=== PATIENT | female | born 1940 | race Caucasian/White ===

== ENCOUNTER → 2016-06-06 | Outpatient (CLI) | payer MEDICARE, OTHER ==
[~2016-06-06] MED LIST: ALPR0.5T3 PO; APIX2.5T PO; DICL1GEL TOPICAL; ESTR1MIS IVF; HYDR-3583 PO; HYDR5TAB64 PO; LEVO.075 PO; MACR100C2 PO; MOBI7.5T PO; NEBI20 PO; RANI150T PO; SERT-132 PO; TRAM50TA PO; ZANA4CAP PO; ZOCO20TA PO
[2016-06-06 16:32] LABS: BACTERIA, URINE OCC /hpf; BLOOD, URINE SMALL (NEG); COMMENT (UR) CULTURE INDICATED; CULTURE IF INDICATED CULTURE INDICATED; GLUCOSE,URINE NEG (NEG); KETONE, URINE NEG (NEG); MUCUS URINE FEW /lpf (OCC); NITRITE,URINE NEG (NEG); SQUAMOUS EPITHELIAL CELL URINE 1 /hpf (0-5); URINE COLOR YELLOW (YELLW/STRAW)
== END ==
LOC: CPRE 14:14
PROVIDERS: ATTEND Neurological Surgery
DX: Z01.812 Encounter for preprocedural laboratory examination (principal); N39.0 Urinary tract infection, site not specified; B96.5 Pseudomonas (aeruginosa) (mallei) (pseudomallei) as the cause of diseases classified elsewhere; B96.89 Other specified bacterial agents as the cause of diseases classified elsewhere
CPT/HCPCS: 81001; 87077; 87086; 87186

== ENCOUNTER 2016-06-14 05:48 | Observation (INO) | payer MEDICARE, OTHER ==
[~2016-06-14] VITALS: Ht 162.6 cm; Wt 57.2 kg
[~2016-06-14 05:48] MED LIST changes: -HYDR-3583 PO; -ZANA4CAP PO
[2016-06-14] MEDS ORDERED: INSULIN HUMAN REGULAR 1,000 UNITS/10 ML VIAL SQ PRN (06:30)
[2016-06-14] MEDS ORDERED: METOPROLOL TARTRATE 25 MG TAB PO PRN (06:30)
[2016-06-14] MEDS ORDERED: SODIUM CHLORID 0.9% 500 ML IV SCH (06:30)
[2016-06-14 06:46] VITALS: BP 159/79; PULSE 65; RESP 18; TEMP 97.9; O2SAT 100
[2016-06-14] MEDS: LACTATED RINGER'S 1000 ML IV SCH (07:00)
[2016-06-14] MEDS ORDERED: VANCOMYCIN HCL 1000 MG VIAL ONE (07:21)
[2016-06-14] MEDS ORDERED: MICROFIBRILLAR COLLAGEN HEMOSTAT 70 X 35 MM BANDAGE ONE (07:21)
[2016-06-14] MEDS ORDERED: GELFOAM SIZE 100 ONE (07:22)
[2016-06-14] MEDS ORDERED: ceFAZolin 2 GM PREMIX 50 ML ONE (07:22)
[2016-06-14] MEDS ORDERED: THROMBIN (TOPICAL) 5,000 UNIT VIAL ONE (07:22)
[2016-06-14] MEDS ORDERED: GENTAMICIN SULFATE 80 MG/2 ML VIAL ONE (07:22)
[2016-06-14] MEDS ORDERED: SODIUM CHLOR 0.9% 250 ML INJ 250 ML ONE (07:23)
[2016-06-14] MEDS ORDERED: HYDROCORTISONE SOD SUCCINATE 100 MG VIAL ONE (07:52)
[2016-06-14] MEDS ORDERED: FAMOTIDINE 20 MG/2 ML VIAL ONE (08:26)
[2016-06-14] MEDS ORDERED: ACETAMINOPHEN 1000 MG/100 ML VIAL IV ONE (10:10)
[2016-06-14] MEDS ORDERED: ACETAMINOPHEN 325 MG TAB PO PRN (11:30)
[2016-06-14] MEDS ORDERED: traMADol HCL 50 MG TAB PO PRN (11:30)
[2016-06-14] MEDS ORDERED: MORPHINE SULFATE 4 MG/ML INJ IV PUSH PRN ×2 (11:30)
[2016-06-14] MEDS ORDERED: MENTHOL LOZENGE SUCK-ON PRN (11:30)
[2016-06-14] MEDS ORDERED: ACETAMINOPHEN/HYDROcodone 325 MG/10 MG TAB PO PRN (11:30)
[2016-06-14] MEDS ORDERED: ESTRADIOL IVF SCH (11:30)
[2016-06-14] MEDS ORDERED: ONDANSETRON HCL 4 MG/2 ML VIAL IV PRN (11:30)
[2016-06-14] MEDS ORDERED: BISACODYL 10 MG SUPP PR PRN (11:30)
[2016-06-14] MEDS ORDERED: ALPRAZolam 0.5 MG TAB PO PRN (11:30)
[2016-06-14] MEDS ORDERED: CYCLOBENZAPRINE HCL 10 MG TAB PO PRN (11:30)
[2016-06-14] MEDS ORDERED: SODIUM CHLORIDE 0.9% FLUSH 5 ML FLUSH IVF PRN (11:30)
[2016-06-14] MEDS ORDERED: DO NOT ADM ANY ANTICOAGULANT DRUGS XX PRN (11:53)
[2016-06-14] MEDS ORDERED: ONDANSETRON HCL 4 MG/2 ML VIAL IV PUSH ONE ×2 (12:00)
[2016-06-14] MEDS ORDERED: LACTATED RINGER'S 1000 ML INJ 2,000 ML IV ONE ×2 (12:00)
[2016-06-14] MEDS ORDERED: PROPOFOL 200 MG/20 ML AMP IV ONE ×2 (12:00)
[2016-06-14] MEDS ORDERED: NEOSTIGMINE 3 MG/3 ML SYR IV ONE ×2 (12:00)
[2016-06-14] MEDS ORDERED: MIDAZOLAM HCL 2 MG/2 ML VIAL ONE (12:36)
[2016-06-14] MEDS ORDERED: fentaNYL CITRATE 250 MCG/5 ML AMP ONE (12:36)
[2016-06-14] MEDS: NS + KCL 20 MEQ INJ 1,000 ML IV SCH (13:00)
--- NOTE | 2016-06-14 13:01 | RADRPT ---
EXAM DATE/TIME: 06/14/2016 09:21 [place] COMPARISON: No previous studies available for comparison. INDICATIONS: C4-5, C5-6 Anterior cervical disc fusion. MEDICAL HISTORY: Hypertension. Gastroesophageal reflux disease. SURGICAL HISTORY: None. ENCOUNTER: Initial ACUITY: 1 day PAIN SCORE: Non-responsive. LOCATION: Cervical spine. FINDINGS: Anterior cervical fusion hardware is noted at C4 through C6 and is in good position. CONCLUSION: 1. Status post anterior cervical fusion from C4 through C6. Martínez Dahl MD on June 14, 2016 at 12:29 Board Certified Radiologist. This report was verified electronically.
[2016-06-14] MEDS ORDERED: *morphine SULFATE 8 MG/ML PERIprocedure ONLY ONE ×2 (13:09→13:23)
[2016-06-14] MEDS: DEXAMETHASONE SOD PHOS 4 MG/ML VIAL IV SCH ×2 (13:29→20:51)
[2016-06-14] MEDS: ceFAZolin 2 GM PREMIX 50 ML IV SCH ×2 (13:30→20:51)
[2016-06-14 14:30] VITALS: BP 139/70; PULSE 62; RESP 18; TEMP 97.5; O2SAT 96
[2016-06-14] MEDS ORDERED: ERYTHROMYCIN 0.5% OPTH OINT 1 GM TUBO ONE ×2 (15:44→16:00)
--- NOTE | 2016-06-14 15:50 | HHI.DCPOC ---
Discharge Care Plan Diagnosis: (1) Status post cervical arthrodesis Goals to Promote Your Health * To prevent worsening of your condition and complications * To maintain your health at the optimal level Directions to Meet Your Goals Take your medications as prescribed Follow your dietary instruction Follow activity as directed Keep your appointments as scheduled Take your immunizations and boosters as scheduled If your symptoms worsen call your PCP, if no PCP go to Urgent Care Center or Emergency Room Smoking is Dangerous to Your Health. Avoid second hand smoke Call the 24-hour hour crisis hotline for domestic abuse at Valarie Zarate Jun 14, 2016 15:50
[2016-06-14] MEDS ORDERED: TETRACAINE 0.5% OPTH SOLN 15 ML BTL LEFT EYE ONE (16:00)
[2016-06-14] MEDS ORDERED: ERYTHROMYCIN 0.5% OPTH OINT 3.5 GM TUBO ONE ×3 (16:00→22:15)
[2016-06-14 20:00] VITALS: BP 152/65; PULSE 66; RESP 18; TEMP 99.2; O2SAT 100
[2016-06-14] MEDS ORDERED: HYDR-3583 PO (20:31)
[2016-06-14] MEDS: FAMOTIDINE 20 MG TAB PO SCH (20:52)
[2016-06-14] MEDS: SODIUM CHLORIDE 0.9% FLUSH 5 ML FLUSH IVF SCH (20:54)
[2016-06-14] MEDS: ARTIFICIAL TEARS OPTH SOLN 15 ML BTL LEFT EYE SCH (20:54)
[2016-06-14] MEDS: DOCUSATE SODIUM 100 MG CAP PO SCH (20:55)
[2016-06-15] VITALS: BP 159/71; PULSE 66; RESP 18; TEMP 97.4; O2SAT 95
[2016-06-15] MEDS: NS + KCL 20 MEQ INJ 1,000 ML IV SCH (01:46)
[2016-06-15] MEDS: DEXAMETHASONE SOD PHOS 4 MG/ML VIAL IV SCH ×2 (02:50→08:00)
[2016-06-15] MEDS: ACETAMINOPHEN/HYDROcodone 325 MG/10 MG TAB PO PRN ×2 (02:52→09:02)
[2016-06-15 04:00] VITALS: BP 137/67; PULSE 72; RESP 18; TEMP 98.5; O2SAT 95
[2016-06-15] MEDS: ceFAZolin 2 GM PREMIX 50 ML IV SCH (05:54)
[2016-06-15] MEDS ORDERED: LEVOTHYROXINE SODIUM 75 MCG TAB PO SCH (06:00)
[2016-06-15] MEDS: LACTATED RINGER'S 1000 ML IV SCH (06:30)
[2016-06-15 08:00] VITALS: BP 166/70; PULSE 96; RESP 16; TEMP 98.6; O2SAT 97
[2016-06-15] MEDS ORDERED: SERTRALINE HCL 50 MG TAB PO SCH (09:00)
[2016-06-15] MEDS ORDERED: PANTOPRAZOLE SOD 40 MG DELAYED RELEASE TAB PO SCH (09:00)
[2016-06-15] MEDS: SODIUM CHLORIDE 0.9% FLUSH 5 ML FLUSH IVF SCH (09:00)
[2016-06-15] MEDS ORDERED: NEBIVOLOL 10 MG TAB PO SCH (09:00)
[2016-06-15] MEDS ORDERED: APIXABAN 2.5 MG TABLET PO SCH (09:00)
[2016-06-15] MEDS: ARTIFICIAL TEARS OPTH SOLN 15 ML BTL LEFT EYE SCH (09:00)
[2016-06-15] MEDS ORDERED: PRAVASTATIN SOD 40 MG TAB PO SCH (09:00)
[2016-06-15] MEDS ORDERED: MELOXICAM 7.5 MG TAB PO SCH (09:00)
[2016-06-15] MEDS: FAMOTIDINE 20 MG TAB PO SCH (09:04)
[2016-06-15] MEDS: DOCUSATE SODIUM 100 MG CAP PO SCH (09:04)
--- NOTE | 2016-06-15 09:14 | HHI.NSPN ---
History Chief Complaint: Mild incisional pain. Interval History 06/15/16: Pt underwent a C4/C5 and C5/C6 anterior cervical fusion with interbody cages and plate placement. She has mild incisional pain. No radiculopathy in UEs. She states her LUE toes numb when laying on her back and is stable compared to preop. She denies any eye pain, blurred or double vision , or parts of her vision missing. She had an eye patch placed for 24 hours. Review of Systems General: Negative for: fever, chills, insomnia Respiratory: Negative for: shortness of breath, cough, sputum Cardiovascular: Negative for: chest pain Gastrointestinal: Negative for: nausea, vomitting, diarrhea, constipation Exam Results Vital Signs Date Time Temp Pulse Resp B/P Pulse Ox O2 Delivery O2 Flow Rate FiO2 06/15/16 04:00 98.5 72 18 137/67 95 06/14/16 14:00 Room Air 06/14/16 11:52 2 Intake and Output 06/14/16 06/14/16 06/15/16 08:00 16:00 00:00 Intake Total 2440 ml 240 ml Output Total 2600 ml Balance -160 ml 240 ml Physical Examination Resp: CTA bilaterally Heart: NSR no murmurs Abd: Soft positive bs Skin: Incision clean and dry. Part of the glue is coming off the medial half of the incision. This was reinforced with steristips. The incision remained intact without any openings. A new bandage was placed. Muscle: Moves all 4 extremities well. Ambulates to the bathroom. Cervical collar intact. Neuro: Pt awake and alert. Follows commands well. Speech clear mild voice hoarseness. Lab, Micro, Other Results 06/14/16 06/14/16 06/15/16 15:00 23:00 07:00 Intake Total 2200 ml 480 ml 105 ml Output Total 2600 ml Balance -400 ml 480 ml 105 ml Intake Oral 480 ml 50 ml IV Total 55 ml Other 2200 ml Output Urine Total 1000 ml Estimated Blood Loss 100 ml Other 1500 ml # Voids 3 1 # Bowel Movements 0 0 Medical Decision Making Impression and Plan A: 76 y/o FM s/p C4/C5 and C5/C6 ACF with cages and plate placement. P: Discharge pt home. Keep incision clean and dry. Follow up next week for incision check with Dr. Henry' office. Discussed incision care, cervical collar use She will follow up with Ophthalmology also for possible abrasion to left eye although not symptomatic currently. Bharat Hernandez Jun 15, 2016 09:14
[2016-06-15] MEDS ORDERED: PILL SPLITTER OTHER PRN (10:00)
[2016-06-15 10:02] VITALS: RESP 18
[2016-06-15 10:18] VITALS: O2SAT 95
--- NOTE | 2016-06-15 11:33 | PD.OP ---
Operative Report Date of Surgery: Jun 14, 2016 Preoperative Diagnosis: Cervical spondylosis and spinal stenosis Postoperative Diagnosis: Cervical spondylosis and spinal stenosis Procedure: C4-5, C5-6 anterior cervical discectomy, interbody arthrodesis using peek cage filled with autologous bone graft, C4-5 C5-6 instrumented fixation using simplicity plate and screws Anesthesia: general Surgeon: Jluis Henry State Archivist(s): Tabitha Lao Operation and Findings: INDICATIONS FOR THE PROCEDURE Ms Whalen is a 76 year-old female who presented with intractable neck pain and clinical evidence of upper extremity radiculopathy. She was found to have significant spondylosis with stenosis. She has failed maximum nonsurgical management including multiple modalities of conservative treatment as well as pain management interventions by an interventional pain specialist. A surgical decompression and arthrodhesis were indicated. The [id number] details of the procedure, indications, alternatives, risks and potential complications were fully discussed with the patient. She fully understood. All The questions were answered. No guarantees were given. The patient voiced requesting the procedure and provided informed consents. She was offered the alternative of delaying the procedure and continuing with nonsurgical management. DETAILS OF THE SURGICAL PROCEDURE After the induction of general anesthesia, endotracheal intubation was performed. A Bales catheter, bilateral GERALDINE hose, and sequential compression devices were placed and kept throughout the procedure. Placement of electrodes for neurophysiological monitoring of the somatosensorial evoked potentials. motor evoked potentials, and EMG as well as laryngeal nerve monitoring was achieved. The patient was positioned supine on a Fabiano table with the head over a gel doughnut. All pressure points were carefully padded with eggcrate mattress. The eyes were tapped shut after ointment was applied by the anesthesiologist to prevent corneal abrasion. A Ghislaine hugger was placed over the exposed lower body to maintain control of the core body temperature. The electrophysiological team placed the needles and electrodes in their proper location and baseline SSEP's and motor evoked potentials were registered prior and after positioning and endotracheal intubation. The anterior cervical region was prepped and draped in the usual sterile fashion. A localizing x-ray was performed with a C-arm. The surgical procedure was performed in several steps as follow: SURGICAL APPROACH A skin incision was made along the medial cervical crease with a #10 blade. The dissection was carried out through the platysma exposing the sternocleidomastoid muscle. The cervical spine was approached following the fascial layers of the neck just medial to the anterior border of the sternocleidomastoid and carotid sheath by a combination of sharp and dull dissection. The omohyoid muscle was identified and carefully dissected laterally and the deep cervical fascia was carefully opened. The longus colli muscles were retracted to each side of the midline. A marker was placed at the disc space C5-6 and a cross-table lateral x-ray performed with a C-arm. SURGICAL DECOMPRESSION In order to decompress the anterior surface of the spinal cord it was necessary to preform a microsurgical resection of the disk at C4-5 and C5-6. At this point in the procedure the operating microscope was draped in the usual sterile fashion and brought to the field. The rest of the surgical procedure was performed using microdissection technique with the exception of the closure. Under the operative microscopic, a self-retaining retractor was placed underneath the longus colli muscle. Anterior osteophite spurs werte carefully removed with the Leksell. The annulus at C4-5 and C5-6 were incised with a #15 blade and microdiscectomy was then carefully carried out using angled curets and pituitary forceps. There were osteophitic/disk complexes mass effect and compression of the dural sac and nerve roots. The posterior longitudinal ligament was then elevated with an angled curet and incised with a 15 bladed knife. A careful resection of the posterior longitudinal ligament was carried out using a thin footplate 2 mm Kerrison. A nerve hook was used to assess the epidural space behing the vertebral bodies C5 and C6 in search for residual disk fragments. The margins of the posterior endplates at C4-5 and C5-6 were carefully drilled and undercut with a TPS drill under high magnification. The decompression was then carried out laterally, and a bilateral foraminotomy was performed with a 2mm thin foot Kerrison. Then the vertebral bodies above and below the disk space were undercut using a 2 mm thin foot Kerrison. The epidural space was the systematically assessed with a nerve hook in search for disk fragments or scar tissue. An excellent decompression was achieved in both , the dural sac and bilateral exiting nerve roots. The incision was then irrigated with a large amount of antibiotic solution INTERBODY ARTHRODHESIS In order to avoid collapse of the disk space which would result in bilateral foraminal stenosis, and to increase the chances of a successful fusion, it was necessary to place an interbody cage filled with autologous bone. At this point of the procedure, the superior and inferior endplates were then evenly decorticated with a TPS drill. The use of a drill in combination with a curette allowed me to systematically remove the cartilaginous endplates, exposing healthy bone for the interbody arthrodesis. Fourteen millimeters distraction pins were then placed at the vertebral bodies adjacent to the disk space, and gentle distraction was applied. The size of the interbody cage was then assessed using different size spacers, and a rasp was used to ensure no residual cartilage. A PEEK cage of the appropriate size was selected, and the interbody arthrodesis was then preformed by carefully impacting a PEEK cage filled with autologous bone graft to the disc spaces C4-5 and C5-6. An excellent position of the cage was achieved. This was was confirmed anatomically by feeling the space posterior to the implant and distance to the anterior surface of the dural sac. Radiological confirmation of the position was performed with a cross lateral xray performed with the C-arm. INTERNAL INSTRUMENTAL FIXATION Once that the interbody device was in an appropriate position, it was necessary to stabilize the spine with anterior instrumentation. Anterior instrumentation has demonstrated to increase the rate of fusion, acelerate the patient's recovery, and decrease the rate of failed interbody grafts. At this point of the procedure, the distance between the vertebral bodies was carefully measures, and a Simplicity plate was brought to the field and presented in front of the vertebral bodies C4 C5 and C6. Pathology Technician holes were then drilled using the TPS drill, and the plate was then secured to the spine using self-drilling, self-tapping screws. Initially, the inferior right screw was inserted, followed by placement of the contralateral upper screw. The remanding screws were sequentially placed in a contra-lateral fashion. A proper purchase was achieved with all screws and the position of the cage, plate and screws, and alignment of the spine was assessed anatomically by direct visualization, and radiologically by performing a cross lateral xray of the cervical spine with the C-arm. CLOSURE The incision was irrigated with several liters of antibiotic solution. Hemostasis was achieved with a bipolar. The screws were locked to prevent backing out. A 7 mm Fabiano-Mcdermott drain was left in the prevertebral space and externalized through a separate stab incision. The incision was then closed in layers. 3-0 Vicryl with interrupted sutures was used to close the platysma and subcutaneous tissue. The skin was closed with 4-0 running subcuticular Vicryl and glue was applied to the skin. The drain was secured with a 3-0 nylon. At the end of the procedure the sponge, needle and instrument counts were all correct. The estimated blood loss was less than 60 cc. No blood transfusion was given. No intraoperative complications occurred. The patient received prophylactic antibiotics. The patient was then extubated and transferred to the recovery room in stable condition. Jluis Henry MD Jun 15, 2016 11:33
[2016-06-15] MEDS ORDERED: FAMOTIDINE 20 MG TAB PO SCH (21:00)
--- NOTE | 2016-06-18 11:27 | HHI.DS ---
Discharge Summary Admission Date Jun 14, 2016 at 15:18 Discharge Date: Jun 15, 2016 Admitting Diagnosis s/p ACDF (1) Status post cervical arthrodesis Brief History Ms Whalen is a 76 year-old female who presented with intractable neck pain and clinical evidence of upper extremity radiculopathy. She was found to have significant spondylosis with stenosis. She has failed maximum nonsurgical management including multiple modalities of conservative treatment as well as pain management interventions by an interventional pain specialist. A surgical decompression and arthrodesis were indicated. Imaging Last Impressions Cervical Spine X-Ray 06/14/16 0000 Signed Impressions: Service Date/Time: Tuesday, June 14, 2016 09:21 - CONCLUSION: 1. Status post anterior cervical fusion from C4 through C6. Martínez Dahl MD Hospital Course Ms. Whalen underwent a C4/C5 and C5/C6 anterior cervical fusion with interbody cages and plate placement on 06/14/16. She has mild incisional pain. An eye patched was placed postoperatively for 24 hours. Her surgical wound was reinforced with steri-strips as part of the glue was coming off. She was discharged home in stable conditions. Pt Condition on Discharge: Stable Discharge Disposition: Discharge Home Discharge Instructions DIET: Follow Instructions for: Heart Healthy Diet ACTIVITIES You can perform: Weight Bearing As Bertha ADDITIONAL Activity Instructio: Avoid strenuous activities, heavy lifting, overhead activities, repetitive bending, twisting, pushing, pulling or any activities which might result in stress over the spine. Avoid situtation that will put at risk for falls. Use assistive device as needed for walking. Wear cervical collar at all times, may remove only with meals. Follow up Referrals: Appointment for Follow Up with Jluis Henry MD New Medications: Hydrocodone-Acetaminophen (Hydrocodone-Acetaminophen) 10-325 mg Tab 1 TAB PO Q8HR PRN PAIN SCALE 1 TO 10 #90 Ref 0 TAB Continued Medications: Alprazolam (Alprazolam) 0.5 Mg Tab 0.5 MG PO Q4H PRN ANXIETY Ref 0 TAB Apixaban (Eliquis) 2.5 Mg Tab 2.5 MG PO BID Blood Clot Prevention Ref 0 TAB Diclofenac Topical (Voltaren Topical) 1% Gel 1 APPLIC TOPICAL QID Pain Management #100 Ref 0 GM Estradiol (Estradiol) 25 Mg Mis 25 MG IVF DIRECTED 3 times a week insert Hydrocortisone (Hydrocortisone) 5 Mg Tab 5 MG PO BID Take with food to decrease GI upset #60 Ref 0 TAB Levothyroxine (Synthroid) 75 Mcg Tab 75 MCG PO DAILY Thyroid #30 Ref 0 TAB Meloxicam (Mobic) 7.5 Mg Tab 7.5 MG PO DAILY Pain Ref 0 TAB Nebivolol (Bystolic) 20 Mg Tab 20 MG PO DAILY Blood Pressure Management #30 Ref 0 TAB Ranitidine (Ranitidine) 150 Mg Tab 150 MG PO BID Heartburn Management #60 Ref 0 TAB Sertraline (Sertraline) 50 Mg Tab 50 MG PO DAILY #30 Ref 0 TAB Simvastatin (Zocor) 20 Mg Tab 20 MG PO DAILY Cholesterol Management #30 Ref 0 TAB Tramadol (Tramadol) 50 Mg Tab 300 MG PO DAILY PRN PAIN Ref 0 TAB Valarie Zarate Jun 18, 2016 11:27
[2016-09-20] MEDS ORDERED: ZANA4CAP PO (11:57)
== END 2016-06-15 10:42 | disposition home or self-care (01) ==
LOC: HSDC 05:48 → EDSTATUS 08:00 → INTOOBSV 12:25 → UNDOADMOB 12:25 → N06A 12:25
PROVIDERS: ADMIT Neurological Surgery; ATTEND Neurological Surgery
DX: M47.892 Other spondylosis, cervical region (principal); M48.02 Spinal stenosis, cervical region; M47.20 Other spondylosis with radiculopathy, site unspecified; M50.121 Cervical disc disorder at C4-C5 level with radiculopathy; M19.90 Unspecified osteoarthritis, unspecified site; I10 Essential (primary) hypertension; E78.5 Hyperlipidemia, unspecified; F41.9 Anxiety disorder, unspecified; K21.9 Gastro-esophageal reflux disease without esophagitis; K58.9 Irritable bowel syndrome, unspecified; E03.9 Hypothyroidism, unspecified
CPT/HCPCS: 00625; 20936; 22551; 22552; 22845; 22853; 72020; 76000; C1713; G0378; J0131; J0690; J1100; J1580; J1720; J2250; J2270; J2405; J2710; J3010; J3370; J3480; J7050; J7120; L0150; L0172

== ENCOUNTER 2018-01-03 20:37 | Inpatient (IN) ==
[2018-01-03] MEDS ORDERED: SODIUM CHLOR 0.9% IV.SIG STA (21:20)
[2018-01-03] MEDS ORDERED: VANCOMYCIN IV.SIG STA (21:20)
[2018-01-03] MEDS ORDERED: Morphine Sulfate Inj 8 MG/ML Vial IV.PUSH ONE (21:20)
[2018-01-03] MEDS ORDERED: Sod Chloride 0.9% Inj 800 ML IV.SIG SCH (21:30)
[2018-01-03] MEDS ORDERED: Morphine Inj 4 MG/ML Vial IV.PUSH ONE (22:19)
[2018-01-03] MEDS: Sod Chloride 0.9% Inj 1,000 ML IV.SIG SCH (22:29)
[2018-01-03 22:55] LABS: Hematocrit 29.3 % (35.0-46.0); Hemoglobin 10.1 gm/dL (11.6-15.3); Mean Corpuscular HGB Conc 34.7 % (32.0-36.0); Mean Corpuscular Hemoglobin 31.6 pg (27.0-34.0); Mean Corpuscular Volume 91.2 fL (80.0-100.0); Mean Platelet Volume 8.3 fL (7.0-11.0); Platelet Count 54 th/mm3 (150-450); Red Blood Count 3.21 mil/mm3 (4.00-5.30); Red Cell Distribution Width 12.7 % (11.6-17.2); White Blood Count 0.5 th/mm3 (4.0-11.0)
[2018-01-03 23:03] LABS: Alanine Aminotransferase 16 U/L (10-53); Anion Gap 11 meq/L (5-15); Aspartate Aminotransferase 20 U/L (15-37); Blood Urea Nitrogen 22 mg/dL (7-18); Carbon Dioxide 23.7 meq/L (21.0-32.0); Chloride 102 meq/L (98-107); Glomerular Filtration Rate 48 mL/min (>89); Glucose,Random 94 mg/dL (74-106); Lipase 106 U/L (73-393); Potassium 3.4 meq/L (3.5-5.1); Sodium 137 meq/L (136-145)
--- NOTE | 2018-01-03 23:04 | XR ---
EXAM DATE: 01/03/2018 10:59 PM EDT AGE/SEX: 77 years / Female INDICATIONS: Lower chest pain. Possible free air. CLINICAL DATA: This is the patient's initial encounter. Patient reports that signs and symptoms have been present for 1 day and indicates a pain score of 10/10. MEDICAL/SURGICAL HISTORY: Hypertension. Carcinoma, rectal. Deep venous thrombosis. Diverticuli tis. Hemorrhoids. . Hip surgery RT. Hysterectomy. Knee surgery LT. Lumbar spine surgery. IVC filte r. Infusaport. COMPARISON: POI, XR CHEST PA AND LAT, 10/22/2017. . FINDINGS: A single AP view of the chest demonstrates the lungs to be symmetrically aerated without evidence of mass, infiltrate or effusion. Stable basilar scarring the left costophrenic angle. Imuorj-l-[id number] cat heter tip projects over the proximal superior vena cava. No evidence of pneumothorax. The cardiomedia stinal contours are unremarkable. Osseous structures are intact. CONCLUSION: 1. No acute findings in the lungs. 2. No evidence of free air. Electronically signed by: Naldo Ludwig MD 01/03/2018 11:02 PM EDT
[2018-01-03 23:06] LABS: Alkaline Phosphatase 52 U/L (45-117); Total Protein 5.9 g/dL (6.4-8.2)
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
--- NOTE | 2018-01-03 23:14 | XR ---
EXAM DATE: 01/03/2018 11:01 PM EDT AGE/SEX: 77 years / Female INDICATIONS: Abdominal pain. CLINICAL DATA: This is the patient's initial encounter. Patient reports that signs and symptoms have been present for 1 day and indicates a pain score of 10/10. MEDICAL/SURGICAL HISTORY: Hypertension. Carcinoma, rectal. Deep venous thrombosis. Diverticuli tis. Hemorrhoids. . Hip surgery RT. Hysterectomy. Knee surgery LT.Lumbar spine surgery. IVC filte r. Infusaport. COMPARISON: No prior exams available for comparison. FINDINGS: Supine and upright views of the abdomen were performed. The abdominal bowel gas pattern is normal. No air-fluid levels are seen. No abnormal masses, calcifications, or organomegaly is seen. The visualiz ed lower lungs are clear. No evidence of free intraperitoneal gas. IVC filter at the L2 level. Transp edicular screws bilaterally at L3-L5. Right total hip arthroplasty.. CONCLUSION: No dilated loops of small or large bowel. Electronically signed by: Naldo Ludwig MD 01/03/2018 11:13 PM EDT
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
[2018-01-03] MEDS ORDERED: HYDROmorphone PF Inj 0.5 MG/0.5 ML Syringe IV.PUSH ONE (23:41)
[2018-01-03 23:56] LABS: Eosinophils 6 % (0-4); Lymphocytes 43 % (9-44); Monocytes 12 % (0-8)
[2018-01-03 23:59] LABS: Dohle Bodies Present; Platelet Morphology Normal (Normal); Toxic Granulation 2+; Toxic Vacuolation Present
[2018-01-04] MEDS ORDERED: Vancomycin Consult Pharmacy 1 EACH OTHER SCH
[2018-01-04] MEDS ORDERED: Bisacodyl 10 MG Supp RECTAL PRN (00:03)
[2018-01-04] MEDS ORDERED: Acetaminophen 325 MG Tablet PO PRN (00:03)
[2018-01-04] MEDS ORDERED: Temazepam 15 MG Capsule PO PRN (00:03)
[2018-01-04] MEDS: HYDROmorphone PF Inj 2 MG/ML Vial IV.PUSH PRN ×6 (00:22→23:12)
[2018-01-04 00:23] LABS: Bacteria,Urine Moderate /hpf; Bilirubin,Urine Negative (Negative); Clarity,Urine Hazy (Clear); Color,Urine Amber (Yellw/Straw); Glucose,Urine (UA) Negative (Negative); Leukocyte Esterase,Urine Large (Negative); Mucus,Urine Few /lpf (Occasional); Nitrite,Urine Positive (Negative); Specific Gravity,Urine 1.021 (1.002-1.035); Squamous Epithelial Cell,Urine <1 /hpf (0-5)
[2018-01-04 00:27] LABS: Hyaline Casts,Urine 1 /lpf (0-3); Renal Epithelial Cells,Urine <1 /hpf; Transitional Epi Cells,Urine <1 /hpf
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
[2018-01-04] MEDS: Sod Chloride 0.9% Inj 1,000 ML IV.CONT SCH ×3 (02:24→23:14)
[2018-01-04] MEDS: Aztreonam Inj 2 GM in Sodium Chloride 0.9% Inj 100 ML IV.SIG SCH ×3 (06:12→22:18)
--- NOTE | 2018-01-04 08:46 | ECG ---
Date Performed: 01/03/2018 Time Performed: 23:30:42 PTAGE: 77 years EKG: SINUS TACHYCARDIA WITH FIRST DEGREE AV BLOCK BORDERLINE LEFT AXIS DEVIATION NONSPECIFIC T-W AVE ABNORMALITY ABNORMAL ECG Compared to PREVIOUS TRACING , now tachycardic PREVIOUS TRACIN05/23/2016 11.45 DOCTOR: Jennifer Moran Interpretating Date/Time 01/04/2018 08:45:04
--- NOTE | 2018-01-04 11:56 | P.PNIM ---
Subjective Interval history: This is a 77-year-old female with a PMH of Anxiety, h/o DVT/PE s/p IVC Filter, Adrenal Insufficiency, HTN, Hypothyroidism and Rectal CA who presented to the ER w/ complaints of abdominal pain and diarrhea starting today. States she has had chronic abdominal pain and diarrhea for approx 1yr, however now symptoms more severe x1wk. Also w/ fever of 101 at home today. Recently diagnosed w/ Rectal CA s/p Chemo/Radiation, follows w/ Dr. Guzman as outpatient, states she had blood work a few days ago on 12/31/17, however she does not know results. Scheduled for Radiation again on Friday and Chemo on 01/21. On arrival, BP 133/ 72, HR 118, O2 sat 96% on RA, Temp 99.6. WBC 0.5, hemoglobin 10.1, platelets 54 , absolute neutrophil count 0.2, previously WBC 1.8, hemoglobin 11 and platelets 157 on 12/31/2017. U/a positive for UTI. Abdominal X-ray with no dilated loops of small or large bowel. CT Abdomen/Pelvis with no acute findings. CXR no acute findings. S/p IV Vanc/Rocephin/Flagyl in ER. 8-5 IS IN NEUTROPENIC PRECAUTIONS DW RN AND PT AM LAB STATES DILAUDID HELPED THE PAIN HAS POSITIVE UTI AWAIT CULTURES Physical Exam Vital signs: Vital Signs 01/03/18 20:50 01/03/18 20:52 01/03/18 23:40 Temperature 99.6 F 98.3 F Pulse Rate 118 H 78 104 H Respiratory Rate 20 18 20 Blood Pressure 133/72 136/63 126/60 Pulse Oximetry 96 97 96 01/04/18 01:00 01/04/18 01:52 01/04/18 01:54 Temperature 97.5 F L Pulse Rate 80 67 87 Respiratory Rate 18 18 Blood Pressure 132/65 160/69 H Pulse Oximetry 96 98 01/04/18 04:00 01/04/18 04:08 01/04/18 05:06 Temperature 98.9 F Pulse Rate 94 H 90 Respiratory Rate 18 16 Blood Pressure 99/53 L Pulse Oximetry 95 01/04/18 08:00 01/04/18 08:19 Temperature 99.1 F Pulse Rate 84 101 H Respiratory Rate 20 Blood Pressure 144/66 H Pulse Oximetry 98 Intake & Output 01/03/18 01/04/18 01/04/18 18:59 06:59 18:59 Intake Total 1798.25 / 1798.25 100 / 100 Output Total 100 / 100 Balance 1698.25 / 1698.25 100 / 100 Weight 56.2 kg Intake: IV 1558.25 / 1558.25 100 / 100 Azactam Inj 2 GM In NS Inj 100 100 / 100 ML @ 200 mls/hr IV.SIG Q8H ANDRY Rx#:[id number] NS Inj 1,000 ML @ Wide Open IV. 1000 / 1000 SIG .Q0M ANDRY Rx#:[id number] Vancomycin Inj 825 MG In NS Inj 258.25 / 258.25 250 ML @ 250 mls/hr IV.SIG STAT STA Rx#:[id number] Rocephin Inj 1,000 MG In NS Inj 100 / 100 100 ML @ 200 mls/hr IV.SIG ONCE ONE Rx#:[id number] Flagyl 500 MG Inj 100 ML @ 100 100 / 100 100 / 100 mls/hr IV.SIG Q8H ANDRY Rx#: [id number] Oral 240 / 240 Output: Urine 100 / 100 Other: Date of Last Bowel Movement 01/03/18 01/03/18 Weight On Admission 56.2 kg Narrative: GENERAL: Elderly white female in mild to moderate distress due to complaints of pain HEENT: PERRLA, EOMI. No scleral icterus or conjunctival pallor. No lid lag or facial droop. CARDIOVASCULAR: Regular rate and rhythm. No obvious murmurs to auscultation. No chest tenderness to palpation. RESPIRATORY: No obvious rhonchi or wheezing. Clear to auscultation. Breath sounds equal bilaterally. GASTROINTESTINAL: Abdomen soft, non-tender, nondistended. BS normal. MUSCULOSKELETAL: Extremities without clubbing, cyanosis, or edema. No obvious deformities. NEUROLOGICAL: Awake, alert and oriented x4. No focal neurologic deficits. Moving both upper and lower extremities spontaneously. Results - Labs CBC & Chem 7: 01/03/18 22:05 01/03/18 22:05 Laboratory Results - last 24 hr 01/03/18 01/03/18 01/03/18 22:05 22:05 22:05 WBC 0.5 L RBC 3.21 L Hgb 10.1 L Hct 29.3 L MCV 91.2 MCH 31.6 MCHC 34.7 RDW 12.7 Plt Count 54 L D MPV 8.3 Prelim Diff (Auto) Manual diff required WBC Differential Manual diff final Seg Neuts % (Manual) 32 Band Neuts % (Manual) 6 Lymphocytes % (Manual) 43 Monocytes % (Manual) 12 H Eosinophils % (Manual) 6 H Basophils % (Manual) 1 Abs Neuts (Manual) 0.2 L* Differential Comment . Toxic Granulation 2+ H Toxic Vacuolation Present H Dohle Bodies Present H Platelet Estimate Low L Platelet Morphology Normal Sodium 137 Potassium 3.4 L Chloride 102 Carbon Dioxide 23.7 Anion Gap 11 BUN 22 H Creatinine 1.10 H Estimated GFR 48 L Random Glucose 94 Lactic Acid 1.1 Calcium 8.0 L Total Bilirubin 2.0 H AST 20 ALT 16 Alkaline Phosphatase 52 Total Protein 5.9 L Albumin 3.0 L Lipase 106 Urine Color Urine Clarity Urine pH Ur Specific [place] Urine Protein Urine Glucose (UA) Urine Ketones Urine Occult Blood Urine Nitrate Urine Bilirubin Urine Urobilinogen Ur Leukocyte Esterase Urine RBC Urine WBC Ur Squamous Epith Cells Ur Transition Epith Cell Ur Renal Epithelial Cell Urine Bacteria Hyaline Casts Urine Mucus Micro UA Comment Urine Culture Comments 01/03/18 23:40 WBC RBC Hgb Hct MCV MCH MCHC RDW Plt Count MPV Prelim Diff (Auto) WBC Differential Seg Neuts % (Manual) Band Neuts % (Manual) Lymphocytes % (Manual) Monocytes % (Manual) Eosinophils % (Manual) Basophils % (Manual) Abs Neuts (Manual) Differential Comment Toxic Granulation Toxic Vacuolation Dohle Bodies Platelet Estimate Platelet Morphology Sodium Potassium Chloride Carbon Dioxide Anion Gap BUN Creatinine Estimated GFR Random Glucose Lactic Acid Calcium Total Bilirubin AST ALT Alkaline Phosphatase Total Protein Albumin Lipase Urine Color Regla Urine Clarity Hazy H Urine pH 6.0 Ur Specific [place] 1.021 Urine Protein Negative Urine Glucose (UA) Negative Urine Ketones Trace H Urine Occult Blood Moderate H Urine Nitrate Positive H Urine Bilirubin Negative Urine Urobilinogen 2.0 H Ur Leukocyte Esterase Large H Urine RBC 4 H Urine WBC 128 H Ur Squamous Epith Cells <1 Ur Transition Epith Cell <1 Ur Renal Epithelial Cell <1 Urine Bacteria Moderate H Hyaline Casts 1 Urine Mucus Few H Micro UA Comment Culture indicated Urine Culture Comments Culture indicated Microbiology 01/03/18 22:10 Blood - Other Aerobic Blood Culture - Preliminary No growth in 1 day 01/03/18 22:10 Blood - Other Anaerobic Blood Culture - Preliminary No growth in 1 day 01/03/18 22:05 Blood - Other Aerobic Blood Culture - Preliminary No growth in 1 day 01/03/18 22:05 Blood - Other Anaerobic Blood Culture - Preliminary No growth in 1 day 01/03/18 22:00 Blood - Peripheral Aerobic Blood Culture - Preliminary No growth in 1 day 01/03/18 22:00 Blood - Peripheral Anaerobic Blood Culture - Preliminary No growth in 1 day 01/03/18 22:05 Blood - Peripheral Aerobic Blood Culture - Preliminary No growth in 1 day 01/03/18 22:05 Blood - Peripheral Anaerobic Blood Culture - Preliminary No growth in 1 day - Imaging Impressions Abdomen X-Ray 01/03/18 21:20 CONCLUSION: No dilated loops of small or large bowel. Abdomen/Pelvis CT 01/03/18 21:20 CONCLUSION: 1. No acute findings in the abdomen/pelvis. Chest X-Ray 01/03/18 21:20 CONCLUSION: 1. No acute findings in the lungs. 2. No evidence of free air. Assessment and Plan - Assessment (1) Neutropenic fever Code(s): D70.9 - Neutropenia, unspecified; R50.81 - Fever presenting with conditions classified elsewhere Status: Acute (2) Rectal cancer Code(s): C20 - Malignant neoplasm of rectum Status: Acute (3) Abdominal pain Code(s): R10.9 - Unspecified abdominal pain Status: Acute - Plan 1. Neutropenic Fever: WBC 0.5, absolute neutrophil count 0.2, Temp 101 at home , currently on Chemo/Radiation for Rectal CA. S/p Blood Cultures, Vanc/Rocephin /Flagyl in ER. U/a positive for UTI as likely source, continue IV Abx, follow up cultures, monitor I/O. Neutropenic precautions, check C Diff for ongoing diarrhea. 2. Rectal CA: on Chemo/Radiation, scheduled for Radiation on Friday, will Consult Dr. Guzman for further evaluation/recommendations. 3. Abdominal Pain: acute onset of severe abdominal pain, CT Abd/Pelvis w/ no acute findings, images reviewed. Analgesics/antiemetics as needed. 4. DVT Prophylaxis: SCD/Teds AM LABS CONTINUE ANTIBIOTICS Code Status: FULL CODE Discussed Condition With: RN AND PT Discharge Planning: PENDING IMPROVEMENT
[2018-01-04] MEDS ORDERED: Hydrocortisone 10 MG Tablet PO SCH (12:05)
[2018-01-04] MEDS: Senna/Docusate Sodium 8.6/50 MG Tablet PO SCH ×2 (13:08→20:19)
[2018-01-04] MEDS: Levothyroxine 75 MCG Tablet PO SCH (13:16)
[2018-01-04] MEDS: Gabapentin 100 MG Capsule PO SCH ×2 (13:17→17:08)
[2018-01-04] MEDS: Nystatin/Diphenhydramine/Lidocaine Mouthwash (Adult) 120 ML Botttle SWISH-SWAL SCH ×3 (14:38→20:14)
[2018-01-04] MEDS: Hydrocortisone 10 MG Tablet PO SCH (14:39)
[2018-01-04] MEDS: ALPRAZolam 0.5 MG Tablet PO PRN (17:08)
[2018-01-04] MEDS: Lactobacillus Acidophilus/L. Spores Tablet PO SCH (17:08)
--- NOTE | 2018-01-04 18:32 | MB ---
cc: Zelda Madsen MD DATE: 01/04/2018 REASON FOR CONSULTATION: Consult requested by hospitalist for evaluation of anal cancer in a patient who is admitted with severe diarrhea and abdominal pain. HISTORY OF PRESENT ILLNESS: This is a 77-year-old, very pleasant white female. She is under the care of my associate, Dr. Guzman and Radiation Oncology, Dr. 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 Both have recommended combined concurrent radiation and chemotherapy. The patient had received mitomycin and 5-FU chemotherapy the first week of radiation and so far, she had received 9 radiations. The last dose was 2 days ago, Friday. The patient came in to the hospital complaining of severe lower abdominal pain associated with fever of 101. She has severe diarrhea. She has sores around the perirectal area. She feels miserable. In the emergency room, the blood test showed that she has neutropenia with fever and she is now admitted to the hospital. Dr. Guzman had been consulted and I have been asked to see her for further evaluation. The patient appears to be ill due to the severe diarrhea and pain. She feels miserable. She was started on the antibiotics. She recently had a history of C. difficile colitis. She is concerned that she may be having another episode of C. difficile colitis. Her stools have been sent out for the C. difficile and the results are still pending. The patient was started on vancomycin, ceftriaxone and Flagyl. REVIEW OF SYSTEMS: The rest of the review of systems is negative. PAST MEDICAL HISTORY: 1. Squamous cell carcinoma of the anal canal, which was diagnosed in 09/2017. 2. DVT after arthroscopic knee surgery, status post IVC filter. 3. Diverticulosis. 4. Hemorrhoids. 5. Hypertension. 6. Osteoarthritis. 7. Peripheral neuropathy. 8. Hypothyroidism. PAST SURGICAL HISTORY: Bladder sling surgery, cataracts, colonoscopy, foot surgery. C-spine surgery, hip surgery, complete hysterectomy, knee surgery, IVC filter placement. ALLERGIES: CODEINE, MOTRIN, PENICILLIN AND SULFA. MEDICATIONS: Please see EMR. FAMILY HISTORY: None for malignancy. SOCIAL HISTORY: The patient is a . She used to smoke cigarettes, 1 pack a day for 30 years, quit 30 years ago. She occasionally drinks alcohol. PHYSICAL EXAMINATION: GENERAL: Reveals a well-developed, ill-appearing white female in mild to moderate distress. VITAL SIGNS: Temperature 98.1, heart rate is 73, blood pressure 151/75, O2 saturation 93%. HEENT: PERRLA. EOMI, anicteric. No oral lesions noted. NECK: No lymphadenopathy noted. LUNGS: Clear. No wheezing, rhonchi or rales. HEART: Regular rate and rhythm. ABDOMEN: Soft, tenderness noted in the lower abdomen. EXTREMITIES: No pedal edema. NEUROLOGIC: Awake, alert, oriented x3. SKIN: No significant lesions noted. ASSESSMENT: 1. Neutropenic fever, most likely source is urinary tract infection. 2. Urinary tract infection. 3. Neutropenia from radiation and chemotherapy. 4. Squamous cell carcinoma of the anal canal, currently receiving radiation and chemotherapy 5-FU and mitomycin. 5. Severe diarrhea, most likely from radiation enteritis and also from the 5-FU chemotherapy. PLAN: I have reviewed her available records and I have discussed with the patient regarding the severe diarrhea and abdominal pain, which is due to both radiation and 5-FU chemotherapy. She has unusual early toxicity from the radiation and chemotherapy as she just completed 9 days of her radiation therapy last week, Friday. Stools have been sent out for C. difficile. She stated that she recently was treated for C. difficile colitis. If the C. difficile comes back negative, then we will start her on Lomotil. She is currently receiving IV Flagyl empirically. She is also getting vancomycin and Rocephin, but I will change the Rocephin to cefepime for better Gram-negative coverage. The patient was encouraged that she will get better. We will consult wound management for her perirectal skin excoriation from radiation therapy. Dr. Guzman will resume the care tomorrow morning. Thank you for asking my opinion. MD MERCEDES Thapa/BROOKE , 05:55 PM , 06:09 PM MTDD
[2018-01-05] MEDS: Vancomycin Inj 750 MG in Sodium Chlor 0.9% Inj 250 ML IV.SIG SCH (01:52)
[2018-01-05] MEDS: Hydrocortisone 10 MG Tablet PO SCH ×2 (05:02→12:05)
[2018-01-05] MEDS: HYDROmorphone PF Inj 2 MG/ML Vial IV.PUSH PRN ×5 (05:02→22:21)
[2018-01-05] MEDS: Aztreonam Inj 2 GM in Sodium Chloride 0.9% Inj 100 ML IV.SIG SCH ×3 (05:03→22:14)
[2018-01-05] MEDS: Levothyroxine 75 MCG Tablet PO SCH (05:03)
[2018-01-05 05:36] LABS: Hematocrit 24.3 % (35.0-46.0); Hemoglobin 8.3 gm/dL (11.6-15.3); Mean Corpuscular HGB Conc 34.2 % (32.0-36.0); Mean Corpuscular Hemoglobin 31.7 pg (27.0-34.0); Mean Corpuscular Volume 92.6 fL (80.0-100.0); Mean Platelet Volume 7.9 fL (7.0-11.0); Platelet Count 27 th/mm3 (150-450); Red Blood Count 2.62 mil/mm3 (4.00-5.30); Red Cell Distribution Width 12.8 % (11.6-17.2); White Blood Count 0.5 th/mm3 (4.0-11.0)
[2018-01-05 06:10] LABS: Albumin 2.3 g/dL (3.4-5.0); Alkaline Phosphatase 46 U/L (45-117); Anion Gap 8 meq/L (5-15); Aspartate Aminotransferase 15 U/L (15-37); Blood Urea Nitrogen 12 mg/dL (7-18); Calcium 6.6 mg/dL (8.5-10.1); Carbon Dioxide 22.4 meq/L (21.0-32.0); Chloride 109 meq/L (98-107); Free T4 (Free Thyroxine) 1.37 ng/dL (0.76-1.46); Glomerular Filtration Rate 56 mL/min (>89); Glucose,Random 91 mg/dL (74-106); Magnesium 1.3 mg/dL (1.5-2.5); Phosphorus 1.2 mg/dL (2.5-4.9); Sodium 139 meq/L (136-145); Total Protein 4.9 g/dL (6.4-8.2)
[2018-01-05 07:03] LABS: Blast Cells 3 % (0-0); Eosinophils 3 % (0-4); Lymphocytes 27 % (9-44); Monocytes 13 % (0-8)
[2018-01-05 07:07] LABS: Platelet Morphology Normal (Normal)
[2018-01-05] MEDS ORDERED: Potassium Chloride 25 MEQ Effervescent Tablet PO ONE ×2 (09:00→19:00)
[2018-01-05] MEDS: Lactobacillus Acidophilus/L. Spores Tablet PO SCH ×3 (09:10→17:09)
[2018-01-05] MEDS: Gabapentin 100 MG Capsule PO SCH ×3 (09:10→17:09)
[2018-01-05] MEDS: Nystatin/Diphenhydramine/Lidocaine Mouthwash (Adult) 120 ML Botttle SWISH-SWAL SCH ×4 (09:11→22:15)
--- NOTE | 2018-01-05 10:23 | P.PNIM ---
Subjective Interval history: This is a 77-year-old female with a PMH of Anxiety, h/o DVT/PE s/p IVC Filter, Adrenal Insufficiency, HTN, Hypothyroidism and Rectal CA who presented to the ER w/ complaints of abdominal pain and diarrhea starting today. States she has had chronic abdominal pain and diarrhea for approx 1yr, however now symptoms more severe x1wk. Also w/ fever of 101 at home today. Recently diagnosed w/ Rectal CA s/p Chemo/Radiation, follows w/ Dr. Guzman as outpatient, states she had blood work a few days ago on 12/31/17, however she does not know results. Scheduled for Radiation again on Friday and Chemo on 01/21. On arrival, BP 133/ 72, HR 118, O2 sat 96% on RA, Temp 99.6. WBC 0.5, hemoglobin 10.1, platelets 54 , absolute neutrophil count 0.2, previously WBC 1.8, hemoglobin 11 and platelets 157 on 12/31/2017. U/a positive for UTI. Abdominal X-ray with no dilated loops of small or large bowel. CT Abdomen/Pelvis with no acute findings. CXR no acute findings. S/p IV Vanc/Rocephin/Flagyl in ER. 8-5 IS IN NEUTROPENIC PRECAUTIONS DW RN AND PT AM LAB STATES DILAUDID HELPED THE PAIN HAS POSITIVE UTI AWAIT CULTURES CAME BACK POSITIVE FOR C.DIFFICILE TOXIN POSITIVE START VANCO 250MG PO QID FOR 28 DAYS 8-6 APPEARS TO HAVE ZOSTER ON LEFT BUTTOCKS WILL TREAT THIS will start acyclovir DW RN AND PT HAS WATERY DIARRHEA AM LABS HAS GERD/INDIGESTION WILL TREAT Physical Exam Vital signs: Vital Signs 01/04/18 12:00 01/04/18 15:20 01/04/18 15:22 Temperature 98.1 F Pulse Rate 91 H 91 H 98 H Respiratory Rate 18 Blood Pressure 128/78 Pulse Oximetry 98 01/04/18 16:00 01/04/18 20:00 01/04/18 20:01 Temperature 99.3 F 98.3 F Pulse Rate 68 78 70 Respiratory Rate 20 18 Blood Pressure 124/67 120/65 Pulse Oximetry 98 97 01/04/18 20:12 01/05/18 00:00 01/05/18 00:08 Temperature 98.9 F Pulse Rate 74 70 Respiratory Rate 16 18 Blood Pressure 132/73 Pulse Oximetry 97 01/05/18 04:00 01/05/18 04:01 01/05/18 07:23 Temperature 99.8 F H Pulse Rate 94 H 94 H 94 H Respiratory Rate 20 Blood Pressure 103/39 L Pulse Oximetry 94 L 01/05/18 07:54 Temperature 99.8 F H Pulse Rate 90 Respiratory Rate 18 Blood Pressure 106/53 L Pulse Oximetry 95 Intake & Output 01/04/18 01/05/18 01/05/18 18:59 06:59 18:59 Intake Total 1900 / 1900 1440 / 1440 240 / 240 Output Total 700 / 700 450 / 450 Balance 1200 / 1200 990 / 990 240 / 240 Weight 59 kg Intake: IV 1300 / 1300 1200 / 1200 NS Inj 1,000 ML @ 100 mls/hr IV 1000 / 1000 1000 / 1000 .CONT .Q10H ANDRY Rx#:[id number] Azactam Inj 2 GM In NS Inj 100 100 / 100 100 / 100 ML @ 200 mls/hr IV.SIG Q8H ANDRY Rx#:[id number] Flagyl 500 MG Inj 100 ML @ 100 200 / 200 100 / 100 mls/hr IV.SIG Q8H ANDRY Rx#: [id number] Oral 600 / 600 240 / 240 240 / 240 Output: Urine 700 / 700 450 / 450 Other: Date of Last Bowel Movement 01/03/18 01/03/18 # Bowel Movements 3 1 Narrative: Awake alert and oriented 3 talkative and cooperative GENERAL: Elderly white female in mild to moderate distress due to complaints of pain HEENT: PERRLA, EOMI. No scleral icterus or conjunctival pallor. No lid lag or facial droop. CARDIOVASCULAR: Regular rate and rhythm. No obvious murmurs to auscultation. No chest tenderness to palpation. S1-S2 no S3 or S4 RESPIRATORY: No obvious rhonchi or wheezing. Clear to auscultation. Breath sounds equal bilaterally. GASTROINTESTINAL: Abdomen soft, non-tender, nondistended. BS normal. MUSCULOSKELETAL: Extremities without clubbing, cyanosis, or edema. No obvious deformities. NEUROLOGICAL: Awake, alert and oriented x4. No focal neurologic deficits. Moving both upper and lower extremities spontaneously. Skin warm and dry. On the left buttocks near her rectum has an area that looks like possibly zoster will treat Results - Labs CBC & Chem 7: 01/05/18 04:45 01/05/18 04:45 Laboratory Results - last 24 hr 01/03/18 01/04/18 01/05/18 23:40 14:25 04:45 WBC 0.5 L RBC 2.62 L Hgb 8.3 L Hct 24.3 L MCV 92.6 MCH 31.7 MCHC 34.2 RDW 12.8 Plt Count 27 L D MPV 7.9 Prelim Diff (Auto) Manual diff required WBC Differential Manual diff final Seg Neuts % (Manual) 37 Band Neuts % (Manual) 17 H Lymphocytes % (Manual) 27 Monocytes % (Manual) 13 H Eosinophils % (Manual) 3 Blast Cells % (Manual) 3 H Abs Neuts (Manual) 0.3 L* Differential Comment . Platelet Estimate Low L Platelet Morphology Normal Sodium Potassium Chloride Carbon Dioxide Anion Gap BUN Creatinine Estimated GFR Random Glucose Calcium Prot Corrected Calcium Phosphorus Magnesium Total Bilirubin AST ALT Alkaline Phosphatase Total Protein Albumin TSH Free T4 Urine Color Regla Urine Clarity Hazy H Urine pH 6.0 Ur Specific [place] 1.021 Urine Protein Negative Urine Glucose (UA) Negative Urine Ketones Trace H Urine Occult Blood Moderate H Urine Nitrate Positive H Urine Bilirubin Negative Urine Urobilinogen 2.0 H Ur Leukocyte Esterase Large H Urine RBC 4 H Urine WBC 128 H Ur Squamous Epith Cells <1 Ur Transition Epith Cell <1 Ur Renal Epithelial Cell <1 Urine Bacteria Moderate H Hyaline Casts 1 Urine Mucus Few H Micro UA Comment Culture indicated Urine Culture Comments Culture indicated Stl C.difficile Tox PCR Positive H St C. diff Tox Epid 027 Negative 01/05/18 04:45 WBC RBC Hgb Hct MCV MCH MCHC RDW Plt Count MPV Prelim Diff (Auto) WBC Differential Seg Neuts % (Manual) Band Neuts % (Manual) Lymphocytes % (Manual) Monocytes % (Manual) Eosinophils % (Manual) Blast Cells % (Manual) Abs Neuts (Manual) Differential Comment Platelet Estimate Platelet Morphology Sodium 139 Potassium 3.0 L Chloride 109 H Carbon Dioxide 22.4 Anion Gap 8 BUN 12 Creatinine 0.97 Estimated GFR 56 L Random Glucose 91 Calcium 6.6 L* D Prot Corrected Calcium 7.7 L Phosphorus 1.2 L Magnesium 1.3 L Total Bilirubin 0.7 AST 15 ALT Less than 6 L Alkaline Phosphatase 46 Total Protein 4.9 L D Albumin 2.3 L D TSH 1.140 Free T4 1.37 Urine Color Urine Clarity Urine pH Ur Specific [place] Urine Protein Urine Glucose (UA) Urine Ketones Urine Occult Blood Urine Nitrate Urine Bilirubin Urine Urobilinogen Ur Leukocyte Esterase Urine RBC Urine WBC Ur Squamous Epith Cells Ur Transition Epith Cell Ur Renal Epithelial Cell Urine Bacteria Hyaline Casts Urine Mucus Micro UA Comment Urine Culture Comments Stl C.difficile Tox PCR St C. diff Tox Epid 027 Microbiology 01/03/18 23:40 Clean Catch Urine Urine Culture - Preliminary gram negative rods 01/03/18 22:10 Blood - Other Aerobic Blood Culture - Preliminary No growth in 1 day 01/03/18 22:10 Blood - Other Anaerobic Blood Culture - Preliminary No growth in 1 day 01/03/18 22:05 Blood - Other Aerobic Blood Culture - Preliminary No growth in 1 day 01/03/18 22:05 Blood - Other Anaerobic Blood Culture - Preliminary No growth in 1 day 01/03/18 22:00 Blood - Peripheral Aerobic Blood Culture - Preliminary No growth in 1 day 01/03/18 22:00 Blood - Peripheral Anaerobic Blood Culture - Preliminary No growth in 1 day 01/03/18 22:05 Blood - Peripheral Aerobic Blood Culture - Preliminary No growth in 1 day 01/03/18 22:05 Blood - Peripheral Anaerobic Blood Culture - Preliminary No growth in 1 day - Imaging Abdomen X-Ray 01/03/18 21:20 CONCLUSION: No dilated loops of small or large bowel. Abdomen/Pelvis CT 01/03/18 21:20 CONCLUSION: 1. No acute findings in the abdomen/pelvis. Chest X-Ray 01/03/18 21:20 CONCLUSION: 1. No acute findings in the lungs. 2. No evidence of free air. Assessment and Plan - Assessment (1) Neutropenic fever Code(s): D70.9 - Neutropenia, unspecified; R50.81 - Fever presenting with conditions classified elsewhere Status: Acute (2) Rectal cancer Code(s): C20 - Malignant neoplasm of rectum Status: Acute (3) Abdominal pain Code(s): R10.9 - Unspecified abdominal pain Status: Acute - Plan 1. Neutropenic Fever: WBC 0.5, absolute neutrophil count 0.2, Temp 101 at home , currently on Chemo/Radiation for Rectal CA. S/p Blood Cultures, Vanc/ cefepime U/a positive for UTI as likely source, continue IV Abx, follow up cultures, monitor I/O. Neutropenic precautions, check C Diff for ongoing diarrhea. 2. Rectal CA: on Chemo/Radiation, scheduled for Radiation on Friday, will Consult Dr. Guzman for further evaluation/recommendations. 3. Abdominal Pain: acute onset of severe abdominal pain, CT Abd/Pelvis w/ no acute findings, images reviewed. Analgesics/antiemetics as needed. 4. DVT Prophylaxis: SCD/Teds C. difficile toxin positive colitis started on vancomycin 250 mg p.o. 4 times daily for 28 days Left buttocks zoster will start on acyclovir 800 mg p.o. 5 times a day GERD we will continue on Protonix 40 mg p.o. daily Hypokalemia will replace and recheck labs in the morning AM LABS CONTINUE ANTIBIOTICS Code Status: Full code Discussed Condition With: RN and patient and oncology and case management Discharge Planning: PENDING IMPROVEMENT
[2018-01-05] MEDS ORDERED: Potassium Bicarbonate 25 MEQ Effervescent Tablet PO ONE (11:30)
[2018-01-05] MEDS: Senna/Docusate Sodium 8.6/50 MG Tablet PO SCH ×2 (12:07→22:07)
[2018-01-05] MEDS ORDERED: Potassium Chloride 10 MEQ ER Capsule PO ONE (12:45)
--- NOTE | 2018-01-05 12:53 | P.PNONC ---
Subjective Interval history: Afebrile Patient reports she has abdominal cramps This is much improved with Dilaudid Still having a lot of diarrhea Objective Vital Signs/Intake & Output: Vital Signs 01/04/18 15:20 01/04/18 15:22 01/04/18 16:00 Temperature 99.3 F Pulse Rate 91 H 98 H 68 Respiratory Rate 20 Blood Pressure 124/67 Pulse Oximetry 98 01/04/18 20:00 01/04/18 20:01 01/04/18 20:12 Temperature 98.3 F Pulse Rate 78 70 Respiratory Rate 18 16 Blood Pressure 120/65 Pulse Oximetry 97 01/05/18 00:00 01/05/18 00:08 01/05/18 04:00 Temperature 98.9 F 99.8 F H Pulse Rate 74 70 94 H Respiratory Rate 18 20 Blood Pressure 132/73 103/39 L Pulse Oximetry 97 94 L 01/05/18 04:01 01/05/18 07:23 01/05/18 07:54 Temperature 99.8 F H Pulse Rate 94 H 94 H 90 Respiratory Rate 18 Blood Pressure 106/53 L Pulse Oximetry 95 01/05/18 11:24 01/05/18 11:35 Temperature 98.7 F 97.8 F Pulse Rate 59 L 87 Respiratory Rate 18 Blood Pressure 114/57 L 96/51 L Pulse Oximetry 96 96 Intake & Output 01/04/18 01/05/18 01/05/18 18:59 06:59 18:59 Intake Total 1900 / 1900 1440 / 1440 480 / 480 Output Total 700 / 700 450 / 450 Balance 1200 / 1200 990 / 990 480 / 480 Weight 130 lb 1.164 oz Intake: IV 1300 / 1300 1200 / 1200 NS Inj 1,000 ML @ 100 mls/hr IV 1000 / 1000 1000 / 1000 .CONT .Q10H ANDRY Rx#:[id number] Azactam Inj 2 GM In NS Inj 100 100 / 100 100 / 100 ML @ 200 mls/hr IV.SIG Q8H ANDRY Rx#:[id number] Flagyl 500 MG Inj 100 ML @ 100 200 / 200 100 / 100 mls/hr IV.SIG Q8H ANDRY Rx#: [id number] Oral 600 / 600 240 / 240 480 / 480 Output: Urine 700 / 700 450 / 450 Other: Date of Last Bowel Movement 01/03/18 01/03/18 01/05/18 # Bowel Movements 3 1 Result Diagrams: 01/05/18 04:45 01/05/18 04:45 Laboratory Results: Laboratory Results - last 24 hr 01/03/18 01/04/18 01/05/18 23:40 14:25 04:45 WBC 0.5 L RBC 2.62 L Hgb 8.3 L Hct 24.3 L MCV 92.6 MCH 31.7 MCHC 34.2 RDW 12.8 Plt Count 27 L D MPV 7.9 Prelim Diff (Auto) Manual diff required WBC Differential Manual diff final Seg Neuts % (Manual) 37 Band Neuts % (Manual) 17 H Lymphocytes % (Manual) 27 Monocytes % (Manual) 13 H Eosinophils % (Manual) 3 Blast Cells % (Manual) 3 H Abs Neuts (Manual) 0.3 L* Differential Comment . Platelet Estimate Low L Platelet Morphology Normal Sodium Potassium Chloride Carbon Dioxide Anion Gap BUN Creatinine Estimated GFR Random Glucose Calcium Prot Corrected Calcium Phosphorus Magnesium Total Bilirubin AST ALT Alkaline Phosphatase Total Protein Albumin TSH Free T4 Urine Color Regla Urine Clarity Hazy H Urine pH 6.0 Ur Specific [place] 1.021 Urine Protein Negative Urine Glucose (UA) Negative Urine Ketones Trace H Urine Occult Blood Moderate H Urine Nitrate Positive H Urine Bilirubin Negative Urine Urobilinogen 2.0 H Ur Leukocyte Esterase Large H Urine RBC 4 H Urine WBC 128 H Ur Squamous Epith Cells <1 Ur Transition Epith Cell <1 Ur Renal Epithelial Cell <1 Urine Bacteria Moderate H Hyaline Casts 1 Urine Mucus Few H Micro UA Comment Culture indicated Urine Culture Comments Culture indicated Stl C.difficile Tox PCR Positive H St C. diff Tox Epid 027 Negative 01/05/18 04:45 WBC RBC Hgb Hct MCV MCH MCHC RDW Plt Count MPV Prelim Diff (Auto) WBC Differential Seg Neuts % (Manual) Band Neuts % (Manual) Lymphocytes % (Manual) Monocytes % (Manual) Eosinophils % (Manual) Blast Cells % (Manual) Abs Neuts (Manual) Differential Comment Platelet Estimate Platelet Morphology Sodium 139 Potassium 3.0 L Chloride 109 H Carbon Dioxide 22.4 Anion Gap 8 BUN 12 Creatinine 0.97 Estimated GFR 56 L Random Glucose 91 Calcium 6.6 L* D Prot Corrected Calcium 7.7 L Phosphorus 1.2 L Magnesium 1.3 L Total Bilirubin 0.7 AST 15 ALT Less than 6 L Alkaline Phosphatase 46 Total Protein 4.9 L D Albumin 2.3 L D TSH 1.140 Free T4 1.37 Urine Color Urine Clarity Urine pH Ur Specific [place] Urine Protein Urine Glucose (UA) Urine Ketones Urine Occult Blood Urine Nitrate Urine Bilirubin Urine Urobilinogen Ur Leukocyte Esterase Urine RBC Urine WBC Ur Squamous Epith Cells Ur Transition Epith Cell Ur Renal Epithelial Cell Urine Bacteria Hyaline Casts Urine Mucus Micro UA Comment Urine Culture Comments Stl C.difficile Tox PCR St C. diff Tox Epid 027 Culture Results: Microbiology 01/03/18 22:10 Aerobic Blood Culture - Preliminary Blood - Other No growth in 2 days Anaerobic Blood Culture - Preliminary No growth in 2 days 01/03/18 22:05 Aerobic Blood Culture - Preliminary Blood - Other No growth in 2 days Anaerobic Blood Culture - Preliminary No growth in 2 days 01/03/18 22:00 Aerobic Blood Culture - Preliminary Blood - Peripheral No growth in 2 days Anaerobic Blood Culture - Preliminary No growth in 2 days 01/03/18 22:05 Aerobic Blood Culture - Preliminary Blood - Peripheral No growth in 2 days Anaerobic Blood Culture - Preliminary No growth in 2 days 01/03/18 23:40 Urine Culture - Preliminary Clean Catch Urine gram negative rods Medications: Active Medications Generic Name Dose Route Start Last Admin Trade Name Freq PRN Reason Stop Dose Admin Alprazolam 0.5 mg 01/04/18 12:00 01/04/18 17:08 Xanax PO 0.5 mg BID PRN Administration Anxiety Apixaban 2.5 mg 01/04/18 12:00 01/04/18 20:14 Eliquis PO 2.5 mg BID ANDRY Administration Atorvastatin Calcium 20 mg 01/04/18 21:00 01/04/18 20:14 Lipitor PO 20 mg HS ANDRY Administration Carbidopa/Levodopa 1 tab 01/04/18 21:00 01/04/18 20:14 Sinemet 25/100 Mg PO 1 tab HS ANDRY Administration Gabapentin 100 mg 01/04/18 13:00 01/05/18 12:05 Neurontin PO 100 mg TID ANDRY Administration Hydrocortisone Acetate 30 mg 01/05/18 06:00 01/05/18 05:02 Cortef PO 30 mg DAILY@0600 ANDRY Administration Hydrocortisone Acetate 20 mg 01/04/18 12:30 01/05/18 12:05 Cortef PO 20 mg DAILY@1200 ANDRY Administration Hydromorphone HCl 1 mg 01/04/18 00:14 01/05/18 09:09 Dilaudid Pf Inj IV.PUSH 1 mg Q4H PRN Administration PAIN 6-10 Sodium Chloride 1,000 mls @ 0 mls/hr 01/03/18 21:30 01/04/18 00:24 Ns Inj IV.SIG Infused .Q0M ANDRY Infusion Wide Open Aztreonam 2 gm/ Sodium 100 mls @ 200 mls/hr 01/04/18 06:00 01/05/18 05:03 Chloride IV.SIG 200 mls/hr Q8H ANDRY Administration Sodium Chloride 1,000 mls @ 100 mls/hr 01/04/18 00:15 01/04/18 23:14 Ns Inj IV.CONT 100 mls/hr .Q10H ANDRY Administration Vancomycin HCl 750 mg/ Sodium 250 mls @ 250 mls/hr 01/05/18 01:00 01/05/18 01 :52 Chloride IV.SIG 250 mls/hr Q24H ANDRY Administration Lactobacillus Acidophilus 1 tab 01/04/18 18:00 01/05/18 12:05 Lactinex PO 1 tab TID ANDRY Administration Levothyroxine Sodium 75 mcg 01/04/18 12:15 01/05/18 05:03 Synthroid PO 75 mcg DAILY@0600 ANDRY Administration Multi-Ingredient Mouthwash/Gargle 10 ml 01/04/18 13:00 01/05/18 12:06 Magic Mouthwash Adult Liq SWISH-SWAL 10 ml QID ANDRY Administration Pantoprazole Sodium 40 mg 01/05/18 11:00 01/05/18 12:05 Protonix PO 40 mg DAILY ANDRY Administration Senna/Docusate Sodium 1 tab 01/04/18 09:00 01/05/18 12:07 Lucy-Colace PO Not Given BID ANDRY Temazepam 15 mg 01/04/18 00:03 01/04/18 02:31 Restoril PO 15 mg HS PRN Administration INSOMNIA Vancomycin HCl 250 mg 01/04/18 18:45 01/05/18 12:05 Vancomycin Po PO 250 mg QID ANDRY Administration Objective Remarks: GENERAL: Tired appearing elderly female resting in bed in no obvious distress SKIN: Warm and dry. Herpetic appearing lesion to left buttock with surrounding petechiae HEAD: Normocephalic. EYES: No scleral icterus. No injection or drainage. NECK: Supple, trachea midline. No JVD or lymphadenopathy. CARDIOVASCULAR: Irregular rhythm. RESPIRATORY: Clear anteriorly. Breathing unlabored at rest. GASTROINTESTINAL: Abdomen soft, non-tender, nondistended. EXTREMITIES: No cyanosis, or edema. MUSCULOSKELETAL: Generalized weakness NEUROLOGICAL: No obvious focal deficit. Awake, alert, and oriented x3. Assessment/Plan (1) C. 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 She was admitted with lower abdominal pain, fever and diarrhea. 1. Continue treatment of C-diff infection with po vancomycin. 2. UA growing gram neg rods; pt on aztrenoam. 3. Hold Eliquis for now as pt with severe thrombocytopenia 4. Agree with acyclovir for possible herpetic lesion to buttocks. - Attending Statement The exam, history, and the medical decision-making described in the above note were completed with the assistance of the mid-level provider. I reviewed and agree with the findings presented. I attest that I had a [id number] encounter with the patient on the same day, and personally performed and documented my assessment and findings in the medical record. Still has diarrhea. C.diff +. Abdominal pain better controlled. Remains afebrile. Still neutropenic. Change flagyl to PO. Continue Aztreonem. Cx pending. Continue supportive care. Add neupogen.
[2018-01-05] MEDS: Filgrastim Inj 300 MCG/ML Vial SQ SCH (14:16)
[2018-01-05] MEDS: Acyclovir 800 MG Tablet PO SCH ×3 (14:36→22:06)
[2018-01-05] MEDS: metroNIDAZOLE 500 MG Tablet PO SCH ×2 (14:37→22:06)
[2018-01-05] MEDS: ALPRAZolam 0.5 MG Tablet PO PRN (17:09)
[2018-01-05] MEDS: Sod Chloride 0.9% Inj 1,000 ML IV.CONT SCH (18:52)
[2018-01-05 19:30] LABS: Hemoglobin A1c 5.4 % (4.3-6.0)
[2018-01-06] MEDS: Vancomycin Inj 750 MG in Sodium Chlor 0.9% Inj 250 ML IV.SIG SCH (00:53)
[2018-01-06] MEDS: Sod Chloride 0.9% Inj 1,000 ML IV.CONT SCH ×4 (00:55→23:14)
[2018-01-06] MEDS: HYDROmorphone PF Inj 2 MG/ML Vial IV.PUSH PRN ×5 (02:17→21:32)
[2018-01-06] MEDS: Benzonatate 100 MG Capsule PO PRN ×2 (04:41→23:12)
[2018-01-06 05:27] LABS: Baso % (Auto) 0.1 % (0.0-2.0); Eos # (Auto) 0.1 th/mm3 (0.0-0.4); Eos % (Auto) 6.6 % (0.0-4.0); Hematocrit 22.4 % (35.0-46.0); Hemoglobin 7.6 gm/dL (11.6-15.3); Lymph # (Auto) 0.2 th/mm3 (1.0-4.8); Lymph % (Auto) 13.4 % (9.0-44.0); Mean Corpuscular Hemoglobin 31.5 pg (27.0-34.0); Mean Corpuscular Volume 92.6 fL (80.0-100.0); Mean Platelet Volume 8.3 fL (7.0-11.0); Mono # (Auto) 0.2 th/mm3 (0.0-0.9); Mono % (Auto) 11.3 % (0.0-8.0); Neut # (Auto) 1.2 th/mm3 (1.8-7.7); Neut % (Auto) 68.6 % (16.0-70.0); Platelet Count 31 th/mm3 (150-450); Red Blood Count 2.42 mil/mm3 (4.00-5.30); Red Cell Distribution Width 13.2 % (11.6-17.2); White Blood Count 1.7 th/mm3 (4.0-11.0)
[2018-01-06] MEDS ORDERED: Heparin Central Flush 100 UNIT/ML 5 ML Vial IV.FLUSH PRN ×2 (06:12)
[2018-01-06] MEDS: Acyclovir 800 MG Tablet PO SCH ×5 (06:26→21:29)
[2018-01-06] MEDS: Aztreonam Inj 2 GM in Sodium Chloride 0.9% Inj 100 ML IV.SIG SCH ×3 (06:26→21:31)
[2018-01-06] MEDS: Hydrocortisone 10 MG Tablet PO SCH ×2 (06:27→11:42)
[2018-01-06] MEDS: metroNIDAZOLE 500 MG Tablet PO SCH (06:27)
[2018-01-06] MEDS: Levothyroxine 75 MCG Tablet PO SCH (06:27)
[2018-01-06 07:06] LABS: Eosinophils 5 % (0-4); Monocytes 4 % (0-8)
[2018-01-06 07:07] LABS: Lymphocytes 16 % (9-44); Platelet Morphology Normal (Normal); Toxic Granulation 3+
[2018-01-06 07:08] LABS: Dohle Bodies Present
--- NOTE | 2018-01-06 07:44 | ECG ---
Date Performed: 01/04/2018 Time Performed: 21:47:16 PTAGE: 77 years EKG: Sinus rhythm WITH PACS Leftward axis Abnormal ECG PREVIOUS TRACING : 01/03/2018 23.30 DOCTOR: Baldev Butler Interpretating Date/Time 01/06/2018 07:38:22
[2018-01-06] MEDS: Lactobacillus Acidophilus/L. Spores Tablet PO SCH ×3 (09:08→18:18)
[2018-01-06] MEDS: Gabapentin 100 MG Capsule PO SCH ×3 (09:08→18:19)
[2018-01-06] MEDS: Nystatin/Diphenhydramine/Lidocaine Mouthwash (Adult) 120 ML Botttle SWISH-SWAL SCH ×4 (09:08→21:30)
--- NOTE | 2018-01-06 09:54 | P.PNIM ---
Subjective Interval history: This is a 77-year-old female with a PMH of Anxiety, h/o DVT/PE s/p IVC Filter, Adrenal Insufficiency, HTN, Hypothyroidism and Rectal CA who presented to the ER w/ complaints of abdominal pain and diarrhea starting today. States she has had chronic abdominal pain and diarrhea for approx 1yr, however now symptoms more severe x1wk. Also w/ fever of 101 at home today. Recently diagnosed w/ Rectal CA s/p Chemo/Radiation, follows w/ Dr. Guzman as outpatient, states she had blood work a few days ago on 12/31/17, however she does not know results. Scheduled for Radiation again on Friday and Chemo on 01/21. On arrival, BP 133/ 72, HR 118, O2 sat 96% on RA, Temp 99.6. WBC 0.5, hemoglobin 10.1, platelets 54 , absolute neutrophil count 0.2, previously WBC 1.8, hemoglobin 11 and platelets 157 on 12/31/2017. U/a positive for UTI. Abdominal X-ray with no dilated loops of small or large bowel. CT Abdomen/Pelvis with no acute findings. CXR no acute findings. S/p IV Vanc/Rocephin/Flagyl in ER. 8-5 IS IN NEUTROPENIC PRECAUTIONS DW RN AND PT AM LAB STATES DILAUDID HELPED THE PAIN HAS POSITIVE UTI AWAIT CULTURES CAME BACK POSITIVE FOR C.DIFFICILE TOXIN POSITIVE START VANCO 250MG PO QID FOR 28 DAYS 8-6 APPEARS TO HAVE ZOSTER ON LEFT BUTTOCKS WILL TREAT THIS will start acyclovir DW RN AND PT HAS WATERY DIARRHEA AM LABS HAS GERD/INDIGESTION WILL TREAT 01/06. Patient reports abdominal pain slightly better. Still with very loose bowel movements, uncontrollable. Denies any chest pain or shortness of breath. Denies nausea vomiting. Physical Exam Vital signs: Vital Signs 01/05/18 11:00 01/05/18 11:24 01/05/18 11:35 Temperature 98.7 F 97.8 F Pulse Rate 77 59 L 87 Respiratory Rate 18 Blood Pressure 114/57 L 96/51 L Pulse Oximetry 96 96 01/05/18 16:40 01/05/18 17:39 01/05/18 18:00 Temperature 97.8 F Pulse Rate 100 H 64 Respiratory Rate 20 20 Blood Pressure 120/58 L Pulse Oximetry 95 08/06/18 19:47 01/05/18 19:50 01/05/18 23:18 Temperature 98 F Pulse Rate 91 H 96 H 95 H Respiratory Rate 18 Blood Pressure 131/77 Pulse Oximetry 94 L 01/06/18 00:50 01/06/18 04:07 01/06/18 04:34 Temperature 99.6 F 97.3 F L Pulse Rate 90 84 91 H Respiratory Rate 18 20 Blood Pressure 118/69 146/89 H Pulse Oximetry 99 99 01/06/18 07:21 Temperature Pulse Rate 67 Respiratory Rate Blood Pressure Pulse Oximetry Intake & Output 01/05/18 01/06/18 01/06/18 18:59 06:59 18:59 Intake Total 2620 / 2620 1560 / 1560 Output Total 100 / 100 Balance 2620 / 2620 1460 / 1460 Weight 62.8 kg Intake: IV 1100 / 1100 1360 / 1360 NS Inj 1,000 ML @ 100 mls/hr IV 1000 / 1000 1000 / 1000 .CONT .Q10H ANDRY Rx#:[id number] Azactam Inj 2 GM In NS Inj 100 100 / 100 110 / 110 ML @ 200 mls/hr IV.SIG Q8H ANDRY Rx#:[id number] Vancomycin Inj 750 MG In NS Inj 250 / 250 250 ML @ 250 mls/hr IV.SIG Q24H ANDRY Rx#:[id number] Oral 1520 / 1520 200 / 200 Output: Urine 100 / 100 Other: # Voids 10 Date of Last Bowel Movement 01/05/18 01/05/18 # Bowel Movements 10 3 Narrative: GENERAL: Patient lying in bed. Appears comfortable. SKIN: Warm and dry. HEAD: Normocephalic. EYES: No scleral icterus. No injection or drainage. NECK: Supple, trachea midline. No JVD . CARDIOVASCULAR: Regular rate and rhythm without murmurs, gallops, or rubs. RESPIRATORY: Breath sounds equal bilaterally. No accessory muscle use. GASTROINTESTINAL: Abdomen soft, nondistended. To moderate palpation, however patient reports better than yesterday. No rebound or guarding. MUSCULOSKELETAL: No cyanosis, or edema. BACK: Nontender without obvious deformity. No CVA tenderness. Results - Labs CBC & Chem 7: 01/06/18 04:40 01/05/18 04:45 Laboratory Results - last 24 hr 01/03/18 01/05/18 01/06/18 23:40 04:45 04:40 WBC 1.7 L D RBC 2.42 L Hgb 7.6 L Hct 22.4 L MCV 92.6 MCH 31.5 MCHC 34.0 RDW 13.2 Plt Count 31 L MPV 8.3 Prelim Diff (Auto) Slide review pending Neut % (Auto) 68.6 Lymph % (Auto) 13.4 [place] % (Auto) 11.3 H Eos % (Auto) 6.6 H Baso % (Auto) 0.1 Neut # (Auto) 1.2 L Lymph # (Auto) 0.2 L [place] # (Auto) 0.2 Eos # (Auto) 0.1 Baso # (Auto) 0.0 WBC Differential Manual diff final Seg Neuts % (Manual) 62 Band Neuts % (Manual) 13 H Lymphocytes % (Manual) 16 Monocytes % (Manual) 4 Eosinophils % (Manual) 5 H Abs Neuts (Manual) 1.3 L Differential Comment . Toxic Granulation 3+ H Dohle Bodies Present H Platelet Estimate Low L Platelet Morphology Normal Hemoglobin A1c 5.4 Urine Color Regla Urine Clarity Hazy H Urine pH 6.0 Ur Specific [place] 1.021 Urine Protein Negative Urine Glucose (UA) Negative Urine Ketones Trace H Urine Occult Blood Moderate H Urine Nitrate Positive H Urine Bilirubin Negative Urine Urobilinogen 2.0 H Ur Leukocyte Esterase Large H Urine RBC 4 H Urine WBC 128 H Ur Squamous Epith Cells <1 Ur Transition Epith Cell <1 Ur Renal Epithelial Cell <1 Urine Bacteria Moderate H Hyaline Casts 1 Urine Mucus Few H Micro UA Comment Culture indicated Urine Culture Comments Culture indicated Microbiology 01/03/18 23:40 Clean Catch Urine Urine Culture - Final Escherichia coli 01/03/18 22:10 Blood - Other Aerobic Blood Culture - Preliminary No growth in 2 days 01/03/18 22:10 Blood - Other Anaerobic Blood Culture - Preliminary No growth in 2 days 01/03/18 22:05 Blood - Other Aerobic Blood Culture - Preliminary No growth in 2 days 01/03/18 22:05 Blood - Other Anaerobic Blood Culture - Preliminary No growth in 2 days 01/03/18 22:00 Blood - Peripheral Aerobic Blood Culture - Preliminary No growth in 2 days 01/03/18 22:00 Blood - Peripheral Anaerobic Blood Culture - Preliminary No growth in 2 days 01/03/18 22:05 Blood - Peripheral Aerobic Blood Culture - Preliminary No growth in 2 days 01/03/18 22:05 Blood - Peripheral Anaerobic Blood Culture - Preliminary No growth in 2 days Assessment and Plan - Assessment (1) Neutropenic fever Code(s): D70.9 - Neutropenia, unspecified; R50.81 - Fever presenting with conditions classified elsewhere Status: Acute (2) Rectal cancer Code(s): C20 - Malignant neoplasm of rectum Status: Acute (3) Abdominal pain Code(s): R10.9 - Unspecified abdominal pain Status: Acute - Plan // Neutropenic Fever: WBC 0.5, absolute neutrophil count 0.2, Temp 101 at home , currently on Chemo/Radiation for Rectal CA. S/p Blood Cultures, Vanc/ cefepime U/a positive for UTI as likely source, continue IV Abx, follow up cultures, monitor I/O. Neutropenic precautions, check C Diff for ongoing diarrhea. = 01/06. Appreciate hematology assistance. Neutropenia resolving. Afebrile today. Continue antibiotics as per hematology. //Rectal CA: on Chemo/Radiation, scheduled for Radiation on Friday, will Consult Dr. Guzman for further evaluation/recommendations. = 01/06. Appreciate hematology assistance. Neutropenia resolving. // Abdominal Pain: acute onset of severe abdominal pain, CT Abd/Pelvis w/ no acute findings, images reviewed. Analgesics/antiemetics as needed. = 01/06. Slightly improved today. Continue to monitor. //difficile toxin positive colitis started on vancomycin 250 mg p.o. 4 times daily for 28 days = 01/06. Abdominal pain slightly improved today. Continue vancomycin for C. difficile. Awaiting ID consult. //Left buttocks zoster will start on acyclovir 800 mg p.o. 5 times a day = Continue acyclovir //GERD we will continue on Protonix 40 mg p.o. daily //Hypokalemia will replace and recheck labs in the morning // DVT Prophylaxis: SCD/Teds Discharge Planning: Continue inpatient management. Pending oncology clearance PT recommends home with supervision at time of discharge.
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
[2018-01-06] MEDS: Senna/Docusate Sodium 8.6/50 MG Tablet PO SCH ×2 (11:57→21:30)
[2018-01-06] MEDS ORDERED: Misc Info for Pharmacy OTHER SCH (13:00)
[2018-01-06] MEDS: Filgrastim Inj 300 MCG/ML Vial SQ SCH (13:35)
--- NOTE | 2018-01-06 14:05 | P.PNONC ---
Subjective Interval history: --Patient seen earlier today. --She is lying in bed, in no acute distress. She states that she had approximately 16 bowel movements throughout the night. She continues with diarrhea. She reports pain to the area around her anus due to excoriation. She request Biafine ointment for her excoriated skin. She has used this in the past and states it is the only thing that worked. Objective Vital Signs/Intake & Output: Vital Signs 01/05/18 16:40 01/05/18 17:39 01/05/18 18:00 Temperature 97.8 F Pulse Rate 100 H 64 Respiratory Rate 20 20 Blood Pressure 120/58 L Pulse Oximetry 95 01/05/18 19:47 01/05/18 19:50 01/05/18 23:18 Temperature 98 F Pulse Rate 91 H 96 H 95 H Respiratory Rate 18 Blood Pressure 131/77 Pulse Oximetry 94 L 01/06/18 00:50 01/06/18 04:07 01/06/18 04:34 Temperature 99.6 F 97.3 F L Pulse Rate 90 84 91 H Respiratory Rate 18 20 Blood Pressure 118/69 146/89 H Pulse Oximetry 99 99 01/06/18 07:21 01/06/18 12:00 Temperature Pulse Rate 67 95 H Respiratory Rate Blood Pressure Pulse Oximetry Intake & Output 01/05/18 01/06/18 01/06/18 18:59 06:59 18:59 Intake Total 2620 / 2620 1660 / 1660 1000 / 1000 Output Total 100 / 100 Balance 2620 / 2620 1560 / 1560 1000 / 1000 Weight 62.8 kg Intake: IV 1100 / 1100 1460 / 1460 1000 / 1000 NS Inj 1,000 ML @ 100 mls/hr IV 1000 / 1000 1000 / 1000 1000 / 1000 .CONT .Q10H [facility] Rx#:[id number] Azactam Inj 2 GM In NS Inj 100 100 / 100 210 / 210 ML @ 200 mls/hr IV.SIG Q8H [facility] Rx#:[id number] Vancomycin Inj 750 MG In NS Inj 250 / 250 250 ML @ 250 mls/hr IV.SIG Q24H [facility] Rx#:[id number] Oral 1520 / 1520 200 / 200 Output: Urine 100 / 100 Other: # Voids 10 Date of Last Bowel Movement 08/06/18 08/06/18 # Bowel Movements 10 3 Result Diagrams: 01/06/18 04:40 01/06/18 15:00 Laboratory Results: Laboratory Results - last 24 hr 01/05/18 01/06/18 04:45 04:40 WBC 1.7 L D RBC 2.42 L Hgb 7.6 L Hct 22.4 L MCV 92.6 MCH 31.5 MCHC 34.0 RDW 13.2 Plt Count 31 L MPV 8.3 Prelim Diff (Auto) Slide review pending Neut % (Auto) 68.6 Lymph % (Auto) 13.4 [place] % (Auto) 11.3 H Eos % (Auto) 6.6 H Baso % (Auto) 0.1 Neut # (Auto) 1.2 L Lymph # (Auto) 0.2 L [place] # (Auto) 0.2 Eos # (Auto) 0.1 Baso # (Auto) 0.0 WBC Differential Manual diff final Seg Neuts % (Manual) 62 Band Neuts % (Manual) 13 H Lymphocytes % (Manual) 16 Monocytes % (Manual) 4 Eosinophils % (Manual) 5 H Abs Neuts (Manual) 1.3 L Differential Comment . Toxic Granulation 3+ H Dohle Bodies Present H Platelet Estimate Low L Platelet Morphology Normal Hemoglobin A1c 5.4 Culture Results: Microbiology 01/03/18 22:10 Aerobic Blood Culture - Preliminary Blood - Other No growth in 3 days Anaerobic Blood Culture - Preliminary No growth in 3 days 01/03/18 22:05 Aerobic Blood Culture - Preliminary Blood - Other No growth in 3 days Anaerobic Blood Culture - Preliminary No growth in 3 days 01/03/18 22:00 Aerobic Blood Culture - Preliminary Blood - Peripheral No growth in 3 days Anaerobic Blood Culture - Preliminary No growth in 3 days 01/03/18 22:05 Aerobic Blood Culture - Preliminary Blood - Peripheral No growth in 3 days Anaerobic Blood Culture - Preliminary No growth in 3 days 01/03/18 23:40 Urine Culture - Final Clean Catch Urine Escherichia coli Medications: Active Medications Generic Name Dose Route Start Last Admin Trade Name Freq PRN Reason Stop Dose Admin Acyclovir 800 mg 01/05/18 14:00 01/06/18 13:35 Zovirax PO 800 mg 5 TIMES A DAY [facility] Administration Alprazolam 0.5 mg 01/04/18 12:00 01/05/18 17:09 Xanax PO 0.5 mg BID PRN Administration Anxiety Apixaban 2.5 mg 01/04/18 12:00 01/04/18 20:14 Eliquis PO 2.5 mg BID [facility] Administration Atorvastatin Calcium 20 mg 01/04/18 21:00 01/05/18 22:06 Lipitor PO 20 mg HS [facility] Administration Benzonatate 200 mg 01/05/18 00:00 01/06/18 04:41 Tessalon Perles PO 200 mg Q8H PRN Administration COUGH Carbidopa/Levodopa 1 tab 01/04/18 21:00 01/05/18 22:07 Sinemet 25/100 Mg PO 1 tab HS [facility] Administration Filgrastim 300 mcg 01/05/18 14:00 01/06/18 13:35 Neupogen Inj SQ 300 mcg DAILY@1400 [facility] Administration Gabapentin 100 mg 01/04/18 13:00 01/06/18 12:00 Neurontin PO 100 mg TID [facility] Administration Hydrocortisone Acetate 30 mg 01/05/18 06:00 01/06/18 06:27 Cortef PO 30 mg DAILY@0600 [facility] Administration Hydrocortisone Acetate 20 mg 01/04/18 12:30 01/06/18 11:42 Cortef PO 20 mg DAILY@1200 [facility] Administration Hydromorphone HCl 1 mg 01/04/18 00:14 01/06/18 11:43 Dilaudid Pf Inj IV.PUSH 1 mg Q4H PRN Administration PAIN 6-10 Sodium Chloride 1,000 mls @ 0 mls/hr 01/03/18 21:30 01/04/18 00:24 Ns Inj IV.SIG Infused .Q0M [facility] Infusion Wide Open Aztreonam 2 gm/ Sodium 100 mls @ 200 mls/hr 01/04/18 06:00 01/06/18 13:35 Chloride IV.SIG 200 mls/hr Q8H [facility] Administration Sodium Chloride 1,000 mls @ 100 mls/hr 01/04/18 00:15 01/06/18 13:37 Ns Inj IV.CONT 100 mls/hr .Q10H [facility] Administration Vancomycin HCl 750 mg/ Sodium 250 mls @ 250 mls/hr 01/05/18 01:00 01/06/18 04 :39 Chloride IV.SIG Infused Q24H [facility] Infusion Lactobacillus Acidophilus 1 tab 01/04/18 18:00 08/07/18 12:00 Lactinex PO 1 tab TID [facility] Administration Levothyroxine Sodium 75 mcg 01/04/18 12:15 01/06/18 06:27 Synthroid PO 75 mcg DAILY@0600 [facility] Administration Multi-Ingredient Mouthwash/Gargle 10 ml 01/04/18 13:00 01/06/18 12:01 Magic Mouthwash Adult Liq SWISH-SWAL 10 ml QID [facility] Administration Pantoprazole Sodium 40 mg 01/05/18 11:00 01/06/18 09:08 Protonix PO 40 mg DAILY [facility] Administration Senna/Docusate Sodium 1 tab 01/04/18 09:00 01/06/18 11:57 Lucy-Colace PO Not Given BID [facility] Sodium Chloride 5 ml 01/06/18 06:12 01/06/18 06:27 Ns Flush IV.FLUSH 5 ml PRN PRN Administration Flush Infusaport Temazepam 15 mg 01/04/18 00:03 01/04/18 02:31 Restoril PO 15 mg HS PRN Administration INSOMNIA Vancomycin HCl 250 mg 01/04/18 18:45 01/06/18 12:01 Vancomycin Po PO 250 mg QID [facility] Administration Objective Remarks: GENERAL: Elderly female patient, lying in bed. In no acute distress. SKIN: Warm and dry. Herpetic appearing round lesion to left buttock, perianal excoriation HEAD: Normocephalic. EYES: No scleral icterus. No injection or drainage. NECK: Supple, trachea midline. CARDIOVASCULAR: Irregular rhythm. RESPIRATORY: Anterior breath sounds clear, equal bilaterally. Non-labored GASTROINTESTINAL: Abdomen soft, non-tender, nondistended. +BS. EXTREMITIES: No cyanosis, or edema. MUSCULOSKELETAL: Generalized weakness NEUROLOGICAL: No obvious focal deficit. Awake, alert, and oriented x3. Assessment/Plan (1) C. 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 She was admitted with lower abdominal pain, fever and diarrhea. 1. C-diff, continue antibiotics per ID. 2. UA growing gram neg rods; pt on aztrenoam. 3. Thrombocytopenia continues, Eliquis on hold. 4. Lesion to buttock. Possibly secondary to radiation therapy, patient on acyclovir just in case it is a herpetic lesion. 5. I attempted to obtain Biafine ointment for the pt's excoriated rectal area, speaking to the pharmacist unfortunately we do not carry this medication. Patient's RN has reached out to wound management to see if there is a comparable solution to aid in the patient's comfort. 6. Consulted wound care nurse, appreciate assistance with barrier protection and wound care. 7. Hypokalemia, supplementation given yesterday. Awaiting labs today. - Attending Statement The exam, history, and the medical decision-making described in the above note were completed with the assistance of the mid-level provider. I reviewed and agree with the findings presented. I attest that I had a [id number] encounter with the patient on the same day, and personally performed and documented my assessment and findings in the medical record. Still has diarrhea. She has intermittent abdominal cramp. She is afebrile. Neutrophil count has trended up with Neupogen injection. She still has mild neutropenia. She will continue to receive Neupogen injection. Continue antibiotics per infectious disease.
[2018-01-06 16:03] LABS: Albumin 2.1 g/dL (3.4-5.0); Calcium 6.5 mg/dL (8.5-10.1); Carbon Dioxide 20.1 meq/L (21.0-32.0); Potassium 3.9 meq/L (3.5-5.1); Total Protein 4.8 g/dL (6.4-8.2)
[2018-01-06] MEDS: ALPRAZolam 0.5 MG Tablet PO PRN (18:18)
[2018-01-07] MEDS ORDERED: Pharmacy Ordered Lab Info OTHER ONE (00:45)
[2018-01-07] MEDS: Vancomycin Inj 750 MG in Sodium Chlor 0.9% Inj 250 ML IV.SIG SCH (01:23)
[2018-01-07 05:44] LABS: Baso % (Auto) 0.2 % (0.0-2.0); Eos # (Auto) 0.1 th/mm3 (0.0-0.4); Eos % (Auto) 3.1 % (0.0-4.0); Hematocrit 20.9 % (35.0-46.0); Hemoglobin 7.2 gm/dL (11.6-15.3); Lymph # (Auto) 0.2 th/mm3 (1.0-4.8); Lymph % (Auto) 7.8 % (9.0-44.0); Mean Corpuscular HGB Conc 34.3 % (32.0-36.0); Mean Corpuscular Hemoglobin 32.1 pg (27.0-34.0); Mean Corpuscular Volume 93.6 fL (80.0-100.0); Mean Platelet Volume 8.4 fL (7.0-11.0); Mono # (Auto) 0.3 th/mm3 (0.0-0.9); Mono % (Auto) 10.1 % (0.0-8.0); Neut # (Auto) 2.3 th/mm3 (1.8-7.7); Neut % (Auto) 78.8 % (16.0-70.0); Platelet Count 36 th/mm3 (150-450); Red Blood Count 2.23 mil/mm3 (4.00-5.30); Red Cell Distribution Width 13.3 % (11.6-17.2)
[2018-01-07 06:19] LABS: Albumin 2.1 g/dL (3.4-5.0); Alkaline Phosphatase 39 U/L (45-117); Anion Gap 11 meq/L (5-15); Aspartate Aminotransferase 18 U/L (15-37); Blood Urea Nitrogen 12 mg/dL (7-18); Calcium 6.6 mg/dL (8.5-10.1); Carbon Dioxide 17.2 meq/L (21.0-32.0); Chloride 118 meq/L (98-107); Glomerular Filtration Rate 63 mL/min (>89); Glucose,Random 69 mg/dL (74-106); Potassium 3.2 meq/L (3.5-5.1); Sodium 146 meq/L (136-145); Total Protein 4.5 g/dL (6.4-8.2)
[2018-01-07] MEDS: Aztreonam Inj 2 GM in Sodium Chloride 0.9% Inj 100 ML IV.SIG SCH ×3 (06:45→23:46)
[2018-01-07] MEDS: Acyclovir 800 MG Tablet PO SCH ×5 (06:48→22:21)
[2018-01-07] MEDS: Levothyroxine 75 MCG Tablet PO SCH (06:48)
[2018-01-07] MEDS: Hydrocortisone 10 MG Tablet PO SCH ×2 (06:53→17:37)
[2018-01-07] MEDS: HYDROmorphone PF Inj 2 MG/ML Vial IV.PUSH PRN ×4 (06:57→21:45)
[2018-01-07 08:45] LABS: Eosinophils 1 % (0-4); Lymphocytes 9 % (9-44); Monocytes 7 % (0-8); Platelet Morphology Normal (Normal); Toxic Granulation 1+
[2018-01-07] MEDS ORDERED: Acetaminophen 325 MG Tablet PO PRN (09:03)
[2018-01-07] MEDS ORDERED: Sodium Chlor 0.9% Inj 250 ML IV.SIG SCH (10:00)
[2018-01-07] MEDS: Senna/Docusate Sodium 8.6/50 MG Tablet PO SCH ×2 (10:48→22:22)
[2018-01-07] MEDS: Gabapentin 100 MG Capsule PO SCH ×3 (10:48→21:46)
[2018-01-07] MEDS: Lactobacillus Acidophilus/L. Spores Tablet PO SCH ×3 (10:49→17:46)
[2018-01-07] MEDS: Benzonatate 100 MG Capsule PO PRN ×2 (10:49→23:45)
[2018-01-07] MEDS: Sod Chloride 0.9% Inj 1,000 ML IV.SIG SCH ×3 (10:54→11:28)
[2018-01-07] MEDS: Nystatin/Diphenhydramine/Lidocaine Mouthwash (Adult) 120 ML Botttle SWISH-SWAL SCH ×4 (11:28→21:53)
[2018-01-07] MEDS: ALPRAZolam 0.5 MG Tablet PO PRN (11:28)
--- NOTE | 2018-01-07 12:00 | P.PNONC ---
Subjective Interval history: Afebrile. The patient is lying in bed, her daughter is at the bedside. --Patient reports that her diarrhea has decreased, she reports for loose bowel movements throughout the night, which is down from a reported 16 the night prior. --Patient is quite upset, questioning why she is on antibiotics that are causing her to have C. difficile. --Pain around rectum has decreased. --We have also discussed the need for a transfusion of PRBCs today. Objective Vital Signs/Intake & Output: Vital Signs 01/06/18 12:00 01/06/18 16:00 01/06/18 16:21 Temperature 97.8 F Pulse Rate 95 H 98 H 90 Respiratory Rate 20 Blood Pressure 137/75 Pulse Oximetry 97 01/06/18 19:51 01/06/18 20:55 01/06/18 23:18 Temperature 97.7 F 98.3 F Pulse Rate 94 H 85 98 H Respiratory Rate 18 18 Blood Pressure 150/77 H 124/63 Pulse Oximetry 98 95 01/06/18 23:42 01/07/18 03:45 01/07/18 04:07 Temperature 98 F Pulse Rate 96 H 89 82 Respiratory Rate 16 Blood Pressure 137/73 Pulse Oximetry 99 01/07/18 08:00 Temperature 97.4 F L Pulse Rate 97 H Respiratory Rate 18 Blood Pressure 172/89 H Pulse Oximetry 98 Intake & Output 01/06/18 01/07/18 01/07/18 18:59 06:59 18:59 Intake Total 1100 / 1100 1700 / 1700 1999 Output Total 1302 / 1302 Balance 1100 / 1100 398 / 398 1999 Weight 56.2 kg Intake: IV 1100 / 1100 1100 / 1100 1999 NS Inj 1,000 ML @ 100 mls/hr IV 1000 / 1000 1000 / 1000 .CONT .Q10H ANDRY Rx#:[id number] Azactam Inj 2 GM In NS Inj 100 100 / 100 100 / 100 ML @ 200 mls/hr IV.SIG Q8H ANDRY Rx#:[id number] NS Inj 1,000 ML @ Wide Open IV. 1999 SIG .Q0M ANDRY Rx#:[id number] Oral 600 / 600 Output: Urine 1300 / 1300 Stool 2 / 2 Other: # Voids 3 Date of Last Bowel Movement 01/06/18 # Bowel Movements 8 Result Diagrams: 01/07/18 03:50 01/07/18 03:50 Laboratory Results: Laboratory Results - last 24 hr 01/06/18 01/07/18 01/07/18 15:00 00:50 03:50 WBC RBC Hgb Hct MCV MCH MCHC RDW Plt Count MPV Prelim Diff (Auto) Neut % (Auto) Lymph % (Auto) [place] % (Auto) Eos % (Auto) Baso % (Auto) Neut # (Auto) Lymph # (Auto) [place] # (Auto) Eos # (Auto) Baso # (Auto) WBC Differential Seg Neuts % (Manual) Band Neuts % (Manual) Lymphocytes % (Manual) Monocytes % (Manual) Eosinophils % (Manual) Abs Neuts (Manual) Differential Comment Toxic Granulation Platelet Estimate Platelet Morphology Sodium 143 146 H Potassium 3.9 D 3.2 L Chloride 114 H 118 H Carbon Dioxide 20.1 L 17.2 L Anion Gap 9 11 BUN 16 12 Creatinine 1.04 H 0.87 Estimated GFR 51 L 63 L Random Glucose 138 H 69 L Calcium 6.5 L* 6.6 L* Prot Corrected Calcium 7.6 L 7.9 L Total Bilirubin 0.3 0.4 AST 19 18 ALT 10 Less than 6 L Alkaline Phosphatase 41 L 39 L Total Protein 4.8 L 4.5 L Albumin 2.1 L 2.1 L Vancomycin Trough 8.6 MTS Gel Crossmatch 01/07/18 01/07/18 03:50 11:26 WBC 3.0 L D RBC 2.23 L Hgb 7.2 L Hct 20.9 L* MCV 93.6 MCH 32.1 MCHC 34.3 RDW 13.3 Plt Count 36 L MPV 8.4 Prelim Diff (Auto) Slide review pending Neut % (Auto) 78.8 H Lymph % (Auto) 7.8 L [place] % (Auto) 10.1 H Eos % (Auto) 3.1 Baso % (Auto) 0.2 Neut # (Auto) 2.3 Lymph # (Auto) 0.2 L [place] # (Auto) 0.3 Eos # (Auto) 0.1 Baso # (Auto) 0.0 WBC Differential Manual diff final Seg Neuts % (Manual) 58 Band Neuts % (Manual) 25 H Lymphocytes % (Manual) 9 Monocytes % (Manual) 7 Eosinophils % (Manual) 1 Abs Neuts (Manual) 2.5 Differential Comment . Toxic Granulation 1+ H Platelet Estimate Low L Platelet Morphology Normal Sodium Potassium Chloride Carbon Dioxide Anion Gap BUN Creatinine Estimated GFR Random Glucose Calcium Prot Corrected Calcium Total Bilirubin AST ALT Alkaline Phosphatase Total Protein Albumin Vancomycin Trough MTS Gel Crossmatch See Detail Culture Results: Microbiology 01/03/18 22:10 Aerobic Blood Culture - Preliminary Blood - Other No growth in 4 days Anaerobic Blood Culture - Preliminary No growth in 4 days 01/03/18 22:05 Aerobic Blood Culture - Preliminary Blood - Other No growth in 4 days Anaerobic Blood Culture - Preliminary No growth in 4 days 01/03/18 22:00 Aerobic Blood Culture - Preliminary Blood - Peripheral No growth in 4 days Anaerobic Blood Culture - Preliminary No growth in 4 days 01/03/18 22:05 Aerobic Blood Culture - Preliminary Blood - Peripheral No growth in 4 days Anaerobic Blood Culture - Preliminary No growth in 4 days 01/03/18 23:40 Urine Culture - Final Clean Catch Urine Escherichia coli Medications: Active Medications Generic Name Dose Route Start Last Admin Trade Name Freq PRN Reason Stop Dose Admin Acyclovir 800 mg 01/05/18 14:00 01/07/18 10:50 Zovirax PO 800 mg 5 TIMES A DAY ANDRY Administration Alprazolam 0.5 mg 01/04/18 12:00 01/07/18 11:28 Xanax PO 0.5 mg BID PRN Administration Anxiety Apixaban 2.5 mg 01/04/18 12:00 01/04/18 20:14 Eliquis PO 2.5 mg BID ANDRY Administration Atorvastatin Calcium 20 mg 01/04/18 21:00 01/06/18 21:29 Lipitor PO 20 mg HS ANDRY Administration Benzonatate 200 mg 01/05/18 00:00 01/07/18 10:49 Tessalon Perles PO 200 mg Q8H PRN Administration COUGH Carbidopa/Levodopa 1 tab 01/04/18 21:00 01/06/18 21:29 Sinemet 25/100 Mg PO 1 tab HS ANDRY Administration Filgrastim 300 mcg 01/05/18 14:00 01/06/18 13:35 Neupogen Inj SQ 300 mcg DAILY@1400 ANDRY Administration Gabapentin 100 mg 01/04/18 13:00 01/07/18 10:48 Neurontin PO 100 mg TID ANDRY Administration Hydrocortisone Acetate 30 mg 01/05/18 06:00 01/07/18 06:53 Cortef PO 30 mg DAILY@0600 ANDRY Administration Hydrocortisone Acetate 20 mg 01/04/18 12:30 01/06/18 11:42 Cortef PO 20 mg DAILY@1200 ANDRY Administration Hydromorphone HCl 1 mg 01/04/18 00:14 01/07/18 11:26 Dilaudid Pf Inj IV.PUSH 1 mg Q4H PRN Administration PAIN 6-10 Sodium Chloride 1,000 mls @ 0 mls/hr 01/03/18 21:30 01/07/18 11:28 Ns Inj IV.SIG 100 mls/hr .Q0M ANDRY Administration Wide Open Aztreonam 2 gm/ Sodium 100 mls @ 200 mls/hr 01/04/18 06:00 01/07/18 06:45 Chloride IV.SIG 200 mls/hr Q8H ANDRY Administration Sodium Chloride 1,000 mls @ 100 mls/hr 01/04/18 00:15 01/06/18 23:14 Ns Inj IV.CONT 100 mls/hr .Q10H ANDRY Administration Vancomycin HCl 750 mg/ Sodium 250 mls @ 250 mls/hr 01/05/18 01:00 01/07/18 01 :23 Chloride IV.SIG 250 mls/hr Q24H ANDRY Administration Lactobacillus Acidophilus 1 tab 01/04/18 18:00 01/07/18 10:49 Lactinex PO 1 tab TID ANDRY Administration Levothyroxine Sodium 75 mcg 01/04/18 12:15 01/07/18 06:48 Synthroid PO 75 mcg DAILY@0600 ANDRY Administration Multi-Ingredient Mouthwash/Gargle 10 ml 01/04/18 13:00 01/07/18 11:28 Magic Mouthwash Adult Liq SWISH-SWAL 10 ml QID ANDRY Administration Pantoprazole Sodium 40 mg 01/05/18 11:00 01/07/18 10:49 Protonix PO 40 mg DAILY ANDRY Administration Senna/Docusate Sodium 1 tab 01/04/18 09:00 01/07/18 10:48 Lucy-Colace PO 1 tab BID ANDRY Administration Sodium Chloride 5 ml 01/06/18 06:12 01/06/18 06:27 Ns Flush IV.FLUSH 5 ml PRN PRN Administration Flush Infusaport Temazepam 15 mg 01/04/18 00:03 01/04/18 02:31 Restoril PO 15 mg HS PRN Administration INSOMNIA Vancomycin HCl 250 mg 01/04/18 18:45 01/07/18 10:50 Vancomycin Po PO 250 mg QID ANDRY Administration Objective Remarks: GENERAL: Elderly female patient, lying in bed. In no acute distress. SKIN: Warm and dry. Herpetic appearing round lesion to left buttock, improving , perianal excoriation with barrier cream. HEAD: Normocephalic. EYES: No scleral icterus. No injection or drainage. NECK: Supple, trachea midline. CARDIOVASCULAR: Normal rate, no murmurs noted. RESPIRATORY: Anterior breath sounds clear, equal bilaterally. Non-labored GASTROINTESTINAL: Abdomen soft, non-tender, nondistended. + hyperactive BS. EXTREMITIES: No cyanosis, or edema. MUSCULOSKELETAL: Generalized weakness NEUROLOGICAL: No obvious focal deficit. Awake, alert, and oriented x3. Assessment/Plan (1) C. 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 She was admitted with lower abdominal pain, fever and diarrhea. 1. C-diff, diarrhea has decreased. We have ordered a repeat C. difficile test. Continue antibiotics per ID. 2. UA grew gram neg rods; pt on aztrenoam. Repeat urinalysis and culture ordered. 3. Thrombocytopenia continues, slightly improved compared to yesterday, Eliquis on hold. 4. Lesion to buttock, improving. patient on acyclovir just in case it is a herpetic lesion. 5. Continue barrier cream to excoriated rectal area. 6. Hypokalemia, 3.2 mEq, will replace. Will check magnesium level and replace as needed. 7. Continue Neupogen. - Attending Statement The exam, history, and the medical decision-making described in the above note were completed with the assistance of the mid-level provider. I reviewed and agree with the findings presented. I attest that I had a [id number] encounter with the patient on the same day, and personally performed and documented my assessment and findings in the medical record. Patient still has diarrhea but has improved. Her abdominal pain is controlled. Her neutropenia has resolved. She remains afebrile. Platelet count is stable, she will continue to receive Neupogen. She will continue antibiotic per infectious disease. Hemoglobin trended down to 7.2. We will give her 1 unit of PRBC transfusion.
[2018-01-07] MEDS ORDERED: Potassium Chlor 40 mEq Premix 40 MEQ/100 ML PIGGYBACK IV.SIG ONE (12:47)
--- NOTE | 2018-01-07 18:09 | P.PNIM ---
Subjective Interval history: Patient says she is upset about being on aztreonam for UTI while she has C. difficile. Multiple episodes of loose diarrhea. Reports abdominal discomfort is under control. Denies any chest pain or shortness of breath. Physical Exam Vital signs: Vital Signs 01/06/18 19:51 01/06/18 20:55 01/06/18 23:18 Temperature 97.7 F 98.3 F Pulse Rate 94 H 85 98 H Respiratory Rate 18 18 Blood Pressure 150/77 H 124/63 Pulse Oximetry 98 95 01/06/18 23:42 01/07/18 03:45 01/07/18 04:07 Temperature 98 F Pulse Rate 96 H 89 82 Respiratory Rate 16 Blood Pressure 137/73 Pulse Oximetry 99 01/07/18 08:00 01/07/18 17:45 Temperature 97.4 F L Pulse Rate 97 H Respiratory Rate 18 Blood Pressure 172/89 H Pulse Oximetry 98 Intake & Output 01/06/18 01/07/18 01/07/18 18:59 06:59 18:59 Intake Total 1100 / 1100 1700 / 1700 2099 / 2100 Output Total 1302 / 1302 Balance 1100 / 1100 398 / 398 2099 / 2100 Weight 56.2 kg Intake: IV 1100 / 1100 1100 / 1100 2100 / 2100 NS Inj 1,000 ML @ 100 mls/hr IV 1000 / 1000 1000 / 1000 .CONT .Q10H ANDRY Rx#:[id number] Azactam Inj 2 GM In NS Inj 100 100 / 100 100 / 100 100 / 100 ML @ 200 mls/hr IV.SIG Q8H ANDRY Rx#:[id number] NS Inj 1,000 ML @ Wide Open IV. 1999 / 1999 SIG .Q0M ANDRY Rx#:[id number] Oral 600 / 600 Output: Urine 1300 / 1300 Stool 2 / 2 Other: # Voids 3 Date of Last Bowel Movement 01/06/18 # Bowel Movements 8 Narrative: GENERAL: Patient lying in bed. Appears comfortable. [id number] SKIN: Warm and dry. HEAD: Normocephalic. EYES: No scleral icterus. No injection or drainage. NECK: Supple, trachea midline. No JVD . CARDIOVASCULAR: Regular rate and rhythm without murmurs, gallops, or rubs. RESPIRATORY: Breath sounds equal bilaterally. No accessory muscle use. GASTROINTESTINAL: Abdomen soft, nondistended. nontender. No rebound or guarding. MUSCULOSKELETAL: No cyanosis, or edema. BACK: Nontender without obvious deformity. No CVA tenderness. Results - Labs CBC & Chem 7: 01/07/18 03:50 01/07/18 03:50 Laboratory Results - last 24 hr 01/07/18 01/07/18 01/07/18 00:50 03:50 03:50 WBC 3.0 L D RBC 2.23 L Hgb 7.2 L Hct 20.9 L* MCV 93.6 MCH 32.1 MCHC 34.3 RDW 13.3 Plt Count 36 L MPV 8.4 Prelim Diff (Auto) Slide review pending Neut % (Auto) 78.8 H Lymph % (Auto) 7.8 L [place] % (Auto) 10.1 H Eos % (Auto) 3.1 Baso % (Auto) 0.2 Neut # (Auto) 2.3 Lymph # (Auto) 0.2 L [place] # (Auto) 0.3 Eos # (Auto) 0.1 Baso # (Auto) 0.0 WBC Differential Manual diff final Seg Neuts % (Manual) 58 Band Neuts % (Manual) 25 H Lymphocytes % (Manual) 9 Monocytes % (Manual) 7 Eosinophils % (Manual) 1 Abs Neuts (Manual) 2.5 Differential Comment . Toxic Granulation 1+ H Platelet Estimate Low L Platelet Morphology Normal Sodium 146 H Potassium 3.2 L Chloride 118 H Carbon Dioxide 17.2 L Anion Gap 11 BUN 12 Creatinine 0.87 Estimated GFR 63 L Random Glucose 69 L Calcium 6.6 L* Prot Corrected Calcium 7.9 L Total Bilirubin 0.4 AST 18 ALT Less than 6 L Alkaline Phosphatase 39 L Total Protein 4.5 L Albumin 2.1 L Vancomycin Trough 8.6 Blood Type Blood Type Recheck Antibody Screen MTS Gel Crossmatch 01/07/18 11:26 WBC RBC Hgb Hct MCV MCH MCHC RDW Plt Count MPV Prelim Diff (Auto) Neut % (Auto) Lymph % (Auto) [place] % (Auto) Eos % (Auto) Baso % (Auto) Neut # (Auto) Lymph # (Auto) [place] # (Auto) Eos # (Auto) Baso # (Auto) WBC Differential Seg Neuts % (Manual) Band Neuts % (Manual) Lymphocytes % (Manual) Monocytes % (Manual) Eosinophils % (Manual) Abs Neuts (Manual) Differential Comment Toxic Granulation Platelet Estimate Platelet Morphology Sodium Potassium Chloride Carbon Dioxide Anion Gap BUN Creatinine Estimated GFR Random Glucose Calcium Prot Corrected Calcium Total Bilirubin AST ALT Alkaline Phosphatase Total Protein Albumin Vancomycin Trough Blood Type A Positive Blood Type Recheck Not needed Antibody Screen Negative MTS Gel Crossmatch See Detail Microbiology 01/03/18 22:10 Blood - Other Aerobic Blood Culture - Preliminary No growth in 4 days 01/03/18 22:10 Blood - Other Anaerobic Blood Culture - Preliminary No growth in 4 days 01/03/18 22:05 Blood - Other Aerobic Blood Culture - Preliminary No growth in 4 days 01/03/18 22:05 Blood - Other Anaerobic Blood Culture - Preliminary No growth in 4 days 01/03/18 22:00 Blood - Peripheral Aerobic Blood Culture - Preliminary No growth in 4 days 01/03/18 22:00 Blood - Peripheral Anaerobic Blood Culture - Preliminary No growth in 4 days 01/03/18 22:05 Blood - Peripheral Aerobic Blood Culture - Preliminary No growth in 4 days 01/03/18 22:05 Blood - Peripheral Anaerobic Blood Culture - Preliminary No growth in 4 days Assessment and Plan - Assessment (1) Neutropenic fever Code(s): D70.9 - Neutropenia, unspecified; R50.81 - Fever presenting with conditions classified elsewhere Status: Acute (2) Rectal cancer Code(s): C20 - Malignant neoplasm of rectum Status: Acute (3) Abdominal pain Code(s): R10.9 - Unspecified abdominal pain Status: Acute - Plan // Neutropenic Fever: WBC 0.5, absolute neutrophil count 0.2, Temp 101 at home , currently on Chemo/Radiation for Rectal CA. S/p Blood Cultures, Vanc/ cefepime U/a positive for UTI as likely source, continue IV Abx, follow up cultures, monitor I/O. Neutropenic precautions, check C Diff for ongoing diarrhea. = 01/06. Appreciate hematology assistance. Neutropenia resolving. Afebrile today. Continue antibiotics as per hematology. = 01/07 neutropenia has resolved. //Rectal CA: on Chemo/Radiation, scheduled for Radiation on Friday, will Consult Dr. Guzman for further evaluation/recommendations. = 01/06. Appreciate hematology assistance. Neutropenia resolving. = 01/07 as per oncology. Appreciate assistance. //UTI. Continues on aztreonam 01/07 Oncology as ordered urinalysis, however nursing reports that urine is always contaminated with stool. Will continue aztreonam for now, and now that patient is no longer neutropenic, will order single straight cath. If urinalysis negative, can stop aztreonam. // Abdominal Pain: acute onset of severe abdominal pain, CT Abd/Pelvis w/ no acute findings, images reviewed. Analgesics/antiemetics as needed. = 01/06. Slightly improved today. Continue to monitor. //difficile toxin positive colitis started on vancomycin 250 mg p.o. 4 times daily for 28 days = 01/06. Abdominal pain slightly improved today. Continue vancomycin for C. difficile. Awaiting ID consult. //Left buttocks zoster will start on acyclovir 800 mg p.o. 5 times a day = Continue acyclovir //GERD we will continue on Protonix 40 mg p.o. daily //Hypokalemia will replace and recheck labs in the morning // DVT Prophylaxis: SCD/Teds Discharge Planning: Continue inpatient management. Pending oncology clearance PT recommends home with supervision at time of discharge.
[2018-01-07] MEDS: Filgrastim Inj 300 MCG/ML Vial SQ SCH (18:20)
[2018-01-07] MEDS: Sod Chloride 0.9% Inj 1,000 ML IV.CONT SCH ×2 (18:22→22:20)
[2018-01-07 21:08] LABS: Bacteria,Urine Rare /hpf; Bilirubin,Urine Negative (Negative); Clarity,Urine Clear (Clear); Color,Urine Straw (Yellw/Straw); Glucose,Urine (UA) 50 mg/dL (Negative); Leukocyte Esterase,Urine Negative (Negative); Nitrite,Urine Negative (Negative); Specific Gravity,Urine 1.008 (1.002-1.035); Squamous Epithelial Cell,Urine <1 /hpf (0-5)
[2018-01-08] MEDS ORDERED: Vancomycin Inj 1,250 MG in Sodium Chlor 0.9% Inj 250 ML IV.SIG SCH (01:00)
[2018-01-08] MEDS: HYDROmorphone PF Inj 2 MG/ML Vial IV.PUSH PRN ×6 (02:11→23:07)
[2018-01-08] MEDS: ALPRAZolam 0.5 MG Tablet PO PRN ×2 (02:11→23:04)
[2018-01-08] MEDS: Sod Chloride 0.9% Inj 1,000 ML IV.CONT SCH ×2 (05:42→20:42)
[2018-01-08] MEDS: Aztreonam Inj 2 GM in Sodium Chloride 0.9% Inj 100 ML IV.SIG SCH (05:42)
[2018-01-08] MEDS: Hydrocortisone 10 MG Tablet PO SCH ×2 (05:43→18:38)
[2018-01-08] MEDS: Acyclovir 800 MG Tablet PO SCH ×5 (05:43→23:02)
[2018-01-08] MEDS: Levothyroxine 75 MCG Tablet PO SCH (05:43)
[2018-01-08 06:09] LABS: Hematocrit 24.3 % (35.0-46.0); Hemoglobin 8.5 gm/dL (11.6-15.3); Mean Corpuscular HGB Conc 35.1 % (32.0-36.0); Mean Corpuscular Hemoglobin 31.8 pg (27.0-34.0); Mean Corpuscular Volume 90.8 fL (80.0-100.0); Mean Platelet Volume 8.3 fL (7.0-11.0); Platelet Count 51 th/mm3 (150-450); Red Blood Count 2.67 mil/mm3 (4.00-5.30); Red Cell Distribution Width 13.6 % (11.6-17.2); White Blood Count 6.1 th/mm3 (4.0-11.0)
[2018-01-08 06:46] LABS: Calcium 6.6 mg/dL (8.5-10.1); Carbon Dioxide 19.4 meq/L (21.0-32.0); Magnesium 1.1 mg/dL (1.5-2.5); Potassium 3.3 meq/L (3.5-5.1); Total Protein 4.4 g/dL (6.4-8.2)
[2018-01-08 08:51] LABS: Dohle Bodies Present; Eosinophils 1 % (0-4); Lymphocytes 11 % (9-44); Metamyelocytes 3 % (0-1); Monocytes 3 % (0-8); Promyelocyte 1 % (0-0); Toxic Granulation 3+
[2018-01-08 08:52] LABS: Platelet Morphology Normal (Normal)
[2018-01-08] MEDS: Lactobacillus Acidophilus/L. Spores Tablet PO SCH ×3 (09:44→18:37)
[2018-01-08] MEDS: Gabapentin 100 MG Capsule PO SCH ×3 (09:44→18:37)
[2018-01-08] MEDS: Nystatin/Diphenhydramine/Lidocaine Mouthwash (Adult) 120 ML Botttle SWISH-SWAL SCH ×4 (09:44→23:24)
[2018-01-08] MEDS: Senna/Docusate Sodium 8.6/50 MG Tablet PO SCH ×2 (09:45→23:24)
[2018-01-08] MEDS ORDERED: Magnesium Sulfate Inj 4 GM in Sodium Chlor 0.9% Inj 92 ML IV.SIG ONE (09:51)
--- NOTE | 2018-01-08 13:29 | P.PNID ---
Subjective Remarks: Patient is a 77-year-old female, diagnosed to have rectal cancer September 2017, presented to the hospital complaining of one-week history of severe diarrhea and abdominal pain. Patient stated that as a baseline she has had problem with stool incontinence and is usually pasty. She was diagnosed with rectal cancer in September, started treatment in November, and has undergone some chemotherapy as well as radiation therapy. Over the last 1 week her diarrhea has gotten worse and it was watery, associated with abdominal cramping and pain. She has also noted some fevers. She has some mild dysuria. Since she has had radiation she has had some discomfort in the rectal region. When she presented, patient was tachycardic, had some low-grade temps. She is also neutropenic. Her urinalysis showed pyuria, and the urine culture is positive. Stool for C. difficile came back positive. Patient has had prior C. difficile colitis and this was back in 2014. Patient's temperature has been less than 100. Her WBC is slowly increasing. Her dysuria is better. Abdominal pain is better, and her main complaint currently is the persistent diarrhea and the discomfort in the rectal area. She is currently on Azactam, vancomycin, Flagyl, oral vancomycin, acyclovir. She is also getting Neupogen. Infectious disease consultation has been requested to evaluate the patient with neutropenia post chemo, and C. difficile colitis. Notes reviewed Temps ok Stool better Trying to eat more WBC up to normal Antibiotics: Azactam PO vanco Acyclovir Lines: Port Past Medical History: Reviewed Allergies/Adverse Reactions: Allergies ciprofloxacin Allergy (Severe, Verified 12/12/17 07:15) THROAT CLOSES codeine Allergy (Severe, Verified 12/12/17 07:15) THROAT CLOSES ibuprofen Allergy (Severe, Verified 12/12/17 07:15) CLOSES THROAT penicillin G Allergy (Severe, Verified 12/12/17 07:15) THROAT CLOSES Sulfa (Sulfonamide Antibiotics) Allergy (Severe, Verified 12/12/17 07:15) THROAT CLOSES adhesive Allergy (Intermediate, Verified 12/12/17 07:15) Irritation STATES THAT ALL ADHESIVES TEAR HER SKIN clarithromycin Allergy (Intermediate, Verified 12/12/17 07:15) vomit clindamycin Allergy (Intermediate, Verified 12/12/17 07:15) vomit Objective Vital Signs 01/07/18 17:45 01/07/18 18:24 01/07/18 19:25 Temperature 99 F Pulse Rate 125 H 80 Respiratory Rate 18 18 Blood Pressure 152/93 H Pulse Oximetry 94 L 01/07/18 19:30 01/07/18 21:45 01/07/18 22:15 Temperature 98 F 98.4 F Pulse Rate 85 77 Respiratory Rate 18 18 18 Blood Pressure 135/76 165/85 H Pulse Oximetry 99 100 01/07/18 23:52 01/08/18 00:07 01/08/18 02:41 Temperature 97.9 F Pulse Rate 96 H 88 Respiratory Rate 18 18 Blood Pressure 157/91 H Pulse Oximetry 97 01/08/18 04:19 01/08/18 05:37 01/08/18 06:41 Temperature 97.9 F Pulse Rate 70 81 Respiratory Rate 16 18 Blood Pressure 103/64 Pulse Oximetry 96 01/08/18 08:00 01/08/18 09:39 Temperature 98.0 F Pulse Rate 80 114 H Respiratory Rate 18 Blood Pressure 153/91 H Pulse Oximetry 99 Intake & Output 01/07/18 01/08/18 01/08/18 18:59 06:59 18:59 Intake Total 3200 / 3200 3062.5 / 3062.5 250 / 250 Output Total 1201 / 1201 Balance 3200 / 3200 1861.5 / 1861.5 250 / 250 Weight 56 kg Intake: IV 3200 / 3200 2462.5 / 2462.5 250 / 250 NS Inj 1,000 ML @ 100 mls/hr IV 1000 / 1000 1000 / 1000 .CONT .Q10H [facility] Rx#:[id number] Azactam Inj 2 GM In NS Inj 100 200 / 200 100 / 100 ML @ 200 mls/hr IV.SIG Q8H [facility] Rx#:[id number] KCl 40 mEq Premix Inj 40 meq In 100 / 100 100 ml @ 25 mls/hr IV.SIG ONCE ONE Rx#:[id number] NS Inj 1,000 ML @ Wide Open IV. 1999 / 1999 1000 / 1000 SIG .Q0M [facility] Rx#:[id number] NS Inj 250 ML @ 15 mls/hr IV. 250 / 250 SIG ONCE [facility] Rx#:[id number] Vancomycin Inj 1,250 MG In NS 262.5 / 262.5 Inj 250 ML @ 250 mls/hr IV.SIG Q24H [facility] Rx#:[id number] Oral 200 / 200 Intake (Blood Product) Amt 0 / 0 400 / 400 Rbc As-3 Leukoreduced Unit 0 / 0 400 / 400 [id number] Output: Urine 1200 / 1200 Stool 1 / Other: # Urine Diapers 1 Date of Last Bowel Movement 01/07/18 01/08/18 # Bowel Movements 1 # Incontinent Bowel Movements 1 01/07/18 20:18 Clean Catch Urine Urine Culture - Preliminary No growth in 24 hours 01/03/18 22:10 Blood - Other Aerobic Blood Culture - Final No growth in 5 days 01/03/18 22:10 Blood - Other Anaerobic Blood Culture - Final No growth in 5 days 01/03/18 22:05 Blood - Other Aerobic Blood Culture - Final No growth in 5 days 01/03/18 22:05 Blood - Other Anaerobic Blood Culture - Final No growth in 5 days 01/03/18 22:00 Blood - Peripheral Aerobic Blood Culture - Final No growth in 5 days 01/03/18 22:00 Blood - Peripheral Anaerobic Blood Culture - Final No growth in 5 days 01/03/18 22:05 Blood - Peripheral Aerobic Blood Culture - Final No growth in 5 days 01/03/18 22:05 Blood - Peripheral Anaerobic Blood Culture - Final No growth in 5 days 01/03/18 23:40 Clean Catch Urine Urine Culture - Final Escherichia coli Lab - Hematology Results 01/07/18 01/08/18 03:50 05:55 WBC 3.0 L D 6.1 RBC 2.23 L 2.67 L Hgb 7.2 L 8.5 L Hct 20.9 L* 24.3 L MCV 93.6 90.8 MCH 32.1 31.8 MCHC 34.3 35.1 RDW 13.3 13.6 Plt Count 36 L 51 L D MPV 8.4 8.3 Prelim Diff (Auto) Slide review pending Manual diff required Neut % (Auto) 78.8 H Lymph % (Auto) 7.8 L [place] % (Auto) 10.1 H Eos % (Auto) 3.1 Baso % (Auto) 0.2 Neut # (Auto) 2.3 Lymph # (Auto) 0.2 L [place] # (Auto) 0.3 Eos # (Auto) 0.1 Baso # (Auto) 0.0 WBC Differential Manual diff final Manual diff final Seg Neuts % (Manual) 58 63 Band Neuts % (Manual) 25 H 18 H Lymphocytes % (Manual) 9 11 Monocytes % (Manual) 7 3 Eosinophils % (Manual) 1 1 Metamyelocytes % (Man) 3 H Promyelocytes % (Man) 1 H Abs Neuts (Manual) 2.5 5.2 Differential Comment . . Toxic Granulation 1+ H 3+ H Dohle Bodies Present H Platelet Estimate Low L Low L Platelet Morphology Normal Normal Lab - Chemistry Results 01/06/18 01/07/18 01/08/18 15:00 03:50 05:55 Sodium 143 146 H 147 H Potassium 3.9 D 3.2 L 3.3 L Chloride 114 H 118 H 119 H Carbon Dioxide 20.1 L 17.2 L 19.4 L Anion Gap 9 11 9 BUN 16 12 7 Creatinine 1.04 H 0.87 0.73 Estimated GFR 51 L 63 L 77 L Random Glucose 138 H 69 L 67 L Calcium 6.5 L* 6.6 L* 6.6 L* Prot Corrected Calcium 7.6 L 7.9 L 8.0 L Magnesium 1.1 L Total Bilirubin 0.3 0.4 0.6 AST 19 18 21 ALT 10 Less than 6 L 6 L Alkaline Phosphatase 41 L 39 L 41 L Total Protein 4.8 L 4.5 L 4.4 L Albumin 2.1 L 2.1 L 2.0 L Imaging: ITS Impressions Abdomen X-Ray 01/03/18 21:20 CONCLUSION: No dilated loops of small or large bowel. Abdomen/Pelvis CT 01/03/18 21:20 CONCLUSION: 1. No acute findings in the abdomen/pelvis. Chest X-Ray 01/03/18 21:20 CONCLUSION: 1. No acute findings in the lungs. 2. No evidence of free air. Physical Exam: GENERAL: awake and alert, not in respiratory distress. SKIN: Warm and dry. No generalized rash. Has lesions in L buttocks in clusters , drying up HEAD: Atraumatic. Normocephalic. No temporal wasting, or tenderness. EYES: Marcellus conjunctiva. No petechia or hemorrhage. Pupils equal, round and reactive to light. Extraocular movements full and intact. No scleral icterus. No injection or drainage. EARS, NOSE AND THROAT: Nose without bleeding or purulent nasal discharge. No sinus tenderness. Mucous membranes pink and moist. No oral lesions noted. No exudate. No oral thrush. NECK: Trachea midline. Supple and not tender, no meningeal signs CARDIOVASCULAR: Regular rate and rhythm. No murmurs, rubs or gallops heard RESPIRATORY: Clear to auscultation. Breath sounds equal bilaterally. No rales , wheezing or rhonchi ABDOMEN: Soft, nondistended, has tenderness on R side and midportion below umbilicus. Bowel sounds present and normoactive. No guarding. No rebound. No organomegaly. EXTREMITIES: No clubbing, cyanosis, or edema. No joint effusion, has good ROM. No calf tenderness. Well perfused and warm. NEUROLOGICAL: Non-focal PSYCH: Cooperatove LINE: Port with no evid of infection Assessment and Plan - Plan Impression Neutropenia, improving UTI C difficile colitis Rectal CA, undergoing chemo and XRT Multiple Abx allergies - has had Ancef in the past without any problem Recommendation Stop all other Abx Continue po Canco Complete UTI Rx with Macrobid - give till tomorrow MOnitor progress Explained to patient need to increase po intake so we can see what happens to her stool, sometimes diarrhea increases once po intake increased Explained plan to patient
[2018-01-08] MEDS: Filgrastim Inj 300 MCG/ML Vial SQ SCH (13:53)
[2018-01-08] MEDS ORDERED: MAGNESIUM SULFATE IV.SIG ONE (14:00)
[2018-01-08] MEDS ORDERED: SODIUM CHLOR 0.9% IV.SIG ONE (14:00)
--- NOTE | 2018-01-08 15:25 | P.PNONC ---
Subjective Interval history: Afebrile. Patient sitting up in chair. In no acute distress. Her daughter is at the bedside visiting. Patient reports approximately 5-6 loose bowel movements throughout the night. Her daughter states that she has had 2 since her arrival here this a.m. Objective Vital Signs/Intake & Output: Vital Signs 01/07/18 17:45 01/07/18 18:24 01/07/18 19:25 Temperature 99 F Pulse Rate 125 H 80 Respiratory Rate 18 18 Blood Pressure 152/93 H Pulse Oximetry 94 L 01/07/18 19:30 01/07/18 21:45 01/07/18 22:15 Temperature 98 F 98.4 F Pulse Rate 85 77 Respiratory Rate 18 18 18 Blood Pressure 135/76 165/85 H Pulse Oximetry 99 100 01/07/18 23:52 01/08/18 00:07 01/08/18 02:41 Temperature 97.9 F Pulse Rate 96 H 88 Respiratory Rate 18 18 Blood Pressure 157/91 H Pulse Oximetry 97 01/08/18 04:19 01/08/18 05:37 01/08/18 06:41 Temperature 97.9 F Pulse Rate 70 81 Respiratory Rate 16 18 Blood Pressure 103/64 Pulse Oximetry 96 01/08/18 08:00 01/08/18 09:39 01/08/18 13:40 Temperature 98.0 F 97.9 F Pulse Rate 80 114 H 86 Respiratory Rate 18 18 Blood Pressure 153/91 H 150/97 H Pulse Oximetry 99 98 Intake & Output 01/07/18 01/08/18 01/08/18 18:59 06:59 18:59 Intake Total 3200 / 3200 3062.5 / 3062.5 250 / 250 Output Total 1201 / 1201 Balance 3200 / 3200 1861.5 / 1861.5 250 / 250 Weight 56 kg Intake: IV 3200 / 3200 2462.5 / 2462.5 250 / 250 NS Inj 1,000 ML @ 100 mls/hr IV 1000 / 1000 1000 / 1000 .CONT .Q10H [facility] Rx#:[id number] Azactam Inj 2 GM In NS Inj 100 200 / 200 100 / 100 ML @ 200 mls/hr IV.SIG Q8H [facility] Rx#:[id number] KCl 40 mEq Premix Inj 40 meq In 100 / 100 100 ml @ 25 mls/hr IV.SIG ONCE ONE Rx#:[id number] NS Inj 1,000 ML @ Wide Open IV. 1999 / 1999 1000 / 1000 SIG .Q0M [facility] Rx#:[id number] NS Inj 250 ML @ 15 mls/hr IV. 250 / 250 SIG ONCE [facility] Rx#:[id number] Vancomycin Inj 1,250 MG In NS 262.5 / 262.5 Inj 250 ML @ 250 mls/hr IV.SIG Q24H [facility] Rx#:[id number] Oral 200 / 200 Intake (Blood Product) Amt 0 / 0 400 / 400 Rbc As-3 Leukoreduced Unit 0 / 0 400 / 400 [id number] Output: Urine 1200 / 1200 Stool / Other: # Urine Diapers 1 Date of Last Bowel Movement 01/07/18 01/08/18 # Bowel Movements 1 # Incontinent Bowel Movements 1 Result Diagrams: 01/08/18 05:55 01/08/18 05:55 Laboratory Results: Laboratory Results - last 24 hr 01/07/18 01/07/18 01/08/18 11:26 20:18 05:55 WBC RBC Hgb Hct MCV MCH MCHC RDW Plt Count MPV Prelim Diff (Auto) WBC Differential Seg Neuts % (Manual) Band Neuts % (Manual) Lymphocytes % (Manual) Monocytes % (Manual) Eosinophils % (Manual) Metamyelocytes % (Man) Promyelocytes % (Man) Abs Neuts (Manual) Differential Comment Toxic Granulation Dohle Bodies Platelet Estimate Platelet Morphology Sodium 147 H Potassium 3.3 L Chloride 119 H Carbon Dioxide 19.4 L Anion Gap 9 BUN 7 Creatinine 0.73 Estimated GFR 77 L Random Glucose 67 L Calcium 6.6 L* Prot Corrected Calcium 8.0 L Magnesium 1.1 L Total Bilirubin 0.6 AST 21 ALT 6 L Alkaline Phosphatase 41 L Total Protein 4.4 L Albumin 2.0 L Urine Color Straw Urine Clarity Clear Urine pH 5.0 Ur Specific [place] 1.008 Urine Protein Negative Urine Glucose (UA) 50 Urine Ketones Negative Urine Occult Blood Small H Urine Nitrate Negative Urine Bilirubin Negative Urine Urobilinogen Less than 2 Ur Leukocyte Esterase Negative Urine RBC 7 H Urine WBC 8 H Ur Squamous Epith Cells <1 Urine Bacteria Rare H Blood Type A Positive Blood Type Recheck Not needed Antibody Screen Negative MTS Gel Crossmatch See Detail 01/08/18 05:55 WBC 6.1 RBC 2.67 L Hgb 8.5 L Hct 24.3 L MCV 90.8 MCH 31.8 MCHC 35.1 RDW 13.6 Plt Count 51 L D MPV 8.3 Prelim Diff (Auto) Manual diff required WBC Differential Manual diff final Seg Neuts % (Manual) 63 Band Neuts % (Manual) 18 H Lymphocytes % (Manual) 11 Monocytes % (Manual) 3 Eosinophils % (Manual) 1 Metamyelocytes % (Man) 3 H Promyelocytes % (Man) 1 H Abs Neuts (Manual) 5.2 Differential Comment . Toxic Granulation 3+ H Dohle Bodies Present H Platelet Estimate Low L Platelet Morphology Normal Sodium Potassium Chloride Carbon Dioxide Anion Gap BUN Creatinine Estimated GFR Random Glucose Calcium Prot Corrected Calcium Magnesium Total Bilirubin AST ALT Alkaline Phosphatase Total Protein Albumin Urine Color Urine Clarity Urine pH Ur Specific [place] Urine Protein Urine Glucose (UA) Urine Ketones Urine Occult Blood Urine Nitrate Urine Bilirubin Urine Urobilinogen Ur Leukocyte Esterase Urine RBC Urine WBC Ur Squamous Epith Cells Urine Bacteria Blood Type Blood Type Recheck Antibody Screen MTS Gel Crossmatch Culture Results: Microbiology 01/07/18 20:18 Urine Culture - Preliminary Clean Catch Urine No growth in 24 hours 01/03/18 22:10 Aerobic Blood Culture - Final Blood - Other No growth in 5 days Anaerobic Blood Culture - Final No growth in 5 days 01/03/18 22:05 Aerobic Blood Culture - Final Blood - Other No growth in 5 days Anaerobic Blood Culture - Final No growth in 5 days 01/03/18 22:00 Aerobic Blood Culture - Final Blood - Peripheral No growth in 5 days Anaerobic Blood Culture - Final No growth in 5 days 01/03/18 22:05 Aerobic Blood Culture - Final Blood - Peripheral No growth in 5 days Anaerobic Blood Culture - Final No growth in 5 days 01/03/18 23:40 Urine Culture - Final Clean Catch Urine Escherichia coli Medications: Active Medications Generic Name Dose Route Start Last Admin Trade Name Freq PRN Reason Stop Dose Admin Acyclovir 800 mg 01/05/18 14:00 01/08/18 13:57 Zovirax PO 800 mg 5 TIMES A DAY [facility] Administration Alprazolam 0.5 mg 01/04/18 12:00 01/08/18 02:11 Xanax PO 0.5 mg BID PRN Administration Anxiety Apixaban 2.5 mg 01/04/18 12:00 01/04/18 20:14 Eliquis PO 2.5 mg BID ANDRY Administration Atorvastatin Calcium 20 mg 01/04/18 21:00 01/07/18 21:53 Lipitor PO 20 mg HS ANDRY Administration Benzonatate 200 mg 01/05/18 00:00 01/07/18 23:45 Tessalon Perles PO 200 mg Q8H PRN Administration COUGH Carbidopa/Levodopa 1 tab 01/04/18 21:00 01/07/18 21:46 Sinemet 25/100 Mg PO 1 tab HS AND[facility] Administration Filgrastim 300 mcg 01/05/18 14:00 01/08/18 13:53 Neupogen Inj SQ 300 mcg DAILY@1400 [facility] Administration Gabapentin 100 mg 01/04/18 13:00 01/08/18 13:52 Neurontin PO 100 mg TID AND[facility] Administration Hydrocortisone Acetate 30 mg 01/05/18 06:00 01/08/18 05:43 Cortef PO 30 mg DAILY@0600 [facility] Administration Hydrocortisone Acetate 20 mg 01/04/18 12:30 01/07/18 17:37 Cortef PO 20 mg DAILY@1200 [facility] Administration Hydromorphone HCl 1 mg 01/04/18 00:14 01/08/18 11:10 Dilaudid Pf Inj IV.PUSH 1 mg Q4H PRN Administration PAIN 6-10 Sodium Chloride 1,000 mls @ 0 mls/hr 01/03/18 21:30 01/08/18 01:52 Ns Inj IV.SIG Infused .Q0M [facility] Infusion Wide Open Sodium Chloride 1,000 mls @ 100 mls/hr 01/04/18 00:15 01/08/18 05:42 Ns Inj IV.CONT 100 mls/hr .Q10H [facility] Administration Magnesium Sulfate Inj 4 gm/ 58 mls @ 25 mls/hr 01/08/18 14:00 01/08/18 13:55 Sodium Chloride IV.SIG 01/08/18 16:19 25 mls/hr ONCE ONE Administration Lactobacillus Acidophilus 1 tab 01/04/18 18:00 01/08/18 13:53 Lactinex PO 1 tab TID AND[facility] Administration Levothyroxine Sodium 75 mcg 01/04/18 12:15 01/08/18 05:43 Synthroid PO 75 mcg DAILY@0600 [facility] Administration Multi-Ingredient Mouthwash/Gargle 10 ml 01/04/18 13:00 01/08/18 13:55 Magic Mouthwash Adult Liq SWISH-SWAL 10 ml QID [facility] Administration Pantoprazole Sodium 40 mg 01/05/18 11:00 01/08/18 09:44 Protonix PO 40 mg DAILY [facility] Administration Potassium Chloride 40 meq 01/08/18 10:00 01/08/18 13:52 Klor-Con 10 PO 40 meq DAILY AND[facility] Administration Senna/Docusate Sodium 1 tab 01/04/18 09:00 01/08/18 09:45 Lucy-Colace PO Not Given BID ANDRY Sodium Chloride 5 ml 01/06/18 06:12 01/06/18 06:27 Ns Flush IV.FLUSH 5 ml PRN PRN Administration Flush Infusaport Temazepam 15 mg 01/04/18 00:03 01/04/18 02:31 Restoril PO 15 mg HS PRN Administration INSOMNIA Vancomycin HCl 250 mg 01/04/18 18:45 01/08/18 13:52 Vancomycin Po PO 250 mg QID ANDRY Administration Objective Remarks: GENERAL: Elderly female patient, sitting in chair. In no acute distress. SKIN: Warm and dry. Small cluster herpetic appearing round lesion to left buttock, improving, perianal excoriation with barrier cream. HEAD: Normocephalic. EYES: No scleral icterus. No injection or drainage. NECK: Supple, trachea midline. CARDIOVASCULAR: Normal rate, no murmurs noted. RESPIRATORY: Anterior breath sounds clear, equal bilaterally. Non-labored GASTROINTESTINAL: Abdomen soft, non-tender, nondistended. + BS. EXTREMITIES: No cyanosis, or edema. MUSCULOSKELETAL: Generalized weakness NEUROLOGICAL: No obvious focal deficit. Awake, alert, and oriented x3. Assessment/Plan (1) C. 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 She was admitted with lower abdominal pain, fever and diarrhea. 1. C-diff, diarrhea continues. Awaiting repeat C. difficile test. Continue antibiotics per ID. We will stop the IV vancomycin and continue p.o. as the patient's white count is recovering. 2. UA grew gram neg rods; pt on aztrenoam. Repeat urinalysis remains with bacteria and RBCs, culture pending. 3. Thrombocytopenia continues to improve, Eliquis on hold. 4. Lesion to buttock, improving on acyclovir. 5. Continue barrier cream to excoriated rectal area. 6. Hypokalemia, 3.3 mEq, will replace. Magnesium level 1.1, will replace. 7. Continue Neupogen. - Attending Statement The exam, history, and the medical decision-making described in the above note were completed with the assistance of the mid-level provider. I reviewed and agree with the findings presented. I attest that I had a [id number] encounter with the patient on the same day, and personally performed and documented my assessment and findings in the medical record. Patient still complaining of diarrhea and soreness around the buttock area. She wants to stop her antibiotics. Stool however is more formed. Repeat C. difficile test is pending. She will continue antibiotic per infectious disease. We will stop the IV vancomycin for now because she is no longer neutropenic. Continue Neupogen for 1 more day.
--- NOTE | 2018-01-08 16:54 | P.PNWCN ---
Wound Care Nurse Consult Description: Consult for wound management of s/p anal radiation, now with c-diff excoriation per Helga Sandeepyaritza Communicated with: WIN Strauss Recommendation: Continue Calazime skin protectant paste as long as patient is not having radiation. If patient begins radiation treatments please cleanse skin of Calazime prior to radiation. If patient desires to use home remedy please get order to do so. Additional information: *Late Entry* Attempted to see patient on [facility] for "excoriation" to per anal area. Spoke with RN regarding patient. WIN Strauss states that she just medicated her and to please let her sleep. If further recommendations are needed please Vocbishop motor analyst.
[2018-01-08] MEDS: Nitrofurantoin Monohydrate-Macrocrystal 100 MG Capsule PO SCH (18:37)
--- NOTE | 2018-01-08 18:58 | P.PNIM ---
Subjective Interval history: Patient says she is feeling well better than yesterday. Denies any chest pain shortness of breath. Denies nausea or vomiting. Still with loose bowel movements, however have improved somewhat. Physical Exam Vital signs: Vital Signs 01/07/18 19:25 01/07/18 19:30 01/07/18 21:45 Temperature 98 F 98.4 F Pulse Rate 80 85 77 Respiratory Rate 18 18 Blood Pressure 135/76 165/85 H Pulse Oximetry 99 100 01/07/18 22:15 01/07/18 23:52 01/08/18 00:07 Temperature 97.9 F Pulse Rate 96 H 88 Respiratory Rate 18 18 Blood Pressure 157/91 H Pulse Oximetry 97 01/08/18 02:41 01/08/18 04:19 01/08/18 05:37 Temperature 97.9 F Pulse Rate 70 81 Respiratory Rate 18 16 Blood Pressure 103/64 Pulse Oximetry 96 01/08/18 06:41 01/08/18 08:00 01/08/18 09:39 Temperature 98.0 F Pulse Rate 80 114 H Respiratory Rate 18 18 Blood Pressure 153/91 H Pulse Oximetry 99 01/08/18 13:40 Temperature 97.9 F Pulse Rate 86 Respiratory Rate 18 Blood Pressure 150/97 H Pulse Oximetry 98 Intake & Output 01/07/18 01/08/18 01/08/18 18:59 06:59 18:59 Intake Total 3200 / 3200 3062.5 / 3062.5 250 / 250 Output Total 1201 / 1201 Balance 3200 / 3200 1861.5 / 1861.5 250 / 250 Weight 56 kg Intake: IV 3200 / 3200 2462.5 / 2462.5 250 / 250 NS Inj 1,000 ML @ 100 mls/hr IV 1000 / 1000 1000 / 1000 .CONT .Q10H ANDRY Rx#:[id number] Azactam Inj 2 GM In NS Inj 100 200 / 200 100 / 100 ML @ 200 mls/hr IV.SIG Q8H ANDRY Rx#:[id number] KCl 40 mEq Premix Inj 40 meq In 100 / 100 100 ml @ 25 mls/hr IV.SIG ONCE ONE Rx#:[id number] NS Inj 1,000 ML @ Wide Open IV. 1999 / 1999 1000 / 1000 SIG .Q0M ANDRY Rx#:[id number] NS Inj 250 ML @ 15 mls/hr IV. 250 / 250 SIG ONCE ANDRY Rx#:[id number] Vancomycin Inj 1,250 MG In NS 262.5 / 262.5 Inj 250 ML @ 250 mls/hr IV.SIG Q24H ANDRY Rx#:[id number] Oral 200 / 200 Intake (Blood Product) Amt 0 / 0 400 / 400 Rbc As-3 Leukoreduced Unit 0 / 0 400 / 400 [id number] Output: Urine 1200 / 1200 Stool 1 / Other: # Urine Diapers 1 Date of Last Bowel Movement 01/07/18 01/08/18 # Bowel Movements 1 # Incontinent Bowel Movements 1 Narrative: GENERAL: Patient sitting up in chair. Appears comfortable. aaox3 exam unchanged from yesterday. SKIN: Warm and dry. HEAD: Normocephalic. EYES: No scleral icterus. No injection or drainage. NECK: Supple, trachea midline. No JVD . CARDIOVASCULAR: Regular rate and rhythm without murmurs, gallops, or rubs. RESPIRATORY: Breath sounds equal bilaterally. No accessory muscle use. GASTROINTESTINAL: Abdomen soft, nondistended. nontender. No rebound or guarding. MUSCULOSKELETAL: No cyanosis, or edema. BACK: Nontender without obvious deformity. No CVA tenderness. - Urinary Catheter Management Straight Cath placed during this visit: yes, but has since been removed by the nurse Reason for continuing: Not indwelling catheter Insertion date: 01/07/18 Insertion time: 20:15 Removal date: 01/07/18 Removal time: 20:16 Results - Labs CBC & Chem 7: 01/08/18 05:55 01/08/18 05:55 Laboratory Results - last 24 hr 01/07/18 01/07/18 01/08/18 11:26 20:18 05:55 WBC RBC Hgb Hct MCV MCH MCHC RDW Plt Count MPV Prelim Diff (Auto) WBC Differential Seg Neuts % (Manual) Band Neuts % (Manual) Lymphocytes % (Manual) Monocytes % (Manual) Eosinophils % (Manual) Metamyelocytes % (Man) Promyelocytes % (Man) Abs Neuts (Manual) Differential Comment Toxic Granulation Dohle Bodies Platelet Estimate Platelet Morphology Sodium 147 H Potassium 3.3 L Chloride 119 H Carbon Dioxide 19.4 L Anion Gap 9 BUN 7 Creatinine 0.73 Estimated GFR 77 L Random Glucose 67 L Calcium 6.6 L* Prot Corrected Calcium 8.0 L Magnesium 1.1 L Total Bilirubin 0.6 AST 21 ALT 6 L Alkaline Phosphatase 41 L Total Protein 4.4 L Albumin 2.0 L Urine Color Straw Urine Clarity Clear Urine pH 5.0 Ur Specific [place] 1.008 Urine Protein Negative Urine Glucose (UA) 50 Urine Ketones Negative Urine Occult Blood Small H Urine Nitrate Negative Urine Bilirubin Negative Urine Urobilinogen Less than 2 Ur Leukocyte Esterase Negative Urine RBC 7 H Urine WBC 8 H Ur Squamous Epith Cells <1 Urine Bacteria Rare H MTS Gel Crossmatch See Detail 01/08/18 05:55 WBC 6.1 RBC 2.67 L Hgb 8.5 L Hct 24.3 L MCV 90.8 MCH 31.8 MCHC 35.1 RDW 13.6 Plt Count 51 L D MPV 8.3 Prelim Diff (Auto) Manual diff required WBC Differential Manual diff final Seg Neuts % (Manual) 63 Band Neuts % (Manual) 18 H Lymphocytes % (Manual) 11 Monocytes % (Manual) 3 Eosinophils % (Manual) 1 Metamyelocytes % (Man) 3 H Promyelocytes % (Man) 1 H Abs Neuts (Manual) 5.2 Differential Comment . Toxic Granulation 3+ H Dohle Bodies Present H Platelet Estimate Low L Platelet Morphology Normal Sodium Potassium Chloride Carbon Dioxide Anion Gap BUN Creatinine Estimated GFR Random Glucose Calcium Prot Corrected Calcium Magnesium Total Bilirubin AST ALT Alkaline Phosphatase Total Protein Albumin Urine Color Urine Clarity Urine pH Ur Specific [place] Urine Protein Urine Glucose (UA) Urine Ketones Urine Occult Blood Urine Nitrate Urine Bilirubin Urine Urobilinogen Ur Leukocyte Esterase Urine RBC Urine WBC Ur Squamous Epith Cells Urine Bacteria MTS Gel Crossmatch Microbiology 01/07/18 20:18 Clean Catch Urine Urine Culture - Preliminary No growth in 24 hours 01/03/18 22:10 Blood - Other Aerobic Blood Culture - Final No growth in 5 days 01/03/18 22:10 Blood - Other Anaerobic Blood Culture - Final No growth in 5 days 01/03/18 22:05 Blood - Other Aerobic Blood Culture - Final No growth in 5 days 01/03/18 22:05 Blood - Other Anaerobic Blood Culture - Final No growth in 5 days 01/03/18 22:00 Blood - Peripheral Aerobic Blood Culture - Final No growth in 5 days 01/03/18 22:00 Blood - Peripheral Anaerobic Blood Culture - Final No growth in 5 days 01/03/18 22:05 Blood - Peripheral Aerobic Blood Culture - Final No growth in 5 days 01/03/18 22:05 Blood - Peripheral Anaerobic Blood Culture - Final No growth in 5 days Assessment and Plan - Assessment (1) Neutropenic fever Code(s): D70.9 - Neutropenia, unspecified; R50.81 - Fever presenting with conditions classified elsewhere Status: Acute (2) Rectal cancer Code(s): C20 - Malignant neoplasm of rectum Status: Acute (3) Abdominal pain Code(s): R10.9 - Unspecified abdominal pain Status: Acute - Plan // Neutropenic Fever: WBC 0.5, absolute neutrophil count 0.2, Temp 101 at home , currently on Chemo/Radiation for Rectal CA. S/p Blood Cultures, Vanc/ cefepime U/a positive for UTI as likely source, continue IV Abx, follow up cultures, monitor I/O. Neutropenic precautions, check C Diff for ongoing diarrhea. = 01/06. Appreciate hematology assistance. Neutropenia resolving. Afebrile today. Continue antibiotics as per hematology. = 01/08 neutropenia has resolved. //Rectal CA: on Chemo/Radiation, scheduled for Radiation on Friday, will Consult Dr. Guzman for further evaluation/recommendations. = 01/06. Appreciate hematology assistance. Neutropenia resolving. = 01/08 as per oncology. Appreciate assistance. //UTI. Continues on aztreonam 01/07 Oncology as ordered urinalysis, however nursing reports that urine is always contaminated with stool. Will continue aztreonam for now, and now that patient is no longer neutropenic, will order single straight cath. If urinalysis negative, can stop aztreonam. = 01/08. Patient will be on nitrofurantoin as per ID. Due to recurrent UTIs, I suggested in the outpatient setting that patient discuss the possible use of periurethral estrogen, such as Estrace cream to help prevent recurrent UTIs. // Abdominal Pain: acute onset of severe abdominal pain, CT Abd/Pelvis w/ no acute findings, images reviewed. Analgesics/antiemetics as needed. = 01/06. Slightly improved today. Continue to monitor. = 01/08. Dietary to C. difficile improved. //difficile toxin positive colitis started on vancomycin 250 mg p.o. 4 times daily for 28 days = 01/06. Abdominal pain slightly improved today. Continue vancomycin for C. difficile. Awaiting ID consult. = 01/08. Continue vancomycin p.o. as per ID. //Left buttocks zoster will start on acyclovir 800 mg p.o. 5 times a day = Continue acyclovir //GERD we will continue on Protonix 40 mg p.o. daily //Hypokalemia //Hypomagnesemia //Hypernatremia -01/08 potassium, magnesium replaced. Follow-up labs tomorrow. // DVT Prophylaxis: SCD/Teds Discharge Planning: Continue inpatient management. Pending oncology clearance PT recommends home with supervision at time of discharge.
[2018-01-08] MEDS: Benzonatate 100 MG Capsule PO PRN (23:04)
[2018-01-09] MEDS: Sod Chloride 0.9% Inj 1,000 ML IV.SIG SCH ×2 (03:07→13:18)
[2018-01-09] MEDS: HYDROmorphone PF Inj 2 MG/ML Vial IV.PUSH PRN ×5 (03:08→22:30)
[2018-01-09] MEDS: Hydrocortisone 10 MG Tablet PO SCH ×2 (05:38→12:55)
[2018-01-09] MEDS: Acyclovir 800 MG Tablet PO SCH ×5 (05:39→22:36)
[2018-01-09] MEDS: Levothyroxine 75 MCG Tablet PO SCH (05:39)
[2018-01-09 06:09] LABS: Albumin 2.5 g/dL (3.4-5.0); Carbon Dioxide 24.1 meq/L (21.0-32.0); Magnesium 1.8 mg/dL (1.5-2.5); Potassium 3.2 meq/L (3.5-5.1); Total Protein 5.3 g/dL (6.4-8.2)
[2018-01-09] MEDS: Sod Chloride 0.9% Inj 1,000 ML IV.CONT SCH (06:23)
[2018-01-09] MEDS: Nystatin/Diphenhydramine/Lidocaine Mouthwash (Adult) 120 ML Botttle SWISH-SWAL SCH ×4 (10:01→22:37)
[2018-01-09] MEDS: Senna/Docusate Sodium 8.6/50 MG Tablet PO SCH ×2 (10:01→22:39)
[2018-01-09] MEDS: Lactobacillus Acidophilus/L. Spores Tablet PO SCH ×3 (10:01→18:57)
[2018-01-09] MEDS: Gabapentin 100 MG Capsule PO SCH ×3 (12:55→18:58)
[2018-01-09] MEDS: Nitrofurantoin Monohydrate-Macrocrystal 100 MG Capsule PO SCH ×2 (13:16→18:58)
--- NOTE | 2018-01-09 16:34 | P.PNONC ---
Subjective Interval history: Afebrile. Patient lying in bed, in no acute distress. She reports continued diarrhea, denies any N/V. Pain to rectal area improved with barrier cream. Objective Vital Signs/Intake & Output: Vital Signs 01/08/18 20:00 01/08/18 23:37 01/09/18 00:00 Temperature Pulse Rate 95 H 113 H Respiratory Rate 16 18 22 Blood Pressure 165/87 H 169/104 H Pulse Oximetry 100 97 01/09/18 04:00 01/09/18 12:00 Temperature 98.3 F Pulse Rate 93 H 69 Respiratory Rate 18 21 Blood Pressure 159/92 H 153/91 H Pulse Oximetry 94 L 96 Intake & Output 01/08/18 01/09/18 01/09/18 18:59 06:59 18:59 Intake Total 1750 / 1750 1000 / 1000 Balance 1750 / 1750 1000 / 1000 Weight 56 kg Intake: IV 1750 / 1750 1000 / 1000 NS Inj 1,000 ML @ 100 mls/hr IV 1500 / 1500 .CONT .Q10H ANDRY Rx#:[id number] NS Inj 1,000 ML @ Wide Open IV. 1000 / 1000 SIG .Q0M ANDRY Rx#:[id number] NS Inj 250 ML @ 15 mls/hr IV. 250 / 250 SIG ONCE ANDRY Rx#:[id number] Other: Date of Last Bowel Movement 01/08/18 01/08/18 Result Diagrams: 01/08/18 05:55 01/09/18 03:30 Laboratory Results: Laboratory Results - last 24 hr 01/09/18 03:30 Sodium 145 Potassium 3.2 L Chloride 114 H Carbon Dioxide 24.1 Anion Gap 7 BUN 6 L Creatinine 0.69 Estimated GFR 82 L Random Glucose 85 Calcium 7.0 L* Prot Corrected Calcium 7.9 L Magnesium 1.8 D Total Bilirubin 0.7 AST 37 ALT 7 L Alkaline Phosphatase 64 Total Protein 5.3 L D Albumin 2.5 L Culture Results: Microbiology 01/07/18 20:18 Urine Culture - Final Clean Catch Urine No growth in 48 hours 01/03/18 22:10 Aerobic Blood Culture - Final Blood - Other No growth in 5 days Anaerobic Blood Culture - Final No growth in 5 days 01/03/18 22:05 Aerobic Blood Culture - Final Blood - Other No growth in 5 days Anaerobic Blood Culture - Final No growth in 5 days 01/03/18 22:00 Aerobic Blood Culture - Final Blood - Peripheral No growth in 5 days Anaerobic Blood Culture - Final No growth in 5 days 01/03/18 22:05 Aerobic Blood Culture - Final Blood - Peripheral No growth in 5 days Anaerobic Blood Culture - Final No growth in 5 days Medications: Active Medications Generic Name Dose Route Start Last Admin Trade Name Freq PRN Reason Stop Dose Admin Acyclovir 800 mg 01/05/18 14:00 01/09/18 13:04 Zovirax PO 800 mg 5 TIMES A DAY ANDRY Administration Alprazolam 0.5 mg 01/04/18 12:00 01/08/18 23:04 Xanax PO 0.5 mg BID PRN Administration Anxiety Apixaban 2.5 mg 01/04/18 12:00 01/04/18 20:14 Eliquis PO 2.5 mg BID ANDRY Administration Atorvastatin Calcium 20 mg 01/04/18 21:00 01/08/18 23:02 Lipitor PO 20 mg HS ANDRY Administration Benzonatate 200 mg 01/05/18 00:00 01/08/18 23:04 Tessalon Perles PO 200 mg Q8H PRN Administration COUGH Carbidopa/Levodopa 1 tab 01/04/18 21:00 01/08/18 23:02 Sinemet 25/100 Mg PO 1 tab HS ANDRY Administration Gabapentin 100 mg 01/04/18 13:00 01/09/18 13:15 Neurontin PO 100 mg TID ANDRY Administration Hydrocortisone Acetate 30 mg 01/05/18 06:00 01/09/18 05:38 Cortef PO 30 mg DAILY@0600 ANDRY Administration Hydrocortisone Acetate 20 mg 01/04/18 12:30 01/09/18 12:55 Cortef PO 20 mg DAILY@1200 ANDRY Administration Hydromorphone HCl 1 mg 01/04/18 00:14 01/09/18 12:54 Dilaudid Pf Inj IV.PUSH 1 mg Q4H PRN Administration PAIN 6-10 Sodium Chloride 1,000 mls @ 0 mls/hr 01/03/18 21:30 01/09/18 13:18 Ns Inj IV.SIG 100 mls/hr .Q0M ANDRY Administration Wide Open Sodium Chloride 1,000 mls @ 100 mls/hr 01/04/18 00:15 01/09/18 06:23 Ns Inj IV.CONT Not Given .Q10H ANDRY Lactobacillus Acidophilus 1 tab 01/04/18 18:00 01/09/18 12:55 Lactinex PO 1 tab TID ANDRY Administration Levothyroxine Sodium 75 mcg 01/04/18 12:15 01/09/18 05:39 Synthroid PO 75 mcg DAILY@0600 ANDRY Administration Multi-Ingredient Mouthwash/Gargle 10 ml 01/04/18 13:00 01/09/18 12:56 Magic Mouthwash Adult Liq SWISH-SWAL 10 ml QID ANDRY Administration Nitrofurantoin Macrocrystals 100 mg 01/08/18 18:00 01/09/18 13:16 Macrobid PO 01/09/18 18:01 100 mg BIDPC ANDRY Administration Pantoprazole Sodium 40 mg 01/05/18 11:00 01/09/18 10:01 Protonix PO 40 mg DAILY ANDRY Administration Potassium Chloride 40 meq 01/08/18 10:00 01/09/18 10:01 Klor-Con 10 PO 40 meq DAILY ANDRY Administration Senna/Docusate Sodium 1 tab 01/04/18 09:00 01/08/18 23:24 Lucy-Colace PO Not Given BID ANDRY Sodium Chloride 5 ml 01/06/18 06:12 01/06/18 06:27 Ns Flush IV.FLUSH 5 ml PRN PRN Administration Flush Infusaport Temazepam 15 mg 01/04/18 00:03 01/04/18 02:31 Restoril PO 15 mg HS PRN Administration INSOMNIA Vancomycin HCl 250 mg 01/04/18 18:45 01/09/18 12:55 Vancomycin Po PO 01/17/18 23:00 250 mg QID ANDRY Administration Objective Remarks: GENERAL: Elderly female patient, lying in bed. In no acute distress. SKIN: Warm and dry. Small cluster herpetic lesion to left lateral gluteal, diminishing in size. perianal excoriation with barrier cream. HEAD: Normocephalic. EYES: No scleral icterus. No injection or drainage. NECK: Supple, trachea midline. CARDIOVASCULAR: Normal rate, no murmurs noted. RESPIRATORY: Anterior breath sounds clear, equal bilaterally. No accessory muscle use GASTROINTESTINAL: Abdomen soft, non-tender, nondistended. + BS. EXTREMITIES: No cyanosis, or edema. MUSCULOSKELETAL: Generalized weakness NEUROLOGICAL: No obvious focal deficit. Awake, alert, and oriented x3. Assessment/Plan (1) C. 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 She was admitted with lower abdominal pain, fever and diarrhea. 1. C-diff, diarrhea continues. Awaiting repeat C. difficile test. Continue antibiotics per ID. 2. UA grew gram neg rods; pt on aztrenoam. 3. Thrombocytopenia continues to improve, Eliquis on hold. 4. Lesion to buttock, improving on acyclovir. 5. Continue barrier cream to excoriated rectal area. 6. We will stop the Neupogen today. - Attending Statement The exam, history, and the medical decision-making described in the above note were completed with the assistance of the mid-level provider. I reviewed and agree with the findings presented. I attest that I had a [id number] encounter with the patient on the same day, and personally performed and documented my assessment and findings in the medical record.Diarrhea has improved, stool is pasty. Has perirectal pain but controlled with pain meds. Neutropenia has resolved. Stop neupogen. Restart eliquis when platelet above 70k. Continue abx per ID.
[2018-01-09] MEDS: ALPRAZolam 0.5 MG Tablet PO PRN ×2 (16:56→22:35)
--- NOTE | 2018-01-09 18:31 | P.PNIM ---
Subjective Interval history: Reports continued loose bowel movements. Denies any chest pain or shortness of breath. Denies any dysuria. Physical Exam Vital signs: Vital Signs 01/08/18 20:00 01/08/18 23:37 01/09/18 00:00 Temperature Pulse Rate 95 H 113 H Respiratory Rate 16 18 22 Blood Pressure 165/87 H 169/104 H Pulse Oximetry 100 97 01/09/18 04:00 01/09/18 12:00 01/09/18 16:59 Temperature 98.3 F 98.7 F Pulse Rate 93 H 69 102 H Respiratory Rate 18 21 18 Blood Pressure 159/92 H 153/91 H 157/98 H Pulse Oximetry 94 L 96 97 Intake & Output 01/08/18 01/09/18 01/09/18 18:59 06:59 18:59 Intake Total 1750 / 1750 1000 / 1000 Balance 1750 / 1750 1000 / 1000 Weight 56 kg Intake: IV 1750 / 1750 1000 / 1000 NS Inj 1,000 ML @ 100 mls/hr IV 1500 / 1500 .CONT .Q10H ANDRY Rx#:[id number] NS Inj 1,000 ML @ Wide Open IV. 1000 / 1000 SIG .Q0M ANDRY Rx#:[id number] NS Inj 250 ML @ 15 mls/hr IV. 250 / 250 SIG ONCE ANDRY Rx#:[id number] Other: Date of Last Bowel Movement 01/08/18 01/08/18 01/09/18 Narrative: GENERAL: Patient sitting up in chair. Appears comfortable. aaox3. exam again unchanged from yesterday. SKIN: Warm and dry. HEAD: Normocephalic. EYES: No scleral icterus. No injection or drainage. NECK: Supple, trachea midline. No JVD . CARDIOVASCULAR: Regular rate and rhythm without murmurs, gallops, or rubs. RESPIRATORY: Breath sounds equal bilaterally. No accessory muscle use. GASTROINTESTINAL: Abdomen soft, nondistended. nontender. No rebound or guarding. MUSCULOSKELETAL: No cyanosis, or edema. BACK: Nontender without obvious deformity. No CVA tenderness. - Urinary Catheter Management Straight Cath placed during this visit: yes, but has since been removed by the nurse Reason for continuing: Not indwelling catheter Insertion date: 01/07/18 Insertion time: 20:15 Removal date: 01/07/18 Removal time: 20:16 Results - Labs CBC & Chem 7: 01/08/18 05:55 01/09/18 03:30 Laboratory Results - last 24 hr 01/09/18 03:30 Sodium 145 Potassium 3.2 L Chloride 114 H Carbon Dioxide 24.1 Anion Gap 7 BUN 6 L Creatinine 0.69 Estimated GFR 82 L Random Glucose 85 Calcium 7.0 L* Prot Corrected Calcium 7.9 L Magnesium 1.8 D Total Bilirubin 0.7 AST 37 ALT 7 L Alkaline Phosphatase 64 Total Protein 5.3 L D Albumin 2.5 L Microbiology 01/07/18 20:18 Clean Catch Urine Urine Culture - Final No growth in 48 hours Assessment and Plan - Assessment (1) Neutropenic fever Code(s): D70.9 - Neutropenia, unspecified; R50.81 - Fever presenting with conditions classified elsewhere Status: Acute (2) Rectal cancer Code(s): C20 - Malignant neoplasm of rectum Status: Acute (3) Abdominal pain Code(s): R10.9 - Unspecified abdominal pain Status: Acute - Plan // Neutropenic Fever: WBC 0.5, absolute neutrophil count 0.2, Temp 101 at home , currently on Chemo/Radiation for Rectal CA. S/p Blood Cultures, Vanc/ cefepime U/a positive for UTI as likely source, continue IV Abx, follow up cultures, monitor I/O. Neutropenic precautions, check C Diff for ongoing diarrhea. = 01/06. Appreciate hematology assistance. Neutropenia resolving. Afebrile today. Continue antibiotics as per hematology. = neutropenia has resolved. //Rectal CA: on Chemo/Radiation, scheduled for Radiation on Friday, will Consult Dr. Guzman for further evaluation/recommendations. = 01/06. Appreciate hematology assistance. Neutropenia resolving. = as per oncology. Appreciate assistance. //UTI. Continues on aztreonam 01/07 Oncology as ordered urinalysis, however nursing reports that urine is always contaminated with stool. Will continue aztreonam for now, and now that patient is no longer neutropenic, will order single straight cath. If urinalysis negative, can stop aztreonam. = 01/08. Patient will be on nitrofurantoin as per ID. Due to recurrent UTIs, I suggested in the outpatient setting that patient discuss the possible use of periurethral estrogen, such as Estrace cream to help prevent recurrent UTIs. = Mariano as per ID. // Abdominal Pain: acute onset of severe abdominal pain, CT Abd/Pelvis w/ no acute findings, images reviewed. Analgesics/antiemetics as needed. = 01/06. Slightly improved today. Continue to monitor. = 01/08. Dietary to C. difficile improved. = 01/09. No with excessive bowel movements. Continue treatment for C. difficile. Hopefully diarrhea improves off of nitrofurantoin. //difficile toxin positive colitis started on vancomycin 250 mg p.o. 4 times daily for 28 days = 01/06. Abdominal pain slightly improved today. Continue vancomycin for C. difficile. Awaiting ID consult. = 01/08. Continue vancomycin p.o. as per ID. = 01/09. Continue antibiotics as per ID. //Left buttocks zoster will start on acyclovir 800 mg p.o. 5 times a day = Continue acyclovir //GERD we will continue on Protonix 40 mg p.o. daily //Hypokalemia //Hypomagnesemia //Hypernatremia -01/08 potassium, magnesium replaced. Follow-up labs tomorrow. = 01/09. Magnesium resolved. Potassium continues low. On daily replacement. Continue to monitor. // DVT Prophylaxis: SCD/Teds Discharge Planning: Continue inpatient management. Pending oncology clearance PT recommends home with supervision at time of discharge.
[2018-01-09] MEDS: Benzonatate 100 MG Capsule PO PRN (20:26)
[2018-01-10] MEDS: Sod Chloride 0.9% Inj 1,000 ML IV.SIG SCH (04:36)
[2018-01-10] MEDS: HYDROmorphone PF Inj 2 MG/ML Vial IV.PUSH PRN ×5 (04:37→21:15)
[2018-01-10] MEDS: Sod Chloride 0.9% Inj 1,000 ML IV.CONT SCH ×3 (04:40→10:06)
[2018-01-10] MEDS: Hydrocortisone 10 MG Tablet PO SCH ×2 (05:02→12:01)
[2018-01-10] MEDS: Acyclovir 800 MG Tablet PO SCH ×5 (05:02→21:18)
[2018-01-10] MEDS: Benzonatate 100 MG Capsule PO PRN ×2 (05:02→15:19)
[2018-01-10] MEDS: Levothyroxine 75 MCG Tablet PO SCH (05:02)
[2018-01-10 05:48] LABS: Baso % (Auto) 0.2 % (0.0-2.0); Eos % (Auto) 0.4 % (0.0-4.0); Hematocrit 26.4 % (35.0-46.0); Hemoglobin 9.2 gm/dL (11.6-15.3); Lymph # (Auto) 0.7 th/mm3 (1.0-4.8); Mean Corpuscular HGB Conc 34.9 % (32.0-36.0); Mean Corpuscular Hemoglobin 31.8 pg (27.0-34.0); Mean Corpuscular Volume 91.2 fL (80.0-100.0); Mean Platelet Volume 9.2 fL (7.0-11.0); Mono # (Auto) 0.8 th/mm3 (0.0-0.9); Mono % (Auto) 7.8 % (0.0-8.0); Neut # (Auto) 8.5 th/mm3 (1.8-7.7); Neut % (Auto) 84.6 % (16.0-70.0); Platelet Count 94 th/mm3 (150-450); Red Blood Count 2.89 mil/mm3 (4.00-5.30); Red Cell Distribution Width 13.5 % (11.6-17.2)
[2018-01-10 05:53] LABS: Albumin 2.3 g/dL (3.4-5.0); Calcium 6.6 mg/dL (8.5-10.1); Carbon Dioxide 27.9 meq/L (21.0-32.0); Magnesium 1.4 mg/dL (1.5-2.5); Total Protein 4.9 g/dL (6.4-8.2)
[2018-01-10 05:56] LABS: Potassium 2.8 meq/L (3.5-5.1)
[2018-01-10 06:41] LABS: Monocytes 4 % (0-8); Myelocytes 2 % (0-0); Tallied Nucleated RBC 2 (0-0)
[2018-01-10 06:42] LABS: Lymphocytes 6 % (9-44); Platelet Morphology Normal (Normal); Toxic Granulation 2+
[2018-01-10 06:43] LABS: Dohle Bodies Present
[2018-01-10] MEDS: Lactobacillus Acidophilus/L. Spores Tablet PO SCH ×3 (08:41→17:45)
[2018-01-10] MEDS: Gabapentin 100 MG Capsule PO SCH ×3 (08:41→17:45)
[2018-01-10] MEDS: Senna/Docusate Sodium 8.6/50 MG Tablet PO SCH ×2 (08:43→20:20)
[2018-01-10] MEDS: Nystatin/Diphenhydramine/Lidocaine Mouthwash (Adult) 120 ML Botttle SWISH-SWAL SCH ×4 (10:05→21:18)
[2018-01-10] MEDS: Potassium Chlor 10 mEq Premix 10 MEQ/100 ML PIGGYBACK IV.SIG SCH ×3 (12:00→17:55)
--- NOTE | 2018-01-10 12:10 | P.PNIM ---
Subjective Interval history: Says she is feeling a little better today. Says that bowel movements have improved. Denies any nausea or vomiting. Denies any dysuria Physical Exam Vital signs: Vital Signs 01/09/18 16:59 01/09/18 20:00 01/10/18 00:00 Temperature 98.7 F Pulse Rate 102 H 82 72 Respiratory Rate 18 18 18 Blood Pressure 157/98 H Pulse Oximetry 97 01/10/18 00:47 01/10/18 04:00 01/10/18 08:00 Temperature 97.9 F Pulse Rate 65 73 Respiratory Rate 18 16 16 Blood Pressure 114/63 142/83 H Pulse Oximetry 99 96 Intake & Output 01/09/18 01/10/18 01/10/18 18:59 06:59 18:59 Intake Total 1000 / 1000 1000 / 1000 1480 / 1480 Output Total 1949 / 1950 Balance 1000 / 1000 1000 / 1000 -470 / -470 Weight 56 kg Intake: IV 1000 / 1000 1000 / 1000 1000 / 1000 NS Inj 1,000 ML @ 100 mls/hr IV 1000 / 1000 .CONT .Q10H ANDRY Rx#:[id number] NS Inj 1,000 ML @ Wide Open IV. 1000 / 1000 1000 / 1000 SIG .Q0M ANDRY Rx#:[id number] Oral 480 / 480 Output: Urine 1949 Other: Date of Last Bowel Movement 01/09/18 01/09/18 01/10/18 # Bowel Movements 3 Narrative: GENERAL: Patient lying in bed. Appears comfortable. aaox3. SKIN: Warm and dry. HEAD: Normocephalic. EYES: No scleral icterus. No injection or drainage. NECK: Supple, trachea midline. No JVD . CARDIOVASCULAR: Regular rate and rhythm without murmurs, gallops, or rubs. RESPIRATORY: Breath sounds equal bilaterally. No accessory muscle use. GASTROINTESTINAL: Abdomen soft, nondistended. nontender. No rebound or guarding. MUSCULOSKELETAL: No cyanosis, or edema. BACK: Nontender without obvious deformity. No CVA tenderness. - Urinary Catheter Management Straight Cath placed during this visit: yes, but has since been removed by the nurse Reason for continuing: Not indwelling catheter Insertion date: 01/07/18 Insertion time: 20:15 Removal date: 01/07/18 Removal time: 20:16 Results - Labs CBC & Chem 7: 01/10/18 04:45 01/10/18 04:45 Laboratory Results - last 24 hr 01/10/18 01/10/18 04:45 04:45 WBC 10.0 RBC 2.89 L Hgb 9.2 L Hct 26.4 L MCV 91.2 MCH 31.8 MCHC 34.9 RDW 13.5 Plt Count 94 L D MPV 9.2 Prelim Diff (Auto) Slide review pending Neut % (Auto) 84.6 H Lymph % (Auto) 7.0 L [place] % (Auto) 7.8 Eos % (Auto) 0.4 Baso % (Auto) 0.2 Neut # (Auto) 8.5 H Lymph # (Auto) 0.7 L [place] # (Auto) 0.8 Eos # (Auto) 0.0 Baso # (Auto) 0.0 WBC Differential Manual diff final Seg Neuts % (Manual) 74 H Band Neuts % (Manual) 13 H Lymphocytes % (Manual) 6 L Monocytes % (Manual) 4 Basophils % (Manual) 1 Myelocytes % (Man) 2 H Abs Neuts (Manual) 8.9 H Nucleated RBCs/100 WBC 2 H Differential Comment . Toxic Granulation 2+ H Dohle Bodies Present H Platelet Estimate Low L Platelet Morphology Normal Sodium 146 H Potassium 2.8 L* Chloride 110 H Carbon Dioxide 27.9 Anion Gap 8 BUN 5 L Creatinine 0.75 Estimated GFR 75 L Random Glucose 63 L Calcium 6.6 L* Prot Corrected Calcium 7.7 L Magnesium 1.4 L Total Bilirubin 0.7 AST 36 ALT 12 Alkaline Phosphatase 63 Total Protein 4.9 L Albumin 2.3 L Assessment and Plan - Assessment (1) Neutropenic fever Code(s): D70.9 - Neutropenia, unspecified; R50.81 - Fever presenting with conditions classified elsewhere Status: Acute (2) Rectal cancer Code(s): C20 - Malignant neoplasm of rectum Status: Acute (3) Abdominal pain Code(s): R10.9 - Unspecified abdominal pain Status: Acute - Plan // Neutropenic Fever: WBC 0.5, absolute neutrophil count 0.2, Temp 101 at home , currently on Chemo/Radiation for Rectal CA. S/p Blood Cultures, Vanc/ cefepime U/a positive for UTI as likely source, continue IV Abx, follow up cultures, monitor I/O. Neutropenic precautions, check C Diff for ongoing diarrhea. = 01/06. Appreciate hematology assistance. Neutropenia resolving. Afebrile today. Continue antibiotics as per hematology. = neutropenia has resolved. //Rectal CA: on Chemo/Radiation, scheduled for Radiation on Friday, will Consult Dr. Guzman for further evaluation/recommendations. = 01/06. Appreciate hematology assistance. Neutropenia resolving. = as per oncology. Appreciate assistance. //UTI. Completed treatment. 01/07 Oncology as ordered urinalysis, however nursing reports that urine is always contaminated with stool. Will continue aztreonam for now, and now that patient is no longer neutropenic, will order single straight cath. If urinalysis negative, can stop aztreonam. = 01/08. Patient will be on nitrofurantoin as per ID. Due to recurrent UTIs, I suggested in the outpatient setting that patient discuss the possible use of periurethral estrogen, such as Estrace cream to help prevent recurrent UTIs. = Completed treatment as per ID. // Abdominal Pain: //C. difficile Acute onset of severe abdominal pain, CT Abd/Pelvis w/ no acute findings, images reviewed. Analgesics/antiemetics as needed. = 01/06. Slightly improved today. Continue to monitor. = 01/08. Dietary to C. difficile improved. = 01/09. No with excessive bowel movements. Continue treatment for C. difficile. Hopefully diarrhea improves off of nitrofurantoin. = 01/10. Bowel movements improving. Continue treatment as per ID. //Left buttocks zoster will start on acyclovir 800 mg p.o. 5 times a day = Continue acyclovir //GERD we will continue on Protonix 40 mg p.o. daily //Hypokalemia //Hypomagnesemia //Hypernatremia -01/08 potassium, magnesium replaced. Follow-up labs tomorrow. = 01/09. Magnesium resolved. Potassium continues low. On daily replacement. Continue to monitor. = 01/10. Hypokalemia with potassium 2.8. Nursing reports seeing potassium tablets in stool. Will switch to effervescent potassium. Magnesium 1.4. Replace. Switch to daily effervescent replacement. Hypernatremia. Sodium 146. Will switch to half-normal saline. // DVT Prophylaxis: SCD/Teds Discharge Planning: Continue inpatient management. Hopefully home with home health in the next 1-2 days PT recommends home with supervision at time of discharge.
[2018-01-10] MEDS: Mag Sulf 1 gm/100 ml Premix 100 ML IV.SIG SCH ×2 (13:30→15:00)
[2018-01-10] MEDS: Potassium Chloride 25 MEQ Effervescent Tablet PO SCH (15:06)
[2018-01-10] MEDS ORDERED: Mag Sulf 1 gm/100 ml Premix 100 ML IV.SIG SCH (17:00)
[2018-01-10] MEDS ORDERED: Potassium Chlor 10 mEq Premix 10 MEQ/100 ML PIGGYBACK IV.SIG SCH (17:00)
[2018-01-10] MEDS: ALPRAZolam 0.5 MG Tablet PO PRN (18:36)
[2018-01-10] MEDS: Potassium Chloride Inj 10 MEQ in Sodium Chloride 0.45 % Inj 1,000 ML IV.CONT SCH ×2 (19:43→23:54)
[2018-01-11] MEDS ORDERED: Pharmacy Ordered Lab Info OTHER ONE (00:45)
[2018-01-11] MEDS: HYDROmorphone PF Inj 2 MG/ML Vial IV.PUSH PRN ×6 (01:12→22:15)
[2018-01-11] MEDS: Levothyroxine 75 MCG Tablet PO SCH (05:06)
[2018-01-11] MEDS: Acyclovir 800 MG Tablet PO SCH ×5 (05:06→21:17)
[2018-01-11] MEDS: Hydrocortisone 10 MG Tablet PO SCH ×2 (05:06→12:11)
[2018-01-11] MEDS: Potassium Chloride Inj 10 MEQ in Sodium Chloride 0.45 % Inj 1,000 ML IV.CONT SCH ×3 (05:55→22:14)
[2018-01-11 06:54] LABS: Baso % (Auto) 0.2 % (0.0-2.0); Eos % (Auto) 0.2 % (0.0-4.0); Hemoglobin 9.6 gm/dL (11.6-15.3); Lymph # (Auto) 0.7 th/mm3 (1.0-4.8); Lymph % (Auto) 8.2 % (9.0-44.0); Mean Corpuscular HGB Conc 35.6 % (32.0-36.0); Mean Corpuscular Hemoglobin 32.1 pg (27.0-34.0); Mean Corpuscular Volume 90.2 fL (80.0-100.0); Mean Platelet Volume 8.7 fL (7.0-11.0); Mono # (Auto) 0.8 th/mm3 (0.0-0.9); Mono % (Auto) 9.6 % (0.0-8.0); Neut # (Auto) 6.9 th/mm3 (1.8-7.7); Neut % (Auto) 81.8 % (16.0-70.0); Platelet Count 122 th/mm3 (150-450); Red Blood Count 2.99 mil/mm3 (4.00-5.30); Red Cell Distribution Width 13.5 % (11.6-17.2); White Blood Count 8.4 th/mm3 (4.0-11.0)
[2018-01-11 07:03] LABS: Albumin 2.6 g/dL (3.4-5.0); Anion Gap 7 meq/L (5-15); Blood Urea Nitrogen 6 mg/dL (7-18); Calcium 7.3 mg/dL (8.5-10.1); Carbon Dioxide 29.4 meq/L (21.0-32.0); Chloride 107 meq/L (98-107); Glomerular Filtration Rate Greater Than 89 mL/min (>89); Glucose,Random 65 mg/dL (74-106); Magnesium 1.6 mg/dL (1.5-2.5); Potassium 3.4 meq/L (3.5-5.1); Sodium 143 meq/L (136-145)
[2018-01-11] MEDS: Lactobacillus Acidophilus/L. Spores Tablet PO SCH ×3 (08:38→18:24)
[2018-01-11] MEDS: Gabapentin 100 MG Capsule PO SCH ×3 (08:38→18:24)
[2018-01-11] MEDS: Nystatin/Diphenhydramine/Lidocaine Mouthwash (Adult) 120 ML Botttle SWISH-SWAL SCH ×4 (08:40→21:17)
[2018-01-11] MEDS: Senna/Docusate Sodium 8.6/50 MG Tablet PO SCH ×2 (08:40→21:17)
[2018-01-11] MEDS: Potassium Chloride 25 MEQ Effervescent Tablet PO SCH (08:40)
[2018-01-11 08:51] LABS: Lymphocytes 18 % (9-44); Metamyelocytes 3 % (0-1); Monocytes 6 % (0-8); Myelocytes 2 % (0-0); Platelet Morphology Normal (Normal); Tallied Nucleated RBC 1 (0-0); Toxic Granulation 1+
[2018-01-11 08:52] LABS: Toxic Vacuolation Present
--- NOTE | 2018-01-11 09:45 | P.PNONC ---
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 Abdominal cramps worse after eating; however controlled with current regimen of Dilaudid 1mg IV Q4h prn Objective Vital Signs/Intake & Output: Vital Signs 01/10/18 12:00 01/10/18 16:00 01/10/18 20:00 Temperature 98.3 F 98.5 F Pulse Rate 81 85 84 Respiratory Rate 20 20 Blood Pressure 155/83 H 169/94 H Pulse Oximetry 98 97 01/10/18 20:07 01/10/18 21:45 01/10/18 23:49 Temperature 98.7 F Pulse Rate 69 76 Respiratory Rate 18 18 Blood Pressure 120/75 Pulse Oximetry 97 01/11/18 00:14 01/11/18 01:42 01/11/18 04:00 Temperature 98.2 F Pulse Rate 75 81 Respiratory Rate 18 20 Blood Pressure 168/90 H Pulse Oximetry 95 01/11/18 04:06 01/11/18 05:36 01/11/18 08:04 Temperature 97.7 F Pulse Rate 78 80 Respiratory Rate 18 18 Blood Pressure 174/97 H Pulse Oximetry 98 Intake & Output 01/10/18 01/11/18 01/11/18 18:59 06:59 18:59 Intake Total 1780 / 1780 2730 / 2730 Output Total 1949 1500 / 1500 Balance -170 / -170 1230 / 1230 Weight 121 lb 14.65 oz Intake: IV 1300 / 1300 2009 KCl Inj 10 MEQ In 1/2 Normal 2009 Saline Inj 1,000 ML @ 100 mls/ hr IV.CONT .Q10H3M ANDRY Rx#: [id number] NS Inj 1,000 ML @ 100 mls/hr IV 1000 / 1000 .CONT .Q10H ANDRY Rx#:[id number] Magnesium Sulfate 1 gm/D5W 100 100 / 100 ml Premix 100 ML @ 100 mls/hr IV.SIG Q1H ANDRY Rx#:[id number] KCl 10 mEq Premix Inj 10 meq In 200 / 200 100 ml @ 100 mls/hr IV.SIG Q1H ANDRY Rx#:[id number] Oral 480 / 480 720 / 720 Output: Urine 1949 1250 / 1250 Stool 250 / 250 Other: # Voids 3 Date of Last Bowel Movement 01/10/18 01/10/18 # Bowel Movements 3 # Incontinent Bowel Movements 3 Result Diagrams: 01/11/18 05:30 01/11/18 05:30 Laboratory Results: Laboratory Results - last 24 hr 01/11/18 01/11/18 05:30 05:30 WBC 8.4 RBC 2.99 L Hgb 9.6 L Hct 27.0 L MCV 90.2 MCH 32.1 MCHC 35.6 RDW 13.5 Plt Count 122 L MPV 8.7 Prelim Diff (Auto) Slide review pending Neut % (Auto) 81.8 H Lymph % (Auto) 8.2 L [place] % (Auto) 9.6 H Eos % (Auto) 0.2 Baso % (Auto) 0.2 Neut # (Auto) 6.9 Lymph # (Auto) 0.7 L [place] # (Auto) 0.8 Eos # (Auto) 0.0 Baso # (Auto) 0.0 WBC Differential Manual diff final Seg Neuts % (Manual) 59 Band Neuts % (Manual) 12 H Lymphocytes % (Manual) 18 Monocytes % (Manual) 6 Metamyelocytes % (Man) 3 H Myelocytes % (Man) 2 H Abs Neuts (Manual) 6.4 Nucleated RBCs/100 WBC 1 H Differential Comment . Toxic Granulation 1+ H Toxic Vacuolation Present H Platelet Estimate Low L Platelet Morphology Normal Sodium 143 Potassium 3.4 L Chloride 107 Carbon Dioxide 29.4 Anion Gap 7 BUN 6 L Creatinine 0.63 Estimated GFR Greater than 89 Random Glucose 65 L Calcium 7.3 L* Phosphorus 1.0 L Magnesium 1.6 Albumin 2.6 L Culture Results: Microbiology 01/07/18 20:18 Urine Culture - Final Clean Catch Urine No growth in 48 hours 01/03/18 22:10 Aerobic Blood Culture - Final Blood - Other No growth in 5 days Anaerobic Blood Culture - Final No growth in 5 days 01/03/18 22:05 Aerobic Blood Culture - Final Blood - Other No growth in 5 days Anaerobic Blood Culture - Final No growth in 5 days 01/03/18 22:00 Aerobic Blood Culture - Final Blood - Peripheral No growth in 5 days Anaerobic Blood Culture - Final No growth in 5 days 01/03/18 22:05 Aerobic Blood Culture - Final Blood - Peripheral No growth in 5 days Anaerobic Blood Culture - Final No growth in 5 days Medications: Active Medications Generic Name Dose Route Start Last Admin Trade Name Freq PRN Reason Stop Dose Admin Acyclovir 800 mg 01/05/18 14:00 01/11/18 05:06 Zovirax PO 800 mg 5 TIMES A DAY ANDRY Administration Alprazolam 0.5 mg 01/04/18 12:00 01/10/18 18:36 Xanax PO 0.5 mg BID PRN Administration Anxiety Apixaban 2.5 mg 01/04/18 12:00 01/04/18 20:14 Eliquis PO 2.5 mg BID ANDRY Administration Atorvastatin Calcium 20 mg 01/04/18 21:00 01/10/18 20:35 Lipitor PO 20 mg HS ANDRY Administration Benzonatate 200 mg 01/05/18 00:00 01/10/18 15:19 Tessalon Perles PO 200 mg Q8H PRN Administration COUGH Carbidopa/Levodopa 1 tab 01/04/18 21:00 01/10/18 20:35 Sinemet 25/100 Mg PO 1 tab HS ANDRY Administration Gabapentin 100 mg 01/04/18 13:00 01/11/18 08:38 Neurontin PO 100 mg TID ANDRY Administration Hydrocortisone Acetate 30 mg 01/05/18 06:00 01/11/18 05:06 Cortef PO 30 mg DAILY@0600 ANDRY Administration Hydrocortisone Acetate 20 mg 01/04/18 12:30 01/10/18 12:01 Cortef PO 20 mg DAILY@1200 ANDRY Administration Hydromorphone HCl 1 mg 01/04/18 00:14 01/11/18 05:06 Dilaudid Pf Inj IV.PUSH 1 mg Q4H PRN Administration PAIN 6-10 Sodium Chloride 1,000 mls @ 0 mls/hr 01/03/18 21:30 01/10/18 04:36 Ns Inj IV.SIG 100 mls/hr .Q0M ANDRY Administration Wide Open Potassium Chloride 10 meq/ 1,005 mls @ 100 mls/hr 01/10/18 13:00 01/11/18 05: 55 Sodium Chloride IV.CONT 100 mls/hr .Q10H3M ANDRY Administration Lactobacillus Acidophilus 1 tab 01/04/18 18:00 01/11/18 08:38 Lactinex PO 1 tab TID ANDRY Administration Levothyroxine Sodium 75 mcg 01/04/18 12:15 01/11/18 05:06 Synthroid PO 75 mcg DAILY@0600 ANDRY Administration Multi-Ingredient Mouthwash/Gargle 10 ml 01/04/18 13:00 01/11/18 08:40 Magic Mouthwash Adult Liq SWISH-SWAL 10 ml QID ANDRY Administration Pantoprazole Sodium 40 mg 01/05/18 11:00 01/11/18 08:38 Protonix PO 40 mg DAILY ANDRY Administration Potassium Bicarb/Potassium Chloride 25 meq 01/10/18 12:15 01/11/18 08:40 K-Lyte Cl Eff PO Not Given DAILY ANDRY Senna/Docusate Sodium 1 tab 01/04/18 09:00 01/11/18 08:40 Lucy-Colace PO Not Given BID ANDRY Sodium Chloride 5 ml 01/06/18 06:12 01/06/18 06:27 Ns Flush IV.FLUSH 5 ml PRN PRN Administration Flush Infusaport Temazepam 15 mg 01/04/18 00:03 01/04/18 02:31 Restoril PO 15 mg HS PRN Administration INSOMNIA Vancomycin HCl 250 mg 01/10/18 18:00 01/11/18 05:05 Vancomycin Po PO 250 mg Q6HR ANDRY Administration Objective Remarks: GENERAL: Elderly female sitting up in bed in no obvious distress SKIN: Warm and dry. Small herpetic lesion to left buttock much improved since previously seen HEAD: Normocephalic. + Alopecia EYES: No scleral icterus. No injection or drainage. NECK: Supple, trachea midline. No JVD or lymphadenopathy. CARDIOVASCULAR: Regular rate and rhythm without murmurs. RESPIRATORY: Clear posteriorly. Breathing unlabored at rest. GASTROINTESTINAL: Abdomen soft. No diffuse tenderness to palpation. EXTREMITIES: No cyanosis, or edema. MUSCULOSKELETAL: Adequate muscle tone. NEUROLOGICAL: No obvious focal deficit. Awake, alert, and oriented x3. Assessment/Plan - Plan 77-year-old female with history of squamous cell carcinoma of the anal canal currently getting mitomycin and 5-FU chemotherapy along with radiation. She was admitted with lower abdominal pain, fever and diarrhea. 1. Patient continues on oral vancomycin for treatment of her C. difficile diarrhea. Per patient she continues to have frequent stools. She has completed a course of Macrobid for her UTI that grew E. coli. She continues on acyclovir for herpetic lesion to left buttock. Infectious disease following. 2. Her thrombocytopenia is improving. She has history of DVT and PE. Resume Eliquis at 2.5 mg twice daily. 3. The patient is getting potassium replaced. She is anxious to leave the hospital however explained to her that she will need to be able to maintain her potassium on p.o. supplements prior to discharge. - Attending Statement The exam, history, and the medical decision-making described in the above note were completed with the assistance of the mid-level provider. I reviewed and agree with the findings presented. I attest that I had a [id number] encounter with the patient on the same day, and personally performed and documented my assessment and findings in the medical record. Diarrhea last persistent. It is difficult to separate what his diarrhea from C. difficile and diarrhea from her treatment. Will continue the vancomycin. Hopefully she will be able to resume treatment soon. Her abdominal exam is benign.
[2018-01-11] MEDS ORDERED: Potassium Phosphate Inj 30 MMOL in Sodium Chlor 0.9% Inj 250 ML IV.SIG ONE (11:00)
--- NOTE | 2018-01-11 11:20 | P.PNIM ---
Subjective Interval history: Patient says she is feeling about the same as yesterday. However, she has had multiple episodes of loose stools overnight. Denies any worsening abdominal discomfort. Overall she says she is feeling better. Physical Exam Vital signs: Vital Signs 01/10/18 12:00 01/10/18 16:00 01/10/18 20:00 Temperature 98.3 F 98.5 F Pulse Rate 81 85 84 Respiratory Rate 20 20 Blood Pressure 155/83 H 169/94 H Pulse Oximetry 98 97 01/10/18 20:07 01/10/18 21:45 01/10/18 23:49 Temperature 98.7 F Pulse Rate 69 76 Respiratory Rate 18 18 Blood Pressure 120/75 Pulse Oximetry 97 01/11/18 00:14 01/11/18 01:42 01/11/18 04:00 Temperature 98.2 F Pulse Rate 75 81 Respiratory Rate 18 20 Blood Pressure 168/90 H Pulse Oximetry 95 01/11/18 04:06 01/11/18 05:36 01/11/18 08:04 Temperature 97.7 F Pulse Rate 78 80 Respiratory Rate 18 18 Blood Pressure 174/97 H Pulse Oximetry 98 Intake & Output 01/10/18 01/11/18 01/11/18 18:59 06:59 18:59 Intake Total 1780 / 1780 2730 / 2730 Output Total 1949 1500 / 1500 Balance -170 / -170 1230 / 1230 Weight 55.3 kg Intake: IV 1300 / 1300 2009 KCl Inj 10 MEQ In 1/2 Normal 2009 Saline Inj 1,000 ML @ 100 mls/ hr IV.CONT .Q10H3M ANDRY Rx#: [id number] NS Inj 1,000 ML @ 100 mls/hr IV 1000 / 1000 .CONT .Q10H ANDRY Rx#:[id number] Magnesium Sulfate 1 gm/D5W 100 100 / 100 ml Premix 100 ML @ 100 mls/hr IV.SIG Q1H ANDRY Rx#:[id number] KCl 10 mEq Premix Inj 10 meq In 200 / 200 100 ml @ 100 mls/hr IV.SIG Q1H ANDRY Rx#:[id number] Oral 480 / 480 720 / 720 Output: Urine 1949 1250 / 1250 Stool 250 / 250 Other: # Voids 3 Date of Last Bowel Movement 01/10/18 01/10/18 # Bowel Movements 3 # Incontinent Bowel Movements 3 Narrative: GENERAL: Patient lying in bed. Appears comfortable. aaox3. SKIN: Warm and dry. HEAD: Normocephalic. EYES: No scleral icterus. No injection or drainage. NECK: Supple, trachea midline. No JVD . CARDIOVASCULAR: Regular rate and rhythm without murmurs, gallops, or rubs. RESPIRATORY: Breath sounds equal bilaterally. No accessory muscle use. GASTROINTESTINAL: Abdomen soft, nondistended. nontender. No rebound or guarding. Exam unchanged. MUSCULOSKELETAL: No cyanosis, or edema. BACK: Nontender without obvious deformity. No CVA tenderness. - Urinary Catheter Management Straight Cath placed during this visit: yes, but has since been removed by the nurse Reason for continuing: Not indwelling catheter Insertion date: 01/07/18 Insertion time: 20:15 Removal date: 01/07/18 Removal time: 20:16 Results - Labs CBC & Chem 7: 01/11/18 05:30 01/11/18 05:30 Laboratory Results - last 24 hr 01/11/18 01/11/18 05:30 05:30 WBC 8.4 RBC 2.99 L Hgb 9.6 L Hct 27.0 L MCV 90.2 MCH 32.1 MCHC 35.6 RDW 13.5 Plt Count 122 L MPV 8.7 Prelim Diff (Auto) Slide review pending Neut % (Auto) 81.8 H Lymph % (Auto) 8.2 L [place] % (Auto) 9.6 H Eos % (Auto) 0.2 Baso % (Auto) 0.2 Neut # (Auto) 6.9 Lymph # (Auto) 0.7 L [place] # (Auto) 0.8 Eos # (Auto) 0.0 Baso # (Auto) 0.0 WBC Differential Manual diff final Seg Neuts % (Manual) 59 Band Neuts % (Manual) 12 H Lymphocytes % (Manual) 18 Monocytes % (Manual) 6 Metamyelocytes % (Man) 3 H Myelocytes % (Man) 2 H Abs Neuts (Manual) 6.4 Nucleated RBCs/100 WBC 1 H Differential Comment . Toxic Granulation 1+ H Toxic Vacuolation Present H Platelet Estimate Low L Platelet Morphology Normal Sodium 143 Potassium 3.4 L Chloride 107 Carbon Dioxide 29.4 Anion Gap 7 BUN 6 L Creatinine 0.63 Estimated GFR Greater than 89 Random Glucose 65 L Calcium 7.3 L* Phosphorus 1.0 L Magnesium 1.6 Albumin 2.6 L Assessment and Plan - Assessment (1) Neutropenic fever Code(s): D70.9 - Neutropenia, unspecified; R50.81 - Fever presenting with conditions classified elsewhere Status: Acute (2) Rectal cancer Code(s): C20 - Malignant neoplasm of rectum Status: Acute (3) Abdominal pain Code(s): R10.9 - Unspecified abdominal pain Status: Acute - Plan // Neutropenic Fever: WBC 0.5, absolute neutrophil count 0.2, Temp 101 at home , currently on Chemo/Radiation for Rectal CA. S/p Blood Cultures, Vanc/ cefepime U/a positive for UTI as likely source, continue IV Abx, follow up cultures, monitor I/O. Neutropenic precautions, check C Diff for ongoing diarrhea. = 01/06. Appreciate hematology assistance. Neutropenia resolving. Afebrile today. Continue antibiotics as per hematology. = neutropenia has resolved. //Rectal CA: on Chemo/Radiation, scheduled for Radiation on Friday, will Consult Dr. Guzman for further evaluation/recommendations. = 01/06. Appreciate hematology assistance. Neutropenia resolving. = as per oncology. Appreciate assistance. //UTI. Completed treatment. 01/07 Oncology as ordered urinalysis, however nursing reports that urine is always contaminated with stool. Will continue aztreonam for now, and now that patient is no longer neutropenic, will order single straight cath. If urinalysis negative, can stop aztreonam. = 01/08. Patient will be on nitrofurantoin as per ID. Due to recurrent UTIs, I suggested in the outpatient setting that patient discuss the possible use of periurethral estrogen, such as Estrace cream to help prevent recurrent UTIs. = Completed treatment as per ID. // Abdominal Pain: //C. difficile Acute onset of severe abdominal pain, CT Abd/Pelvis w/ no acute findings, images reviewed. Analgesics/antiemetics as needed. = 01/06. Slightly improved today. Continue to monitor. = 01/08. Dietary to C. difficile improved. = 01/09. No with excessive bowel movements. Continue treatment for C. difficile. Hopefully diarrhea improves off of nitrofurantoin. = 01/10. Bowel movements improving. Continue treatment as per ID. = 8/11. With multiple loose stools. on abx for C diff. appreciate ID assistance //Left buttocks zoster will start on acyclovir 800 mg p.o. 5 times a day = Continue acyclovir //GERD we will continue on Protonix 40 mg p.o. daily //Hypokalemia //Hypomagnesemia //Hypernatremia -01/08 potassium, magnesium replaced. Follow-up labs tomorrow. = 01/09. Magnesium resolved. Potassium continues low. On daily replacement. Continue to monitor. = 01/10. Hypokalemia with potassium 2.8. Nursing reports seeing potassium tablets in stool. Will switch to effervescent potassium. Magnesium 1.4. Replace. Switch to daily effervescent replacement. Hypernatremia. Sodium 146. Will switch to half-normal saline. = 01/11. Phosphorus of 1.0. Replace. Continue to monitor. // DVT Prophylaxis: SCD/Teds Discharge Planning: Continue inpatient management. -Still with diarrhea Hopefully home with home health in the next 1-2 days PT recommends home with supervision at time of discharge.
[2018-01-11] MEDS: ALPRAZolam 0.5 MG Tablet PO PRN (15:01)
[2018-01-12] MEDS: ALPRAZolam 0.5 MG Tablet PO PRN ×2 (00:09→17:50)
[2018-01-12] MEDS: HYDROmorphone PF Inj 2 MG/ML Vial IV.PUSH PRN ×5 (03:13→21:11)
[2018-01-12 05:09] LABS: Baso % (Auto) 0.2 % (0.0-2.0); Eos % (Auto) 0.2 % (0.0-4.0); Hematocrit 28.2 % (35.0-46.0); Hemoglobin 9.8 gm/dL (11.6-15.3); Lymph # (Auto) 0.5 th/mm3 (1.0-4.8); Lymph % (Auto) 6.9 % (9.0-44.0); Mean Corpuscular HGB Conc 34.8 % (32.0-36.0); Mean Corpuscular Hemoglobin 31.8 pg (27.0-34.0); Mean Corpuscular Volume 91.4 fL (80.0-100.0); Mean Platelet Volume 8.4 fL (7.0-11.0); Mono # (Auto) 0.8 th/mm3 (0.0-0.9); Mono % (Auto) 10.2 % (0.0-8.0); Neut % (Auto) 82.5 % (16.0-70.0); Platelet Count 138 th/mm3 (150-450); Red Blood Count 3.08 mil/mm3 (4.00-5.30); Red Cell Distribution Width 13.7 % (11.6-17.2); White Blood Count 7.3 th/mm3 (4.0-11.0)
[2018-01-12 05:25] LABS: Albumin 2.6 g/dL (3.4-5.0); Anion Gap 8 meq/L (5-15); Blood Urea Nitrogen 8 mg/dL (7-18); Calcium 7.1 mg/dL (8.5-10.1); Carbon Dioxide 32.8 meq/L (21.0-32.0); Chloride 102 meq/L (98-107); Glomerular Filtration Rate Greater Than 89 mL/min (>89); Glucose,Random 63 mg/dL (74-106); Magnesium 1.1 mg/dL (1.5-2.5); Phosphorus 2.1 mg/dL (2.5-4.9); Sodium 143 meq/L (136-145)
[2018-01-12 05:28] LABS: Potassium 2.7 meq/L (3.5-5.1)
[2018-01-12] MEDS ORDERED: Mag Sulf 1 gm/100 ml Premix 100 ML IV.SIG ONE ×2 (06:00→16:00)
[2018-01-12] MEDS: Hydrocortisone 10 MG Tablet PO SCH ×2 (06:00→12:17)
[2018-01-12] MEDS: Levothyroxine 75 MCG Tablet PO SCH (07:30)
[2018-01-12] MEDS: Acyclovir 800 MG Tablet PO SCH ×5 (07:30→21:24)
[2018-01-12 07:41] LABS: Lymphocytes 16 % (9-44); Metamyelocytes 1 % (0-1); Monocytes 5 % (0-8); Tallied Nucleated RBC 2 (0-0)
[2018-01-12 07:42] LABS: Acanthocytes Occ; Ovalocytes 1+; Platelet Morphology Normal (Normal)
[2018-01-12] MEDS: Lactobacillus Acidophilus/L. Spores Tablet PO SCH ×3 (09:37→17:50)
[2018-01-12] MEDS: Gabapentin 100 MG Capsule PO SCH ×3 (09:37→17:50)
[2018-01-12] MEDS: Nystatin/Diphenhydramine/Lidocaine Mouthwash (Adult) 120 ML Botttle SWISH-SWAL SCH ×4 (09:37→21:24)
[2018-01-12] MEDS: Potassium Chloride Inj 30 MEQ in Sodium Chlor 0.9% Inj 100 ML IV.SIG SCH ×2 (09:38→14:22)
[2018-01-12] MEDS: Potassium Chloride 25 MEQ Effervescent Tablet PO SCH (09:38)
[2018-01-12] MEDS: Potassium Chloride Inj 10 MEQ in Sodium Chloride 0.45 % Inj 1,000 ML IV.CONT SCH ×2 (10:07→21:28)
--- NOTE | 2018-01-12 13:27 | P.PNONC ---
Subjective Interval history: Afebrile. Patient sitting up in bed, about to eat lunch. She reports that she gets anxious and upset about things and that accelerates her RLQ pain. She has recently received her pain medications and is pain-free at this time. She denies any diarrhea today. Increased appetite. Objective Vital Signs/Intake & Output: Vital Signs 01/11/18 16:00 01/11/18 19:55 01/11/18 20:55 Temperature 98.1 F 98.6 F Pulse Rate 77 57 L 76 Respiratory Rate 16 16 Blood Pressure 159/91 H 168/83 H Pulse Oximetry 97 97 01/12/18 00:13 01/12/18 00:20 01/12/18 01:46 Temperature 98.2 F Pulse Rate 80 96 H 69 Respiratory Rate 16 Blood Pressure 153/93 H Pulse Oximetry 96 01/12/18 03:06 01/12/18 03:14 01/12/18 09:35 Temperature 98.2 F 98.3 F Pulse Rate 68 87 86 Respiratory Rate 16 16 Blood Pressure 160/82 H 168/93 H Pulse Oximetry 97 93 L 01/12/18 12:30 Temperature 98.7 F Pulse Rate 96 H Respiratory Rate Blood Pressure 137/97 H Pulse Oximetry 95 Intake & Output 01/11/18 01/12/18 01/12/18 18:59 06:59 18:59 Intake Total 1000 / 1000 1345 / 1345 Output Total 1000 / 1000 125 / 125 1800 / 1800 Balance 0 / 0 -125 / -125 -455 / -455 Weight 55.3 kg 83 kg Intake: IV 1000 / 1000 1105 / 1105 KCl Inj 10 MEQ In 1/2 Normal 1000 / 1000 1005 / 1005 Saline Inj 1,000 ML @ 100 mls/ hr IV.CONT .Q10H3M [facility] Rx#: [id number] Magnesium Sulfate 1 gm/D5W 100 100 / 100 ml Premix 100 ML @ 100 mls/hr IV.SIG ONCE ONE Rx#:[id number] Oral 240 / 240 Output: Urine 1000 / 1000 125 / 125 1800 / 1800 Other: # Voids 5 Date of Last Bowel Movement 01/11/18 01/11/18 # Bowel Movements 1 5 Result Diagrams: 01/12/18 03:10 01/12/18 03:10 Laboratory Results: Laboratory Results - last 24 hr 01/12/18 01/12/18 03:10 03:10 WBC 7.3 RBC 3.08 L Hgb 9.8 L Hct 28.2 L MCV 91.4 MCH 31.8 MCHC 34.8 RDW 13.7 Plt Count 138 L MPV 8.4 Prelim Diff (Auto) Slide review pending Neut % (Auto) 82.5 H Lymph % (Auto) 6.9 L [place] % (Auto) 10.2 H Eos % (Auto) 0.2 Baso % (Auto) 0.2 Neut # (Auto) 6.0 Lymph # (Auto) 0.5 L [place] # (Auto) 0.8 Eos # (Auto) 0.0 Baso # (Auto) 0.0 WBC Differential Manual diff final Seg Neuts % (Manual) 66 Band Neuts % (Manual) 12 H Lymphocytes % (Manual) 16 Monocytes % (Manual) 5 Metamyelocytes % (Man) 1 Abs Neuts (Manual) 5.8 Nucleated RBCs/100 WBC 2 H Differential Comment . Platelet Estimate Low L Platelet Morphology Normal Ovalocytes 1+ H Acanthocytes (Spur) Occ H Sodium 143 Potassium 2.7 L* Chloride 102 Carbon Dioxide 32.8 H Anion Gap 8 BUN 8 Creatinine 0.62 Estimated GFR Greater than 89 Random Glucose 63 L Calcium 7.1 L* Phosphorus 2.1 L D Magnesium 1.1 L Albumin 2.6 L Medications: Active Medications Generic Name Dose Route Start Last Admin Trade Name Freq PRN Reason Stop Dose Admin Acyclovir 800 mg 01/05/18 14:00 01/12/18 09:38 Zovirax PO 800 mg 5 TIMES A DAY [facility] Administration Alprazolam 0.5 mg 01/04/18 12:00 01/12/18 00:09 Xanax PO 0.5 mg BID PRN Administration Anxiety Apixaban 2.5 mg 01/04/18 12:00 01/12/18 09:37 Eliquis PO 2.5 mg BID ANDRY Administration Atorvastatin Calcium 20 mg 01/04/18 21:00 01/11/18 21:16 Lipitor PO 20 mg HS ANDRY Administration Benzonatate 200 mg 01/05/18 00:00 01/10/18 15:19 Tessalon Perles PO 200 mg Q8H PRN Administration COUGH Carbidopa/Levodopa 1 tab 01/04/18 21:00 01/11/18 21:16 Sinemet 25/100 Mg PO 1 tab HS ANDRY Administration Gabapentin 100 mg 01/04/18 13:00 01/12/18 09:37 Neurontin PO 100 mg TID ANDRY Administration Hydrocortisone Acetate 30 mg 01/05/18 06:00 01/12/18 06:00 Cortef PO 30 mg DAILY@0600 ANDRY Administration Hydrocortisone Acetate 20 mg 01/04/18 12:30 01/12/18 12:17 Cortef PO 20 mg DAILY@1200 ANDRY Administration Hydromorphone HCl 1 mg 01/04/18 00:14 01/12/18 12:18 Dilaudid Pf Inj IV.PUSH 1 mg Q4H PRN Administration PAIN 6-10 Sodium Chloride 1,000 mls @ 0 mls/hr 01/03/18 21:30 01/10/18 04:36 Ns Inj IV.SIG 100 mls/hr .Q0M ANDRY Administration Wide Open Potassium Chloride 10 meq/ 1,005 mls @ 100 mls/hr 01/10/18 13:00 01/12/18 10: 07 Sodium Chloride IV.CONT 100 mls/hr .Q10H3M AND[facility] Administration Lactobacillus Acidophilus 1 tab 01/04/18 18:00 01/12/18 09:37 Lactinex PO 1 tab TID ANDRY Administration Levothyroxine Sodium 75 mcg 01/04/18 12:15 01/12/18 07:30 Synthroid PO 75 mcg DAILY@0600 ANDRY Administration Multi-Ingredient Mouthwash/Gargle 10 ml 01/04/18 13:00 01/12/18 09:37 Magic Mouthwash Adult Liq SWISH-SWAL 10 ml QID ANDRY Administration Pantoprazole Sodium 40 mg 01/05/18 11:00 01/12/18 09:37 Protonix PO 40 mg DAILY ANDRY Administration Potassium Bicarb/Potassium Chloride 25 meq 01/10/18 12:15 01/12/18 09:38 K-Lyte Cl Eff PO Not Given DAILY ANDRY Sodium Chloride 5 ml 01/06/18 06:12 01/06/18 06:27 Ns Flush IV.FLUSH 5 ml PRN PRN Administration Flush Infusaport Temazepam 15 mg 01/04/18 00:03 01/04/18 02:31 Restoril PO 15 mg HS PRN Administration INSOMNIA Vancomycin HCl 250 mg 01/10/18 18:00 01/12/18 12:18 Vancomycin Po PO 250 mg Q6HR ANDRY Administration Objective Remarks: GENERAL: Elderly female patient, lying in bed. In no acute distress. SKIN: Warm and dry. HEAD: Normocephalic. EYES: No scleral icterus. No injection or drainage. NECK: Supple, trachea midline. CARDIOVASCULAR: Normal rate, no murmurs noted. RESPIRATORY: Anterior breath sounds clear, equal bilaterally. No accessory muscle use GASTROINTESTINAL: Abdomen soft, non-tender, nondistended. + BS. EXTREMITIES: No cyanosis, or edema. MUSCULOSKELETAL: Moves all extremities. NEUROLOGICAL: No obvious focal deficit. Awake, alert, and oriented x3. Assessment/Plan - Plan 77-year-old female with history of squamous cell carcinoma of the anal canal currently getting mitomycin and 5-FU chemotherapy along with radiation. She was admitted with lower abdominal pain, fever and diarrhea. 1. C. difficile diarrhea. Reports no episodes of diarrhea this morning. Awaiting repeat C. difficile testing if the patient has a liquid BM. Continues on p.o. vancomycin. Infectious disease is following. 2. History of DVT and PE, Eliquis has been resumed at 2.5 mg twice daily. 3. Electrolyte abnormalities, secondary to diarrhea. Attending physician is managing, supplementation ordered. 4. H&H, counts continue to improve. - Attending Statement The exam, history, and the medical decision-making described in the above note were completed with the assistance of the mid-level provider. I reviewed and agree with the findings presented. I attest that I had a [id number] encounter with the patient on the same day, and personally performed and documented my assessment and findings in the medical record.C/o watery stool over the weekend but none this am. Abdominal pain is controlled. WBC and platelet have trended up to normal. continue vancomycin for c.diff. Continue to replace electrolytes.
--- NOTE | 2018-01-12 15:17 | P.PNIM ---
Subjective Interval history: Patient says he is feeling all right. Denies any chest pain or shortness of breath. She reports 7 small accidents with stool overnight. Physical Exam Vital signs: Vital Signs 01/11/18 16:00 01/11/18 19:55 01/11/18 20:55 Temperature 98.1 F 98.6 F Pulse Rate 77 57 L 76 Respiratory Rate 16 16 Blood Pressure 159/91 H 168/83 H Pulse Oximetry 97 97 01/12/18 00:13 01/12/18 00:20 01/12/18 01:46 Temperature 98.2 F Pulse Rate 80 96 H 69 Respiratory Rate 16 Blood Pressure 153/93 H Pulse Oximetry 96 01/12/18 03:06 01/12/18 03:14 01/12/18 09:35 Temperature 98.2 F 98.3 F Pulse Rate 68 87 86 Respiratory Rate 16 16 Blood Pressure 160/82 H 168/93 H Pulse Oximetry 97 93 L 01/12/18 12:30 Temperature 98.7 F Pulse Rate 96 H Respiratory Rate Blood Pressure 137/97 H Pulse Oximetry 95 Intake & Output 01/11/18 01/12/18 01/12/18 18:59 06:59 18:59 Intake Total 1000 / 1000 1460 / 1460 Output Total 1000 / 1000 125 / 125 1800 / 1800 Balance 0 / 0 -125 / -125 -340 / -340 Weight 55.3 kg 83 kg Intake: IV 1000 / 1000 1220 / 1220 KCl Inj 10 MEQ In 1/2 Normal 1000 / 1000 1005 / 1005 Saline Inj 1,000 ML @ 100 mls/ hr IV.CONT .Q10H3M [facility] Rx#: [id number] Magnesium Sulfate 1 gm/D5W 100 100 / 100 ml Premix 100 ML @ 100 mls/hr IV.SIG ONCE ONE Rx#:[id number] KCl Inj 30 MEQ In NS Inj 100 ML 115 / 115 @ 38.333 mls/hr IV.SIG Q3H [facility] Rx#:[id number] Oral 240 / 240 Output: Urine 1000 / 1000 125 / 125 1800 / 1800 Other: # Voids 5 Date of Last Bowel Movement 01/11/18 01/11/18 # Bowel Movements 1 5 Narrative: GENERAL: Patient lying in bed. Appears comfortable. aaox3. SKIN: Warm and dry. HEAD: Normocephalic. EYES: No scleral icterus. No injection or drainage. NECK: Supple, trachea midline. No JVD . CARDIOVASCULAR: Regular rate and rhythm without murmurs, gallops, or rubs. RESPIRATORY: Breath sounds equal bilaterally. No accessory muscle use. GASTROINTESTINAL: Abdomen soft, nondistended. nontender. No rebound or guarding. As before. MUSCULOSKELETAL: No cyanosis, or edema. BACK: Nontender without obvious deformity. No CVA tenderness. - Urinary Catheter Management Straight Cath placed during this visit: yes, but has since been removed by the nurse Reason for continuing: Not indwelling catheter Insertion date: 01/07/18 Insertion time: 20:15 Removal date: 01/07/18 Removal time: 20:16 Results - Labs CBC & Chem 7: 01/12/18 03:10 01/12/18 03:10 Laboratory Results - last 24 hr 01/12/18 01/12/18 03:10 03:10 WBC 7.3 RBC 3.08 L Hgb 9.8 L Hct 28.2 L MCV 91.4 MCH 31.8 MCHC 34.8 RDW 13.7 Plt Count 138 L MPV 8.4 Prelim Diff (Auto) Slide review pending Neut % (Auto) 82.5 H Lymph % (Auto) 6.9 L [place] % (Auto) 10.2 H Eos % (Auto) 0.2 Baso % (Auto) 0.2 Neut # (Auto) 6.0 Lymph # (Auto) 0.5 L [place] # (Auto) 0.8 Eos # (Auto) 0.0 Baso # (Auto) 0.0 WBC Differential Manual diff final Seg Neuts % (Manual) 66 Band Neuts % (Manual) 12 H Lymphocytes % (Manual) 16 Monocytes % (Manual) 5 Metamyelocytes % (Man) 1 Abs Neuts (Manual) 5.8 Nucleated RBCs/100 WBC 2 H Differential Comment . Platelet Estimate Low L Platelet Morphology Normal Ovalocytes 1+ H Acanthocytes (Spur) Occ H Sodium 143 Potassium 2.7 L* Chloride 102 Carbon Dioxide 32.8 H Anion Gap 8 BUN 8 Creatinine 0.62 Estimated GFR Greater than 89 Random Glucose 63 L Calcium 7.1 L* Phosphorus 2.1 L D Magnesium 1.1 L Albumin 2.6 L Assessment and Plan - Assessment (1) Neutropenic fever Code(s): D70.9 - Neutropenia, unspecified; R50.81 - Fever presenting with conditions classified elsewhere Status: Acute (2) Rectal cancer Code(s): C20 - Malignant neoplasm of rectum Status: Acute (3) Abdominal pain Code(s): R10.9 - Unspecified abdominal pain Status: Acute - Plan // Abdominal Pain: //C. difficile Acute onset of severe abdominal pain, CT Abd/Pelvis w/ no acute findings, images reviewed. Analgesics/antiemetics as needed. = 01/06. Slightly improved today. Continue to monitor. = 01/08. Dietary to C. difficile improved. = 01/09. No with excessive bowel movements. Continue treatment for C. difficile. Hopefully diarrhea improves off of nitrofurantoin. = 01/10. Bowel movements improving. Continue treatment as per ID. = 01/10. With multiple loose stools. on abx for C diff. appreciate ID assistance // Neutropenic Fever: WBC 0.5, absolute neutrophil count 0.2, Temp 101 at home , currently on Chemo/Radiation for Rectal CA. S/p Blood Cultures, Vanc/ cefepime U/a positive for UTI as likely source, continue IV Abx, follow up cultures, monitor I/O. Neutropenic precautions, check C Diff for ongoing diarrhea. = 01/06. Appreciate hematology assistance. Neutropenia resolving. Afebrile today. Continue antibiotics as per hematology. = neutropenia has resolved. //Rectal CA: on Chemo/Radiation, scheduled for Radiation on Friday, will Consult Dr. Guzman for further evaluation/recommendations. = 01/06. Appreciate hematology assistance. Neutropenia resolving. = as per oncology. Appreciate assistance. //UTI. Completed treatment. 01/07 Oncology as ordered urinalysis, however nursing reports that urine is always contaminated with stool. Will continue aztreonam for now, and now that patient is no longer neutropenic, will order single straight cath. If urinalysis negative, can stop aztreonam. = 01/08. Patient will be on nitrofurantoin as per ID. Due to recurrent UTIs, I suggested in the outpatient setting that patient discuss the possible use of periurethral estrogen, such as Estrace cream to help prevent recurrent UTIs. = Completed treatment as per ID. //Left buttocks zoster will start on acyclovir 800 mg p.o. 5 times a day = Continue acyclovir //GERD we will continue on Protonix 40 mg p.o. daily //Hypokalemia //Hypomagnesemia //Hypernatremia -01/08 potassium, magnesium replaced. Follow-up labs tomorrow. = 01/09. Magnesium resolved. Potassium continues low. On daily replacement. Continue to monitor. = 01/10. Hypokalemia with potassium 2.8. Nursing reports seeing potassium tablets in stool. Will switch to effervescent potassium. Magnesium 1.4. Replace. Switch to daily effervescent replacement. Hypernatremia. Sodium 146. Will switch to half-normal saline. = 01/11. Phosphorus of 1.0. Replace. Continue to monitor. = 01/12. Phosphorus improved to 2.1. Continue to monitor. Magnesium 1.1. Replace. Potassium 2.7. Place. Cautious p.o. magnesium replacement due to causing diarrhea. // DVT Prophylaxis: SCD/Teds Discharge Planning: Continue inpatient management. -Still with diarrhea accidents. Hopefully home with home health in the next 1-2 days PT recommends home with supervision at time of discharge.
[2018-01-13] MEDS: HYDROmorphone PF Inj 2 MG/ML Vial IV.PUSH PRN ×2 (01:11→06:48)
[2018-01-13] MEDS: Hydrocortisone 10 MG Tablet PO SCH ×2 (05:44→11:56)
[2018-01-13] MEDS: Acyclovir 800 MG Tablet PO SCH ×5 (05:44→21:19)
[2018-01-13] MEDS: Levothyroxine 75 MCG Tablet PO SCH (05:44)
[2018-01-13 06:18] LABS: Baso % (Auto) 0.3 % (0.0-2.0); Eos % (Auto) 0.3 % (0.0-4.0); Hematocrit 29.6 % (35.0-46.0); Hemoglobin 10.4 gm/dL (11.6-15.3); Lymph # (Auto) 0.6 th/mm3 (1.0-4.8); Lymph % (Auto) 11.5 % (9.0-44.0); Mean Corpuscular HGB Conc 35.1 % (32.0-36.0); Mean Corpuscular Hemoglobin 32.1 pg (27.0-34.0); Mean Corpuscular Volume 91.3 fL (80.0-100.0); Mean Platelet Volume 8.7 fL (7.0-11.0); Mono # (Auto) 0.7 th/mm3 (0.0-0.9); Mono % (Auto) 14.3 % (0.0-8.0); Neut # (Auto) 3.7 th/mm3 (1.8-7.7); Neut % (Auto) 73.6 % (16.0-70.0); Platelet Count 188 th/mm3 (150-450); Red Blood Count 3.24 mil/mm3 (4.00-5.30); Red Cell Distribution Width 13.5 % (11.6-17.2); White Blood Count 5.1 th/mm3 (4.0-11.0)
[2018-01-13 07:27] LABS: Albumin 2.5 g/dL (3.4-5.0); Calcium 7.5 mg/dL (8.5-10.1); Carbon Dioxide 31.3 meq/L (21.0-32.0); Magnesium 1.7 mg/dL (1.5-2.5)
[2018-01-13 07:37] LABS: Potassium 2.9 meq/L (3.5-5.1)
[2018-01-13 07:57] LABS: Lymphocytes 5 % (9-44); Metamyelocytes 4 % (0-1); Monocytes 7 % (0-8); Myelocytes 1 % (0-0); Promyelocyte 3 % (0-0); Tallied Nucleated RBC 2 (0-0)
[2018-01-13 07:58] LABS: Platelet Estimate Normal (Normal); Platelet Morphology Normal (Normal)
[2018-01-13] MEDS ORDERED: Loperamide 2 MG Capsule PO ONE (08:45)
[2018-01-13] MEDS: Nystatin/Diphenhydramine/Lidocaine Mouthwash (Adult) 120 ML Botttle SWISH-SWAL SCH ×4 (09:19→21:18)
[2018-01-13] MEDS: Gabapentin 100 MG Capsule PO SCH ×3 (09:20→17:24)
[2018-01-13] MEDS: Lactobacillus Acidophilus/L. Spores Tablet PO SCH ×3 (09:20→17:24)
[2018-01-13] MEDS: Potassium Chloride 25 MEQ Effervescent Tablet PO SCH ×2 (09:20→21:17)
[2018-01-13] MEDS: Potassium Chloride Inj 10 MEQ in Sodium Chloride 0.45 % Inj 1,000 ML IV.CONT SCH ×3 (09:24→21:25)
--- NOTE | 2018-01-13 10:18 | P.PNONC ---
Subjective Interval history: Patient sitting upright in bed. Seems to be in better spirits today. She has no complaints at this time. She reports she had to "bad" episodes of diarrhea this a.m. She is scheduled for radiation at 1145 today. We have discussed transitioning her off IV pain medications. Objective Vital Signs/Intake & Output: Vital Signs 01/12/18 12:30 01/12/18 16:49 01/12/18 18:59 Temperature 98.7 F 98.3 F Pulse Rate 96 H 91 H 69 Respiratory Rate 16 Blood Pressure 137/97 H 143/93 H Pulse Oximetry 95 92 L 01/12/18 20:55 01/12/18 23:00 01/12/18 23:39 Temperature 98.6 F 99.7 F H Pulse Rate 92 H 73 76 Respiratory Rate 16 Blood Pressure 154/93 H 165/93 H Pulse Oximetry 94 L 97 01/13/18 04:12 01/13/18 05:25 Temperature 98.2 F Pulse Rate 67 76 Respiratory Rate 16 Blood Pressure 144/90 H Pulse Oximetry 96 Intake & Output 01/12/18 01/13/18 01/13/18 18:59 06:59 18:59 Intake Total 2415 / 2415 1350 / 1350 1005 / 1005 Output Total 1800 / 1800 1650 / 1650 Balance 615 / 615 -300 / -300 1005 / 1005 Intake: IV 1335 / 1335 1110 / 1110 1005 / 1005 KCl Inj 10 MEQ In 1/2 Normal 1005 / 1005 1000 / 1000 1005 / 1005 Saline Inj 1,000 ML @ 100 mls/ hr IV.CONT .Q10H3M [facility] Rx#: [id number] Magnesium Sulfate 1 gm/D5W 100 100 / 100 ml Premix 100 ML @ 100 mls/hr IV.SIG ONCE ONE Rx#:[id number] KCl Inj 30 MEQ In NS Inj 100 ML 230 / 230 @ 38.333 mls/hr IV.SIG Q3H [facility] Rx#:[id number] Oral 1080 / 1080 240 / 240 Output: Urine 1800 / 1800 1650 / 1650 Other: # Voids 6 Date of Last Bowel Movement 01/12/18 01/12/18 # Bowel Movements 2 1 Result Diagrams: 01/13/18 05:30 01/13/18 05:30 Laboratory Results: Laboratory Results - last 24 hr 01/12/18 01/12/18 01/13/18 16:35 23:45 05:30 WBC 5.1 RBC 3.24 L Hgb 10.4 L Hct 29.6 L MCV 91.3 MCH 32.1 MCHC 35.1 RDW 13.5 Plt Count 188 D MPV 8.7 Prelim Diff (Auto) Slide review pending Neut % (Auto) 73.6 H Lymph % (Auto) 11.5 [place] % (Auto) 14.3 H Eos % (Auto) 0.3 Baso % (Auto) 0.3 Neut # (Auto) 3.7 Lymph # (Auto) 0.6 L [place] # (Auto) 0.7 Eos # (Auto) 0.0 Baso # (Auto) 0.0 WBC Differential Manual diff final Seg Neuts % (Manual) 73 H Band Neuts % (Manual) 6 Lymphocytes % (Manual) 5 L Monocytes % (Manual) 7 Basophils % (Manual) 1 Metamyelocytes % (Man) 4 H Myelocytes % (Man) 1 H Promyelocytes % (Man) 3 H Abs Neuts (Manual) 4.4 Nucleated RBCs/100 WBC 2 H Differential Comment . Platelet Estimate Normal Platelet Morphology Normal Sodium Potassium 3.4 L Chloride Carbon Dioxide Anion Gap BUN Creatinine Estimated GFR Random Glucose Calcium Phosphorus Magnesium Albumin Stl C.difficile Tox PCR Negative St C. diff Tox Epid 027 Negative 01/13/18 05:30 WBC RBC Hgb Hct MCV MCH MCHC RDW Plt Count MPV Prelim Diff (Auto) Neut % (Auto) Lymph % (Auto) [place] % (Auto) Eos % (Auto) Baso % (Auto) Neut # (Auto) Lymph # (Auto) [place] # (Auto) Eos # (Auto) Baso # (Auto) WBC Differential Seg Neuts % (Manual) Band Neuts % (Manual) Lymphocytes % (Manual) Monocytes % (Manual) Basophils % (Manual) Metamyelocytes % (Man) Myelocytes % (Man) Promyelocytes % (Man) Abs Neuts (Manual) Nucleated RBCs/100 WBC Differential Comment Platelet Estimate Platelet Morphology Sodium 144 Potassium 2.9 L* Chloride 104 Carbon Dioxide 31.3 Anion Gap 9 BUN 6 L Creatinine 0.72 Estimated GFR 78 L Random Glucose 68 L Calcium 7.5 L Phosphorus 2.0 L Magnesium 1.7 D Albumin 2.5 L Stl C.difficile Tox PCR St C. diff Tox Epid 027 Medications: Active Medications Generic Name Dose Route Start Last Admin Trade Name Freq PRN Reason Stop Dose Admin Acyclovir 800 mg 01/05/18 14:00 01/13/18 09:20 Zovirax PO 800 mg 5 TIMES A DAY ANDRY Administration Alprazolam 0.5 mg 01/04/18 12:00 01/12/18 17:50 Xanax PO 0.5 mg BID PRN Administration Anxiety Apixaban 2.5 mg 01/04/18 12:00 01/13/18 09:20 Eliquis PO 2.5 mg BID ANDRY Administration Atorvastatin Calcium 20 mg 01/04/18 21:00 01/12/18 21:24 Lipitor PO 20 mg HS ANDRY Administration Benzonatate 200 mg 01/05/18 00:00 01/10/18 15:19 Tessalon Perles PO 200 mg Q8H PRN Administration COUGH Carbidopa/Levodopa 1 tab 01/04/18 21:00 01/12/18 21:24 Sinemet 25/100 Mg PO 1 tab HS ANDRY Administration Gabapentin 100 mg 01/04/18 13:00 01/13/18 09:20 Neurontin PO 100 mg TID ANDRY Administration Hydrocortisone Acetate 30 mg 01/05/18 06:00 01/13/18 05:44 Cortef PO 30 mg DAILY@0600 ANDRY Administration Hydrocortisone Acetate 20 mg 01/04/18 12:30 01/12/18 12:17 Cortef PO 20 mg DAILY@1200 ANDRY Administration Hydromorphone HCl 1 mg 01/04/18 00:14 01/13/18 06:48 Dilaudid Pf Inj IV.PUSH 1 mg Q4H PRN Administration PAIN 6-10 Sodium Chloride 1,000 mls @ 0 mls/hr 01/03/18 21:30 01/10/18 04:36 Ns Inj IV.SIG 100 mls/hr .Q0M ANDRY Administration Wide Open Potassium Chloride 10 meq/ 1,005 mls @ 100 mls/hr 01/10/18 13:00 01/13/18 09: 24 Sodium Chloride IV.CONT 100 mls/hr .Q10H3M AND[facility] Administration Lactobacillus Acidophilus 1 tab 01/04/18 18:00 01/13/18 09:20 Lactinex PO 1 tab TID ANDRY Administration Levothyroxine Sodium 75 mcg 01/04/18 12:15 01/13/18 05:44 Synthroid PO 75 mcg DAILY@0600 ANDRY Administration Multi-Ingredient Mouthwash/Gargle 10 ml 01/04/18 13:00 01/13/18 09:19 Magic Mouthwash Adult Liq SWISH-SWAL 10 ml QID ANDRY Administration Pantoprazole Sodium 40 mg 01/05/18 11:00 01/13/18 09:20 Protonix PO 40 mg DAILY ANDRY Administration Potassium Bicarb/Potassium Chloride 25 meq 01/10/18 12:15 01/13/18 09:20 K-Lyte Cl Eff PO Not Given DAILY ANDRY Sodium Chloride 5 ml 01/06/18 06:12 01/13/18 01:12 Ns Flush IV.FLUSH 5 ml PRN PRN Administration Flush Infusaport Temazepam 15 mg 01/04/18 00:03 01/04/18 02:31 Restoril PO 15 mg HS PRN Administration INSOMNIA Vancomycin HCl 250 mg 01/10/18 18:00 01/13/18 05:44 Vancomycin Po PO 250 mg Q6HR ANDRY Administration Objective Remarks: GENERAL: Elderly female patient, sitting upright in bed. In no acute distress. SKIN: Warm and dry. HEAD: Normocephalic. EYES: No scleral icterus. No injection or drainage. NECK: Supple, trachea midline. CARDIOVASCULAR: Normal rate, no murmurs noted. RESPIRATORY: Anterior breath sounds clear, equal bilaterally. No accessory muscle use GASTROINTESTINAL: Abdomen soft, non-tender, nondistended. + BS. EXTREMITIES: No cyanosis, or edema. MUSCULOSKELETAL: Moves all extremities. NEUROLOGICAL: No obvious focal deficit. Awake, alert, and oriented x3. Assessment/Plan - Plan 77-year-old female with history of squamous cell carcinoma of the anal canal currently getting mitomycin and 5-FU chemotherapy along with radiation. She was admitted with lower abdominal pain, fever and diarrhea. 1. C. difficile diarrhea. Reports 2 episodes of diarrhea this morning. Repeat C. difficile testing was negative. 1 dose of Imodium ordered. Continues on p.o. vancomycin. Infectious disease is following. 2. History of DVT and PE, Eliquis has been resumed at 2.5 mg twice daily. 3. Electrolyte abnormalities, secondary to diarrhea. Attending physician is managing, supplementation ordered. 4. Patient scheduled for radiation treatment today. 5. We will transition to oral pain medications. - Attending Statement The exam, history, and the medical decision-making described in the above note were completed with the assistance of the mid-level provider. I reviewed and agree with the findings presented. I attest that I had a [id number] encounter with the patient on the same day, and personally performed and documented my assessment and findings in the medical record. Diarrhea has improved. Repeat C. difficile test was negative. We will give her a dose of Imodium. Her pain has improved. Will contact radiation oncology to restart radiation. Can be discharged once transitioned to oral pain medication.
[2018-01-13] MEDS ORDERED: Potassium Phosphate Inj 15 MMOL in Sodium Chlor 0.9% Inj 150 ML IV.SIG ONE (15:00)
[2018-01-13] MEDS ORDERED: Mag Sulf 1 gm/100 ml Premix 100 ML IV.SIG ONE (15:31)
--- NOTE | 2018-01-13 15:39 | P.PNIM ---
Subjective Interval history: Patient reports continued lower abdominal cramps. Denies any chest pain shortness of breath. Some nausea today but no vomiting. Physical Exam Vital signs: Vital Signs 01/12/18 16:49 01/12/18 18:59 01/12/18 20:55 Temperature 98.3 F 98.6 F Pulse Rate 91 H 69 92 H Respiratory Rate 16 Blood Pressure 143/93 H 154/93 H Pulse Oximetry 92 L 94 L 01/12/18 23:00 01/12/18 23:39 01/13/18 04:12 Temperature 99.7 F H Pulse Rate 73 76 67 Respiratory Rate 16 Blood Pressure 165/93 H Pulse Oximetry 97 01/13/18 05:25 01/13/18 12:06 Temperature 98.2 F 98.0 F Pulse Rate 76 74 Respiratory Rate 16 16 Blood Pressure 144/90 H 168/79 H Pulse Oximetry 96 97 Intake & Output 01/12/18 01/13/18 01/13/18 18:59 06:59 18:59 Intake Total 2415 / 2415 1350 / 1350 1005 / 1005 Output Total 1800 / 1800 1650 / 1650 Balance 615 / 615 -300 / -300 1005 / 1005 Intake: IV 1335 / 1335 1110 / 1110 1005 / 1005 KCl Inj 10 MEQ In 1/2 Normal 1005 / 1005 1000 / 1000 1005 / 1005 Saline Inj 1,000 ML @ 100 mls/ hr IV.CONT .Q10H3M [facility] Rx#: [id number] Magnesium Sulfate 1 gm/D5W 100 100 / 100 ml Premix 100 ML @ 100 mls/hr IV.SIG ONCE ONE Rx#:[id number] KCl Inj 30 MEQ In NS Inj 100 ML 230 / 230 @ 38.333 mls/hr IV.SIG Q3H [facility] Rx#:[id number] Oral 1080 / 1080 240 / 240 Output: Urine 1800 / 1800 1650 / 1650 Other: # Voids 6 Date of Last Bowel Movement 01/12/18 01/12/18 # Bowel Movements 2 1 Narrative: GENERAL: Patient lying in bed. Appears comfortable. aaox3. Exam unchanged from yesterday. SKIN: Warm and dry. HEAD: Normocephalic. EYES: No scleral icterus. No injection or drainage. NECK: Supple, trachea midline. No JVD . CARDIOVASCULAR: Regular rate and rhythm without murmurs, gallops, or rubs. RESPIRATORY: Breath sounds equal bilaterally. No accessory muscle use. GASTROINTESTINAL: Abdomen soft, nondistended. nontender. No rebound or guarding. As before. MUSCULOSKELETAL: No cyanosis, or edema. BACK: Nontender without obvious deformity. No CVA tenderness. - Urinary Catheter Management Straight Cath placed during this visit: yes, but has since been removed by the nurse Reason for continuing: Not indwelling catheter Insertion date: 01/07/18 Insertion time: 20:15 Removal date: 01/07/18 Removal time: 20:16 Results - Labs CBC & Chem 7: 01/13/18 05:30 01/13/18 05:30 Laboratory Results - last 24 hr 01/12/18 01/12/18 01/13/18 16:35 23:45 05:30 WBC 5.1 RBC 3.24 L Hgb 10.4 L Hct 29.6 L MCV 91.3 MCH 32.1 MCHC 35.1 RDW 13.5 Plt Count 188 D MPV 8.7 Prelim Diff (Auto) Slide review pending Neut % (Auto) 73.6 H Lymph % (Auto) 11.5 [place] % (Auto) 14.3 H Eos % (Auto) 0.3 Baso % (Auto) 0.3 Neut # (Auto) 3.7 Lymph # (Auto) 0.6 L [place] # (Auto) 0.7 Eos # (Auto) 0.0 Baso # (Auto) 0.0 WBC Differential Manual diff final Seg Neuts % (Manual) 73 H Band Neuts % (Manual) 6 Lymphocytes % (Manual) 5 L Monocytes % (Manual) 7 Basophils % (Manual) 1 Metamyelocytes % (Man) 4 H Myelocytes % (Man) 1 H Promyelocytes % (Man) 3 H Abs Neuts (Manual) 4.4 Nucleated RBCs/100 WBC 2 H Differential Comment . Platelet Estimate Normal Platelet Morphology Normal Sodium Potassium 3.4 L Chloride Carbon Dioxide Anion Gap BUN Creatinine Estimated GFR Random Glucose Calcium Phosphorus Magnesium Albumin Stl C.difficile Tox PCR Negative St C. diff Tox Epid 027 Negative 01/13/18 05:30 WBC RBC Hgb Hct MCV MCH MCHC RDW Plt Count MPV Prelim Diff (Auto) Neut % (Auto) Lymph % (Auto) [place] % (Auto) Eos % (Auto) Baso % (Auto) Neut # (Auto) Lymph # (Auto) [place] # (Auto) Eos # (Auto) Baso # (Auto) WBC Differential Seg Neuts % (Manual) Band Neuts % (Manual) Lymphocytes % (Manual) Monocytes % (Manual) Basophils % (Manual) Metamyelocytes % (Man) Myelocytes % (Man) Promyelocytes % (Man) Abs Neuts (Manual) Nucleated RBCs/100 WBC Differential Comment Platelet Estimate Platelet Morphology Sodium 144 Potassium 2.9 L* Chloride 104 Carbon Dioxide 31.3 Anion Gap 9 BUN 6 L Creatinine 0.72 Estimated GFR 78 L Random Glucose 68 L Calcium 7.5 L Phosphorus 2.0 L Magnesium 1.7 D Albumin 2.5 L Stl C.difficile Tox PCR St C. diff Tox Epid 027 Assessment and Plan - Assessment (1) Neutropenic fever Code(s): D70.9 - Neutropenia, unspecified; R50.81 - Fever presenting with conditions classified elsewhere Status: Acute (2) Rectal cancer Code(s): C20 - Malignant neoplasm of rectum Status: Acute (3) Abdominal pain Code(s): R10.9 - Unspecified abdominal pain Status: Acute - Plan // Abdominal Pain: //C. difficile Acute onset of severe abdominal pain, CT Abd/Pelvis w/ no acute findings, images reviewed. Analgesics/antiemetics as needed. = 01/06. Slightly improved today. Continue to monitor. = 01/08. Dietary to C. difficile improved. = 01/09. No with excessive bowel movements. Continue treatment for C. difficile. Hopefully diarrhea improves off of nitrofurantoin. = 01/10. Bowel movements improving. Continue treatment as per ID. = 01/10. With multiple loose stools. on abx for C diff. appreciate ID assistance = 01/13. Negative C. difficile stool. On antibiotics as per ID. // Neutropenic Fever: WBC 0.5, absolute neutrophil count 0.2, Temp 101 at home , currently on Chemo/Radiation for Rectal CA. S/p Blood Cultures, Vanc/ cefepime U/a positive for UTI as likely source, continue IV Abx, follow up cultures, monitor I/O. Neutropenic precautions, check C Diff for ongoing diarrhea. = 01/06. Appreciate hematology assistance. Neutropenia resolving. Afebrile today. Continue antibiotics as per hematology. = neutropenia has resolved. //Rectal CA: on Chemo/Radiation, scheduled for Radiation on Friday, will Consult Dr. Guzman for further evaluation/recommendations. = 01/06. Appreciate hematology assistance. Neutropenia resolving. = as per oncology. Appreciate assistance. = 01/13. Some lower abdominal cramping pain. Will add OxyContin for basal pain control. //UTI. Completed treatment. 01/07 Oncology as ordered urinalysis, however nursing reports that urine is always contaminated with stool. Will continue aztreonam for now, and now that patient is no longer neutropenic, will order single straight cath. If urinalysis negative, can stop aztreonam. = 01/08. Patient will be on nitrofurantoin as per ID. Due to recurrent UTIs, I suggested in the outpatient setting that patient discuss the possible use of periurethral estrogen, such as Estrace cream to help prevent recurrent UTIs. = Completed treatment as per ID. //Left buttocks zoster will start on acyclovir 800 mg p.o. 5 times a day = Continue acyclovir //GERD we will continue on Protonix 40 mg p.o. daily //Hypokalemia //Hypomagnesemia //Hypernatremia -01/08 potassium, magnesium replaced. Follow-up labs tomorrow. = 01/09. Magnesium resolved. Potassium continues low. On daily replacement. Continue to monitor. = 01/10. Hypokalemia with potassium 2.8. Nursing reports seeing potassium tablets in stool. Will switch to effervescent potassium. Magnesium 1.4. Replace. Switch to daily effervescent replacement. Hypernatremia. Sodium 146. Will switch to half-normal saline. = 01/11. Phosphorus of 1.0. Replace. Continue to monitor. = 01/12. Phosphorus improved to 2.1. Continue to monitor. Magnesium 1.1. Replace. Potassium 2.7. Place. Cautious p.o. magnesium replacement due to causing diarrhea. = 01/13. Potassium 2.9 again. Replace and monitor. // DVT Prophylaxis: SCD/Teds Discharge Planning: Hopefully home tomorrow if feeling well. Will need follow-up with oncology, radiation oncology.
[2018-01-13] MEDS: ALPRAZolam 0.5 MG Tablet PO PRN (17:27)
[2018-01-13] MEDS: oxyCODONE 10 MG Controlled Release Tablet PO SCH (21:29)
[2018-01-13] MEDS ORDERED: HYDROmorphone PF Inj 2 MG/ML Vial IV.PUSH ONE (22:00)
[2018-01-14] MEDS: Hydrocortisone 10 MG Tablet PO SCH ×2 (05:47→13:33)
[2018-01-14] MEDS: Acyclovir 800 MG Tablet PO SCH ×5 (05:47→21:30)
[2018-01-14] MEDS: Levothyroxine 75 MCG Tablet PO SCH (05:47)
[2018-01-14 06:12] LABS: Baso % (Auto) 0.3 % (0.0-2.0); Eos % (Auto) 0.2 % (0.0-4.0); Hematocrit 29.8 % (35.0-46.0); Hemoglobin 10.2 gm/dL (11.6-15.3); Lymph # (Auto) 0.6 th/mm3 (1.0-4.8); Lymph % (Auto) 10.8 % (9.0-44.0); Mean Corpuscular HGB Conc 34.2 % (32.0-36.0); Mean Corpuscular Hemoglobin 31.8 pg (27.0-34.0); Mean Corpuscular Volume 92.9 fL (80.0-100.0); Mean Platelet Volume 8.3 fL (7.0-11.0); Mono # (Auto) 0.8 th/mm3 (0.0-0.9); Mono % (Auto) 13.2 % (0.0-8.0); Neut # (Auto) 4.3 th/mm3 (1.8-7.7); Neut % (Auto) 75.5 % (16.0-70.0); Platelet Count 216 th/mm3 (150-450); Red Blood Count 3.21 mil/mm3 (4.00-5.30); Red Cell Distribution Width 13.3 % (11.6-17.2); White Blood Count 5.7 th/mm3 (4.0-11.0)
[2018-01-14 06:24] LABS: Albumin 2.7 g/dL (3.4-5.0); Calcium 7.7 mg/dL (8.5-10.1); Carbon Dioxide 31.3 meq/L (21.0-32.0); Magnesium 1.8 mg/dL (1.5-2.5); Phosphorus 2.1 mg/dL (2.5-4.9); Potassium 3.4 meq/L (3.5-5.1)
[2018-01-14 08:03] LABS: Lymphocytes 13 % (9-44); Metamyelocytes 1 % (0-1); Monocytes 8 % (0-8); Myelocytes 3 % (0-0); Platelet Estimate Normal (Normal); Platelet Morphology Normal (Normal)
[2018-01-14] MEDS: Potassium Chloride Inj 10 MEQ in Sodium Chloride 0.45 % Inj 1,000 ML IV.CONT SCH ×2 (08:25→23:01)
--- NOTE | 2018-01-14 09:21 | P.DCO ---
- Physical Therapy Order: Evaluate and treat - Home Health Nursing Order: Wound care and dressing changes - Home Health Aide Order: To assist in: Bathing and personal care, bindery machine setter and meal prep - [employer] Order: To evaluate: Living conditions/environment, Support services Order: To provide: Long range planning, Community services - Certification I have seen patient Rosalva Whalen on 01/14/18. My clinical findings support the need for the requested home health care services because: Limited mobility due to disease progression I certify that my clinical findings support that this patient is homebound because: Unable to use public transportation
--- NOTE | 2018-01-14 09:22 | P.DS ---
Date of admission: 01/03/18 23:47 Primary care physician: Jose Antonio Xiong MD Brief History from admission: This is a 77-year-old female with a PMH of Anxiety, h/o DVT/PE s/p IVC Filter, Adrenal Insufficiency, HTN, Hypothyroidism and Rectal CA who presented to the ER w/ complaints of abdominal pain and diarrhea starting today. States she has had chronic abdominal pain and diarrhea for approx 1yr, however now symptoms more severe x1wk. Also w/ fever of 101 at home today. Recently diagnosed w/ Rectal CA s/p Chemo/Radiation, follows w/ Dr. Guzman as outpatient, states she had blood work a few days ago on 12/31/17, however she does not know results. Scheduled for Radiation again on Friday and Chemo on 01/21. On arrival, BP 133/ 72, HR 118, O2 sat 96% on RA, Temp 99.6. WBC 0.5, hemoglobin 10.1, platelets 54 , absolute neutrophil count 0.2, previously WBC 1.8, hemoglobin 11 and platelets 157 on 12/31/2017. U/a positive for UTI. Abdominal X-ray with no dilated loops of small or large bowel. CT Abdomen/Pelvis with no acute findings. CXR no acute findings. S/p IV Vanc/Rocephin/Flagyl in ER. DS: Diagnosis - Discharge Diagnosis (1) Neutropenic fever Status: Acute (2) Rectal cancer Status: Acute (3) Abdominal pain Status: Acute DS: Medications - Discharge Medications Prescriptions: hydromorphone 1 mg PO Q4H PRN 7 Days #42 tab PRN Reason: pain 7-10 oxycodone [OxyContin] 10 mg PO Q12HR #14 tab DS: Summary Hospital Course: // Abdominal Pain: //C. difficile Acute onset of severe abdominal pain, CT Abd/Pelvis w/ no acute findings, images reviewed. Analgesics/antiemetics as needed. = 01/06. Slightly improved today. Continue to monitor. = 01/08. Dietary to C. difficile improved. = 01/09. No with excessive bowel movements. Continue treatment for C. difficile. Hopefully diarrhea improves off of nitrofurantoin. = 01/10. Bowel movements improving. Continue treatment as per ID. = 01/10. With multiple loose stools. on abx for C diff. appreciate ID assistance = 01/13. Negative C. difficile stool. On antibiotics as per ID. = 01/14. Continue on vancomycin to complete treatment course. // Neutropenic Fever: WBC 0.5, absolute neutrophil count 0.2, Temp 101 at home , currently on Chemo/Radiation for Rectal CA. S/p Blood Cultures, Vanc/ cefepime U/a positive for UTI as likely source, continue IV Abx, follow up cultures, monitor I/O. Neutropenic precautions, check C Diff for ongoing diarrhea. = 01/06. Appreciate hematology assistance. Neutropenia resolving. Afebrile today. Continue antibiotics as per hematology. = neutropenia has resolved. //Rectal CA: on Chemo/Radiation, scheduled for Radiation on Friday, will Consult Dr. Guzman for further evaluation/recommendations. = 01/06. Appreciate hematology assistance. Neutropenia resolving. = as per oncology. Appreciate assistance. = 01/13. Some lower abdominal cramping pain. Will add OxyContin for basal pain control. = 01/14. Pain improved on OxyContin. Will continue. E force was checked. //UTI. Completed treatment. 01/07 Oncology as ordered urinalysis, however nursing reports that urine is always contaminated with stool. Will continue aztreonam for now, and now that patient is no longer neutropenic, will order single straight cath. If urinalysis negative, can stop aztreonam. = 01/08. Patient will be on nitrofurantoin as per ID. Due to recurrent UTIs, I suggested in the outpatient setting that patient discuss the possible use of periurethral estrogen, such as Estrace cream to help prevent recurrent UTIs. = Completed treatment as per ID. //Left buttocks zoster will start on acyclovir 800 mg p.o. 5 times a day = Continue acyclovir for 7 more days. Follow-up with primary care and oncology. //GERD we will continue on ranitidine at home, and this may help with loose stools as well. Avoid PPI and setting of recent C. difficile. //Hypokalemia //Hypomagnesemia //Hypernatremia -01/08 potassium, magnesium replaced. Follow-up labs tomorrow. = 01/09. Magnesium resolved. Potassium continues low. On daily replacement. Continue to monitor. = 01/10. Hypokalemia with potassium 2.8. Nursing reports seeing potassium tablets in stool. Will switch to effervescent potassium. Magnesium 1.4. Replace. Switch to daily effervescent replacement. Hypernatremia. Sodium 146. Will switch to half-normal saline. = 01/11. Phosphorus of 1.0. Replace. Continue to monitor. = 01/12. Phosphorus improved to 2.1. Continue to monitor. Magnesium 1.1. Replace. Potassium 2.7. Place. Cautious p.o. magnesium replacement due to causing diarrhea. = 01/13. Potassium 2.9 again. Replace and monitor. = 01/14. Potassium 3.4 on twice daily replacement. Will discharge home on twice daily potassium supplementation, low to moderate dose magnesium of 200 mg daily. // DVT Prophylaxis: SCD/Teds Discharge Planning: Discharge home with home health today after radiation therapy if patient feeling well. - Time Spent with Patient Total time spent providing and/or coordinating discharge services: - Quality: VTE Deep Vein Thrombosis/Pulmonary Embolism Present on Admission: No Exam Vital signs: Vital Signs 01/13/18 12:00 01/13/18 12:06 01/13/18 16:00 Temperature 98.0 F Pulse Rate 70 74 88 Respiratory Rate 16 Blood Pressure 168/79 H Pulse Oximetry 97 01/13/18 16:10 01/13/18 17:31 01/13/18 20:00 Temperature 98.4 F 98.1 F Pulse Rate 75 70 Respiratory Rate 18 18 Blood Pressure 171/88 H 167/98 H 185/79 H Pulse Oximetry 95 96 01/14/18 00:14 01/14/18 01:00 01/14/18 04:00 Temperature 98.7 F 98.5 F Pulse Rate 66 73 60 Respiratory Rate 17 Blood Pressure 164/90 H 150/92 H Pulse Oximetry 98 96 01/14/18 07:50 Temperature Pulse Rate Respiratory Rate 16 Blood Pressure Pulse Oximetry Intake & Output 01/13/18 01/14/18 01/14/18 18:59 06:59 18:59 Intake Total 1105 / 1105 1240 / 1240 1100 / 1100 Output Total 2100 / 2100 900 / 900 Balance 1105 / 1105 -860 / -860 200 / 200 Intake: IV 1105 / 1105 1000 / 1000 1100 / 1100 KCl Inj 10 MEQ In 1/2 Normal 1005 / 1005 1000 / 1000 1000 / 1000 Saline Inj 1,000 ML @ 100 mls/ hr IV.CONT .Q10H3M [facility] Rx#: [id number] Magnesium Sulfate 1 gm/D5W 100 100 / 100 ml Premix 100 ML @ 100 mls/hr IV.SIG ONCE ONE Rx#:[id number] Oral 240 / 240 Output: Urine 2100 / 2100 900 / 900 Other: # Voids 4 Date of Last Bowel Movement 01/13/18 01/13/18 # Bowel Movements 4 Results Procedures completed during hospitalization: No invasive procedures. Labs on day of discharge: Labs from last 24 hours 01/14/18 01/14/18 05:40 05:40 WBC 5.7 RBC 3.21 L Hgb 10.2 L Hct 29.8 L MCV 92.9 MCH 31.8 MCHC 34.2 RDW 13.3 Plt Count 216 MPV 8.3 Prelim Diff (Auto) Slide review pending Neut % (Auto) 75.5 H Lymph % (Auto) 10.8 [place] % (Auto) 13.2 H Eos % (Auto) 0.2 Baso % (Auto) 0.3 Neut # (Auto) 4.3 Lymph # (Auto) 0.6 L [place] # (Auto) 0.8 Eos # (Auto) 0.0 Baso # (Auto) 0.0 WBC Differential Manual diff final Seg Neuts % (Manual) 66 Band Neuts % (Manual) 9 H Lymphocytes % (Manual) 13 Monocytes % (Manual) 8 Metamyelocytes % (Man) 1 Myelocytes % (Man) 3 H Abs Neuts (Manual) 4.5 Differential Comment . Platelet Estimate Normal Platelet Morphology Normal Sodium 143 Potassium 3.4 L Chloride 106 Carbon Dioxide 31.3 Anion Gap 6 BUN 6 L Creatinine 0.75 Estimated GFR 75 L Random Glucose 65 L Calcium 7.7 L Phosphorus 2.1 L Magnesium 1.8 Albumin 2.7 L - Impressions ITS Impressions Abdomen X-Ray 01/03/18 21:20 CONCLUSION: No dilated loops of small or large bowel. Abdomen/Pelvis CT 01/03/18 21:20 CONCLUSION: 1. No acute findings in the abdomen/pelvis. Chest X-Ray 01/03/18 21:20 CONCLUSION: 1. No acute findings in the lungs. 2. No evidence of free air. Discharge Plan - Discharge Disposition Patient Disposition: W/Home Health Service - Discharge Condition Condition: Fair - Discharge Order Discharge Orders: Discharge Order (Routine); Ordered 01/14/18 Ordered By: Wyatt Valverde - Discharge Details Anticipated Discharge Date: 01/14/18 Discharge Comment: Discharge if patients feeling alright after Radiation - Physicians Team Primary Care Provider: Jose Antonio Xiong Attending Provider: Wyatt Valverde Other Providers: Liban Guzman MD ; Vanita Guy MD
[2018-01-14] MEDS: Nystatin/Diphenhydramine/Lidocaine Mouthwash (Adult) 120 ML Botttle SWISH-SWAL SCH ×4 (09:40→21:30)
[2018-01-14] MEDS: Lactobacillus Acidophilus/L. Spores Tablet PO SCH ×3 (09:41→17:44)
[2018-01-14] MEDS: oxyCODONE 10 MG Controlled Release Tablet PO SCH ×2 (09:41→21:31)
[2018-01-14] MEDS: Gabapentin 100 MG Capsule PO SCH ×3 (09:42→17:44)
[2018-01-14] MEDS: Potassium Chloride 25 MEQ Effervescent Tablet PO SCH ×2 (09:42→21:32)
--- NOTE | 2018-01-14 10:01 | P.PNONC ---
Subjective Interval history: Afebrile. Patient sitting in bed, in no acute distress. She reports she had 2 "bad" bowel movements during the night, 1 of which went all over the floor. She reports for smaller loose bowel movements this a.m. She has been offered a dose of Imodium, she prefers to hold off at this time to see if it will slow down on its own. She is scheduled for radiation today at 1145. She has a pending discharge, we have spoke about this. The patient reports that she is going home with home health. Her daughter will be in town until Friday and then she will have approximately 1 day alone prior to her other daughter arriving in [place]. The patient requests to have her radiation therapy today and then see how she was feeling after prior to being discharged. Objective Vital Signs/Intake & Output: Vital Signs 01/13/18 12:00 01/13/18 12:06 01/13/18 16:00 Temperature 98.0 F Pulse Rate 70 74 88 Respiratory Rate 16 Blood Pressure 168/79 H Pulse Oximetry 97 01/13/18 16:10 01/13/18 17:31 01/13/18 20:00 Temperature 98.4 F 98.1 F Pulse Rate 75 70 Respiratory Rate 18 18 Blood Pressure 171/88 H 167/98 H 185/79 H Pulse Oximetry 95 96 01/14/18 00:14 01/14/18 01:00 01/14/18 04:00 Temperature 98.7 F 98.5 F Pulse Rate 66 73 60 Respiratory Rate 17 Blood Pressure 164/90 H 150/92 H Pulse Oximetry 98 96 01/14/18 07:50 01/14/18 09:49 Temperature 98.0 F Pulse Rate 79 Respiratory Rate 16 16 Blood Pressure 134/86 Pulse Oximetry 96 Intake & Output 01/13/18 01/14/18 01/14/18 18:59 06:59 18:59 Intake Total 1105 / 1105 1240 / 1240 1100 / 1100 Output Total 2100 / 2100 900 / 900 Balance 1105 / 1105 -860 / -860 200 / 200 Intake: IV 1105 / 1105 1000 / 1000 1100 / 1100 KCl Inj 10 MEQ In 1/2 Normal 1005 / 1005 1000 / 1000 1000 / 1000 Saline Inj 1,000 ML @ 100 mls/ hr IV.CONT .Q10H3M [facility] Rx#: [id number] Magnesium Sulfate 1 gm/D5W 100 100 / 100 ml Premix 100 ML @ 100 mls/hr IV.SIG ONCE ONE Rx#:[id number] Oral 240 / 240 Output: Urine 2100 / 2100 900 / 900 Other: # Voids 4 Date of Last Bowel Movement 01/13/18 01/13/18 # Bowel Movements 4 Result Diagrams: 01/14/18 05:40 01/14/18 05:40 Laboratory Results: Laboratory Results - last 24 hr 01/14/18 01/14/18 05:40 05:40 WBC 5.7 RBC 3.21 L Hgb 10.2 L Hct 29.8 L MCV 92.9 MCH 31.8 MCHC 34.2 RDW 13.3 Plt Count 216 MPV 8.3 Prelim Diff (Auto) Slide review pending Neut % (Auto) 75.5 H Lymph % (Auto) 10.8 [place] % (Auto) 13.2 H Eos % (Auto) 0.2 Baso % (Auto) 0.3 Neut # (Auto) 4.3 Lymph # (Auto) 0.6 L [place] # (Auto) 0.8 Eos # (Auto) 0.0 Baso # (Auto) 0.0 WBC Differential Manual diff final Seg Neuts % (Manual) 66 Band Neuts % (Manual) 9 H Lymphocytes % (Manual) 13 Monocytes % (Manual) 8 Metamyelocytes % (Man) 1 Myelocytes % (Man) 3 H Abs Neuts (Manual) 4.5 Differential Comment . Platelet Estimate Normal Platelet Morphology Normal Sodium 143 Potassium 3.4 L Chloride 106 Carbon Dioxide 31.3 Anion Gap 6 BUN 6 L Creatinine 0.75 Estimated GFR 75 L Random Glucose 65 L Calcium 7.7 L Phosphorus 2.1 L Magnesium 1.8 Albumin 2.7 L Medications: Active Medications Generic Name Dose Route Start Last Admin Trade Name Freq PRN Reason Stop Dose Admin Acyclovir 800 mg 01/05/18 14:00 01/14/18 09:40 Zovirax PO 800 mg 5 TIMES A DAY ANDRY Administration Alprazolam 0.5 mg 01/04/18 12:00 01/13/18 17:27 Xanax PO 0.5 mg BID PRN Administration Anxiety Apixaban 2.5 mg 01/04/18 12:00 01/14/18 09:42 Eliquis PO 2.5 mg BID ANDRY Administration Atorvastatin Calcium 20 mg 01/04/18 21:00 01/13/18 21:18 Lipitor PO 20 mg HS ANDRY Administration Benzonatate 200 mg 01/05/18 00:00 01/10/18 15:19 Tessalon Perles PO 200 mg Q8H PRN Administration COUGH Carbidopa/Levodopa 1 tab 01/04/18 21:00 01/13/18 21:18 Sinemet 25/100 Mg PO 1 tab HS ANDRY Administration Gabapentin 100 mg 01/04/18 13:00 01/14/18 09:42 Neurontin PO 100 mg TID ANDRY Administration Hydrocortisone Acetate 30 mg 01/05/18 06:00 01/14/18 05:47 Cortef PO 30 mg DAILY@0600 ANDRY Administration Hydrocortisone Acetate 20 mg 01/04/18 12:30 01/13/18 11:56 Cortef PO 20 mg DAILY@1200 ANDRY Administration Hydromorphone HCl 1 mg 01/13/18 10:16 01/14/18 09:40 Dilaudid PO 1 mg Q4H PRN Administration pain 7-10 Sodium Chloride 1,000 mls @ 0 mls/hr 01/03/18 21:30 01/10/18 04:36 Ns Inj IV.SIG 100 mls/hr .Q0M ANDRY Administration Wide Open Potassium Chloride 10 meq/ 1,005 mls @ 100 mls/hr 01/10/18 13:00 01/14/18 08: 25 Sodium Chloride IV.CONT 100 mls/hr .Q10H3M ANDRY Administration Lactobacillus Acidophilus 1 tab 01/04/18 18:00 01/14/18 09:41 Lactinex PO 1 tab TID ANDRY Administration Levothyroxine Sodium 75 mcg 01/04/18 12:15 01/14/18 05:47 Synthroid PO 75 mcg DAILY@0600 ANDRY Administration Multi-Ingredient Mouthwash/Gargle 10 ml 01/04/18 13:00 01/14/18 09:40 Magic Mouthwash Adult Liq SWISH-SWAL 10 ml QID ANDRY Administration Ondansetron HCl 4 mg 01/04/18 00:03 01/13/18 15:54 Zofran Inj IV.PUSH 4 mg Q6H PRN Administration NAUSEA OR VOMITING Oxycodone HCl 10 mg 01/13/18 21:00 01/14/18 09:41 Oxycontin Cr PO 10 mg Q12HR ANDRY Administration Pantoprazole Sodium 40 mg 01/05/18 11:00 01/14/18 09:42 Protonix PO 40 mg DAILY ANDRY Administration Potassium Bicarb/Potassium Chloride 25 meq 01/13/18 21:00 01/14/18 09:42 K-Lyte Cl Eff PO 25 meq BID ANDRY Administration Sodium Chloride 5 ml 01/06/18 06:12 01/13/18 01:12 Ns Flush IV.FLUSH 5 ml PRN PRN Administration Flush Infusaport Temazepam 15 mg 01/04/18 00:03 01/04/18 02:31 Restoril PO 15 mg HS PRN Administration INSOMNIA Vancomycin HCl 250 mg 01/10/18 18:00 01/14/18 05:47 Vancomycin Po PO 250 mg Q6HR ANDRY Administration Objective Remarks: GENERAL: Elderly female patient sitting in bed. In no acute distress. SKIN: Warm and dry. HEAD: Normocephalic. EYES: No scleral icterus. No injection or drainage. NECK: Supple, trachea midline. CARDIOVASCULAR: Normal rate, no murmurs noted. RESPIRATORY: Posterior breath sounds clear, equal bilaterally. No accessory muscle use GASTROINTESTINAL: Abdomen soft, non-tender, nondistended. + BS. EXTREMITIES: No cyanosis, or edema. MUSCULOSKELETAL: Moves all extremities. NEUROLOGICAL: No obvious focal deficit. Awake, alert, and oriented x3. Assessment/Plan - Plan 77-year-old female with history of squamous cell carcinoma of the anal canal currently getting mitomycin and 5-FU chemotherapy along with radiation. She was admitted with lower abdominal pain, fever and diarrhea. 1. C. difficile diarrhea. Repeat C. difficile testing was negative, patient continues to have diarrhea. Continues on p.o. vancomycin. Infectious disease is following. 2. History of DVT and PE, Eliquis has been resumed at 2.5 mg twice daily. No signs of bleeding. 3. Electrolyte abnormalities, secondary to diarrhea. Attending physician is managing supplementation. 4. Patient scheduled for radiation treatment today at 1145. I have spoke to radiation oncology and notified them that the patient is cleared to resume radiation. I have also spoken to the patient's RN to assure that she received her radiation today. 5. Patient cleared for discharge from an oncology standpoint after her radiation therapy today. - Attending Statement The exam, history, and the medical decision-making described in the above note were completed with the assistance of the mid-level provider. I reviewed and agree with the findings presented. I attest that I had a [id number] encounter with the patient on the same day, and personally performed and documented my assessment and findings in the medical record. She still has diarrhea but improved. Offered to give her Imodium but she declined. Her abdominal pain is controlled. She is scheduled to restart radiation today. She can be discharged from oncology standpoint and follow-up in clinic.
[2018-01-14] MEDS: ALPRAZolam 0.5 MG Tablet PO PRN (11:11)
[2018-01-14] MEDS: Magnesium Oxide 400 MG Tablet PO SCH (17:44)
[2018-01-14] MEDS: Loperamide 2 MG Capsule PO SCH (17:44)
[2018-01-15] MEDS: Loperamide 2 MG Capsule PO SCH ×3 (02:48→18:26)
[2018-01-15] MEDS: Potassium Chloride Inj 10 MEQ in Sodium Chloride 0.45 % Inj 1,000 ML IV.CONT SCH (04:41)
[2018-01-15] MEDS: Hydrocortisone 10 MG Tablet PO SCH ×2 (05:55→12:11)
[2018-01-15] MEDS: Acyclovir 800 MG Tablet PO SCH ×5 (05:55→22:28)
[2018-01-15] MEDS: Levothyroxine 75 MCG Tablet PO SCH (05:56)
[2018-01-15 06:26] LABS: Baso % (Auto) 0.2 % (0.0-2.0); Eos % (Auto) 0.2 % (0.0-4.0); Hematocrit 29.8 % (35.0-46.0); Hemoglobin 10.2 gm/dL (11.6-15.3); Lymph # (Auto) 0.5 th/mm3 (1.0-4.8); Lymph % (Auto) 12.3 % (9.0-44.0); Mean Corpuscular HGB Conc 34.1 % (32.0-36.0); Mean Corpuscular Volume 93.9 fL (80.0-100.0); Mean Platelet Volume 8.7 fL (7.0-11.0); Mono # (Auto) 0.6 th/mm3 (0.0-0.9); Mono % (Auto) 14.8 % (0.0-8.0); Neut # (Auto) 2.8 th/mm3 (1.8-7.7); Neut % (Auto) 72.5 % (16.0-70.0); Platelet Count 241 th/mm3 (150-450); Red Blood Count 3.18 mil/mm3 (4.00-5.30); Red Cell Distribution Width 13.3 % (11.6-17.2); White Blood Count 3.9 th/mm3 (4.0-11.0)
[2018-01-15 06:51] LABS: Albumin 2.6 g/dL (3.4-5.0); Calcium 8.1 mg/dL (8.5-10.1); Carbon Dioxide 30.4 meq/L (21.0-32.0); Magnesium 1.6 mg/dL (1.5-2.5); Potassium 3.9 meq/L (3.5-5.1)
[2018-01-15 06:52] LABS: Phosphorus 2.4 mg/dL (2.5-4.9)
[2018-01-15 08:27] LABS: Eosinophils 1 % (0-4); Lymphocytes 12 % (9-44); Metamyelocytes 1 % (0-1); Monocytes 11 % (0-8); Myelocytes 4 % (0-0)
[2018-01-15 08:28] LABS: Platelet Estimate Normal (Normal); Platelet Morphology Normal (Normal)
[2018-01-15] MEDS: Lactobacillus Acidophilus/L. Spores Tablet PO SCH ×3 (09:15→18:11)
[2018-01-15] MEDS: Magnesium Oxide 400 MG Tablet PO SCH (09:15)
[2018-01-15] MEDS: Potassium Chloride 25 MEQ Effervescent Tablet PO SCH ×2 (09:15→20:45)
[2018-01-15] MEDS: oxyCODONE 10 MG Controlled Release Tablet PO SCH ×2 (09:15→20:45)
[2018-01-15] MEDS: Gabapentin 100 MG Capsule PO SCH ×3 (09:15→18:12)
--- NOTE | 2018-01-15 11:18 | P.PNIM ---
Subjective Interval history: Patient stage yesterday because she says her daughter will not be around to help her on. She continues with loose stools. She did have a accident last night unable to make it to the bedside commode. Denies any nausea or vomiting. Physical Exam Vital signs: Vital Signs 01/14/18 13:37 01/14/18 14:00 01/14/18 18:00 Temperature 98 F Pulse Rate 88 89 84 Respiratory Rate 16 Blood Pressure 154/89 H Pulse Oximetry 98 01/14/18 20:00 01/14/18 20:06 01/14/18 22:00 Temperature 98.3 F Pulse Rate 88 72 Respiratory Rate 18 16 Blood Pressure 175/88 H Pulse Oximetry 95 01/14/18 23:04 01/15/18 00:45 01/15/18 04:00 Temperature 98.7 F 98.3 F Pulse Rate 82 70 71 Respiratory Rate 20 20 Blood Pressure 162/99 H 155/91 H Pulse Oximetry 95 96 01/15/18 04:45 Temperature Pulse Rate 71 Respiratory Rate Blood Pressure Pulse Oximetry Intake & Output 01/14/18 01/15/18 01/15/18 18:59 06:59 18:59 Intake Total 2225 / 2225 480 / 480 1005 / 1005 Output Total 900 / 900 3200 / 3200 Balance 1325 / 1325 -2720 / -2720 1005 / 1005 Weight 56 kg Intake: IV 2105 / 2105 1005 / 1005 KCl Inj 10 MEQ In 1/2 Normal 2004 1005 / 1005 Saline Inj 1,000 ML @ 100 mls/ hr IV.CONT .Q10H3M [facility] Rx#: [id number] Oral 120 / 120 480 / 480 Output: Urine 900 / 900 3200 / 3200 Other: Date of Last Bowel Movement 01/14/18 01/14/18 # Bowel Movements 1 Narrative: GENERAL: Patient lying in bed. Appears comfortable. aaox3. Exam unchanged. SKIN: Warm and dry. HEAD: Normocephalic. EYES: No scleral icterus. No injection or drainage. NECK: Supple, trachea midline. No JVD . CARDIOVASCULAR: Regular rate and rhythm without murmurs, gallops, or rubs. RESPIRATORY: Breath sounds equal bilaterally. No accessory muscle use. GASTROINTESTINAL: Abdomen soft, nondistended. nontender. No rebound or guarding. As before. MUSCULOSKELETAL: No cyanosis, or edema. BACK: Nontender without obvious deformity. No CVA tenderness. - Urinary Catheter Management Straight Cath placed during this visit: yes, but has since been removed by the nurse Reason for continuing: Not indwelling catheter Insertion date: 01/07/18 Insertion time: 20:15 Removal date: 01/07/18 Removal time: 20:16 Results - Labs CBC & Chem 7: 01/15/18 05:45 01/15/18 05:45 Laboratory Results - last 24 hr 01/15/18 01/15/18 05:45 05:45 WBC 3.9 L RBC 3.18 L Hgb 10.2 L Hct 29.8 L MCV 93.9 MCH 32.0 MCHC 34.1 RDW 13.3 Plt Count 241 MPV 8.7 Prelim Diff (Auto) Slide review pending Neut % (Auto) 72.5 H Lymph % (Auto) 12.3 [place] % (Auto) 14.8 H Eos % (Auto) 0.2 Baso % (Auto) 0.2 Neut # (Auto) 2.8 Lymph # (Auto) 0.5 L [place] # (Auto) 0.6 Eos # (Auto) 0.0 Baso # (Auto) 0.0 WBC Differential Manual diff final Seg Neuts % (Manual) 61 Band Neuts % (Manual) 10 H Lymphocytes % (Manual) 12 Monocytes % (Manual) 11 H Eosinophils % (Manual) 1 Metamyelocytes % (Man) 1 Myelocytes % (Man) 4 H Abs Neuts (Manual) 3.0 Differential Comment . Platelet Estimate Normal Platelet Morphology Normal Sodium 141 Potassium 3.9 Chloride 105 Carbon Dioxide 30.4 Anion Gap 6 BUN 8 Creatinine 0.76 Estimated GFR 74 L Random Glucose 71 L Calcium 8.1 L Phosphorus 2.4 L Magnesium 1.6 Albumin 2.6 L - Procedures No invasive procedures. Assessment and Plan - Assessment (1) Neutropenic fever Code(s): D70.9 - Neutropenia, unspecified; R50.81 - Fever presenting with conditions classified elsewhere Status: Acute (2) Rectal cancer Code(s): C20 - Malignant neoplasm of rectum Status: Acute (3) Abdominal pain Code(s): R10.9 - Unspecified abdominal pain Status: Acute - Plan // Abdominal Pain: //C. difficile Acute onset of severe abdominal pain, CT Abd/Pelvis w/ no acute findings, images reviewed. Analgesics/antiemetics as needed. = 01/06. Slightly improved today. Continue to monitor. = 01/08. Dietary to C. difficile improved. = 01/09. No with excessive bowel movements. Continue treatment for C. difficile. Hopefully diarrhea improves off of nitrofurantoin. = 01/10. Bowel movements improving. Continue treatment as per ID. = 01/10. With multiple loose stools. on abx for C diff. appreciate ID assistance = 01/13. Negative C. difficile stool. On antibiotics as per ID. = 01/14. Continue on vancomycin to complete treatment course. // Neutropenic Fever: WBC 0.5, absolute neutrophil count 0.2, Temp 101 at home , currently on Chemo/Radiation for Rectal CA. S/p Blood Cultures, Vanc/ cefepime U/a positive for UTI as likely source, continue IV Abx, follow up cultures, monitor I/O. Neutropenic precautions, check C Diff for ongoing diarrhea. = 01/06. Appreciate hematology assistance. Neutropenia resolving. Afebrile today. Continue antibiotics as per hematology. = neutropenia has resolved. //Rectal CA: on Chemo/Radiation, scheduled for Radiation on Friday, will Consult Dr. Guzman for further evaluation/recommendations. = 01/06. Appreciate hematology assistance. Neutropenia resolving. = as per oncology. Appreciate assistance. = 01/13. Some lower abdominal cramping pain. Will add OxyContin for basal pain control. = 01/14. Pain improved on OxyContin. Will continue. E force was checked. //UTI. Completed treatment. 01/07 Oncology as ordered urinalysis, however nursing reports that urine is always contaminated with stool. Will continue aztreonam for now, and now that patient is no longer neutropenic, will order single straight cath. If urinalysis negative, can stop aztreonam. = 01/08. Patient will be on nitrofurantoin as per ID. Due to recurrent UTIs, I suggested in the outpatient setting that patient discuss the possible use of periurethral estrogen, such as Estrace cream to help prevent recurrent UTIs. = Completed treatment as per ID. //Left buttocks zoster will start on acyclovir 800 mg p.o. 5 times a day = Continue acyclovir for 7 more days. Follow-up with primary care and oncology. //GERD we will continue on ranitidine at home, and this may help with loose stools as well. Avoid PPI and setting of recent C. difficile. //Hypokalemia //Hypomagnesemia //Hypernatremia -01/08 potassium, magnesium replaced. Follow-up labs tomorrow. = 01/09. Magnesium resolved. Potassium continues low. On daily replacement. Continue to monitor. = 01/10. Hypokalemia with potassium 2.8. Nursing reports seeing potassium tablets in stool. Will switch to effervescent potassium. Magnesium 1.4. Replace. Switch to daily effervescent replacement. Hypernatremia. Sodium 146. Will switch to half-normal saline. = 01/11. Phosphorus of 1.0. Replace. Continue to monitor. = 01/12. Phosphorus improved to 2.1. Continue to monitor. Magnesium 1.1. Replace. Potassium 2.7. Place. Cautious p.o. magnesium replacement due to causing diarrhea. = 01/13. Potassium 2.9 again. Replace and monitor. = 01/14. Potassium 3.4 on twice daily replacement. Will discharge home on twice daily potassium supplementation, low to moderate dose magnesium of 200 mg daily. = 01/15. Improved potassium 3.9 today. Continue to monitor. //Diarrhea. Continue on treatment for C. difficile. = Have scheduled loperamide, and will discontinue IV fluids. Assess response. // DVT Prophylaxis: SCD/Teds Discharge Planning: PT recommends home with supervision. Patient scared she will not have supervision on Friday. Says her daughter is leaving tomorrow morning. Other daughter will be back Friday afternoon
[2018-01-15] MEDS: Nystatin/Diphenhydramine/Lidocaine Mouthwash (Adult) 120 ML Botttle SWISH-SWAL SCH ×4 (12:09→22:14)
[2018-01-15] MEDS: ALPRAZolam 0.5 MG Tablet PO PRN (13:08)
--- NOTE | 2018-01-15 15:07 | P.PNONC ---
Subjective Interval history: Late entry, patient seen earlier today. She received radiation therapy yesterday, she reports that she tolerated it well. Her bowel movements have decreased, however she did still have an accident last night. Her daughter is scheduled to arrive Friday. Patient reports that she is excited to be getting her wig on Friday. Objective Vital Signs/Intake & Output: Vital Signs 01/14/18 18:00 01/14/18 20:00 01/14/18 20:06 Temperature 98.3 F Pulse Rate 84 88 72 Respiratory Rate 18 Blood Pressure 175/88 H Pulse Oximetry 95 01/14/18 22:00 01/14/18 23:04 01/15/18 00:45 Temperature 98.7 F Pulse Rate 82 70 Respiratory Rate 16 20 Blood Pressure 162/99 H Pulse Oximetry 95 01/15/18 04:00 01/15/18 04:45 01/15/18 12:00 Temperature 98.3 F 98.8 F Pulse Rate 71 71 85 Respiratory Rate 20 19 Blood Pressure 155/91 H 166/94 H Pulse Oximetry 96 96 Intake & Output 01/14/18 01/15/18 01/15/18 18:59 06:59 18:59 Intake Total 2225 / 2225 480 / 480 1005 / 1005 Output Total 900 / 900 3200 / 3200 Balance 1325 / 1325 -2720 / -2720 1005 / 1005 Weight 56 kg Intake: IV 2105 / 2105 1005 / 1005 KCl Inj 10 MEQ In 1/2 Normal 2004 1005 / 1005 Saline Inj 1,000 ML @ 100 mls/ hr IV.CONT .Q10H3M [facility] Rx#: [id number] Oral 120 / 120 480 / 480 Output: Urine 900 / 900 3200 / 3200 Other: Date of Last Bowel Movement 01/14/18 01/14/18 # Bowel Movements 1 Result Diagrams: 01/15/18 05:45 01/15/18 05:45 Laboratory Results: Laboratory Results - last 24 hr 01/15/18 01/15/18 05:45 05:45 WBC 3.9 L RBC 3.18 L Hgb 10.2 L Hct 29.8 L MCV 93.9 MCH 32.0 MCHC 34.1 RDW 13.3 Plt Count 241 MPV 8.7 Prelim Diff (Auto) Slide review pending Neut % (Auto) 72.5 H Lymph % (Auto) 12.3 [place] % (Auto) 14.8 H Eos % (Auto) 0.2 Baso % (Auto) 0.2 Neut # (Auto) 2.8 Lymph # (Auto) 0.5 L [place] # (Auto) 0.6 Eos # (Auto) 0.0 Baso # (Auto) 0.0 WBC Differential Manual diff final Seg Neuts % (Manual) 61 Band Neuts % (Manual) 10 H Lymphocytes % (Manual) 12 Monocytes % (Manual) 11 H Eosinophils % (Manual) 1 Metamyelocytes % (Man) 1 Myelocytes % (Man) 4 H Abs Neuts (Manual) 3.0 Differential Comment . Platelet Estimate Normal Platelet Morphology Normal Sodium 141 Potassium 3.9 Chloride 105 Carbon Dioxide 30.4 Anion Gap 6 BUN 8 Creatinine 0.76 Estimated GFR 74 L Random Glucose 71 L Calcium 8.1 L Phosphorus 2.4 L Magnesium 1.6 Albumin 2.6 L Medications: Active Medications Generic Name Dose Route Start Last Admin Trade Name Freq PRN Reason Stop Dose Admin Acyclovir 800 mg 01/05/18 14:00 01/15/18 13:08 Zovirax PO 800 mg 5 TIMES A DAY ANDRY Administration Alprazolam 0.5 mg 01/04/18 12:00 01/15/18 13:08 Xanax PO 0.5 mg BID PRN Administration Anxiety Apixaban 2.5 mg 01/04/18 12:00 01/15/18 09:15 Eliquis PO 2.5 mg BID ANDRY Administration Atorvastatin Calcium 20 mg 01/04/18 21:00 01/14/18 21:30 Lipitor PO 20 mg HS ANDRY Administration Benzonatate 200 mg 01/05/18 00:00 01/10/18 15:19 Tessalon Perles PO 200 mg Q8H PRN Administration COUGH Carbidopa/Levodopa 1 tab 01/04/18 21:00 01/14/18 21:31 Sinemet 25/100 Mg PO 1 tab HS ANDRY Administration Gabapentin 100 mg 01/04/18 13:00 01/15/18 12:10 Neurontin PO 100 mg TID ANDRY Administration Hydrocortisone Acetate 30 mg 01/05/18 06:00 01/15/18 05:55 Cortef PO 30 mg DAILY@0600 ANDRY Administration Hydrocortisone Acetate 20 mg 01/04/18 12:30 01/15/18 12:11 Cortef PO 20 mg DAILY@1200 ANDRY Administration Hydromorphone HCl 1 mg 01/13/18 10:16 01/15/18 11:45 Dilaudid PO 1 mg Q4H PRN Administration pain 7-10 Sodium Chloride 1,000 mls @ 0 mls/hr 01/03/18 21:30 01/10/18 04:36 Ns Inj IV.SIG 100 mls/hr .Q0M ANDRY Administration Wide Open Lactobacillus Acidophilus 1 tab 01/04/18 18:00 01/15/18 12:08 Lactinex PO 1 tab TID ANDRY Administration Levothyroxine Sodium 75 mcg 01/04/18 12:15 01/15/18 05:56 Synthroid PO 75 mcg DAILY@0600 ANDRY Administration Loperamide HCl 2 mg 01/14/18 16:00 01/15/18 09:54 Imodium PO Not Given Q8H ANDRY Magnesium Oxide 200 mg 01/14/18 15:30 01/15/18 09:15 Mag-Ox PO 200 mg DAILY ANDRY Administration Multi-Ingredient Mouthwash/Gargle 10 ml 01/04/18 13:00 01/15/18 12:10 Magic Mouthwash Adult Liq SWISH-SWAL 10 ml QID ANDRY Administration Ondansetron HCl 4 mg 01/04/18 00:03 01/13/18 15:54 Zofran Inj IV.PUSH 4 mg Q6H PRN Administration NAUSEA OR VOMITING Oxycodone HCl 10 mg 01/13/18 21:00 01/15/18 09:15 Oxycontin Cr PO 10 mg Q12HR ANDRY Administration Pantoprazole Sodium 40 mg 01/05/18 11:00 01/15/18 09:15 Protonix PO 40 mg DAILY ANDRY Administration Potassium Bicarb/Potassium Chloride 25 meq 01/13/18 21:00 01/15/18 09:15 K-Lyte Cl Eff PO 25 meq BID ANDRY Administration Sodium Chloride 5 ml 01/06/18 06:12 01/13/18 01:12 Ns Flush IV.FLUSH 5 ml PRN PRN Administration Flush Infusaport Temazepam 15 mg 01/04/18 00:03 01/04/18 02:31 Restoril PO 15 mg HS PRN Administration INSOMNIA Vancomycin HCl 250 mg 01/10/18 18:00 01/15/18 12:11 Vancomycin Po PO 250 mg Q6HR ANDRY Administration Objective Remarks: GENERAL: Elderly female patient sitting in chair. In no acute distress. SKIN: Warm and dry. HEAD: Normocephalic. EYES: No scleral icterus. No injection or drainage. NECK: Supple, trachea midline. CARDIOVASCULAR: Normal rate, no murmurs noted. RESPIRATORY: Posterior breath sounds clear, equal bilaterally. No accessory muscle use GASTROINTESTINAL: Abdomen soft, non-tender, nondistended. + BS. EXTREMITIES: No cyanosis, or edema. MUSCULOSKELETAL: Moves all extremities. NEUROLOGICAL: No obvious focal deficit. Awake, alert, and oriented x3. Assessment/Plan - Plan 77-year-old female with history of squamous cell carcinoma of the anal canal currently getting mitomycin and 5-FU chemotherapy along with radiation. She was admitted with lower abdominal pain, fever and diarrhea. 1. C. difficile diarrhea, decreasing. Repeat C. difficile testing was negative , patient continues to have diarrhea. Continues on p.o. vancomycin. Infectious disease is following. 2. History of DVT and PE, Eliquis has been resumed at 2.5 mg twice daily. 3. Electrolyte abnormalities, secondary to diarrhea, improving. Attending physician is managing supplementation, has discontinued IV fluids. 4. Patient resumed radiation therapy yesterday. She is scheduled again this afternoon. 5. Patient cleared for discharge from an oncology standpoint. She is currently awaiting her daughter to arrive in town and assist her at home. - Attending Statement The exam, history, and the medical decision-making described in the above note were completed with the assistance of the mid-level provider. I reviewed and agree with the findings presented. I attest that I had a [id number] encounter with the patient on the same day, and personally performed and documented my assessment and findings in the medical record.She is feeling better and in good spirit She wants to be aggressive with her treatment and asking when can she have her next chemotherapy. Her diarrhea has improved. Abdominal pain is better controlled. Restarted XRT and tolerated well.Can be d/ c from oncology standpoint.
[2018-01-16] MEDS: Loperamide 2 MG Capsule PO SCH ×4 (01:24→23:03)
[2018-01-16] MEDS: Hydrocortisone 10 MG Tablet PO SCH ×2 (06:03→11:11)
[2018-01-16] MEDS: Levothyroxine 75 MCG Tablet PO SCH (06:03)
[2018-01-16] MEDS: Acyclovir 800 MG Tablet PO SCH ×5 (06:03→22:50)
[2018-01-16 06:49] LABS: Baso % (Auto) 0.4 % (0.0-2.0); Eos % (Auto) 0.2 % (0.0-4.0); Hematocrit 29.9 % (35.0-46.0); Hemoglobin 10.3 gm/dL (11.6-15.3); Lymph # (Auto) 0.5 th/mm3 (1.0-4.8); Lymph % (Auto) 12.4 % (9.0-44.0); Mean Corpuscular HGB Conc 34.5 % (32.0-36.0); Mean Corpuscular Volume 92.7 fL (80.0-100.0); Mean Platelet Volume 8.4 fL (7.0-11.0); Mono # (Auto) 0.6 th/mm3 (0.0-0.9); Mono % (Auto) 14.1 % (0.0-8.0); Neut % (Auto) 72.9 % (16.0-70.0); Platelet Count 283 th/mm3 (150-450); Red Blood Count 3.23 mil/mm3 (4.00-5.30); Red Cell Distribution Width 13.4 % (11.6-17.2); White Blood Count 4.1 th/mm3 (4.0-11.0)
[2018-01-16 07:14] LABS: Albumin 2.8 g/dL (3.4-5.0); Calcium 8.5 mg/dL (8.5-10.1); Carbon Dioxide 31.3 meq/L (21.0-32.0); Magnesium 1.8 mg/dL (1.5-2.5); Phosphorus 3.2 mg/dL (2.5-4.9); Potassium 3.8 meq/L (3.5-5.1)
[2018-01-16 09:17] LABS: Lymphocytes 11 % (9-44); Metamyelocytes 1 % (0-1); Monocytes 12 % (0-8); Myelocytes 1 % (0-0); Platelet Estimate Normal (Normal); Platelet Morphology Normal (Normal)
[2018-01-16] MEDS: Potassium Chloride 25 MEQ Effervescent Tablet PO SCH ×2 (09:17→22:54)
[2018-01-16] MEDS: Magnesium Oxide 400 MG Tablet PO SCH (09:17)
[2018-01-16] MEDS: oxyCODONE 10 MG Controlled Release Tablet PO SCH ×2 (09:18→22:48)
[2018-01-16] MEDS: Gabapentin 100 MG Capsule PO SCH ×3 (09:19→18:50)
[2018-01-16] MEDS: Lactobacillus Acidophilus/L. Spores Tablet PO SCH ×3 (09:19→18:50)
[2018-01-16] MEDS: Nystatin/Diphenhydramine/Lidocaine Mouthwash (Adult) 120 ML Botttle SWISH-SWAL SCH ×4 (09:19→22:55)
--- NOTE | 2018-01-16 10:06 | P.PNIM ---
Subjective Interval history: Patient says she is feeling all right. Denies any chest pain or shortness of breath. 4 loose bowel movements overnight. Physical Exam Vital signs: Vital Signs 01/15/18 12:00 01/15/18 16:00 01/15/18 20:00 Temperature 98.8 F 98.6 F 98.3 F Pulse Rate 80 86 83 Respiratory Rate 19 19 18 Blood Pressure 166/94 H 140/83 175/97 H Pulse Oximetry 96 96 100 01/15/18 22:26 01/16/18 00:00 01/16/18 01:21 Temperature 97.9 F Pulse Rate 77 Respiratory Rate 16 16 16 Blood Pressure 135/82 Pulse Oximetry 96 01/16/18 04:00 01/16/18 07:51 01/16/18 08:00 Temperature 98.5 F 98.4 F Pulse Rate 77 84 91 H Respiratory Rate 16 18 18 Blood Pressure 154/93 H 140/92 H Pulse Oximetry 97 98 Intake & Output 01/15/18 01/16/18 01/16/18 18:59 06:59 18:59 Intake Total 1005 / 1005 Output Total 1250 / 1250 Balance 1005 / 1005 -1250 / -1250 Weight 56 kg Intake: IV 1005 / 1005 KCl Inj 10 MEQ In 1/2 Normal 1005 / 1005 Saline Inj 1,000 ML @ 100 mls/ hr IV.CONT .Q10H3M [facility] Rx#: [id number] Output: Urine 1000 / 1000 Stool 250 / 250 Other: # Voids 4 # Urine Diapers 1 Date of Last Bowel Movement 01/15/18 01/15/18 # Bowel Movements 1 # Incontinent Bowel Movements 3 Narrative: GENERAL: Patient lying in bed. Appears comfortable. aaox3. Exam again unchanged. SKIN: Warm and dry. HEAD: Normocephalic. EYES: No scleral icterus. No injection or drainage. NECK: Supple, trachea midline. No JVD . CARDIOVASCULAR: Regular rate and rhythm without murmurs, gallops, or rubs. RESPIRATORY: Breath sounds equal bilaterally. No accessory muscle use. GASTROINTESTINAL: Abdomen soft, nondistended. nontender. No rebound or guarding. As before. MUSCULOSKELETAL: No cyanosis, or edema. BACK: Nontender without obvious deformity. No CVA tenderness. - Urinary Catheter Management Straight Cath placed during this visit: yes, but has since been removed by the nurse Reason for continuing: Not indwelling catheter Insertion date: 01/07/18 Insertion time: 20:15 Removal date: 01/07/18 Removal time: 20:16 Results - Labs CBC & Chem 7: 01/16/18 06:00 01/16/18 06:00 Laboratory Results - last 24 hr 01/16/18 01/16/18 06:00 06:00 WBC 4.1 RBC 3.23 L Hgb 10.3 L Hct 29.9 L MCV 92.7 MCH 32.0 MCHC 34.5 RDW 13.4 Plt Count 283 MPV 8.4 Prelim Diff (Auto) Slide review pending Neut % (Auto) 72.9 H Lymph % (Auto) 12.4 [place] % (Auto) 14.1 H Eos % (Auto) 0.2 Baso % (Auto) 0.4 Neut # (Auto) 3.0 Lymph # (Auto) 0.5 L [place] # (Auto) 0.6 Eos # (Auto) 0.0 Baso # (Auto) 0.0 WBC Differential Manual diff final Seg Neuts % (Manual) 69 Band Neuts % (Manual) 6 Lymphocytes % (Manual) 11 Monocytes % (Manual) 12 H Metamyelocytes % (Man) 1 Myelocytes % (Man) 1 H Abs Neuts (Manual) 3.2 Differential Comment . Platelet Estimate Normal Platelet Morphology Normal Sodium 141 Potassium 3.8 Chloride 103 Carbon Dioxide 31.3 Anion Gap 7 BUN 11 Creatinine 0.88 Estimated GFR 62 L Random Glucose 67 L Calcium 8.5 Phosphorus 3.2 Magnesium 1.8 Albumin 2.8 L - Procedures No invasive procedures. Assessment and Plan - Assessment (1) Neutropenic fever Code(s): D70.9 - Neutropenia, unspecified; R50.81 - Fever presenting with conditions classified elsewhere Status: Acute (2) Rectal cancer Code(s): C20 - Malignant neoplasm of rectum Status: Acute (3) Abdominal pain Code(s): R10.9 - Unspecified abdominal pain Status: Acute - Plan // Abdominal Pain: //C. difficile Acute onset of severe abdominal pain, CT Abd/Pelvis w/ no acute findings, images reviewed. Analgesics/antiemetics as needed. = 01/06. Slightly improved today. Continue to monitor. = 01/08. Dietary to C. difficile improved. = 01/09. No with excessive bowel movements. Continue treatment for C. difficile. Hopefully diarrhea improves off of nitrofurantoin. = 01/10. Bowel movements improving. Continue treatment as per ID. = 01/10. With multiple loose stools. on abx for C diff. appreciate ID assistance = 01/13. Negative C. difficile stool. On antibiotics as per ID. = 01/14. Continue on vancomycin to complete treatment course. // Neutropenic Fever: WBC 0.5, absolute neutrophil count 0.2, Temp 101 at home , currently on Chemo/Radiation for Rectal CA. S/p Blood Cultures, Vanc/ cefepime U/a positive for UTI as likely source, continue IV Abx, follow up cultures, monitor I/O. Neutropenic precautions, check C Diff for ongoing diarrhea. = 01/06. Appreciate hematology assistance. Neutropenia resolving. Afebrile today. Continue antibiotics as per hematology. = neutropenia has resolved. //Rectal CA: on Chemo/Radiation, scheduled for Radiation on Friday, will Consult Dr. Guzman for further evaluation/recommendations. = 01/06. Appreciate hematology assistance. Neutropenia resolving. = as per oncology. Appreciate assistance. = 01/13. Some lower abdominal cramping pain. Will add OxyContin for basal pain control. = 01/14. Pain improved on OxyContin. Will continue. E force was checked. //UTI. Completed treatment. 01/07 Oncology as ordered urinalysis, however nursing reports that urine is always contaminated with stool. Will continue aztreonam for now, and now that patient is no longer neutropenic, will order single straight cath. If urinalysis negative, can stop aztreonam. = 01/08. Patient will be on nitrofurantoin as per ID. Due to recurrent UTIs, I suggested in the outpatient setting that patient discuss the possible use of periurethral estrogen, such as Estrace cream to help prevent recurrent UTIs. = Completed treatment as per ID. //Left buttocks zoster will start on acyclovir 800 mg p.o. 5 times a day = Continue acyclovir for 7 more days. Follow-up with primary care and oncology. //GERD we will continue on ranitidine at home, and this may help with loose stools as well. Avoid PPI and setting of recent C. difficile. //Hypokalemia //Hypomagnesemia //Hypernatremia -01/08 potassium, magnesium replaced. Follow-up labs tomorrow. = 01/09. Magnesium resolved. Potassium continues low. On daily replacement. Continue to monitor. = 01/10. Hypokalemia with potassium 2.8. Nursing reports seeing potassium tablets in stool. Will switch to effervescent potassium. Magnesium 1.4. Replace. Switch to daily effervescent replacement. Hypernatremia. Sodium 146. Will switch to half-normal saline. = 01/11. Phosphorus of 1.0. Replace. Continue to monitor. = 01/12. Phosphorus improved to 2.1. Continue to monitor. Magnesium 1.1. Replace. Potassium 2.7. Place. Cautious p.o. magnesium replacement due to causing diarrhea. = 01/13. Potassium 2.9 again. Replace and monitor. = 01/14. Potassium 3.4 on twice daily replacement. Will discharge home on twice daily potassium supplementation, low to moderate dose magnesium of 200 mg daily. = 01/15. Improved potassium 3.9 today. Continue to monitor. = 01/16. Potassium stable 3.8. Magnesium stable 1.8. //Diarrhea. Continue on treatment for C. difficile. = Have scheduled loperamide, and will discontinue IV fluids. Assess response. = 01/16. Still with accidents. Overall improving on current regimen. // DVT Prophylaxis: SCD/Teds Discharge Planning: PT recommends home with supervision. = Patient's daughter will be arriving tomorrow evening. Hopefully can go to home tomorrow evening.
[2018-01-16] MEDS: ALPRAZolam 0.5 MG Tablet PO PRN ×2 (11:24→23:03)
--- NOTE | 2018-01-16 18:04 | P.PNONC ---
Subjective Interval history: Feeling better. 4 loose stools yesterday but improved with imodium. Tolerated XRT. Abdominal pain is controlled. Objective Vital Signs/Intake & Output: Vital Signs 01/15/18 20:00 01/15/18 22:26 01/16/18 00:00 Temperature 98.3 F 97.9 F Pulse Rate 83 77 Respiratory Rate 18 16 16 Blood Pressure 175/97 H 135/82 Pulse Oximetry 100 96 01/16/18 01:21 01/16/18 04:00 01/16/18 07:51 Temperature 98.5 F 98.4 F Pulse Rate 77 84 Respiratory Rate 16 16 18 Blood Pressure 154/93 H 140/92 H Pulse Oximetry 97 98 01/16/18 08:00 01/16/18 16:00 Temperature 98.0 F Pulse Rate 91 H 80 Respiratory Rate 18 18 Blood Pressure 138/86 Pulse Oximetry 99 Intake & Output 01/15/18 01/16/18 01/16/18 18:59 06:59 18:59 Intake Total 1005 / 1005 1200 / 1200 Output Total 1250 / 1250 Balance 1005 / 1005 -1250 / -1250 1200 / 1200 Weight 56 kg Intake: IV 1005 / 1005 KCl Inj 10 MEQ In 1/2 Normal 1005 / 1005 Saline Inj 1,000 ML @ 100 mls/ hr IV.CONT .Q10H3M [facility] Rx#: [id number] Oral 1200 / 1200 Output: Urine 1000 / 1000 Stool 250 / 250 Other: # Voids 4 600 # Urine Diapers 1 Date of Last Bowel Movement 01/15/18 01/16/18 # Bowel Movements 1 # Incontinent Bowel Movements 3 Result Diagrams: 01/16/18 06:00 01/16/18 06:00 Laboratory Results: Laboratory Results - last 24 hr 01/16/18 01/16/18 06:00 06:00 WBC 4.1 RBC 3.23 L Hgb 10.3 L Hct 29.9 L MCV 92.7 MCH 32.0 MCHC 34.5 RDW 13.4 Plt Count 283 MPV 8.4 Prelim Diff (Auto) Slide review pending Neut % (Auto) 72.9 H Lymph % (Auto) 12.4 Upton % (Auto) 14.1 H Eos % (Auto) 0.2 Baso % (Auto) 0.4 Neut # (Auto) 3.0 Lymph # (Auto) 0.5 L Upton # (Auto) 0.6 Eos # (Auto) 0.0 Baso # (Auto) 0.0 WBC Differential Manual diff final Seg Neuts % (Manual) 69 Band Neuts % (Manual) 6 Lymphocytes % (Manual) 11 Monocytes % (Manual) 12 H Metamyelocytes % (Man) 1 Myelocytes % (Man) 1 H Abs Neuts (Manual) 3.2 Differential Comment . Platelet Estimate Normal Platelet Morphology Normal Sodium 141 Potassium 3.8 Chloride 103 Carbon Dioxide 31.3 Anion Gap 7 BUN 11 Creatinine 0.88 Estimated GFR 62 L Random Glucose 67 L Calcium 8.5 Phosphorus 3.2 Magnesium 1.8 Albumin 2.8 L Medications: Active Medications Generic Name Dose Route Start Last Admin Trade Name Freq PRN Reason Stop Dose Admin Acyclovir 800 mg 01/05/18 14:00 01/16/18 15:11 Zovirax PO 800 mg 5 TIMES A DAY ANDRY Administration Alprazolam 0.5 mg 01/04/18 12:00 01/16/18 11:24 Xanax PO 0.5 mg BID PRN Administration Anxiety Apixaban 2.5 mg 01/04/18 12:00 01/16/18 09:19 Eliquis PO 2.5 mg BID ANDRY Administration Atorvastatin Calcium 20 mg 01/04/18 21:00 01/15/18 20:45 Lipitor PO 20 mg HS ANDRY Administration Benzonatate 200 mg 01/05/18 00:00 01/10/18 15:19 Tessalon Perles PO 200 mg Q8H PRN Administration COUGH Carbidopa/Levodopa 1 tab 01/04/18 21:00 01/15/18 22:15 Sinemet 25/100 Mg PO 1 tab HS ANDRY Administration Gabapentin 100 mg 01/04/18 13:00 01/16/18 12:05 Neurontin PO 100 mg TID ANDRY Administration Hydrocortisone Acetate 30 mg 01/05/18 06:00 01/16/18 06:03 Cortef PO 30 mg DAILY@0600 ANDRY Administration Hydrocortisone Acetate 20 mg 01/04/18 12:30 01/16/18 11:11 Cortef PO 20 mg DAILY@1200 ANDRY Administration Hydromorphone HCl 1 mg 01/13/18 10:16 01/16/18 15:11 Dilaudid PO 1 mg Q4H PRN Administration pain 7-10 Sodium Chloride 1,000 mls @ 0 mls/hr 01/03/18 21:30 01/10/18 04:36 Ns Inj IV.SIG 100 mls/hr .Q0M ANDRY Administration Wide Open Lactobacillus Acidophilus 1 tab 01/04/18 18:00 01/16/18 12:05 Lactinex PO 1 tab TID ANDRY Administration Levothyroxine Sodium 75 mcg 01/04/18 12:15 01/16/18 06:03 Synthroid PO 75 mcg DAILY@0600 ANDRY Administration Loperamide HCl 2 mg 01/14/18 16:00 01/16/18 15:11 Imodium PO 2 mg Q8H ANDRY Administration Magnesium Oxide 200 mg 01/14/18 15:30 01/16/18 09:17 Mag-Ox PO 200 mg DAILY ANDRY Administration Multi-Ingredient Mouthwash/Gargle 10 ml 01/04/18 13:00 01/16/18 12:05 Magic Mouthwash Adult Liq SWISH-SWAL 10 ml QID ANDRY Administration Ondansetron HCl 4 mg 01/04/18 00:03 01/13/18 15:54 Zofran Inj IV.PUSH 4 mg Q6H PRN Administration NAUSEA OR VOMITING Oxycodone HCl 10 mg 01/13/18 21:00 01/16/18 09:18 Oxycontin Cr PO 10 mg Q12HR ANDRY Administration Pantoprazole Sodium 40 mg 01/05/18 11:00 01/16/18 09:18 Protonix PO 40 mg DAILY ANDRY Administration Potassium Bicarb/Potassium Chloride 25 meq 01/13/18 21:00 01/16/18 09:17 K-Lyte Cl Eff PO 25 meq BID ANDRY Administration Sodium Chloride 5 ml 01/06/18 06:12 01/13/18 01:12 Ns Flush IV.FLUSH 5 ml PRN PRN Administration Flush Infusaport Temazepam 15 mg 01/04/18 00:03 01/04/18 02:31 Restoril PO 15 mg HS PRN Administration INSOMNIA Vancomycin HCl 250 mg 01/10/18 18:00 01/16/18 11:10 Vancomycin Po PO 250 mg Q6HR ANDRY Administration Objective Remarks: GENERAL: Well-nourished, well-developed patient. SKIN: Warm and dry. HEAD: Normocephalic. EYES: No scleral icterus. No injection or drainage. NECK: Supple, trachea midline. No JVD or lymphadenopathy. LYMPHATIC: No adenopathy. CARDIOVASCULAR: Regular rate and rhythm without murmurs. RESPIRATORY: Breath sounds equal bilaterally. No accessory muscle use. GASTROINTESTINAL: Abdomen soft, non-tender, nondistended. EXTREMITIES: No cyanosis, or edema. MUSCULOSKELETAL: Adequate muscle tone. NEUROLOGICAL: No obvious focal deficit. Awake, alert, and oriented x3. PSYCHIATRIC: Appropriate mood and affect; insight and judgment normal. Assessment/Plan - Plan 77-year-old female with history of squamous cell carcinoma of the anal canal currently getting mitomycin and 5-FU chemotherapy along with radiation. She was admitted with lower abdominal pain, fever and diarrhea. 1. C. difficile diarrhea, decreasing. Repeat C. difficile testing was negative. Continues on p.o. vancomycin. Infectious disease is following. 2. History of DVT and PE, Eliquis has been resumed at 2.5 mg twice daily. 3. Electrolyte abnormalities, secondary to diarrhea, improving. Attending physician is managing supplementation. 4. Patient resumed radiation therapy. Tolerating well. 5. Patient cleared for discharge from an oncology standpoint. She is currently awaiting her daughter to arrive in town and assist her at home.
[2018-01-17] MEDS: Acyclovir 800 MG Tablet PO SCH ×2 (05:58→09:50)
[2018-01-17] MEDS: Hydrocortisone 10 MG Tablet PO SCH ×2 (05:59→11:42)
[2018-01-17] MEDS: Levothyroxine 75 MCG Tablet PO SCH (05:59)
[2018-01-17] MEDS: Loperamide 2 MG Capsule PO SCH (08:00)
[2018-01-17 09:42] VITALS: BP 125/77; PULSE 81; RESP 18; TEMP 98.1; O2SAT 96
[2018-01-17] MEDS: Potassium Chloride 25 MEQ Effervescent Tablet PO SCH (09:48)
[2018-01-17] MEDS: oxyCODONE 10 MG Controlled Release Tablet PO SCH (09:49)
[2018-01-17] MEDS: Nystatin/Diphenhydramine/Lidocaine Mouthwash (Adult) 120 ML Botttle SWISH-SWAL SCH ×2 (09:49→12:02)
[2018-01-17] MEDS: Lactobacillus Acidophilus/L. Spores Tablet PO SCH ×2 (09:49→12:01)
[2018-01-17] MEDS: Magnesium Oxide 400 MG Tablet PO SCH (09:49)
[2018-01-17] MEDS: Gabapentin 100 MG Capsule PO SCH ×2 (09:49→12:02)
--- NOTE | 2018-01-17 11:26 | P.DS ---
Date of admission: 01/03/18 23:47 Primary care physician: Jose Antonio Xiong MD Brief History from admission: HPI from the admitting physician. This is a 77-year-old female with a PMH of Anxiety, h/o DVT/PE s/p IVC Filter, Adrenal Insufficiency, HTN, Hypothyroidism and Rectal CA who presented to the ER w/ complaints of abdominal pain and diarrhea starting today. States she has had chronic abdominal pain and diarrhea for approx 1yr, however now symptoms more severe x1wk. Also w/ fever of 101 at home today. Recently diagnosed w/ Rectal CA s/p Chemo/Radiation, follows w/ Dr. Guzman as outpatient, states she had blood work a few days ago on 12/31/17, however she does not know results. Scheduled for Radiation again on Friday and Chemo on 01/21. On arrival, BP 133/ 72, HR 118, O2 sat 96% on RA, Temp 99.6. WBC 0.5, hemoglobin 10.1, platelets 54 , absolute neutrophil count 0.2, previously WBC 1.8, hemoglobin 11 and platelets 157 on 12/31/2017. U/a positive for UTI. Abdominal X-ray with no dilated loops of small or large bowel. CT Abdomen/Pelvis with no acute findings. CXR no acute findings. S/p IV Vanc/Rocephin/Flagyl in ER. Update on the day of discharge: Patient reports feeling ok today. More formed stools. Abdominal cramp is better. DS: Diagnosis - Discharge Diagnosis (1) Febrile neutropenia Status: Acute (2) Thrombocytopenia Status: Acute (3) Neutropenic fever Status: Acute (4) Rectal cancer Status: Acute (5) Abdominal pain Status: Acute (6) C. difficile diarrhea Status: Acute DS: Medications - Discharge Medications Prescriptions: acyclovir 800 mg PO 5 TIMES A DAY 7 Days tab apixaban [Eliquis] 2.5 mg PO BID 30 Days #60 tab atorvastatin 20 mg PO DAILY 30 Days #30 tab carbidopa-levodopa 1 tab PO DAILY 30 Days #30 tab hydromorphone 1 mg PO Q4H PRN 7 Days #42 tab PRN Reason: pain 7-10 magnesium oxide 200 mg PO DAILY 30 Days #30 tab oxycodone [OxyContin] 10 mg PO Q12HR #14 tab potassium bicarb and chloride 25 meq PO BID 30 Days #60 each vancomycin 250 mg PO Q6HR 7 Days each DS: Summary Hospital Course: 77-year-old female admitted and treated for the following: Abdominal Pain: C. difficile Acute onset of severe abdominal pain, CT Abd/Pelvis w/ no acute findings, images reviewed. Analgesics/antiemetics as needed. - Patient followed by infectious disease. Treated with oral vancomycin. Symptoms improved. She is discharged on oral vancomycin to complete the course of treatment. Neutropenic Fever: WBC 0.5, absolute neutrophil count 0.2, Temp 101 at home, currently on Chemo/Radiation for Rectal CA. S/p Blood Cultures, Vanc/cefepime. neutropenia has resolved. Rectal CA: on Chemo/Radiation, scheduled for Radiation per oncology. Appreciate assistance. Pain improved on OxyContin. Will continue. E force was checked. UTI. Completed treatment. Completed treatment as per ID guidance. Left buttocks zoster will start on acyclovir 800 mg p.o. 5 times a day Continue acyclovir to complete the course of treatment. Follow-up with primary care and oncology. GERD we will continue on ranitidine at home, and this may help with loose stools as well. Avoid PPI in the setting of recent C. difficile. Hypokalemia Hypomagnesemia Hypernatremia -replaced. - Time Spent with Patient Total time spent providing and/or coordinating discharge services: Greater than 30 minutes - Quality: VTE Deep Vein Thrombosis/Pulmonary Embolism Present on Admission: No Exam Vital signs: Vital Signs 01/16/18 16:00 01/16/18 20:00 01/16/18 23:10 Temperature 98.0 F 97.8 F Pulse Rate 80 78 76 Respiratory Rate 18 19 Blood Pressure 138/86 172/99 H Pulse Oximetry 99 98 01/17/18 00:00 01/17/18 04:00 01/17/18 08:00 Temperature 98.6 F 98.7 F 98.1 F Pulse Rate 73 89 81 Respiratory Rate 19 19 18 Blood Pressure 158/92 H 150/89 H 125/77 Pulse Oximetry 97 97 96 Intake & Output 01/16/18 01/17/18 01/17/18 18:59 06:59 18:59 Intake Total 1200 / 1200 240 / 240 Output Total 350 / 350 Balance 1200 / 1200 -110 / -110 Weight 52.8 kg Intake: Oral 1200 / 1200 240 / 240 Output: Urine/Stool Mix 350 / 350 Other: # Voids 600 Date of Last Bowel Movement 01/16/18 01/17/18 01/17/18 Narrative: GENERAL: Patient lying in bed. Appears comfortable. CARDIOVASCULAR: Regular rate and rhythm without murmurs, gallops, or rubs. RESPIRATORY: Breath sounds equal bilaterally. No accessory muscle use. GASTROINTESTINAL: Abdomen soft, nondistended. nontender. No rebound or guarding. MUSCULOSKELETAL: No cyanosis, or edema. BACK: Nontender without obvious deformity. No CVA tenderness. Results Procedures completed during hospitalization: No invasive procedures. - Impressions ITS Impressions Abdomen X-Ray 01/03/18 21:20 CONCLUSION: No dilated loops of small or large bowel. Abdomen/Pelvis CT 01/03/18 21:20 CONCLUSION: 1. No acute findings in the abdomen/pelvis. Chest X-Ray 01/03/18 21:20 CONCLUSION: 1. No acute findings in the lungs. 2. No evidence of free air. Discharge Plan - Discharge Disposition Patient Disposition: /Home Health Service - Discharge Condition Condition: Fair - Discharge Order Discharge Orders: Discharge Order (Routine); Ordered 01/17/18 Ordered By: Morena Talamantes - Discharge Details Anticipated Discharge Date: 01/14/18 Discharge Comment: Discharge if patients feeling alright after Radiation - Physicians Team Primary Care Provider: Jose Antonio Xiong Attending Provider: Morena Talamantes Other Providers: Liban Guzman MD ; Vanita Guy MD
== END 2018-01-17 14:42 | disposition home health service (06) ==
LOC: NEPC 20:37 → NEDA 23:47 → HCIN 01-04 01:34
PROVIDERS: ADMIT Family Medicine; ATTEND Family Medicine

== ENCOUNTER 2018-02-14 12:18 | Inpatient (IN) ==
[2018-02-14] MEDS ORDERED: Morphine Inj 4 MG/ML Vial IV.PUSH ONE (12:24)
[2018-02-14] MEDS ORDERED: Sod Chloride 0.9% Inj 1,000 ML IV.SIG ONE (12:24)
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
[2018-02-14 12:54] LABS: Hematocrit 23.1 % (35.0-46.0); Hemoglobin 7.8 gm/dL (11.6-15.3); Mean Corpuscular HGB Conc 33.7 % (32.0-36.0); Mean Corpuscular Hemoglobin 33.7 pg (27.0-34.0); Mean Corpuscular Volume 100.1 fL (80.0-100.0); Mean Platelet Volume 8.2 fL (7.0-11.0); Platelet Count 95 th/mm3 (150-450); Red Blood Count 2.31 mil/mm3 (4.00-5.30); Red Cell Distribution Width 20.4 % (11.6-17.2); White Blood Count 0.7 th/mm3 (4.0-11.0)
[2018-02-14 13:19] LABS: Alanine Aminotransferase 9 U/L (10-53); Anion Gap 10 meq/L (5-15); Aspartate Aminotransferase 16 U/L (15-37); Blood Urea Nitrogen 17 mg/dL (7-18); Calcium 7.8 mg/dL (8.5-10.1); Carbon Dioxide 23.5 meq/L (21.0-32.0); Chloride 104 meq/L (98-107); Glomerular Filtration Rate 45 mL/min (>89); Glucose,Random 126 mg/dL (74-106); Potassium 4.5 meq/L (3.5-5.1); Sodium 137 meq/L (136-145)
[2018-02-14 13:21] LABS: Alkaline Phosphatase 38 U/L (45-117); Total Protein 4.7 g/dL (6.4-8.2)
[2018-02-14 13:41] LABS: Dohle Bodies Present; Lymphocytes 7 % (9-44); Monocytes 35 % (0-8); Toxic Granulation 2+
[2018-02-14 13:42] LABS: Platelet Morphology Normal (Normal)
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
[2018-02-14] MEDS ORDERED: Acetaminophen 325 MG Tablet PO PRN (16:06)
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
[2018-02-14] MEDS: Sod Chloride 0.9% Inj 1,000 ML IV.CONT SCH (16:52)
[2018-02-14] MEDS: ALPRAZolam 0.5 MG Tablet PO PRN (16:52)
[2018-02-14 17:18] LABS: Bacteria,Urine Many /hpf; Bilirubin,Urine Negative (Negative); Clarity,Urine Cloudy (Clear); Color,Urine Yellow (Yellw/Straw); Glucose,Urine (UA) Negative (Negative); Hyaline Casts,Urine 12 /lpf (0-3); Leukocyte Esterase,Urine Large (Negative); Mucus,Urine Few /lpf (Occasional); Nitrite,Urine Negative (Negative); Specific Gravity,Urine 1.006 (1.002-1.035)
[2018-02-14] MEDS: Morphine Sulfate 15 MG IR Tablet PO PRN (18:07)
[2018-02-14] MEDS: Gabapentin 100 MG Capsule PO SCH (18:07)
[2018-02-14] MEDS: oxyCODONE 10 MG Controlled Release Tablet PO SCH (21:26)
[2018-02-14] MEDS: Silver Sulfadiazine 1% Ceam 400 GM Jar TOPICAL SCH (21:29)
--- NOTE | 2018-02-14 22:02 | ECG ---
Date Performed: 02/14/2018 Time Performed: 13:41:07 PTAGE: 77 years EKG: ATRIAL FLUTTER/TACHYCARDIA ABNORMAL RHYTHM ECG PREVIOUS TRACING : 01/04/2018 21.47 DOCTOR: Baldev Butler Interpretating Date/Time 02/14/2018 21:58:40
--- NOTE | 2018-02-14 22:40 | ECG ---
Date Performed: 02/14/2018 Time Performed: 20:10:52 PTAGE: 77 years EKG: Atrial fibrillation Leftward axis Lateral T wave changes are nonspecific Abnormal ECG PREVIOUS TRACING : 02/14/2018 13.41 DOCTOR: Baldev Butler Interpretating Date/Time 02/14/2018 22:32:37
[2018-02-15] MEDS: Morphine Sulfate 15 MG IR Tablet PO PRN ×5 (00:13→23:19)
[2018-02-15] MEDS: Sod Chloride 0.9% Inj 1,000 ML IV.CONT SCH ×2 (04:35→17:28)
[2018-02-15] MEDS: Levothyroxine 75 MCG Tablet PO SCH (06:12)
[2018-02-15] MEDS ORDERED: Filgrastim Inj 300 MCG/ML Vial SQ ONE (06:47)
[2018-02-15] MEDS: Magnesium Oxide 400 MG Tablet PO SCH (08:50)
[2018-02-15] MEDS: Gabapentin 100 MG Capsule PO SCH ×3 (08:51→18:10)
[2018-02-15] MEDS: Famotidine 20 MG Tablet PO SCH (08:51)
[2018-02-15] MEDS: Silver Sulfadiazine 1% Ceam 400 GM Jar TOPICAL SCH ×2 (08:52→20:54)
[2018-02-15] MEDS: Hydrocortisone 10 MG Tablet PO SCH ×2 (09:05→14:24)
[2018-02-15] MEDS: oxyCODONE 10 MG Controlled Release Tablet PO SCH ×2 (09:05→20:49)
--- NOTE | 2018-02-15 10:43 | P.PNONC ---
Subjective Interval history: Afebrile. Patient reports 2 episodes of diarrhea this a.m. Still reports some bright red blood with diarrhea episodes. Her yldldled-sd-wlo is at the bedside, currently cleaning her up. Silvadene is applied to her perianal area. Currently with perianal pain, patient states she is waiting for her pain medications. Objective Vital Signs/Intake & Output: Vital Signs 02/14/18 12:24 02/14/18 12:25 02/14/18 12:35 Temperature 97 F L Pulse Rate 68 89 Respiratory Rate 18 18 Blood Pressure 124/83 Pulse Oximetry 98 02/14/18 14:36 02/14/18 16:20 02/14/18 16:30 Temperature 97.9 F 97.7 F 98.6 F Pulse Rate 86 91 H 88 Respiratory Rate 20 16 18 Blood Pressure 134/66 130/76 143/78 H Pulse Oximetry 98 99 100 02/14/18 19:00 02/14/18 20:00 02/14/18 21:56 Temperature 99.5 F Pulse Rate 85 91 H Respiratory Rate 20 18 Blood Pressure 126/68 Pulse Oximetry 100 02/14/18 23:00 02/15/18 00:00 02/15/18 03:00 Temperature Pulse Rate 88 100 H 99 H Respiratory Rate 16 Blood Pressure 108/62 Pulse Oximetry 97 02/15/18 03:42 02/15/18 07:00 02/15/18 08:00 Temperature 99.1 F Pulse Rate 94 H 96 H 99 H Respiratory Rate 16 18 Blood Pressure 102/50 L 110/62 Pulse Oximetry 97 91 L Intake & Output 02/14/18 02/15/18 02/15/18 18:59 06:59 18:59 Intake Total 1100 / 1100 1680 / 1680 Balance 1100 / 1100 1680 / 1680 Weight 123 kg 57 kg Intake: IV 1100 / 1100 1200 / 1200 NS Inj 1,000 ML @ 84 mls/hr IV. 1000 / 1000 CONT .[id number] ANDRY Rx#:[id number] NS Inj 1,000 ML @ Wide Open IV. 1000 / 1000 SIG BOLUS ONE Rx#:[id number] Flagyl 500 MG Inj 100 ML @ 100 100 / 100 200 / 200 mls/hr IV.SIG Q8H ANDRY Rx#: [id number] Oral 480 / 480 Other: # Incontinent Voids 3 Date of Last Bowel Movement 02/14/18 02/14/18 02/15/18 # Incontinent Bowel Movements 2 Result Diagrams: 02/14/18 12:31 02/14/18 12:31 Laboratory Results: Laboratory Results - last 24 hr 02/14/18 02/14/18 02/14/18 12:31 12:31 12:36 WBC 0.7 L RBC 2.31 L Hgb 7.8 L Hct 23.1 L MCV 100.1 H MCH 33.7 MCHC 33.7 RDW 20.4 H Plt Count 95 L MPV 8.2 Prelim Diff (Auto) Manual diff required WBC Differential Manual diff final Seg Neuts % (Manual) 49 Band Neuts % (Manual) 9 H Lymphocytes % (Manual) 7 L Monocytes % (Manual) 35 H Abs Neuts (Manual) 0.4 L* Differential Comment . Toxic Granulation 2+ H Dohle Bodies Present H Platelet Estimate Low L Platelet Morphology Normal Sodium 137 Potassium 4.5 Chloride 104 Carbon Dioxide 23.5 Anion Gap 10 BUN 17 Creatinine 1.16 H Estimated GFR 45 L Random Glucose 126 H Lactic Acid 1.3 Calcium 7.8 L Total Bilirubin 0.8 AST 16 ALT 9 L Alkaline Phosphatase 38 L Total Protein 4.7 L Albumin 2.0 L Urine Color Urine Clarity Urine pH Ur Specific [place] Urine Protein Urine Glucose (UA) Urine Ketones Urine Occult Blood Urine Nitrate Urine Bilirubin Urine Urobilinogen Ur Leukocyte Esterase Urine RBC Urine WBC Urine WBC Clumps Urine Bacteria Hyaline Casts Urine Mucus Micro UA Comment Ur Microscopic Review Urine Culture Comments 02/14/18 14:05 WBC RBC Hgb Hct MCV MCH MCHC RDW Plt Count MPV Prelim Diff (Auto) WBC Differential Seg Neuts % (Manual) Band Neuts % (Manual) Lymphocytes % (Manual) Monocytes % (Manual) Abs Neuts (Manual) Differential Comment Toxic Granulation Dohle Bodies Platelet Estimate Platelet Morphology Sodium Potassium Chloride Carbon Dioxide Anion Gap BUN Creatinine Estimated GFR Random Glucose Lactic Acid Calcium Total Bilirubin AST ALT Alkaline Phosphatase Total Protein Albumin Urine Color Yellow Urine Clarity Cloudy H Urine pH 6.0 Ur Specific [place] 1.006 Urine Protein Negative Urine Glucose (UA) Negative Urine Ketones Trace H Urine Occult Blood Moderate H Urine Nitrate Negative Urine Bilirubin Negative Urine Urobilinogen Less than 2 Ur Leukocyte Esterase Large H Urine RBC 31 H Urine WBC 99 H Urine WBC Clumps Moderate H Urine Bacteria Many H Hyaline Casts 12 Urine Mucus Few H Micro UA Comment Culture indicated Ur Microscopic Review Not Reportable Urine Culture Comments Culture indicated Medications: Active Medications Generic Name Dose Route Start Last Admin Trade Name Freq PRN Reason Stop Dose Admin Alprazolam 0.5 mg 02/14/18 16:09 02/14/18 16:52 Xanax PO 0.5 mg BID PRN Administration Anxiety Apixaban 2.5 mg 02/14/18 21:00 02/15/18 08:51 Eliquis PO 2.5 mg BID ANDRY Administration Famotidine 20 mg 02/15/18 09:00 02/15/18 08:51 Pepcid PO 20 mg DAILY ANDRY Administration Gabapentin 100 mg 02/14/18 18:00 02/15/18 08:51 Neurontin PO 100 mg TID ANDRY Administration Hydrocortisone Acetate 30 mg 02/15/18 09:00 02/15/18 09:05 Cortef PO 30 mg DAILY ANDRY Administration Sodium Chloride 1,000 mls @ 84 mls/hr 02/14/18 15:30 02/15/18 04:35 Ns Inj IV.CONT 84 mls/hr .[id number] ANDRY Administration Metronidazole/Sodium Chloride 100 mls @ 100 mls/hr 02/14/18 21:00 02/15/18 05 :36 Flagyl 500 Mg Inj IV.SIG Infused Q8H ANDRY Infusion Levothyroxine Sodium 75 mcg 02/15/18 06:00 02/15/18 06:12 Synthroid PO 75 mcg DAILY@0600 ANDRY Administration Magnesium Oxide 200 mg 02/15/18 09:00 02/15/18 08:50 Mag-Ox PO 200 mg DAILY ANDRY Administration Morphine Sulfate 15 mg 02/14/18 16:56 02/15/18 06:12 Msir PO 15 mg Q6H PRN Administration Acute Pain Mupirocin 1 applicatio 02/14/18 21:00 02/15/18 08:53 Bactroban 2% Oint TOPICAL Not Given BID [facility] Oxycodone HCl 10 mg 02/14/18 21:00 02/15/18 09:05 Oxycontin Cr PO 10 mg Q12HR ANDRY Administration Silver Sulfadiazine 1 applicatio 02/14/18 21:00 02/15/18 08:52 Silvadine 1% Cream (400 Gm) TOPICAL 1 applicatio BID ANDRY Administration Objective Remarks: GENERAL: Elderly ill-appearing female patient, lying in bed, in no acute distress. SKIN: Radiation induced skin discoloration to pelvic area, erythema to perianal area. HEAD: Normocephalic. EYES: No scleral icterus. No injection or drainage. MOUTH: Pease, moist oral mucosa, + diffuse mucosal lesions. NECK: Supple, trachea midline. No JVD or lymphadenopathy. CARDIOVASCULAR: Regular rate and rhythm without murmurs. RESPIRATORY: Anterior breath sounds equal bilaterally. Non-labored on RA. GASTROINTESTINAL: Abdomen soft, non-tender, nondistended. EXTREMITIES: No cyanosis, or edema. MUSCULOSKELETAL: Adequate muscle tone. NEUROLOGICAL: No obvious focal deficit. Awake, alert, and oriented x3. PSYCHIATRIC: Appropriate mood and affect; insight and judgment normal. Assessment/Plan - Plan Ms. Whalen is a pleasant 77-year-old female patient currently undergoing treatment for locally advanced anal squamous cell carcinoma. Patient receiving combined chemo radiation therapy. Initial treatment was initiated in November 2017 , 2 cycles of 5FU and mitomycin, cycle #2 was initiated on 02/03/2018. She has 7 fractions of radiation remaining. She has had C. difficile colitis related to chemotherapy myelosuppression. She presented to the ER with reports of fevers, chills, diarrhea and weakness. She reports bright red blood in her stool. The patient is on anticoagulation with Eliquis with a history of DVT, pulmonary embolism and IVC filter placement. Plan: 1. Anal squamous cell carcinoma, currently being treated with combined chemo- radiation. 2. Radiation related mucositis and skin breakdown in the perianal area. Continue applying Silvadene to the perianal area. Cleanse the area thoroughly after each BM. 3. Neutropenia, patient received Neupogen 300 mcg subcu today. CBC today pending. Continue neutropenic precautions. 4. Continue to monitor for bleeding, patient on anticoagulation for history of DVT/PE. 5. Diarrhea, C. difficile testing pending. Subjectively reports 2 episodes today. Continue to monitor hydration and electrolyte status. - Attending Statement The exam, history, and the medical decision-making described in the above note were completed with the assistance of the mid-level provider. I reviewed and agree with the findings presented. I attest that I had a [id number] encounter with the patient on the same day, and personally performed and documented my assessment and findings in the medical record. 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 Currently on radiation in combination with systemic chemotherapy. Present at the hospital with fever, diarrhea, recent C. difficile colitis. Patient seen and examined, vital signs, labs, medications reviewed, overnight events reviewed. Patient reports continued diarrhea. She reports continued pain in her perianal area. She is requesting her pain medication be increased in frequency from morphine sulfate IR 15 mg every 6 hours to every 4 hour frequency as needed. Repeat stool samples were sent off. Metronidazole was put on hold. Infectious diseases attending has evaluated the patient. If the patient has persistent C. difficile colitis she will be transitioned to oral vancomycin. Clinically, patient has not had fevers since her presentation. She has been initiated on Neupogen for growth factor support. Await CBC results today.
[2018-02-15 12:24] LABS: Baso % (Auto) 0.2 % (0.0-2.0); Eos % (Auto) 0.5 % (0.0-4.0); Hematocrit 21.8 % (35.0-46.0); Hemoglobin 7.4 gm/dL (11.6-15.3); Mean Corpuscular HGB Conc 33.8 % (32.0-36.0); Mean Corpuscular Hemoglobin 34.1 pg (27.0-34.0); Mean Corpuscular Volume 100.7 fL (80.0-100.0); Mean Platelet Volume 8.2 fL (7.0-11.0); Mono # (Auto) 0.3 th/mm3 (0.0-0.9); Mono % (Auto) 26.3 % (0.0-8.0); Neut # (Auto) 0.7 th/mm3 (1.8-7.7); Platelet Count 80 th/mm3 (150-450); Red Blood Count 2.17 mil/mm3 (4.00-5.30); Red Cell Distribution Width 21.1 % (11.6-17.2)
[2018-02-15 12:33] LABS: Albumin 1.6 g/dL (3.4-5.0); Calcium 6.6 mg/dL (8.5-10.1); Carbon Dioxide 20.6 meq/L (21.0-32.0); Potassium 3.7 meq/L (3.5-5.1)
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
[2018-02-15 12:50] LABS: Total Protein 4.3 g/dL (6.4-8.2)
--- NOTE | 2018-02-15 13:08 | P.PN ---
Subjective Interval history: Follow-up recurrent C. difficile diarrhea? February 15, 2018-patient seen and examined, still with diarrheal episode however improving since admission. Afebrile. No nausea or vomiting. Physical Exam Vital signs: Vital Signs 02/14/18 14:36 02/14/18 16:20 02/14/18 16:30 Temperature 97.9 F 97.7 F 98.6 F Pulse Rate 86 91 H 88 Respiratory Rate 20 16 18 Blood Pressure 134/66 130/76 143/78 H Pulse Oximetry 98 99 100 02/14/18 19:00 02/14/18 20:00 02/14/18 21:56 Temperature 99.5 F Pulse Rate 85 91 H Respiratory Rate 20 18 Blood Pressure 126/68 Pulse Oximetry 100 02/14/18 23:00 02/15/18 00:00 02/15/18 03:00 Temperature Pulse Rate 88 100 H 99 H Respiratory Rate 16 Blood Pressure 108/62 Pulse Oximetry 97 02/15/18 03:42 02/15/18 07:00 02/15/18 08:00 Temperature 99.1 F Pulse Rate 94 H 96 H 99 H Respiratory Rate 16 18 Blood Pressure 102/50 L 110/62 Pulse Oximetry 97 91 L 02/15/18 12:00 Temperature 98.6 F Pulse Rate 91 H Respiratory Rate 18 Blood Pressure 135/75 Pulse Oximetry 95 Intake & Output 02/14/18 02/15/18 02/15/18 18:59 06:59 18:59 Intake Total 1100 / 1100 1680 / 1680 Balance 1100 / 1100 1680 / 1680 Weight 123 kg 57 kg Intake: IV 1100 / 1100 1200 / 1200 NS Inj 1,000 ML @ 84 mls/hr IV. 1000 / 1000 CONT .[id number] [facility] Rx#:[id number] NS Inj 1,000 ML @ Wide Open IV. 1000 / 1000 SIG B[facility] Rx#:[id number] Flagyl 500 MG Inj 100 ML @ 100 100 / 100 200 / 200 mls/hr IV.SIG Q8H [facility] Rx#: [id number] Oral 480 / 480 Other: # Incontinent Voids 3 Date of Last Bowel Movement 02/14/18 02/14/18 02/15/18 # Incontinent Bowel Movements 2 Narrative: GENERAL: NAD SKIN: Warm and dry. HEAD: Normocephalic. EYES: No scleral icterus. No injection or drainage. NECK: Supple, trachea midline. No JVD or lymphadenopathy. CARDIOVASCULAR: Regular rate and rhythm without murmurs, gallops, or rubs. RESPIRATORY: Breath sounds equal bilaterally. No accessory muscle use. GASTROINTESTINAL: Abdomen soft, non-tender, nondistended. MUSCULOSKELETAL: No cyanosis, or edema. BACK: Nontender without obvious deformity. No CVA tenderness. Results - Labs CBC & Chem 7: 02/15/18 11:30 02/15/18 11:30 Laboratory Results - last 24 hr 02/14/18 02/14/18 02/14/18 12:31 12:31 12:36 WBC RBC Hgb Hct MCV MCH MCHC RDW Plt Count MPV Prelim Diff (Auto) Neut % (Auto) Lymph % (Auto) [place] % (Auto) Eos % (Auto) Baso % (Auto) Neut # (Auto) Lymph # (Auto) [place] # (Auto) Eos # (Auto) Baso # (Auto) WBC Differential Manual diff final Seg Neuts % (Manual) 49 Band Neuts % (Manual) 9 H Lymphocytes % (Manual) 7 L Monocytes % (Manual) 35 H Abs Neuts (Manual) 0.4 L* Differential Comment Toxic Granulation 2+ H Dohle Bodies Present H Platelet Estimate Low L Platelet Morphology Normal Sodium 137 Potassium 4.5 Chloride 104 Carbon Dioxide 23.5 Anion Gap 10 BUN 17 Creatinine 1.16 H Estimated GFR 45 L Random Glucose 126 H Lactic Acid 1.3 Calcium 7.8 L Prot Corrected Calcium Total Bilirubin 0.8 AST 16 ALT 9 L Alkaline Phosphatase 38 L Total Protein 4.7 L Albumin 2.0 L Urine Color Urine Clarity Urine pH Ur Specific [place] Urine Protein Urine Glucose (UA) Urine Ketones Urine Occult Blood Urine Nitrate Urine Bilirubin Urine Urobilinogen Ur Leukocyte Esterase Urine RBC Urine WBC Urine WBC Clumps Urine Bacteria Hyaline Casts Urine Mucus Micro UA Comment Ur Microscopic Review Urine Culture Comments 02/14/18 02/15/18 02/15/18 14:05 11:30 11:30 WBC 1.0 L RBC 2.17 L Hgb 7.4 L Hct 21.8 L MCV 100.7 H MCH 34.1 H MCHC 33.8 RDW 21.1 H Plt Count 80 L MPV 8.2 Prelim Diff (Auto) Slide review pending Neut % (Auto) 70.0 Lymph % (Auto) 3.0 L [place] % (Auto) 26.3 H Eos % (Auto) 0.5 Baso % (Auto) 0.2 Neut # (Auto) 0.7 L Lymph # (Auto) 0.0 L [place] # (Auto) 0.3 Eos # (Auto) 0.0 Baso # (Auto) 0.0 WBC Differential Seg Neuts % (Manual) Band Neuts % (Manual) Lymphocytes % (Manual) Monocytes % (Manual) Abs Neuts (Manual) Differential Comment . Toxic Granulation Dohle Bodies Platelet Estimate Platelet Morphology Sodium 139 Potassium 3.7 D Chloride 109 H Carbon Dioxide 20.6 L Anion Gap 9 BUN 14 Creatinine 0.94 Estimated GFR 58 L Random Glucose 84 Lactic Acid Calcium 6.6 L* D Prot Corrected Calcium 8.1 L Total Bilirubin 0.5 AST 17 ALT 8 L Alkaline Phosphatase 36 L Total Protein 4.3 L Albumin 1.6 L Urine Color Yellow Urine Clarity Cloudy H Urine pH 6.0 Ur Specific [place] 1.006 Urine Protein Negative Urine Glucose (UA) Negative Urine Ketones Trace H Urine Occult Blood Moderate H Urine Nitrate Negative Urine Bilirubin Negative Urine Urobilinogen Less than 2 Ur Leukocyte Esterase Large H Urine RBC 31 H Urine WBC 99 H Urine WBC Clumps Moderate H Urine Bacteria Many H Hyaline Casts 12 Urine Mucus Few H Micro UA Comment Culture indicated Ur Microscopic Review Not Reportable Urine Culture Comments Culture indicated Microbiology 02/14/18 12:30 Blood - Peripheral Aerobic Blood Culture - Preliminary No growth in 1 day 02/14/18 12:30 Blood - Peripheral Anaerobic Blood Culture - Preliminary No growth in 1 day 02/14/18 12:35 Blood - Peripheral Aerobic Blood Culture - Preliminary No growth in 1 day 02/14/18 12:35 Blood - Peripheral Anaerobic Blood Culture - Preliminary No growth in 1 day Assessment and Plan - Assessment (1) Rectal cancer Code(s): C20 - Malignant neoplasm of rectum Status: Acute (2) C. difficile diarrhea Code(s): A04.72 - Enterocolitis due to Clostridium difficile, not specified as recurrent Status: Acute (3) Neutropenia Code(s): D70.9 - Neutropenia, unspecified Status: Acute - Plan 77-year-old female with Recurrent C. difficile colitis/diarrhea C. difficile PCR pending Patient is refusing treatment with vancomycin p.o. Currently off antibiotic per ID pending C. difficile PCR report Continue IV fluid hydration Acute renal injury Prerenal, secondary to dehydration due to diarrhea Continue with IV fluid hydration and monitor BUN and creatinine Chemo related neutropenia Oncology was consulted, and patient is currently on Neupogen daily Anal squamous cell carcinoma Patient completing chemo therapy Management per oncology Continue pain medication Other chronic medical conditions Continue outpatient medications DVT prophylaxis: Linda
[2018-02-15 13:12] LABS: Dohle Bodies Present; Eosinophils 1 % (0-4); Lymphocytes 7 % (9-44); Monocytes 9 % (0-8); Tallied Nucleated RBC 1 (0-0); Toxic Granulation 2+
[2018-02-15 13:13] LABS: Ovalocytes 1+; Platelet Morphology Normal (Normal)
[2018-02-15] MEDS: Nystatin/Diphenhydramine/Lidocaine Mouthwash (Adult) 120 ML Botttle SWISH-SWAL SCH ×3 (14:25→20:53)
[2018-02-15] MEDS ORDERED: Morphine Inj 4 MG/ML Vial IV.PUSH ONE (18:45)
[2018-02-16] MEDS: Morphine Sulfate 15 MG IR Tablet PO PRN ×4 (03:15→20:53)
[2018-02-16] MEDS: Sod Chloride 0.9% Inj 1,000 ML IV.CONT SCH ×2 (03:22→16:41)
[2018-02-16 05:31] LABS: Baso % (Auto) 0.3 % (0.0-2.0); Eos % (Auto) 0.2 % (0.0-4.0); Hematocrit 21.4 % (35.0-46.0); Hemoglobin 7.2 gm/dL (11.6-15.3); Lymph # (Auto) 0.1 th/mm3 (1.0-4.8); Mean Corpuscular HGB Conc 33.8 % (32.0-36.0); Mean Corpuscular Volume 100.6 fL (80.0-100.0); Mean Platelet Volume 8.1 fL (7.0-11.0); Mono # (Auto) 0.3 th/mm3 (0.0-0.9); Mono % (Auto) 12.5 % (0.0-8.0); Neut # (Auto) 1.8 th/mm3 (1.8-7.7); Platelet Count 70 th/mm3 (150-450); Red Blood Count 2.13 mil/mm3 (4.00-5.30); Red Cell Distribution Width 20.9 % (11.6-17.2); White Blood Count 2.2 th/mm3 (4.0-11.0)
[2018-02-16 05:58] LABS: Albumin 1.5 g/dL (3.4-5.0); Calcium 6.7 mg/dL (8.5-10.1); Carbon Dioxide 21.3 meq/L (21.0-32.0); Potassium 3.8 meq/L (3.5-5.1); Total Protein 4.1 g/dL (6.4-8.2)
[2018-02-16] MEDS: Levothyroxine 75 MCG Tablet PO SCH (06:00)
[2018-02-16 07:43] LABS: Lymphocytes 2 % (9-44); Monocytes 2 % (0-8); Platelet Morphology Normal (Normal); Toxic Granulation 1+
[2018-02-16 07:44] LABS: Ovalocytes 1+; Tear Drop Cells 1+
[2018-02-16] MEDS: Nystatin/Diphenhydramine/Lidocaine Mouthwash (Adult) 120 ML Botttle SWISH-SWAL SCH ×4 (09:15→20:37)
[2018-02-16] MEDS: Famotidine 20 MG Tablet PO SCH (09:16)
[2018-02-16] MEDS: oxyCODONE 10 MG Controlled Release Tablet PO SCH ×2 (09:16→20:35)
[2018-02-16] MEDS: Magnesium Oxide 400 MG Tablet PO SCH (09:17)
[2018-02-16] MEDS: ALPRAZolam 0.5 MG Tablet PO PRN (09:17)
[2018-02-16] MEDS: Gabapentin 100 MG Capsule PO SCH ×3 (09:17→18:19)
[2018-02-16] MEDS: Hydrocortisone 10 MG Tablet PO SCH ×2 (09:18→12:47)
[2018-02-16] MEDS: Silver Sulfadiazine 1% Ceam 400 GM Jar TOPICAL SCH ×2 (09:19→20:37)
--- NOTE | 2018-02-16 10:23 | P.PNID ---
Subjective Remarks: Ms. Whalen is a 77-year-old female who was diagnosed earlier this summer with a locally advanced anal squamous cell carcinoma, she was found to have a 1.1 cm poorly differentiated tumor in the anal canal which was resected. 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 She was been recommended combined chemoradiotherapy, treatment was initiated in late November 2017 and has consisted of 2 cycles of 5-FU and mitomycin, Her last cycle of chemotherapy was on 02/03/2018. The patient has struggled through treatment, she has had 3 ER visits since receiving her second cycle of systemic chemotherapy for issues ranging from fevers, diarrhea and generalized weakness. Her most recent ER visit was resident medical officer of 02/13/2018, she was discharged from the ER less than 24 hours ago. Additional issues in the recent past include C. difficile colitis which has been treated with both oral vancomycin and oral metronidazole. Despite being treated with oral metronidazole therapy over the past several days she reports worsening diarrhea which is now associated with bright red blood per rectum, abdominal cramps and fevers as high as 102.5F. Blood work performed after presentation to the emergency department revealed an absolute neutrophil count 0.4, she is also noted to be anemic and mildly thrombocytopenic. discussed case with me and reported patient was not willing to take oral vanco as she has been told by not to take it as it will worsen her Cdiff. Infectious Disease is consulted for evaluation and Mment of Cdiff colitis in a patient with Anal cancer on chemoRx and Radiation Rx. Overnight events reviewed Still has ongoing diarrhea Reports groin and labial swelling and erythema. She denies any SP discomfort but reports when urine touches the inflammed labia it stings. No generalized rash Antibiotics: Vanco oral Lines: Line grzegorz Past Medical History: reviewed Allergies/Adverse Reactions: Allergies ciprofloxacin Allergy (Severe, Verified 02/14/18 12:25) Swelling of Lip/Tongue/Throat codeine Allergy (Severe, Verified 02/14/18 12:25) Swelling of Lip/Tongue/Throat ibuprofen Allergy (Severe, Verified 02/14/18 12:25) Swelling of Lip/Tongue/Throat penicillin G Allergy (Severe, Verified 02/14/18 12:25) Swelling of Lip/Tongue/Throat Sulfa (Sulfonamide Antibiotics) Allergy (Severe, Verified 02/14/18 12:25) Swelling of Lip/Tongue/Throat adhesive Adverse Reaction (Intermediate, Verified 02/14/18 12:25) Nausea/Vomiting STATES THAT ALL ADHESIVES TEAR HER SKIN clarithromycin Adverse Reaction (Intermediate, Verified 02/14/18 12:25) Nausea/Vomiting clindamycin Adverse Reaction (Intermediate, Verified 02/14/18 12:25) Nausea/Vomiting Objective Vital Signs 02/15/18 11:00 02/15/18 12:00 02/15/18 15:00 Temperature 98.6 F Pulse Rate 98 H 91 H 92 H Respiratory Rate 18 Blood Pressure 135/75 Pulse Oximetry 95 02/15/18 16:00 02/15/18 19:00 02/15/18 20:00 Temperature 97.7 F 98 F Pulse Rate 86 96 H 93 H Respiratory Rate 18 22 Blood Pressure 138/73 129/70 Pulse Oximetry 97 99 02/15/18 21:19 02/15/18 23:00 02/15/18 23:52 Temperature 97.7 F Pulse Rate 86 93 H Respiratory Rate 18 20 Blood Pressure 115/73 Pulse Oximetry 95 02/16/18 03:00 02/16/18 03:46 02/16/18 09:04 Temperature 97.5 F L Pulse Rate 84 92 H 101 H Respiratory Rate 20 22 Blood Pressure 136/74 149/87 H Pulse Oximetry 96 100 Intake & Output 02/15/18 02/16/18 02/16/18 18:59 06:59 18:59 Intake Total 1959 1480 / 1480 Balance 1959 1480 / 1480 Weight 56.8 kg Intake: IV 1000 / 1000 1000 / 1000 NS Inj 1,000 ML @ 84 mls/hr IV. 1000 / 1000 1000 / 1000 CONT .[id number] [facility] Rx#:[id number] Oral 960 / 960 480 / 480 Other: # Voids 6 3 Date of Last Bowel Movement 02/15/18 02/14/18 # Bowel Movements 6 2 02/14/18 14:05 Clean Catch Urine Urine Culture - Preliminary gram negative rods 02/14/18 12:30 Blood - Peripheral Aerobic Blood Culture - Preliminary No growth in 1 day 02/14/18 12:30 Blood - Peripheral Anaerobic Blood Culture - Preliminary No growth in 1 day 02/14/18 12:35 Blood - Peripheral Aerobic Blood Culture - Preliminary No growth in 1 day 02/14/18 12:35 Blood - Peripheral Anaerobic Blood Culture - Preliminary No growth in 1 day Lab - Hematology Results 02/14/18 02/15/18 02/16/18 12:31 11:30 05:17 WBC 0.7 L 1.0 L 2.2 L D RBC 2.31 L 2.17 L 2.13 L Hgb 7.8 L 7.4 L 7.2 L Hct 23.1 L 21.8 L 21.4 L MCV 100.1 H 100.7 H 100.6 H MCH 33.7 34.1 H 34.0 MCHC 33.7 33.8 33.8 RDW 20.4 H 21.1 H 20.9 H Plt Count 95 L 80 L 70 L MPV 8.2 8.2 8.1 Prelim Diff (Auto) Manual diff required Slide review pending Slide review pending Neut % (Auto) 70.0 84.0 H Lymph % (Auto) 3.0 L 3.0 L [place] % (Auto) 26.3 H 12.5 H Eos % (Auto) 0.5 0.2 Baso % (Auto) 0.2 0.3 Neut # (Auto) 0.7 L 1.8 Lymph # (Auto) 0.0 L 0.1 L [place] # (Auto) 0.3 0.3 Eos # (Auto) 0.0 0.0 Baso # (Auto) 0.0 0.0 WBC Differential Manual diff final Manual diff final Manual diff final Seg Neuts % (Manual) 49 61 56 Band Neuts % (Manual) 9 H 22 H 40 H Lymphocytes % (Manual) 7 L 7 L 2 L Monocytes % (Manual) 35 H 9 H 2 Eosinophils % (Manual) 1 Abs Neuts (Manual) 0.4 L* 0.8 L 2.1 Nucleated RBCs/100 WBC 1 H Differential Comment . . . Toxic Granulation 2+ H 2+ H 1+ H Dohle Bodies Present H Present H Platelet Estimate Low L Low L Low L Platelet Morphology Normal Normal Normal Tear Drop Cells 1+ H Ovalocytes 1+ H 1+ H Lab - Chemistry Results 02/14/18 02/14/18 02/15/18 12:31 12:36 11:30 Sodium 137 139 Potassium 4.5 3.7 D Chloride 104 109 H Carbon Dioxide 23.5 20.6 L Anion Gap 10 9 BUN 17 14 Creatinine 1.16 H 0.94 Estimated GFR 45 L 58 L Random Glucose 126 H 84 Lactic Acid 1.3 Calcium 7.8 L 6.6 L* D Prot Corrected Calcium 8.1 L Total Bilirubin 0.8 0.5 AST 16 17 ALT 9 L 8 L Alkaline Phosphatase 38 L 36 L Total Protein 4.7 L 4.3 L Albumin 2.0 L 1.6 L 02/16/18 05:17 Sodium 141 Potassium 3.8 Chloride 111 H Carbon Dioxide 21.3 Anion Gap 9 BUN 13 Creatinine 0.77 Estimated GFR 73 L Random Glucose 103 Lactic Acid Calcium 6.7 L* Prot Corrected Calcium 8.3 L Total Bilirubin 0.4 AST 13 L ALT 9 L Alkaline Phosphatase 37 L Total Protein 4.1 L Albumin 1.5 L Physical Exam: GENERAL: Well-nourished well-developed, not in acute distress SKIN: Cool and dry, no generalized rash HEAD: Atraumatic. Normocephalic. No temporal or scalp tenderness. EYES: Pupils equal round and reactive. Scleral icterus. No injection or drainage. No petechia ENT: Nothing abnormal detected NECK: Trachea midline. Supple, nontender, no meningeal signs. CARDIOVASCULAR: HS audible. RESPIRATORY: Clear to auscultation bilaterally. GASTROINTESTINAL: Abdomen soft nontender. MUSCULOSKELETAL: Extremities without clubbing, cyanosis. NEUROLOGICAL: Alert oriented 3. Nonfocal. Anal area with erythema, swelling noted. Entire area in shape of panty occupying area was erythematous and excoriated appearing. Port site ok Psych cooperative IV line sites ok. Assessment and Plan - Plan Sepsis in an Immune compromised patient. Diarrhea: ? recurrent Cdiff was on oral flagyl test could be negative. Component post radiation mucositis. Local [place] anal cellulitis vs radiation induced dermatitis. Port in place. Immune compromised host. Recs: Continue Oral vanco (patient was on flagyl prior to admission PCR for cdiff could be falsely negative) Recd Becky. Would like to avoid treatment of abnormal UA likely a contaminated urine. dw patient and daughter in law in room. Follow cultures Follow clinical course.
--- NOTE | 2018-02-16 10:38 | P.PNONC ---
Subjective Interval history: Afebrile. Patient reports 2 smaller episodes of diarrhea today. She denies any further bleeding. She reports feeling much better. Objective Vital Signs/Intake & Output: Vital Signs 02/15/18 11:00 02/15/18 12:00 02/15/18 15:00 Temperature 98.6 F Pulse Rate 98 H 91 H 92 H Respiratory Rate 18 Blood Pressure 135/75 Pulse Oximetry 95 02/15/18 16:00 02/15/18 19:00 02/15/18 20:00 Temperature 97.7 F 98 F Pulse Rate 86 96 H 93 H Respiratory Rate 18 22 Blood Pressure 138/73 129/70 Pulse Oximetry 97 99 02/15/18 21:19 02/15/18 23:00 02/15/18 23:52 Temperature 97.7 F Pulse Rate 86 93 H Respiratory Rate 18 20 Blood Pressure 115/73 Pulse Oximetry 95 02/16/18 03:00 02/16/18 03:46 02/16/18 09:04 Temperature 97.5 F L Pulse Rate 84 92 H 101 H Respiratory Rate 20 22 Blood Pressure 136/74 149/87 H Pulse Oximetry 96 100 Intake & Output 02/15/18 02/16/18 02/16/18 18:59 06:59 18:59 Intake Total 1959 1480 / 1480 Balance 1959 1480 / 1480 Weight 56.8 kg Intake: IV 1000 / 1000 1000 / 1000 NS Inj 1,000 ML @ 84 mls/hr IV. 1000 / 1000 1000 / 1000 CONT .[id number] [facility] Rx#:[id number] Oral 960 / 960 480 / 480 Other: # Voids 6 3 Date of Last Bowel Movement 02/15/18 02/14/18 # Bowel Movements 6 2 Result Diagrams: 02/16/18 05:17 02/16/18 05:17 Laboratory Results: Laboratory Results - last 24 hr 02/14/18 02/15/18 02/15/18 14:05 08:50 11:30 WBC 1.0 L RBC 2.17 L Hgb 7.4 L Hct 21.8 L MCV 100.7 H MCH 34.1 H MCHC 33.8 RDW 21.1 H Plt Count 80 L MPV 8.2 Prelim Diff (Auto) Slide review pending Neut % (Auto) 70.0 Lymph % (Auto) 3.0 L [place] % (Auto) 26.3 H Eos % (Auto) 0.5 Baso % (Auto) 0.2 Neut # (Auto) 0.7 L Lymph # (Auto) 0.0 L [place] # (Auto) 0.3 Eos # (Auto) 0.0 Baso # (Auto) 0.0 WBC Differential Manual diff final Seg Neuts % (Manual) 61 Band Neuts % (Manual) 22 H Lymphocytes % (Manual) 7 L Monocytes % (Manual) 9 H Eosinophils % (Manual) 1 Abs Neuts (Manual) 0.8 L Nucleated RBCs/100 WBC 1 H Differential Comment . Toxic Granulation 2+ H Dohle Bodies Present H Platelet Estimate Low L Platelet Morphology Normal Tear Drop Cells Ovalocytes 1+ H Sodium Potassium Chloride Carbon Dioxide Anion Gap BUN Creatinine Estimated GFR Random Glucose Calcium Prot Corrected Calcium Total Bilirubin AST ALT Alkaline Phosphatase Total Protein Albumin Urine Color Yellow Urine Clarity Cloudy H Urine pH 6.0 Ur Specific [place] 1.006 Urine Protein Negative Urine Glucose (UA) Negative Urine Ketones Trace H Urine Occult Blood Moderate H Urine Nitrate Negative Urine Bilirubin Negative Urine Urobilinogen Less than 2 Ur Leukocyte Esterase Large H Urine RBC 31 H Urine WBC 99 H Urine WBC Clumps Moderate H Urine Bacteria Many H Hyaline Casts 12 Urine Mucus Few H Micro UA Comment Culture indicated Urine Culture Comments Culture indicated Stl C.difficile Tox PCR Negative St C. diff Tox Epid 027 Negative 02/15/18 02/16/18 02/16/18 11:30 05:17 05:17 WBC 2.2 L D RBC 2.13 L Hgb 7.2 L Hct 21.4 L MCV 100.6 H MCH 34.0 MCHC 33.8 RDW 20.9 H Plt Count 70 L MPV 8.1 Prelim Diff (Auto) Slide review pending Neut % (Auto) 84.0 H Lymph % (Auto) 3.0 L [place] % (Auto) 12.5 H Eos % (Auto) 0.2 Baso % (Auto) 0.3 Neut # (Auto) 1.8 Lymph # (Auto) 0.1 L [place] # (Auto) 0.3 Eos # (Auto) 0.0 Baso # (Auto) 0.0 WBC Differential Manual diff final Seg Neuts % (Manual) 56 Band Neuts % (Manual) 40 H Lymphocytes % (Manual) 2 L Monocytes % (Manual) 2 Eosinophils % (Manual) Abs Neuts (Manual) 2.1 Nucleated RBCs/100 WBC Differential Comment . Toxic Granulation 1+ H Dohle Bodies Platelet Estimate Low L Platelet Morphology Normal Tear Drop Cells 1+ H Ovalocytes 1+ H Sodium 139 141 Potassium 3.7 D 3.8 Chloride 109 H 111 H Carbon Dioxide 20.6 L 21.3 Anion Gap 9 9 BUN 14 13 Creatinine 0.94 0.77 Estimated GFR 58 L 73 L Random Glucose 84 103 Calcium 6.6 L* D 6.7 L* Prot Corrected Calcium 8.1 L 8.3 L Total Bilirubin 0.5 0.4 AST 17 13 L ALT 8 L 9 L Alkaline Phosphatase 36 L 37 L Total Protein 4.3 L 4.1 L Albumin 1.6 L 1.5 L Urine Color Urine Clarity Urine pH Ur Specific [place] Urine Protein Urine Glucose (UA) Urine Ketones Urine Occult Blood Urine Nitrate Urine Bilirubin Urine Urobilinogen Ur Leukocyte Esterase Urine RBC Urine WBC Urine WBC Clumps Urine Bacteria Hyaline Casts Urine Mucus Micro UA Comment Urine Culture Comments Stl C.difficile Tox PCR St C. diff Tox Epid 027 Culture Results: Microbiology 02/14/18 14:05 Urine Culture - Preliminary Clean Catch Urine gram negative rods 02/14/18 12:30 Aerobic Blood Culture - Preliminary Blood - Peripheral No growth in 1 day Anaerobic Blood Culture - Preliminary No growth in 1 day 02/14/18 12:35 Aerobic Blood Culture - Preliminary Blood - Peripheral No growth in 1 day Anaerobic Blood Culture - Preliminary No growth in 1 day Medications: Active Medications Generic Name Dose Route Start Last Admin Trade Name Freq PRN Reason Stop Dose Admin Alprazolam 0.5 mg 02/14/18 16:09 02/16/18 09:17 Xanax PO 0.5 mg BID PRN Administration Anxiety Apixaban 2.5 mg 02/14/18 21:00 02/16/18 09:16 Eliquis PO 2.5 mg BID ANDRY Administration Famotidine 20 mg 02/15/18 09:00 02/16/18 09:16 Pepcid PO 20 mg DAILY ANDRY Administration Gabapentin 100 mg 02/14/18 18:00 02/16/18 09:17 Neurontin PO 100 mg TID ANDRY Administration Hydrocortisone Acetate 30 mg 02/15/18 09:00 02/16/18 09:18 Cortef PO 30 mg DAILY ANDRY Administration Hydrocortisone Acetate 20 mg 02/15/18 12:00 09/16/18 14:24 Cortef PO 20 mg DAILY@1200 ANDRY Administration Sodium Chloride 1,000 mls @ 84 mls/hr 02/14/18 15:30 02/16/18 03:22 Ns Inj IV.CONT 84 mls/hr .[id number] [facility] Administration Levothyroxine Sodium 75 mcg 02/15/18 06:00 02/16/18 06:00 Synthroid PO 75 mcg DAILY@0600 AND[facility] Administration Magnesium Oxide 200 mg 02/15/18 09:00 02/16/18 09:17 Mag-Ox PO 200 mg DAILY ANDRY Administration Morphine Sulfate 15 mg 02/15/18 11:47 02/16/18 07:19 Msir PO 15 mg Q4H PRN Administration Acute Pain Multi-Ingredient Mouthwash/Gargle 5 ml 02/15/18 13:00 02/16/18 09:15 Magic Mouthwash Adult Liq SWISH-SWAL 5 ml QID ANDRY Administration Mupirocin 1 applicatio 02/14/18 21:00 02/16/18 09:19 Bactroban 2% Oint TOPICAL Not Given BID ANDRY Oxycodone HCl 10 mg 02/14/18 21:00 02/16/18 09:16 Oxycontin Cr PO 10 mg Q12HR ANDRY Administration Silver Sulfadiazine 1 applicatio 02/14/18 21:00 02/16/18 09:19 Silvadine 1% Cream (400 Gm) TOPICAL 1 applicatio BID ANDRY Administration Vancomycin HCl 500 mg 02/15/18 13:00 02/16/18 09:19 Vancomycin Po PO 500 mg QID ANDRY Administration Objective Remarks: GENERAL: Elderly ill-appearing female patient, lying in bed, in no acute distress. SKIN: Radiation induced skin discoloration to pelvic area, erythema to perianal area. + Silvadene ointment in place. HEAD: Normocephalic. EYES: No scleral icterus. No injection or drainage. MOUTH: [place], moist oral mucosa, + diffuse mucosal lesions. NECK: Supple, trachea midline. CARDIOVASCULAR: Regular rate and rhythm without murmurs. RESPIRATORY: Anterior breath sounds equal bilaterally. Non-labored on RA. GASTROINTESTINAL: Abdomen soft, non-tender, nondistended. EXTREMITIES: No cyanosis, or edema. MUSCULOSKELETAL: Adequate muscle tone. NEUROLOGICAL: No obvious focal deficit. Awake, alert, and oriented x3. PSYCHIATRIC: Appropriate mood and affect; insight and judgment normal. Assessment/Plan - Plan Ms. Whalen is a pleasant 77-year-old female patient currently undergoing treatment for locally advanced anal squamous cell carcinoma. Patient receiving combined chemo radiation therapy. Initial treatment was initiated in November 2017 , 2 cycles of 5FU and mitomycin, cycle #2 was initiated on 02/03/2018. She has 7 fractions of radiation remaining. She has had C. difficile colitis related to chemotherapy myelosuppression. She presented to the ER with reports of fevers, chills, diarrhea and weakness. She reports bright red blood in her stool. The patient is on anticoagulation with Eliquis with a history of DVT, pulmonary embolism and IVC filter placement. Plan: 1. Anal squamous cell carcinoma, currently being treated with combined chemo- radiation. 2. Radiation related mucositis and skin breakdown in the perianal area. Cleanse the area thoroughly after each BM. Continue to rotate Silvadene application with nystatin every other day. 3. Neutropenia, resolving. S/P neulasta. May discontinue neutropenic precautions. 4. Thrombocytopenia, platelet count 70,000 today. 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 She denies any further episodes of rectal bleeding. We will continue to monitor platelet count and if it drops below 50 K or patient experiences bleeding we will hold Eliquis. Continue to monitor for bleeding. 5. Diarrhea, C. difficile negative, however could be false negative due to antibiotic therapy. Per infectious disease we will continue to treat regardless of negative testing. Subjectively reports 2 episodes today. Continue to monitor hydration and electrolyte status. 6. We will repeat CBC in the a.m. - Attending Statement The exam, history, and the medical decision-making described in the above note were completed with the assistance of the mid-level provider. I reviewed and agree with the findings presented. I attest that I had a [id number] encounter with the patient on the same day, and personally performed and documented my assessment and findings in the medical record. Patient is feeling better. She is afebrile. She has one formed stool and a few loose stool today. She denies any abdominal pain. Her rectal pain is controlled. She is requesting IV morphine to use as needed if her pain is not controlled with oral morphine. We will give her IV morphine as needed if her pain level trends above 5. Her neutropenia has improved. We will give her another Neupogen today. Continue to monitor CBC. Continue antibiotics per infectious disease.
[2018-02-16] MEDS ORDERED: Filgrastim Inj 300 MCG/ML Vial SQ ONE (11:00)
--- NOTE | 2018-02-16 14:07 | P.PN ---
Subjective Interval history: Follow-up recurrent C. difficile diarrhea? February 15, 2018-patient seen and examined, still with diarrheal episode however improving since admission. Afebrile. No nausea or vomiting. February 16, 2018-patient seen and examined, reported improvement diarrhea. States she had some semi-formed stool last night. Currently on p.o. vancomycin. Physical Exam Vital signs: Vital Signs 02/15/18 15:00 02/15/18 16:00 02/15/18 19:00 Temperature 97.7 F Pulse Rate 92 H 86 96 H Respiratory Rate 18 Blood Pressure 138/73 Pulse Oximetry 97 02/15/18 20:00 02/15/18 21:19 02/15/18 23:00 Temperature 98 F Pulse Rate 93 H 86 Respiratory Rate 22 18 Blood Pressure 129/70 Pulse Oximetry 99 02/15/18 23:52 02/16/18 03:00 02/16/18 03:46 Temperature 97.7 F Pulse Rate 93 H 84 92 H Respiratory Rate 20 20 Blood Pressure 115/73 136/74 Pulse Oximetry 95 96 02/16/18 09:04 02/16/18 11:22 Temperature 97.5 F L 97.8 F Pulse Rate 101 H 86 Respiratory Rate 22 20 Blood Pressure 149/87 H 126/71 Pulse Oximetry 100 100 Intake & Output 02/15/18 02/16/18 02/16/18 18:59 06:59 18:59 Intake Total 1959 1480 / 1480 Balance 1959 1480 / 1480 Weight 56.8 kg Intake: IV 1000 / 1000 1000 / 1000 NS Inj 1,000 ML @ 84 mls/hr IV. 1000 / 1000 1000 / 1000 CONT .[id number] Rx#:[id number] Oral 960 / 960 480 / 480 Other: # Voids 6 3 Date of Last Bowel Movement 02/15/18 02/14/18 # Bowel Movements 6 2 Narrative: GENERAL: NAD SKIN: Warm and dry. HEAD: Normocephalic. EYES: No scleral icterus. No injection or drainage. NECK: Supple, trachea midline. No JVD or lymphadenopathy. CARDIOVASCULAR: Regular rate and rhythm without murmurs, gallops, or rubs. RESPIRATORY: Breath sounds equal bilaterally. No accessory muscle use. GASTROINTESTINAL: Abdomen soft, non-tender, nondistended. MUSCULOSKELETAL: No cyanosis, or edema. BACK: Nontender without obvious deformity. No CVA tenderness. Results - Labs CBC & Chem 7: 02/16/18 05:17 02/16/18 05:17 Laboratory Results - last 24 hr 02/14/18 02/16/18 02/16/18 14:05 05:17 05:17 WBC 2.2 L D RBC 2.13 L Hgb 7.2 L Hct 21.4 L MCV 100.6 H MCH 34.0 MCHC 33.8 RDW 20.9 H Plt Count 70 L MPV 8.1 Prelim Diff (Auto) Slide review pending Neut % (Auto) 84.0 H Lymph % (Auto) 3.0 L [place] % (Auto) 12.5 H Eos % (Auto) 0.2 Baso % (Auto) 0.3 Neut # (Auto) 1.8 Lymph # (Auto) 0.1 L [place] # (Auto) 0.3 Eos # (Auto) 0.0 Baso # (Auto) 0.0 WBC Differential Manual diff final Seg Neuts % (Manual) 56 Band Neuts % (Manual) 40 H Lymphocytes % (Manual) 2 L Monocytes % (Manual) 2 Abs Neuts (Manual) 2.1 Differential Comment . Toxic Granulation 1+ H Platelet Estimate Low L Platelet Morphology Normal Tear Drop Cells 1+ H Ovalocytes 1+ H Sodium 141 Potassium 3.8 Chloride 111 H Carbon Dioxide 21.3 Anion Gap 9 BUN 13 Creatinine 0.77 Estimated GFR 73 L Random Glucose 103 Calcium 6.7 L* Prot Corrected Calcium 8.3 L Total Bilirubin 0.4 AST 13 L ALT 9 L Alkaline Phosphatase 37 L Total Protein 4.1 L Albumin 1.5 L Urine Color Yellow Urine Clarity Cloudy H Urine pH 6.0 Ur Specific [place] 1.006 Urine Protein Negative Urine Glucose (UA) Negative Urine Ketones Trace H Urine Occult Blood Moderate H Urine Nitrate Negative Urine Bilirubin Negative Urine Urobilinogen Less than 2 Ur Leukocyte Esterase Large H Urine RBC 31 H Urine WBC 99 H Urine WBC Clumps Moderate H Urine Bacteria Many H Hyaline Casts 12 Urine Mucus Few H Micro UA Comment Culture indicated Urine Culture Comments Culture indicated Microbiology 02/14/18 14:05 Clean Catch Urine Urine Culture - Final Klebsiella pneumoniae Pseudomonas aeruginosa 02/14/18 12:30 Blood - Peripheral Aerobic Blood Culture - Preliminary No growth in 2 days 02/14/18 12:30 Blood - Peripheral Anaerobic Blood Culture - Preliminary No growth in 2 days 02/14/18 12:35 Blood - Peripheral Aerobic Blood Culture - Preliminary No growth in 2 days 02/14/18 12:35 Blood - Peripheral Anaerobic Blood Culture - Preliminary No growth in 2 days - Procedures none Assessment and Plan - Assessment (1) Rectal cancer Code(s): C20 - Malignant neoplasm of rectum Status: Acute (2) C. difficile diarrhea Code(s): A04.72 - Enterocolitis due to Clostridium difficile, not specified as recurrent Status: Acute (3) Neutropenia Code(s): D70.9 - Neutropenia, unspecified Status: Acute - Plan 77-year-old female with Recurrent C. difficile colitis/diarrhea C. difficile PCR negative Currently on vancomycin p.o. 500mg QID Appreciate input from ID Continue IV fluid hydration UTI? Urine culture positive for Klebsiella pneumonia and Pseudomonas Will need repeat UA with C&S; avoid straight cath secondary to diarrheal episode Acute renal injury Renal indices improving Prerenal, secondary to dehydration due to diarrhea Continue with IV fluid hydration and monitor BUN and creatinine Chemo related neutropenia Oncology was consulted, and patient is currently on Neupogen daily Anal squamous cell carcinoma Patient completing chemo therapy Management per oncology Continue pain medication Other chronic medical conditions Continue outpatient medications DVT prophylaxis: Eliquis
[2018-02-16] MEDS: Benzonatate 100 MG Capsule PO PRN (18:19)
[2018-02-16] MEDS: Morphine Inj 4 MG/ML Vial IV.PUSH PRN ×2 (18:19→22:39)
[2018-02-17] MEDS: Morphine Sulfate 15 MG IR Tablet PO PRN ×6 (00:48→23:33)
[2018-02-17] MEDS: Nystatin/Diphenhydramine/Lidocaine Mouthwash (Adult) 120 ML Botttle SWISH-SWAL SCH ×5 (00:57→20:59)
[2018-02-17] MEDS: Sod Chloride 0.9% Inj 1,000 ML IV.CONT SCH ×2 (02:54→16:08)
[2018-02-17] MEDS: Morphine Inj 4 MG/ML Vial IV.PUSH PRN ×4 (02:54→21:00)
[2018-02-17] MEDS: Benzonatate 100 MG Capsule PO PRN ×3 (03:14→23:33)
[2018-02-17] MEDS: Levothyroxine 75 MCG Tablet PO SCH (05:13)
[2018-02-17 05:56] LABS: Baso % (Auto) 0.1 % (0.0-2.0); Eos % (Auto) 0.1 % (0.0-4.0); Hemoglobin 7.1 gm/dL (11.6-15.3); Lymph # (Auto) 0.1 th/mm3 (1.0-4.8); Lymph % (Auto) 1.8 % (9.0-44.0); Mean Corpuscular HGB Conc 33.9 % (32.0-36.0); Mean Corpuscular Hemoglobin 33.7 pg (27.0-34.0); Mean Corpuscular Volume 99.5 fL (80.0-100.0); Mean Platelet Volume 8.7 fL (7.0-11.0); Mono # (Auto) 0.3 th/mm3 (0.0-0.9); Mono % (Auto) 7.8 % (0.0-8.0); Neut % (Auto) 90.2 % (16.0-70.0); Platelet Count 74 th/mm3 (150-450); Red Blood Count 2.11 mil/mm3 (4.00-5.30); Red Cell Distribution Width 21.5 % (11.6-17.2); White Blood Count 4.4 th/mm3 (4.0-11.0)
[2018-02-17 09:10] LABS: Lymphocytes 1 % (9-44); Monocytes 5 % (0-8); Tallied Nucleated RBC 1 (0-0); Toxic Granulation 3+
[2018-02-17 09:11] LABS: Platelet Morphology Normal (Normal)
[2018-02-17] MEDS: Hydrocortisone 10 MG Tablet PO SCH ×3 (10:01→18:34)
[2018-02-17] MEDS: Gabapentin 100 MG Capsule PO SCH ×3 (10:01→18:04)
[2018-02-17] MEDS: oxyCODONE 10 MG Controlled Release Tablet PO SCH ×2 (10:01→21:00)
[2018-02-17] MEDS: Famotidine 20 MG Tablet PO SCH (10:02)
[2018-02-17] MEDS: Magnesium Oxide 400 MG Tablet PO SCH (10:02)
[2018-02-17] MEDS: Silver Sulfadiazine 1% Ceam 400 GM Jar TOPICAL SCH ×2 (10:02→23:34)
--- NOTE | 2018-02-17 11:00 | P.PN ---
Subjective Interval history: Follow-up recurrent C. difficile diarrhea? February 15, 2018-patient seen and examined, still with diarrheal episode however improving since admission. Afebrile. No nausea or vomiting. February 16, 2018-patient seen and examined, reported improvement diarrhea. States she had some semi-formed stool last night. Currently on p.o. vancomycin. February 17, 2018-patient seen and examined, reports some improvement of diarrheal episode. Afebrile. Physical Exam Vital signs: Vital Signs 02/16/18 11:00 02/16/18 11:22 02/16/18 14:57 Temperature 97.8 F 98.0 F Pulse Rate 94 H 86 78 Respiratory Rate 20 16 Blood Pressure 126/71 134/80 Pulse Oximetry 100 97 02/16/18 15:00 02/16/18 20:25 02/17/18 00:51 Temperature 99.2 F 98.5 F Pulse Rate 82 75 78 Respiratory Rate 20 18 Blood Pressure 155/90 H 147/83 H Pulse Oximetry 93 L 98 02/17/18 05:19 02/17/18 09:57 Temperature 97.8 F 97.8 F Pulse Rate 75 81 Respiratory Rate 18 18 Blood Pressure 131/77 146/77 H Pulse Oximetry 99 99 Intake & Output 02/16/18 02/17/18 02/17/18 18:59 06:59 18:59 Intake Total 1800 / 1800 1430 / 1430 Balance 1800 / 1800 1430 / 1430 Weight 57.9 kg Intake: IV 1000 / 1000 990 / 990 NS Inj 1,000 ML @ 84 mls/hr IV. 1000 / 1000 990 / 990 CONT .[id number] [facility] Rx#:[id number] Oral 800 / 800 440 / 440 Other: # Voids 2 # Incontinent Voids 3 Date of Last Bowel Movement 02/16/18 02/16/18 02/17/18 # Bowel Movements 11 # Incontinent Bowel Movements 6 Narrative: GENERAL: NAD SKIN: Warm and dry. HEAD: Normocephalic. EYES: No scleral icterus. No injection or drainage. NECK: Supple, trachea midline. No JVD or lymphadenopathy. CARDIOVASCULAR: Regular rate and rhythm without murmurs, gallops, or rubs. RESPIRATORY: Breath sounds equal bilaterally. No accessory muscle use. GASTROINTESTINAL: Abdomen soft, non-tender, nondistended. MUSCULOSKELETAL: No cyanosis, or edema. BACK: Nontender without obvious deformity. No CVA tenderness. Results - Labs CBC & Chem 7: 02/17/18 05:00 02/16/18 05:17 Laboratory Results - last 24 hr 02/14/18 02/17/18 14:05 05:00 WBC 4.4 D RBC 2.11 L Hgb 7.1 L Hct 21.0 L MCV 99.5 MCH 33.7 MCHC 33.9 RDW 21.5 H Plt Count 74 L MPV 8.7 Prelim Diff (Auto) Slide review pending Neut % (Auto) 90.2 H Lymph % (Auto) 1.8 L [place] % (Auto) 7.8 Eos % (Auto) 0.1 Baso % (Auto) 0.1 Neut # (Auto) 4.0 Lymph # (Auto) 0.1 L [place] # (Auto) 0.3 Eos # (Auto) 0.0 Baso # (Auto) 0.0 WBC Differential Manual diff final Seg Neuts % (Manual) 73 H Band Neuts % (Manual) 21 H Lymphocytes % (Manual) 1 L Monocytes % (Manual) 5 Abs Neuts (Manual) 4.1 Nucleated RBCs/100 WBC 1 H Differential Comment . Toxic Granulation 3+ H Platelet Estimate Low L Platelet Morphology Normal Urine Color Yellow Urine Clarity Cloudy H Urine pH 6.0 Ur Specific [place] 1.006 Urine Protein Negative Urine Glucose (UA) Negative Urine Ketones Trace H Urine Occult Blood Moderate H Urine Nitrate Negative Urine Bilirubin Negative Urine Urobilinogen Less than 2 Ur Leukocyte Esterase Large H Urine RBC 31 H Urine WBC 99 H Urine WBC Clumps Moderate H Urine Bacteria Many H Hyaline Casts 12 Urine Mucus Few H Micro UA Comment Culture indicated Urine Culture Comments Culture indicated Microbiology 02/14/18 14:05 Clean Catch Urine Urine Culture - Final Klebsiella pneumoniae Pseudomonas aeruginosa 02/14/18 12:30 Blood - Peripheral Aerobic Blood Culture - Preliminary No growth in 2 days 02/14/18 12:30 Blood - Peripheral Anaerobic Blood Culture - Preliminary No growth in 2 days 02/14/18 12:35 Blood - Peripheral Aerobic Blood Culture - Preliminary No growth in 2 days 02/14/18 12:35 Blood - Peripheral Anaerobic Blood Culture - Preliminary No growth in 2 days - Procedures none Assessment and Plan - Assessment (1) Rectal cancer Code(s): C20 - Malignant neoplasm of rectum Status: Acute (2) C. difficile diarrhea Code(s): A04.72 - Enterocolitis due to Clostridium difficile, not specified as recurrent Status: Acute (3) Neutropenia Code(s): D70.9 - Neutropenia, unspecified Status: Acute - Plan 77-year-old female with Recurrent C. difficile colitis/diarrhea C. difficile PCR negative Currently on vancomycin p.o. 500mg QID Appreciate input from ID Continue IV fluid hydration UTI? Urine culture positive for Klebsiella pneumonia and Pseudomonas Will need repeat UA with C&S; avoid straight cath secondary to diarrheal episode Acute renal injury Renal indices improving Prerenal, secondary to dehydration due to diarrhea Continue with IV fluid hydration and monitor BUN and creatinine Chemo related neutropenia Oncology was consulted, and patient is currently on Neupogen daily Anal squamous cell carcinoma Patient completing chemo therapy Management per oncology Continue pain medication Other chronic medical conditions Continue outpatient medications DVT prophylaxis: Zakiaqustaci Likely discharge in a.m. February 18, 2018
--- NOTE | 2018-02-17 11:36 | P.PNONC ---
Subjective Interval history: Afebrile. Patient lying in bed, in no acute distress. Her daughters at the bedside. She is hopeful to go home tomorrow. Reports one large diarrhea bowel movement this morning after eating breakfast. Also, with urinary incontinence. Objective Vital Signs/Intake & Output: Vital Signs 02/16/18 14:57 02/16/18 15:00 02/16/18 20:25 Temperature 98.0 F 99.2 F Pulse Rate 78 82 75 Respiratory Rate 16 20 Blood Pressure 134/80 155/90 H Pulse Oximetry 97 93 L 02/17/18 00:51 02/17/18 05:19 02/17/18 09:57 Temperature 98.5 F 97.8 F 97.8 F Pulse Rate 78 75 81 Respiratory Rate 18 18 18 Blood Pressure 147/83 H 131/77 146/77 H Pulse Oximetry 98 99 99 Intake & Output 02/16/18 02/17/18 02/17/18 18:59 06:59 18:59 Intake Total 1800 / 1800 1430 / 1430 Balance 1800 / 1800 1430 / 1430 Weight 57.9 kg Intake: IV 1000 / 1000 990 / 990 NS Inj 1,000 ML @ 84 mls/hr IV. 1000 / 1000 990 / 990 CONT .[id number] [facility] Rx#:[id number] Oral 800 / 800 440 / 440 Other: # Voids 2 # Incontinent Voids 3 Date of Last Bowel Movement 02/16/18 02/16/18 02/17/18 # Bowel Movements 11 # Incontinent Bowel Movements 6 Result Diagrams: 02/17/18 05:00 02/16/18 05:17 Laboratory Results: Laboratory Results - last 24 hr 02/14/18 02/17/18 14:05 05:00 WBC 4.4 D RBC 2.11 L Hgb 7.1 L Hct 21.0 L MCV 99.5 MCH 33.7 MCHC 33.9 RDW 21.5 H Plt Count 74 L MPV 8.7 Prelim Diff (Auto) Slide review pending Neut % (Auto) 90.2 H Lymph % (Auto) 1.8 L [place] % (Auto) 7.8 Eos % (Auto) 0.1 Baso % (Auto) 0.1 Neut # (Auto) 4.0 Lymph # (Auto) 0.1 L [place] # (Auto) 0.3 Eos # (Auto) 0.0 Baso # (Auto) 0.0 WBC Differential Manual diff final Seg Neuts % (Manual) 73 H Band Neuts % (Manual) 21 H Lymphocytes % (Manual) 1 L Monocytes % (Manual) 5 Abs Neuts (Manual) 4.1 Nucleated RBCs/100 WBC 1 H Differential Comment . Toxic Granulation 3+ H Platelet Estimate Low L Platelet Morphology Normal Urine Color Yellow Urine Clarity Cloudy H Urine pH 6.0 Ur Specific [place] 1.006 Urine Protein Negative Urine Glucose (UA) Negative Urine Ketones Trace H Urine Occult Blood Moderate H Urine Nitrate Negative Urine Bilirubin Negative Urine Urobilinogen Less than 2 Ur Leukocyte Esterase Large H Urine RBC 31 H Urine WBC 99 H Urine WBC Clumps Moderate H Urine Bacteria Many H Hyaline Casts 12 Urine Mucus Few H Micro UA Comment Culture indicated Urine Culture Comments Culture indicated Culture Results: Microbiology 02/14/18 12:30 Aerobic Blood Culture - Preliminary Blood - Peripheral No growth in 3 days Anaerobic Blood Culture - Preliminary No growth in 3 days 02/14/18 12:35 Aerobic Blood Culture - Preliminary Blood - Peripheral No growth in 3 days Anaerobic Blood Culture - Preliminary No growth in 3 days 02/14/18 14:05 Urine Culture - Final Clean Catch Urine Klebsiella pneumoniae Pseudomonas aeruginosa Medications: Active Medications Generic Name Dose Route Start Last Admin Trade Name Freq PRN Reason Stop Dose Admin Alprazolam 0.5 mg 02/14/18 16:09 02/16/18 09:17 Xanax PO 0.5 mg BID PRN Administration Anxiety Apixaban 2.5 mg 02/14/18 21:00 02/17/18 10:02 Eliquis PO 2.5 mg BID ANDRY Administration Benzonatate 100 mg 02/16/18 17:14 02/17/18 03:14 Tessalon Perles PO 100 mg Q8H PRN Administration COUGH Famotidine 20 mg 02/15/18 09:00 02/17/18 10:02 Pepcid PO 20 mg DAILY ANDRY Administration Gabapentin 100 mg 02/14/18 18:00 02/17/18 10:01 Neurontin PO 100 mg TID ANDRY Administration Hydrocortisone Acetate 30 mg 02/15/18 09:00 02/17/18 10:01 Cortef PO 30 mg DAILY ANDRY Administration Hydrocortisone Acetate 20 mg 02/15/18 12:00 02/16/18 12:47 Cortef PO 20 mg DAILY@1200 ANDRY Administration Sodium Chloride 1,000 mls @ 84 mls/hr 02/14/18 15:30 02/17/18 02:54 Ns Inj IV.CONT 84 mls/hr .[id number] ANDRY Administration Levothyroxine Sodium 75 mcg 02/15/18 06:00 02/17/18 05:13 Synthroid PO 75 mcg DAILY@0600 ANDRY Administration Magnesium Oxide 200 mg 02/15/18 09:00 02/17/18 10:02 Mag-Ox PO 200 mg DAILY ANDRY Administration Morphine Sulfate 15 mg 02/15/18 11:47 02/17/18 10:01 Msir PO 15 mg Q4H PRN Administration Acute Pain Morphine Sulfate 2 mg 02/16/18 15:00 02/17/18 02:54 Morphine Inj IV.PUSH 2 mg Q4H PRN Administration pain 7-10 Multi-Ingredient Mouthwash/Gargle 5 ml 02/15/18 13:00 02/17/18 10:00 Magic Mouthwash Adult Liq SWISH-SWAL 5 ml QID ANDRY Administration Mupirocin 1 applicatio 02/14/18 21:00 02/17/18 10:02 Bactroban 2% Oint TOPICAL 1 applicatio BID ANDRY Administration Nystatin 1 applicatio 02/16/18 13:00 02/17/18 10:02 Mycostatin Cream TOPICAL 1 applicatio QID ANDRY Administration Oxycodone HCl 10 mg 02/14/18 21:00 02/17/18 10:01 Oxycontin Cr PO 10 mg Q12HR ANDRY Administration Silver Sulfadiazine 1 applicatio 02/14/18 21:00 02/17/18 10:02 Silvadine 1% Cream (400 Gm) TOPICAL 1 applicatio BID ANDRY Administration Vancomycin HCl 500 mg 02/15/18 13:00 02/17/18 10:00 Vancomycin Po PO 500 mg QID ANDRY Administration Objective Remarks: GENERAL: Elderly ill-appearing female patient, lying in bed, in no acute distress. SKIN: Radiation induced skin discoloration to pelvic area, erythema to perianal area. + ointment in place. HEAD: Normocephalic. EYES: No scleral icterus. No injection or drainage. MOUTH: [place], moist oral mucosa. NECK: Supple, trachea midline. CARDIOVASCULAR: Regular rate and rhythm without murmurs. RESPIRATORY: Anterior breath sounds equal bilaterally. Non-labored. GASTROINTESTINAL: Abdomen soft, non-tender, nondistended. EXTREMITIES: No cyanosis, or edema. MUSCULOSKELETAL: Adequate muscle tone. NEUROLOGICAL: No obvious focal deficit. Awake, alert, and oriented x3. PSYCHIATRIC: Appropriate mood and affect; insight and judgment normal. Assessment/Plan - Plan Ms. Whalen is a pleasant 77-year-old female patient currently undergoing treatment for locally advanced anal squamous cell carcinoma. Patient receiving combined chemo radiation therapy. Initial treatment was initiated in November 2017 , 2 cycles of 5FU and mitomycin, cycle #2 was initiated on 02/03/2018. She has 7 fractions of radiation remaining. She has had C. difficile colitis related to chemotherapy myelosuppression. She presented to the ER with reports of fevers, chills, diarrhea and weakness. She reports bright red blood in her stool. The patient is on anticoagulation with Eliquis with a history of DVT, pulmonary embolism and IVC filter placement. Plan: 1. Anal squamous cell carcinoma, currently being treated with combined chemo- radiation. 2. Radiation related mucositis and skin breakdown in the perianal area. Cleanse the area thoroughly after each BM. Continue to rotate Silvadene application with nystatin every other day. 3. Neutropenia, resolved. Continue daily G-CSF support. 4. Thrombocytopenia, platelet count increased to 74,000 today. 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 She denies any further episodes of rectal bleeding. Continue to monitor for bleeding. 5. Diarrhea, C. difficile negative, however could be false negative due to antibiotic therapy. Per infectious disease we will continue to treat regardless of negative testing. Subjectively reports 1 episode today. Continue to monitor hydration and electrolyte status. 6. We will repeat CBC and CMP in the a.m. 7. Urine culture grew Klebsiella and pneumoniae and Pseudomonas. Spoke with , infectious disease. This is considered a contaminant and no additional antibiotics are warranted at this time. - Attending Statement The exam, history, and the medical decision-making described in the above note were completed with the assistance of the mid-level provider. I reviewed and agree with the findings presented. I attest that I had a [id number] encounter with the patient on the same day, and personally performed and documented my assessment and findings in the medical record. Patient is feeling better today and stronger. However she still has diarrhea. The neutropenia has resolved. Her blood count has trended up. We will add Imodium for the diarrhea. Continue to titrate pain medication. Continue supportive care. Continue antibiotics per infectious disease.
[2018-02-17] MEDS: Filgrastim Inj 300 MCG/ML Vial SQ SCH (14:10)
[2018-02-17 21:27] LABS: Bacteria,Urine Many /hpf; Bilirubin,Urine Negative (Negative); Clarity,Urine Turbid (Clear); Color,Urine Yellow (Yellw/Straw); Glucose,Urine (UA) Negative (Negative); Leukocyte Esterase,Urine Moderate (Negative); Mucus,Urine Few /lpf (Occasional); Nitrite,Urine Negative (Negative); Squamous Epithelial Cell,Urine 6 /hpf (0-5)
[2018-02-18] MEDS: Morphine Inj 4 MG/ML Vial IV.PUSH PRN ×3 (01:10→21:41)
[2018-02-18] MEDS: Sod Chloride 0.9% Inj 1,000 ML IV.CONT SCH ×2 (04:41→15:06)
[2018-02-18] MEDS: Morphine Sulfate 15 MG IR Tablet PO PRN (04:41)
[2018-02-18] MEDS: Levothyroxine 75 MCG Tablet PO SCH ×2 (05:46→06:24)
[2018-02-18] MEDS: ALPRAZolam 0.5 MG Tablet PO PRN (06:23)
[2018-02-18 06:53] LABS: Albumin 1.7 g/dL (3.4-5.0); Anion Gap 9 meq/L (5-15); Aspartate Aminotransferase 14 U/L (15-37); Blood Urea Nitrogen 13 mg/dL (7-18); Calcium 7.5 mg/dL (8.5-10.1); Carbon Dioxide 21.2 meq/L (21.0-32.0); Chloride 114 meq/L (98-107); Glomerular Filtration Rate 62 mL/min (>89); Glucose,Random 65 mg/dL (74-106); Potassium 3.4 meq/L (3.5-5.1); Sodium 144 meq/L (136-145)
[2018-02-18 06:55] LABS: Alanine Aminotransferase 9 U/L (10-53)
[2018-02-18 06:56] LABS: Hematocrit 21.7 % (35.0-46.0); Hemoglobin 7.3 gm/dL (11.6-15.3); Mean Corpuscular HGB Conc 33.8 % (32.0-36.0); Mean Corpuscular Hemoglobin 33.9 pg (27.0-34.0); Mean Corpuscular Volume 100.2 fL (80.0-100.0); Mean Platelet Volume 8.9 fL (7.0-11.0); Platelet Count 75 th/mm3 (150-450); Red Blood Count 2.17 mil/mm3 (4.00-5.30); Red Cell Distribution Width 21.7 % (11.6-17.2); White Blood Count 7.2 th/mm3 (4.0-11.0)
[2018-02-18 06:58] LABS: Alkaline Phosphatase 46 U/L (45-117); Total Protein 4.3 g/dL (6.4-8.2)
[2018-02-18 08:18] LABS: Eosinophils 1 % (0-4); Lymphocytes 4 % (9-44); Monocytes 9 % (0-8); Platelet Morphology Normal (Normal); Tallied Nucleated RBC 1 (0-0)
[2018-02-18] MEDS ORDERED: Petrolatum/Shark Oil/Phenylephrine Oint 60 GM Tube RECTAL PRN (10:00)
[2018-02-18] MEDS: Nystatin/Diphenhydramine/Lidocaine Mouthwash (Adult) 120 ML Botttle SWISH-SWAL SCH ×3 (10:23→18:41)
[2018-02-18] MEDS: Gabapentin 100 MG Capsule PO SCH ×3 (10:24→18:40)
[2018-02-18] MEDS: Famotidine 20 MG Tablet PO SCH (10:24)
[2018-02-18] MEDS: Hydrocortisone 10 MG Tablet PO SCH ×2 (10:24→15:02)
[2018-02-18] MEDS: Magnesium Oxide 400 MG Tablet PO SCH (10:25)
[2018-02-18] MEDS: oxyCODONE 10 MG Controlled Release Tablet PO SCH ×2 (10:25→20:22)
[2018-02-18] MEDS: Benzonatate 100 MG Capsule PO PRN ×2 (10:25→21:44)
[2018-02-18] MEDS: Silver Sulfadiazine 1% Ceam 400 GM Jar TOPICAL SCH ×2 (10:33→20:24)
--- NOTE | 2018-02-18 10:52 | P.PNONC ---
Subjective Interval history: Patient reports approximately 9 watery stools that started approximately 0330 today. She also complains of a hemorrhoid and requests hemorrhoid cream. No other complaints at this time. Objective Vital Signs/Intake & Output: Vital Signs 02/17/18 12:00 02/17/18 16:00 02/17/18 20:00 Temperature 98.2 F 98.4 F 98.0 F Pulse Rate 85 80 82 Respiratory Rate 20 20 20 Blood Pressure 140/83 145/80 H 157/85 H Pulse Oximetry 100 97 96 02/18/18 00:00 02/18/18 04:00 02/18/18 08:00 Temperature 97.9 F 97.8 F 98 F Pulse Rate 80 106 H 89 Respiratory Rate 19 19 20 Blood Pressure 139/72 155/80 H 144/77 H Pulse Oximetry 99 99 95 Intake & Output 02/17/18 02/18/18 02/18/18 18:59 06:59 18:59 Intake Total 2500 / 2500 990 / 990 Balance 2500 / 2500 990 / 990 Weight 58.2 kg Intake: IV 1000 / 1000 990 / 990 NS Inj 1,000 ML @ 84 mls/hr IV. 1000 / 1000 990 / 990 CONT .[id number] [facility] Rx#:[id number] Oral 1500 / 1500 Other: # Voids 5 2 Date of Last Bowel Movement 02/17/18 02/17/18 # Bowel Movements 5 1 Result Diagrams: 02/18/18 04:40 02/18/18 04:40 Laboratory Results: Laboratory Results - last 24 hr 02/17/18 02/18/18 02/18/18 18:00 04:40 04:40 WBC 7.2 D RBC 2.17 L Hgb 7.3 L Hct 21.7 L MCV 100.2 H MCH 33.9 MCHC 33.8 RDW 21.7 H Plt Count 75 L MPV 8.9 Prelim Diff (Auto) Manual diff required WBC Differential Manual diff final Seg Neuts % (Manual) 65 Band Neuts % (Manual) 21 H Lymphocytes % (Manual) 4 L Monocytes % (Manual) 9 H Eosinophils % (Manual) 1 Abs Neuts (Manual) 6.2 Nucleated RBCs/100 WBC 1 H Differential Comment . Platelet Estimate Low L Platelet Morphology Normal Sodium 144 Potassium 3.4 L Chloride 114 H Carbon Dioxide 21.2 Anion Gap 9 BUN 13 Creatinine 0.88 Estimated GFR 62 L Random Glucose 65 L Calcium 7.5 L D Total Bilirubin 0.3 AST 14 L ALT 9 L Alkaline Phosphatase 46 Total Protein 4.3 L Albumin 1.7 L Urine Color Yellow Urine Clarity Turbid H Urine pH 6.0 Ur Specific [place] 1.010 Urine Protein 30 H Urine Glucose (UA) Negative Urine Ketones Negative Urine Occult Blood Moderate H Urine Nitrate Negative Urine Bilirubin Negative Urine Urobilinogen Less than 2 Ur Leukocyte Esterase Moderate H Urine RBC 95 H Urine WBC Urine WBC Clumps Many H Ur Squamous Epith Cells 6 Urine Bacteria Many H Urine Mucus Few H Micro UA Comment Culture indicated Ur Microscopic Review Not Reportable Urine Culture Comments Culture indicated Culture Results: Microbiology 02/14/18 12:30 Aerobic Blood Culture - Preliminary Blood - Peripheral No growth in 3 days Anaerobic Blood Culture - Preliminary No growth in 3 days 02/14/18 12:35 Aerobic Blood Culture - Preliminary Blood - Peripheral No growth in 3 days Anaerobic Blood Culture - Preliminary No growth in 3 days 02/14/18 14:05 Urine Culture - Final Clean Catch Urine Klebsiella pneumoniae Pseudomonas aeruginosa Medications: Active Medications Generic Name Dose Route Start Last Admin Trade Name Freq PRN Reason Stop Dose Admin Alprazolam 0.5 mg 02/14/18 16:09 02/18/18 06:23 Xanax PO 0.5 mg BID PRN Administration Anxiety Apixaban 2.5 mg 02/14/18 21:00 02/18/18 10:24 Eliquis PO 2.5 mg BID ANDRY Administration Benzonatate 100 mg 02/16/18 17:14 02/18/18 10:25 Tessalon Perles PO 100 mg Q8H PRN Administration COUGH Famotidine 20 mg 02/15/18 09:00 02/18/18 10:24 Pepcid PO 20 mg DAILY ANDRY Administration Filgrastim 300 mcg 02/17/18 14:00 02/17/18 14:10 Neupogen Inj SQ 300 mcg DAILY@1400 AND[facility] Administration Gabapentin 100 mg 02/14/18 18:00 02/18/18 10:24 Neurontin PO 100 mg TID ANDRY Administration Hydrocortisone Acetate 30 mg 02/15/18 09:00 02/18/18 10:24 Cortef PO 30 mg DAILY ANDRY Administration Hydrocortisone Acetate 20 mg 02/15/18 12:00 02/17/18 18:34 Cortef PO Not Given DAILY@1200 [facility] Sodium Chloride 1,000 mls @ 84 mls/hr 02/14/18 15:30 02/18/18 04:41 Ns Inj IV.CONT 84 mls/hr .[id number] ANDRY Administration Levothyroxine Sodium 75 mcg 02/15/18 06:00 02/18/18 06:24 Synthroid PO 75 mcg DAILY@0600 ANDRY Administration Magnesium Oxide 200 mg 02/15/18 09:00 02/18/18 10:25 Mag-Ox PO 200 mg DAILY ANDRY Administration Morphine Sulfate 15 mg 02/15/18 11:47 02/18/18 04:41 Msir PO 15 mg Q4H PRN Administration Acute Pain Morphine Sulfate 2 mg 02/16/18 15:00 02/18/18 06:17 Morphine Inj IV.PUSH 2 mg Q4H PRN Administration pain 7-10 Multi-Ingredient Mouthwash/Gargle 5 ml 02/15/18 13:00 02/18/18 10:23 Magic Mouthwash Adult Liq SWISH-SWAL 5 ml QID ANDRY Administration Mupirocin 1 applicatio 02/14/18 21:00 02/17/18 21:41 Bactroban 2% Oint TOPICAL Not Given BID [facility] Nystatin 1 applicatio 02/16/18 13:00 02/18/18 10:23 Mycostatin Cream TOPICAL 1 applicatio QID ANDRY Administration Oxycodone HCl 10 mg 02/14/18 21:00 02/18/18 10:25 Oxycontin Cr PO 10 mg Q12HR ANDRY Administration Silver Sulfadiazine 1 applicatio 02/14/18 21:00 02/18/18 10:33 Silvadine 1% Cream (400 Gm) TOPICAL 1 applicatio BID ANDRY Administration Vancomycin HCl 500 mg 02/15/18 13:00 02/18/18 10:24 Vancomycin Po PO 500 mg QID ANDRY Administration Objective Remarks: GENERAL: Elderly ill-appearing female patient, lying in bed, in no acute distress. SKIN: Radiation induced skin discoloration to pelvic area, erythema to perianal area. + ointment in place. +alopecia. HEAD: Normocephalic. EYES: No scleral icterus. No injection or drainage. MOUTH: [place], moist oral mucosa. NECK: Supple, trachea midline. CARDIOVASCULAR: Regular rate and rhythm without murmurs. RESPIRATORY: Anterior breath sounds equal bilaterally. Non-labored. GASTROINTESTINAL: Abdomen soft, non-tender, nondistended. EXTREMITIES: No cyanosis, or edema. MUSCULOSKELETAL: Adequate muscle tone. NEUROLOGICAL: No obvious focal deficit. Awake, alert, and oriented x3. PSYCHIATRIC: Appropriate mood and affect; insight and judgment normal. Assessment/Plan - Plan Ms. Whalen is a pleasant 77-year-old female patient currently undergoing treatment for locally advanced anal squamous cell carcinoma. Patient receiving combined chemo radiation therapy. Initial treatment was initiated in November 2017 , 2 cycles of 5FU and mitomycin, cycle #2 was initiated on 02/03/2018. She has 7 fractions of radiation remaining. She has had C. difficile colitis related to chemotherapy myelosuppression. She presented to the ER with reports of fevers, chills, diarrhea and weakness. She reports bright red blood in her stool. The patient is on anticoagulation with Eliquis with a history of DVT, pulmonary embolism and IVC filter placement. Plan: 1. Anal squamous cell carcinoma, currently being treated with combined chemo- radiation. 2. Radiation related mucositis and skin breakdown in the perianal area. Cleanse the area thoroughly after each BM. Continue to rotate Silvadene application with nystatin every other day. 3. Neutropenia, resolved. Continue daily G-CSF support. 4. Thrombocytopenia, platelet count increased to 75,000 today. 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 She denies any further episodes of rectal bleeding. Continue to monitor for bleeding. 5. Diarrhea, C. difficile negative, however could be false negative due to antibiotic therapy. Per infectious disease we will continue to treat regardless of negative testing. Subjectively reports 9 episodes today. Continue to monitor hydration and electrolyte status. Potassium supplement ordered today. 6. We will repeat CBC and CMP in the a.m. - Attending Statement The exam, history, and the medical decision-making described in the above note were completed with the assistance of the mid-level provider. I reviewed and agree with the findings presented. I attest that I had a [id number] encounter with the patient on the same day, and personally performed and documented my assessment and findings in the medical record. Patient reports 9 liquid stools overnight. Repeat urinalysis again showed possible urinary tract infection. She remains afebrile. Her pain is better controlled. Continue antibiotic per infectious disease. Her neutropenia has resolved. Her platelet count also have trended up. Continue to monitor CBC. She also complains of hemorrhoid and will give her hemorrhoid cream. Will consult physical therapy as well.
--- NOTE | 2018-02-18 11:10 | P.PN ---
Subjective Interval history: Follow-up recurrent C. difficile diarrhea? February 15, 2018-patient seen and examined, still with diarrheal episode however improving since admission. Afebrile. No nausea or vomiting. February 16, 2018-patient seen and examined, reported improvement diarrhea. States she had some semi-formed stool last night. Currently on p.o. vancomycin. February 17, 2018-patient seen and examined, reports some improvement of diarrheal episode. Afebrile. February 18, 2018-patient seen and examined, she had at least 9 watery stools since 3:30 AM. Complains of painful hemorrhoids. States, she is now ready for discharge. Physical Exam Vital signs: Vital Signs 02/17/18 12:00 02/17/18 16:00 02/17/18 20:00 Temperature 98.2 F 98.4 F 98.0 F Pulse Rate 85 80 82 Respiratory Rate 20 20 20 Blood Pressure 140/83 145/80 H 157/85 H Pulse Oximetry 100 97 96 02/18/18 00:00 02/18/18 04:00 02/18/18 08:00 Temperature 97.9 F 97.8 F 98 F Pulse Rate 80 106 H 89 Respiratory Rate 19 19 20 Blood Pressure 139/72 155/80 H 144/77 H Pulse Oximetry 99 99 95 Intake & Output 02/17/18 02/18/18 02/18/18 18:59 06:59 18:59 Intake Total 2500 / 2500 990 / 990 Balance 2500 / 2500 990 / 990 Weight 58.2 kg Intake: IV 1000 / 1000 990 / 990 NS Inj 1,000 ML @ 84 mls/hr IV. 1000 / 1000 990 / 990 CONT .[id number] [facility] Rx#:[id number] Oral 1500 / 1500 Other: # Voids 5 2 Date of Last Bowel Movement 02/17/18 02/17/18 # Bowel Movements 5 1 Narrative: GENERAL: NAD SKIN: Warm and dry. HEAD: Normocephalic. EYES: No scleral icterus. No injection or drainage. NECK: Supple, trachea midline. No JVD or lymphadenopathy. CARDIOVASCULAR: Regular rate and rhythm without murmurs, gallops, or rubs. RESPIRATORY: Breath sounds equal bilaterally. No accessory muscle use. GASTROINTESTINAL: Abdomen soft, non-tender, nondistended. MUSCULOSKELETAL: No cyanosis, or edema. BACK: Nontender without obvious deformity. No CVA tenderness. Results - Labs CBC & Chem 7: 02/18/18 04:40 02/18/18 04:40 Laboratory Results - last 24 hr 02/17/18 02/18/18 02/18/18 18:00 04:40 04:40 WBC 7.2 D RBC 2.17 L Hgb 7.3 L Hct 21.7 L MCV 100.2 H MCH 33.9 MCHC 33.8 RDW 21.7 H Plt Count 75 L MPV 8.9 Prelim Diff (Auto) Manual diff required WBC Differential Manual diff final Seg Neuts % (Manual) 65 Band Neuts % (Manual) 21 H Lymphocytes % (Manual) 4 L Monocytes % (Manual) 9 H Eosinophils % (Manual) 1 Abs Neuts (Manual) 6.2 Nucleated RBCs/100 WBC 1 H Differential Comment . Platelet Estimate Low L Platelet Morphology Normal Sodium 144 Potassium 3.4 L Chloride 114 H Carbon Dioxide 21.2 Anion Gap 9 BUN 13 Creatinine 0.88 Estimated GFR 62 L Random Glucose 65 L Calcium 7.5 L D Total Bilirubin 0.3 AST 14 L ALT 9 L Alkaline Phosphatase 46 Total Protein 4.3 L Albumin 1.7 L Urine Color Yellow Urine Clarity Turbid H Urine pH 6.0 Ur Specific [place] 1.010 Urine Protein 30 H Urine Glucose (UA) Negative Urine Ketones Negative Urine Occult Blood Moderate H Urine Nitrate Negative Urine Bilirubin Negative Urine Urobilinogen Less than 2 Ur Leukocyte Esterase Moderate H Urine RBC 95 H Urine WBC Urine WBC Clumps Many H Ur Squamous Epith Cells 6 Urine Bacteria Many H Urine Mucus Few H Micro UA Comment Culture indicated Ur Microscopic Review Not Reportable Urine Culture Comments Culture indicated Microbiology 02/14/18 12:30 Blood - Peripheral Aerobic Blood Culture - Preliminary No growth in 4 days 02/14/18 12:30 Blood - Peripheral Anaerobic Blood Culture - Preliminary No growth in 4 days 02/14/18 12:35 Blood - Peripheral Aerobic Blood Culture - Preliminary No growth in 4 days 02/14/18 12:35 Blood - Peripheral Anaerobic Blood Culture - Preliminary No growth in 4 days - Procedures none Assessment and Plan - Assessment (1) Rectal cancer Code(s): C20 - Malignant neoplasm of rectum Status: Acute (2) C. difficile diarrhea Code(s): A04.72 - Enterocolitis due to Clostridium difficile, not specified as recurrent Status: Acute (3) Neutropenia Code(s): D70.9 - Neutropenia, unspecified Status: Acute - Plan 77-year-old female with Recurrent C. difficile colitis/diarrhea C. difficile PCR negative, however could have been forced negative due to antibiotic therapy Currently on vancomycin p.o. 500mg QID Appreciate input from ID Continue IV fluid hydration UTI? Urine culture positive for Klebsiella pneumonia and Pseudomonas Will need repeat UA with C&S; avoid straight cath secondary to diarrheal episode Per ID, this could have been a contaminant Hemorrhoidal pain Currently on preparation H Acute renal injury Renal indices improving Prerenal, secondary to dehydration due to diarrhea Continue with IV fluid hydration and monitor BUN and creatinine Chemo related neutropenia Oncology was consulted, and patient is currently on Neupogen daily Anal squamous cell carcinoma Patient completing chemo therapy Management per oncology Continue pain medication Other chronic medical conditions Continue outpatient medications DVT prophylaxis: Linda
[2018-02-18] MEDS: Filgrastim Inj 300 MCG/ML Vial SQ SCH (15:03)
[2018-02-19] MEDS: Sod Chloride 0.9% Inj 1,000 ML IV.CONT SCH ×3 (00:37→12:56)
[2018-02-19] MEDS: Nystatin/Diphenhydramine/Lidocaine Mouthwash (Adult) 120 ML Botttle SWISH-SWAL SCH ×5 (00:38→22:25)
[2018-02-19 06:05] LABS: Mean Corpuscular HGB Conc 33.9 % (32.0-36.0); Mean Corpuscular Hemoglobin 34.3 pg (27.0-34.0); Mean Platelet Volume 8.8 fL (7.0-11.0); Platelet Count 62 th/mm3 (150-450); Red Blood Count 1.96 mil/mm3 (4.00-5.30); Red Cell Distribution Width 21.9 % (11.6-17.2); White Blood Count 8.1 th/mm3 (4.0-11.0)
[2018-02-19 06:36] LABS: Albumin 1.6 g/dL (3.4-5.0); Calcium 7.4 mg/dL (8.5-10.1); Carbon Dioxide 23.6 meq/L (21.0-32.0); Potassium 3.3 meq/L (3.5-5.1)
[2018-02-19 06:40] LABS: Hematocrit 19.8 % (35.0-46.0); Hemoglobin 6.7 gm/dL (11.6-15.3)
[2018-02-19] MEDS: Levothyroxine 75 MCG Tablet PO SCH (06:43)
[2018-02-19 08:20] LABS: Dohle Bodies Present; Monocytes 4 % (0-8); Toxic Granulation 2+
[2018-02-19 08:21] LABS: Acanthocytes Occ; Ovalocytes 1+; Platelet Morphology Normal (Normal)
[2018-02-19] MEDS ORDERED: Acetaminophen 325 MG Tablet PO PRN (08:21)
[2018-02-19] MEDS ORDERED: Sodium Chlor 0.9% Inj 250 ML IV.SIG SCH (09:00)
[2018-02-19] MEDS: Gabapentin 100 MG Capsule PO SCH ×3 (09:14→17:39)
[2018-02-19] MEDS: Famotidine 20 MG Tablet PO SCH (09:14)
[2018-02-19] MEDS: Hydrocortisone 10 MG Tablet PO SCH ×2 (09:14→13:07)
[2018-02-19] MEDS: Magnesium Oxide 400 MG Tablet PO SCH (09:14)
[2018-02-19] MEDS: Silver Sulfadiazine 1% Ceam 400 GM Jar TOPICAL SCH ×2 (09:15→22:24)
[2018-02-19] MEDS: oxyCODONE 10 MG Controlled Release Tablet PO SCH ×2 (09:18→22:22)
[2018-02-19] MEDS: Morphine Inj 4 MG/ML Vial IV.PUSH PRN ×2 (10:05→19:50)
[2018-02-19] MEDS: ALPRAZolam 0.5 MG Tablet PO PRN ×2 (10:15→22:22)
[2018-02-19] MEDS: Benzonatate 100 MG Capsule PO PRN ×2 (12:56→22:21)
--- NOTE | 2018-02-19 14:11 | P.PNONC ---
Subjective Interval history: Afebrile. Patient reports constant incontinence to urine, which creates increased pain due to her radiation excoriated skin. She reports that the attending is asking infectious disease if she would be a candidate for a Bales catheter. She is hopeful for this as she is in a tremendous amount of pain. Still has episodes of diarrhea, she is unaware of how many episodes given the constant urinary incontinence. Per [id number] seems to have decreased compared to yesterday. Objective Vital Signs/Intake & Output: Vital Signs 02/18/18 16:52 02/18/18 20:00 02/19/18 00:00 Temperature 97.8 F 98.6 F 98.4 F Pulse Rate 91 H 101 H 96 H Respiratory Rate 16 18 18 Blood Pressure 136/84 131/79 130/69 Pulse Oximetry 96 96 96 02/19/18 04:00 02/19/18 13:05 Temperature 98 F 98.6 F Pulse Rate 98 H 100 H Respiratory Rate 16 18 Blood Pressure 131/88 160/84 H Pulse Oximetry 96 95 Intake & Output 02/18/18 02/19/18 02/19/18 18:59 06:59 18:59 Intake Total 1360 / 1360 1240 / 1240 1000 / 1000 Balance 1360 / 1360 1240 / 1240 1000 / 1000 Weight 58.4 kg Intake: IV 1000 / 1000 1000 / 1000 1000 / 1000 NS Inj 1,000 ML @ 84 mls/hr IV. 1000 / 1000 1000 / 1000 1000 / 1000 CONT .[id number] [facility] Rx#:[id number] Oral 360 / 360 240 / 240 Other: # Voids 4 1 Date of Last Bowel Movement 02/18/18 02/18/18 # Bowel Movements 3 2 Result Diagrams: 02/19/18 05:15 02/19/18 05:15 Laboratory Results: Laboratory Results - last 24 hr 02/19/18 02/19/18 02/19/18 05:15 05:15 10:10 WBC 8.1 RBC 1.96 L Hgb 6.7 L* Hct 19.8 L* MCV 101.0 H MCH 34.3 H MCHC 33.9 RDW 21.9 H Plt Count 62 L MPV 8.8 Prelim Diff (Auto) Manual diff required WBC Differential Manual diff final Seg Neuts % (Manual) 76 H Band Neuts % (Manual) 20 H Monocytes % (Manual) 4 Abs Neuts (Manual) 7.8 H Differential Comment . Toxic Granulation 2+ H Dohle Bodies Present H Platelet Estimate Low L Platelet Morphology Normal Ovalocytes 1+ H Acanthocytes (Spur) Occ H Sodium 146 H Potassium 3.3 L Chloride 114 H Carbon Dioxide 23.6 Anion Gap 8 BUN 8 Creatinine 0.75 Estimated GFR 75 L Random Glucose 69 L Calcium 7.4 L* Prot Corrected Calcium 9.3 Total Bilirubin 0.3 AST 10 L ALT 8 L Alkaline Phosphatase 47 Total Protein 4.0 L Albumin 1.6 L Blood Type A Positive Antibody Screen Negative MTS Gel Crossmatch See Detail Bld Prod Order Comment Culture Results: Microbiology 02/14/18 12:30 Aerobic Blood Culture - Final Blood - Peripheral No growth in 5 days Anaerobic Blood Culture - Final No growth in 5 days 02/14/18 12:35 Aerobic Blood Culture - Final Blood - Peripheral No growth in 5 days Anaerobic Blood Culture - Final No growth in 5 days 02/17/18 18:00 Urine Culture - Final Clean Catch Urine Klebsiella pneumoniae 02/14/18 14:05 Urine Culture - Final Clean Catch Urine Klebsiella pneumoniae Pseudomonas aeruginosa Medications: Active Medications Generic Name Dose Route Start Last Admin Trade Name Freq PRN Reason Stop Dose Admin Acetaminophen 650 mg 02/19/18 08:21 02/19/18 13:09 Tylenol PO 650 mg Q4H PRN Administration SEE LABEL COMMENTS Alprazolam 0.5 mg 02/14/18 16:09 02/19/18 10:15 Xanax PO 0.5 mg BID PRN Administration Anxiety Apixaban 2.5 mg 02/14/18 21:00 02/19/18 09:14 Eliquis PO 2.5 mg BID ANDRY Administration Benzonatate 100 mg 02/16/18 17:14 02/19/18 12:56 Tessalon Perles PO 100 mg Q8H PRN Administration COUGH Diphenhydramine HCl 25 mg 02/19/18 08:21 02/19/18 12:56 Benadryl PO 25 mg Q4H PRN Administration SEE LABEL COMMENTS Famotidine 20 mg 02/15/18 09:00 02/19/18 09:14 Pepcid PO 20 mg DAILY ANDRY Administration Gabapentin 100 mg 02/14/18 18:00 02/19/18 13:07 Neurontin PO 100 mg TID ANDRY Administration Hydrocortisone Acetate 30 mg 02/15/18 09:00 02/19/18 09:14 Cortef PO 30 mg DAILY ANDRY Administration Hydrocortisone Acetate 20 mg 02/15/18 12:00 02/19/18 13:07 Cortef PO 20 mg DAILY@1200 AND[facility] Administration Sodium Chloride 1,000 mls @ 84 mls/hr 02/14/18 15:30 02/19/18 12:56 Ns Inj IV.CONT 84 mls/hr .[id number] ANDRY Administration Sodium Chloride 250 mls @ 15 mls/hr 02/19/18 09:00 02/19/18 13:53 Ns Inj IV.SIG 02/20/18 01:39 15 mls/hr ONCE ANDRY Administration Levothyroxine Sodium 75 mcg 02/15/18 06:00 02/19/18 06:43 Synthroid PO 75 mcg DAILY@0600 AND[facility] Administration Magnesium Oxide 200 mg 02/15/18 09:00 02/19/18 09:14 Mag-Ox PO 200 mg DAILY ANDRY Administration Morphine Sulfate 15 mg 02/15/18 11:47 02/18/18 04:41 Msir PO 15 mg Q4H PRN Administration Acute Pain Morphine Sulfate 2 mg 02/16/18 15:00 02/19/18 10:05 Morphine Inj IV.PUSH 2 mg Q4H PRN Administration pain 7-10 Multi-Ingredient Mouthwash/Gargle 5 ml 02/15/18 13:00 02/19/18 12:56 Magic Mouthwash Adult Liq SWISH-SWAL 5 ml QID ANDRY Administration Mupirocin 1 applicatio 02/14/18 21:00 02/19/18 09:15 Bactroban 2% Oint TOPICAL Not Given BID [facility] Nystatin 1 applicatio 02/16/18 13:00 02/19/18 12:57 Mycostatin Cream TOPICAL 1 applicatio QID ANDRY Administration Oxycodone HCl 10 mg 02/14/18 21:00 02/19/18 09:18 Oxycontin Cr PO 10 mg Q12HR AND[facility] Administration Phenyleph/Shark Oil/Min Oil/Petrol 1 applicatio 02/18/18 10:00 02/19/18 09:13 Preparation H Oint RECTAL 1 applicatio Q6H PRN Administration Hemorroid pain/itching 0-10 Silver Sulfadiazine 1 applicatio 02/14/18 21:00 02/19/18 09:15 Silvadine 1% Cream (400 Gm) TOPICAL 1 applicatio BID AND[facility] Administration Vancomycin HCl 500 mg 02/15/18 13:00 02/19/18 13:07 Vancomycin Po PO 500 mg QID ANDRY Administration Objective Remarks: GENERAL: Elderly ill-appearing female patient, lying in bed, in no acute distress. SKIN: Radiation induced skin discoloration to pelvic area, erythema/skin breakdown to perianal area. +alopecia. HEAD: Normocephalic. EYES: No scleral icterus. No injection or drainage. MOUTH: [place], moist oral mucosa. NECK: Supple, trachea midline. CARDIOVASCULAR: Regular rate and rhythm without murmurs. RESPIRATORY: Posterior breath sounds equal bilaterally. Non-labored. GASTROINTESTINAL: Abdomen soft, non-tender, nondistended. EXTREMITIES: No cyanosis, or edema. MUSCULOSKELETAL: Adequate muscle tone. NEUROLOGICAL: No obvious focal deficit. Awake, alert, and oriented x3. PSYCHIATRIC: Appropriate mood and affect; insight and judgment normal. Assessment/Plan - Plan Ms. Whalen is a pleasant 77-year-old female patient currently undergoing treatment for locally advanced anal squamous cell carcinoma. Patient receiving combined chemo radiation therapy. Initial treatment was initiated in November 2017 , 2 cycles of 5FU and mitomycin, cycle #2 was initiated on 02/03/2018. She has 7 fractions of radiation remaining. She has had C. difficile colitis related to chemotherapy myelosuppression. She presented to the ER with reports of fevers, chills, diarrhea and weakness. She reports bright red blood in her stool. The patient is on anticoagulation with Eliquis with a history of DVT, pulmonary embolism and IVC filter placement. Plan: 1. Anal squamous cell carcinoma, currently being treated with combined chemo- radiation. 2. Radiation related mucositis and skin breakdown in the perianal area. Cleanse the area thoroughly after each BM and incontinence to urine. Continue to rotate Silvadene application with nystatin every other day. 3. Neutropenia, resolved. Discontinue G-CSF support. 4. Thrombocytopenia, platelet count decreased to 62,000 today. 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 She denies any further episodes of rectal bleeding. Continue to monitor for bleeding. 5. Diarrhea, C. difficile negative, however could be false negative due to antibiotic therapy. Per infectious disease we will continue to treat regardless of negative testing. Continue to monitor hydration and electrolyte status. We will supplement potassium again today. 6. Hemoglobin 6.7 today, plan to transfuse 2 units of PRBCs. - Attending Statement The exam, history, and the medical decision-making described in the above note were completed with the assistance of the mid-level provider. I reviewed and agree with the findings presented. I attest that I had a [id number] encounter with the patient on the same day, and personally performed and documented my assessment and findings in the medical record. Patient still complaining of multiple loose stools and urinary incontinence. Her pain is controlled at this time. She remains afebrile. Urinalysis again showed gram- negative teddy. Infectious disease is following and continue antibiotic per infectious disease. We will give her 2 units of packed red blood cell transfusion for hemoglobin 6.7. We will stop the Neupogen. Continue to monitor CBC.
[2018-02-20] MEDS: Morphine Inj 4 MG/ML Vial IV.PUSH PRN ×4 (00:04→23:09)
[2018-02-20] MEDS: Morphine Sulfate 15 MG IR Tablet PO PRN ×4 (00:05→22:00)
[2018-02-20] MEDS: Sod Chloride 0.9% Inj 1,000 ML IV.CONT SCH ×3 (03:27→15:27)
[2018-02-20] MEDS: Levothyroxine 75 MCG Tablet PO SCH (05:14)
[2018-02-20 06:25] LABS: Baso % (Auto) 0.2 % (0.0-2.0); Eos % (Auto) 0.1 % (0.0-4.0); Hematocrit 30.2 % (35.0-46.0); Hemoglobin 10.6 gm/dL (11.6-15.3); Lymph # (Auto) 0.5 th/mm3 (1.0-4.8); Lymph % (Auto) 4.5 % (9.0-44.0); Mean Corpuscular HGB Conc 35.1 % (32.0-36.0); Mean Corpuscular Hemoglobin 32.2 pg (27.0-34.0); Mean Corpuscular Volume 91.7 fL (80.0-100.0); Mean Platelet Volume 8.6 fL (7.0-11.0); Mono # (Auto) 0.5 th/mm3 (0.0-0.9); Mono % (Auto) 4.6 % (0.0-8.0); Neut # (Auto) 9.5 th/mm3 (1.8-7.7); Neut % (Auto) 90.6 % (16.0-70.0); Platelet Count 67 th/mm3 (150-450); Red Cell Distribution Width 18.4 % (11.6-17.2); White Blood Count 10.5 th/mm3 (4.0-11.0)
[2018-02-20 08:54] LABS: Eosinophils 1 % (0-4); Lymphocytes 3 % (9-44); Monocytes 1 % (0-8); Platelet Morphology Normal (Normal); Toxic Granulation 1+; Toxic Vacuolation Present
[2018-02-20] MEDS: Nystatin/Diphenhydramine/Lidocaine Mouthwash (Adult) 120 ML Botttle SWISH-SWAL SCH ×4 (10:00→20:01)
[2018-02-20] MEDS: Silver Sulfadiazine 1% Ceam 400 GM Jar TOPICAL SCH ×2 (10:00→20:03)
[2018-02-20] MEDS: Magnesium Oxide 400 MG Tablet PO SCH (10:00)
[2018-02-20] MEDS: Gabapentin 100 MG Capsule PO SCH ×3 (10:00→17:48)
[2018-02-20] MEDS: Famotidine 20 MG Tablet PO SCH (10:00)
[2018-02-20] MEDS: Hydrocortisone 10 MG Tablet PO SCH ×2 (10:00→12:36)
[2018-02-20] MEDS: oxyCODONE 10 MG Controlled Release Tablet PO SCH ×2 (10:00→20:02)
--- NOTE | 2018-02-20 10:39 | P.PN ---
Subjective Interval history: Late entry for 02/19/2018 Follow up for C. Diff colitis. Patient complains of urinary incontinence and continued diarrhea. No fever or chills. Physical Exam Vital signs: Vital Signs 02/19/18 13:05 02/19/18 14:52 02/19/18 15:12 Temperature 98.6 F 97.8 F 97.9 F Pulse Rate 100 H 87 91 H Respiratory Rate 18 18 18 Blood Pressure 160/84 H 150/74 H 153/81 H Pulse Oximetry 95 99 96 02/19/18 17:43 02/19/18 20:00 02/20/18 00:00 Temperature 97.8 F 98.2 F 98.4 F Pulse Rate 72 98 H 94 H Respiratory Rate 18 Blood Pressure 135/70 156/99 H 148/86 H Pulse Oximetry 96 95 02/20/18 02:18 02/20/18 02:19 02/20/18 03:43 Temperature Pulse Rate Respiratory Rate 18 18 18 Blood Pressure Pulse Oximetry 02/20/18 04:00 Temperature 98.1 F Pulse Rate 59 L Respiratory Rate 20 Blood Pressure 137/72 Pulse Oximetry 96 Intake & Output 02/19/18 02/20/18 02/20/18 18:59 06:59 18:59 Intake Total 2360 / 2360 1240 / 1240 Output Total 1000 / 1000 Balance 2360 / 2360 240 / 240 Weight 56.4 kg Intake: IV 1000 / 1000 1000 / 1000 NS Inj 1,000 ML @ 84 mls/hr IV. 1000 / 1000 1000 / 1000 CONT .[id number] [facility] Rx#:[id number] Oral 960 / 960 240 / 240 Intake (Blood Product) Amt 400 / 400 Rbc As-3 Leukoreduced Unit 400 / 400 [id number] Output: Urine 1000 / 1000 Other: # Voids 8 Date of Last Bowel Movement 02/19/18 02/20/18 # Bowel Movements 5 6 Narrative: GENERAL: NAD SKIN: Warm and dry. HEAD: Normocephalic. EYES: No scleral icterus. No injection or drainage. NECK: Supple, trachea midline. No JVD or lymphadenopathy. CARDIOVASCULAR: Regular rate and rhythm without murmurs, gallops, or rubs. RESPIRATORY: Breath sounds equal bilaterally. No accessory muscle use. GASTROINTESTINAL: Abdomen soft, non-tender, nondistended. MUSCULOSKELETAL: No cyanosis, or edema. BACK: Nontender without obvious deformity. No CVA tenderness. Results - Labs CBC & Chem 7: 02/20/18 05:15 02/19/18 05:15 Laboratory Results - last 24 hr 02/19/18 02/20/18 10:10 05:15 WBC 10.5 RBC 3.30 L Hgb 10.6 L D Hct 30.2 L MCV 91.7 D MCH 32.2 MCHC 35.1 RDW 18.4 H D Plt Count 67 L MPV 8.6 Prelim Diff (Auto) Slide review pending Neut % (Auto) 90.6 H Lymph % (Auto) 4.5 L [place] % (Auto) 4.6 Eos % (Auto) 0.1 Baso % (Auto) 0.2 Neut # (Auto) 9.5 H Lymph # (Auto) 0.5 L [place] # (Auto) 0.5 Eos # (Auto) 0.0 Baso # (Auto) 0.0 WBC Differential Manual diff final Seg Neuts % (Manual) 55 Band Neuts % (Manual) 40 H Lymphocytes % (Manual) 3 L Monocytes % (Manual) 1 Eosinophils % (Manual) 1 Abs Neuts (Manual) 10.0 H Differential Comment . Toxic Granulation 1+ H Toxic Vacuolation Present H Platelet Estimate Low L Platelet Morphology Normal Blood Type A Positive Antibody Screen Negative MTS Gel Crossmatch See Detail Bld Prod Order Comment Microbiology 02/14/18 12:30 Blood - Peripheral Aerobic Blood Culture - Final No growth in 5 days 02/14/18 12:30 Blood - Peripheral Anaerobic Blood Culture - Final No growth in 5 days 02/14/18 12:35 Blood - Peripheral Aerobic Blood Culture - Final No growth in 5 days 02/14/18 12:35 Blood - Peripheral Anaerobic Blood Culture - Final No growth in 5 days 02/17/18 18:00 Clean Catch Urine Urine Culture - Final Klebsiella pneumoniae - Procedures none Assessment and Plan - Assessment (1) Rectal cancer Code(s): C20 - Malignant neoplasm of rectum Status: Acute (2) C. difficile diarrhea Code(s): A04.72 - Enterocolitis due to Clostridium difficile, not specified as recurrent Status: Acute (3) Neutropenia Code(s): D70.9 - Neutropenia, unspecified Status: Acute - Plan 77-year-old female with Recurrent C. difficile colitis/diarrhea C. difficile PCR negative, however could have been forced negative due to antibiotic therapy Currently on vancomycin p.o. 500mg QID Appreciate input from ID Continue IV fluid hydration Probable UTI Urine culture positive for Klebsiella pneumonia and Pseudomonas Will need repeat UA with C&S; avoid straight cath secondary to diarrheal episode Probably colonization. Also, patient is not symptomatic. Would favor not to treat this. Hemorrhoidal pain Currently on preparation H Acute renal injury Renal indices improving Prerenal, secondary to dehydration due to diarrhea Continue with IV fluid hydration and monitor BUN and creatinine Chemo related neutropenia Oncology was consulted, and patient is currently on Neupogen daily Anal squamous cell carcinoma Patient completing chemo therapy Management per oncology Continue pain medication Other chronic medical conditions Continue outpatient medications DVT prophylaxis: Linda
--- NOTE | 2018-02-20 10:40 | P.PNONC ---
Subjective Interval history: Afebrile Patient resting in bed watching TV Reports she is feeling much better today States she is having less frequent diarrhea however it is still loose Was able to eat breakfast for the first time in 2 days Having less burning as urine is attached to wall suction Objective Vital Signs/Intake & Output: Vital Signs 02/19/18 13:05 02/19/18 14:52 02/19/18 15:12 Temperature 98.6 F 97.8 F 97.9 F Pulse Rate 100 H 87 91 H Respiratory Rate 18 Blood Pressure 160/84 H 150/74 H 153/81 H Pulse Oximetry 95 99 96 02/19/18 17:43 02/19/18 20:00 02/20/18 00:00 Temperature 97.8 F 98.2 F 98.4 F Pulse Rate 72 98 H 94 H Respiratory Rate 18 Blood Pressure 135/70 156/99 H 148/86 H Pulse Oximetry 96 95 02/20/18 02:18 02/20/18 02:19 02/20/18 03:43 Temperature Pulse Rate Respiratory Rate 18 18 18 Blood Pressure Pulse Oximetry 02/20/18 04:00 Temperature 98.1 F Pulse Rate 59 L Respiratory Rate 20 Blood Pressure 137/72 Pulse Oximetry 96 Intake & Output 02/19/18 02/20/18 02/20/18 18:59 06:59 18:59 Intake Total 2360 / 2360 1240 / 1240 Output Total 1000 / 1000 Balance 2360 / 2360 240 / 240 Weight 124 lb 5.451 oz Intake: IV 1000 / 1000 1000 / 1000 NS Inj 1,000 ML @ 84 mls/hr IV. 1000 / 1000 1000 / 1000 CONT .[id number] [facility] Rx#:[id number] Oral 960 / 960 240 / 240 Intake (Blood Product) Amt 400 / 400 Rbc As-3 Leukoreduced Unit 400 / 400 [id number] Output: Urine 1000 / 1000 Other: # Voids 8 Date of Last Bowel Movement 02/19/18 02/20/18 # Bowel Movements 5 6 Result Diagrams: 02/20/18 05:15 02/20/18 12:00 Laboratory Results: Laboratory Results - last 24 hr 02/19/18 02/20/18 10:10 05:15 WBC 10.5 RBC 3.30 L Hgb 10.6 L D Hct 30.2 L MCV 91.7 D MCH 32.2 MCHC 35.1 RDW 18.4 H D Plt Count 67 L MPV 8.6 Prelim Diff (Auto) Slide review pending Neut % (Auto) 90.6 H Lymph % (Auto) 4.5 L [place] % (Auto) 4.6 Eos % (Auto) 0.1 Baso % (Auto) 0.2 Neut # (Auto) 9.5 H Lymph # (Auto) 0.5 L [place] # (Auto) 0.5 Eos # (Auto) 0.0 Baso # (Auto) 0.0 WBC Differential Manual diff final Seg Neuts % (Manual) 55 Band Neuts % (Manual) 40 H Lymphocytes % (Manual) 3 L Monocytes % (Manual) 1 Eosinophils % (Manual) 1 Abs Neuts (Manual) 10.0 H Differential Comment . Toxic Granulation 1+ H Toxic Vacuolation Present H Platelet Estimate Low L Platelet Morphology Normal Blood Type A Positive Antibody Screen Negative MTS Gel Crossmatch See Detail Bld Prod Order Comment Culture Results: Microbiology 02/14/18 12:30 Aerobic Blood Culture - Final Blood - Peripheral No growth in 5 days Anaerobic Blood Culture - Final No growth in 5 days 02/14/18 12:35 Aerobic Blood Culture - Final Blood - Peripheral No growth in 5 days Anaerobic Blood Culture - Final No growth in 5 days 02/17/18 18:00 Urine Culture - Final Clean Catch Urine Klebsiella pneumoniae Medications: Active Medications Generic Name Dose Route Start Last Admin Trade Name Freq PRN Reason Stop Dose Admin Acetaminophen 650 mg 02/14/18 16:06 02/19/18 17:39 Tylenol PO 650 mg Q4H PRN Administration Temp > 100.4 Acetaminophen 650 mg 02/19/18 08:21 02/19/18 13:09 Tylenol PO 650 mg Q4H PRN Administration SEE LABEL COMMENTS Alprazolam 0.5 mg 02/14/18 16:09 02/19/18 22:22 Xanax PO 0.5 mg BID PRN Administration Anxiety Apixaban 2.5 mg 02/14/18 21:00 02/19/18 22:22 Eliquis PO 2.5 mg BID ANDRY Administration Benzonatate 100 mg 02/16/18 17:14 02/19/18 22:21 Tessalon Perles PO 100 mg Q8H PRN Administration COUGH Famotidine 20 mg 02/15/18 09:00 02/19/18 09:14 Pepcid PO 20 mg DAILY ANDRY Administration Gabapentin 100 mg 02/14/18 18:00 02/19/18 17:39 Neurontin PO 100 mg TID ANDRY Administration Hydrocortisone Acetate 30 mg 02/15/18 09:00 02/19/18 09:14 Cortef PO 30 mg DAILY ANDRY Administration Hydrocortisone Acetate 20 mg 02/15/18 12:00 02/19/18 13:07 Cortef PO 20 mg DAILY@1200 ANDRY Administration Sodium Chloride 1,000 mls @ 84 mls/hr 02/14/18 15:30 02/20/18 03:47 Ns Inj IV.CONT 84 mls/hr .[id number] ANDRY Administration Levothyroxine Sodium 75 mcg 02/15/18 06:00 02/20/18 05:14 Synthroid PO 75 mcg DAILY@0600 [facility] Administration Magnesium Oxide 200 mg 02/15/18 09:00 02/19/18 09:14 Mag-Ox PO 200 mg DAILY [facility] Administration Morphine Sulfate 15 mg 02/15/18 11:47 02/20/18 03:48 Msir PO 15 mg Q4H PRN Administration Acute Pain Morphine Sulfate 2 mg 02/16/18 15:00 02/20/18 05:14 Morphine Inj IV.PUSH 2 mg Q4H PRN Administration pain 7-10 Multi-Ingredient Mouthwash/Gargle 5 ml 02/15/18 13:00 02/19/18 22:25 Magic Mouthwash Adult Liq SWISH-SWAL 5 ml QID [facility] Administration Mupirocin 1 applicatio 02/14/18 21:00 02/20/18 00:30 Bactroban 2% Oint TOPICAL Not Given BID [facility] Nystatin 1 applicatio 02/16/18 13:00 02/19/18 22:24 Mycostatin Cream TOPICAL 1 applicatio QID [facility] Administration Ondansetron HCl 4 mg 02/14/18 16:06 02/19/18 19:52 Zofran Inj IV.PUSH 4 mg Q6H PRN Administration NAUSEA OR VOMITING Oxycodone HCl 10 mg 02/14/18 21:00 02/19/18 22:22 Oxycontin Cr PO 10 mg Q12HR ANDRY Administration Phenyleph/Shark Oil/Min Oil/Petrol 1 applicatio 02/18/18 10:00 02/19/18 09:13 Preparation H Oint RECTAL 1 applicatio Q6H PRN Administration Hemorroid pain/itching 0-10 Silver Sulfadiazine 1 applicatio 02/14/18 21:00 02/19/18 22:24 Silvadine 1% Cream (400 Gm) TOPICAL 1 applicatio BID ANDRY Administration Vancomycin HCl 500 mg 02/15/18 13:00 02/19/18 22:23 Vancomycin Po PO 500 mg QID ADNRY Administration Objective Remarks: GENERAL: Elderly ill-appearing female patient, lying in bed, in no acute distress. SKIN: Scattered petechiae HEAD: Normocephalic. + Alopecia EYES: No scleral icterus. No injection or drainage. MOUTH: [place], moist oral mucosa. NECK: Supple, trachea midline. CARDIOVASCULAR: Regular rate and rhythm without murmurs. RESPIRATORY: Posterior breath sounds equal bilaterally. Non-labored. GASTROINTESTINAL: Abdomen soft, non-tender, nondistended. EXTREMITIES: No cyanosis, or edema. MUSCULOSKELETAL: Adequate muscle tone. NEUROLOGICAL: No obvious focal deficit. Awake, alert, and oriented x3. Assessment/Plan - Plan Ms. Whalen is a pleasant 77-year-old female patient currently undergoing treatment for locally advanced anal squamous cell carcinoma. Patient receiving combined chemo radiation therapy. Initial treatment was initiated in November 2017 , 2 cycles of 5FU and mitomycin, cycle #2 was initiated on 02/03/2018. She has 7 fractions of radiation remaining. She has had C. difficile colitis related to chemotherapy myelosuppression. She presented to the ER with reports of fevers, chills, diarrhea and weakness. She reports bright red blood in her stool. The patient is on anticoagulation with Eliquis with a history of DVT, pulmonary embolism and IVC filter placement. Plan: 1. Radiation related mucositis and skin breakdown in the perianal area subjectively improved. The patient is receiving alternating nystatin and Silvadene cream localized to area. 2. Platelet count increased to 67,000 today. Continue Eliquis for history of DVT/PE. Hold for any bleeding or if platelet count drops less than 50,000. 3. Hemoglobin much improved today after receiving 2 units packed red blood cells yesterday. 4. Continue treatment for C. difficile. 5. I have spoken with Dr. Mccoy of infectious disease. Noted patient's urinalysis growing Klebsiella. No treatment necessary at this time. 6. BMP pending today. Patient received potassium replacement orally yesterday. - Attending Statement The exam, history, and the medical decision-making described in the above note were completed with the assistance of the mid-level provider. I reviewed and agree with the findings presented. I attest that I had a [id number] encounter with the patient on the same day, and personally performed and documented my assessment and findings in the medical record.Pt is feeling better. Diarrhea has improved. Pain is controlled. + urine culture and ID felt it is contaminant and no treatment at this time. Continue oral vancomycin. Hopefully able to d/c in a day or two if continue to improve.
--- NOTE | 2018-02-20 10:40 | P.PN ---
Subjective Interval history: Follow-up for C. difficile colitis. Patient is currently doing well. She reports improving diarrhea. She was a started on external urinary catheter and she feels much better due to the external catheter. No fever or chills. She specifically denies any dysuria or hematuria. Physical Exam Vital signs: Vital Signs 02/19/18 13:05 02/19/18 14:52 02/19/18 15:12 Temperature 98.6 F 97.8 F 97.9 F Pulse Rate 100 H 87 91 H Respiratory Rate 18 Blood Pressure 160/84 H 150/74 H 153/81 H Pulse Oximetry 95 99 96 02/19/18 17:43 02/19/18 20:00 02/20/18 00:00 Temperature 97.8 F 98.2 F 98.4 F Pulse Rate 72 98 H 94 H Respiratory Rate 18 Blood Pressure 135/70 156/99 H 148/86 H Pulse Oximetry 96 95 02/20/18 02:18 02/20/18 02:19 02/20/18 03:43 Temperature Pulse Rate Respiratory Rate 18 Blood Pressure Pulse Oximetry 02/20/18 04:00 Temperature 98.1 F Pulse Rate 59 L Respiratory Rate 20 Blood Pressure 137/72 Pulse Oximetry 96 Intake & Output 02/19/18 02/20/18 02/20/18 18:59 06:59 18:59 Intake Total 2360 / 2360 1240 / 1240 Output Total 1000 / 1000 Balance 2360 / 2360 240 / 240 Weight 56.4 kg Intake: IV 1000 / 1000 1000 / 1000 NS Inj 1,000 ML @ 84 mls/hr IV. 1000 / 1000 1000 / 1000 CONT .[id number] [facility] Rx#:[id number] Oral 960 / 960 240 / 240 Intake (Blood Product) Amt 400 / 400 Rbc As-3 Leukoreduced Unit 400 / 400 [id number] Output: Urine 1000 / 1000 Other: # Voids 8 Date of Last Bowel Movement 02/19/18 02/20/18 # Bowel Movements 5 6 Narrative: GENERAL: NAD SKIN: Warm and dry. HEAD: Normocephalic. EYES: No scleral icterus. No injection or drainage. NECK: Supple, trachea midline. No JVD or lymphadenopathy. CARDIOVASCULAR: Regular rate and rhythm without murmurs, gallops, or rubs. RESPIRATORY: Breath sounds equal bilaterally. No accessory muscle use. GASTROINTESTINAL: Abdomen soft, non-tender, nondistended. MUSCULOSKELETAL: No cyanosis, or edema. BACK: Nontender without obvious deformity. No CVA tenderness. Results - Labs CBC & Chem 7: 02/20/18 05:15 02/19/18 05:15 Laboratory Results - last 24 hr 02/19/18 02/20/18 10:10 05:15 WBC 10.5 RBC 3.30 L Hgb 10.6 L D Hct 30.2 L MCV 91.7 D MCH 32.2 MCHC 35.1 RDW 18.4 H D Plt Count 67 L MPV 8.6 Prelim Diff (Auto) Slide review pending Neut % (Auto) 90.6 H Lymph % (Auto) 4.5 L [place] % (Auto) 4.6 Eos % (Auto) 0.1 Baso % (Auto) 0.2 Neut # (Auto) 9.5 H Lymph # (Auto) 0.5 L [place] # (Auto) 0.5 Eos # (Auto) 0.0 Baso # (Auto) 0.0 WBC Differential Manual diff final Seg Neuts % (Manual) 55 Band Neuts % (Manual) 40 H Lymphocytes % (Manual) 3 L Monocytes % (Manual) 1 Eosinophils % (Manual) 1 Abs Neuts (Manual) 10.0 H Differential Comment . Toxic Granulation 1+ H Toxic Vacuolation Present H Platelet Estimate Low L Platelet Morphology Normal Blood Type A Positive Antibody Screen Negative MTS Gel Crossmatch See Detail Bld Prod Order Comment Microbiology 02/14/18 12:30 Blood - Peripheral Aerobic Blood Culture - Final No growth in 5 days 02/14/18 12:30 Blood - Peripheral Anaerobic Blood Culture - Final No growth in 5 days 02/14/18 12:35 Blood - Peripheral Aerobic Blood Culture - Final No growth in 5 days 02/14/18 12:35 Blood - Peripheral Anaerobic Blood Culture - Final No growth in 5 days 02/17/18 18:00 Clean Catch Urine Urine Culture - Final Klebsiella pneumoniae - Procedures none Assessment and Plan - Assessment (1) Rectal cancer Code(s): C20 - Malignant neoplasm of rectum Status: Acute (2) C. difficile diarrhea Code(s): A04.72 - Enterocolitis due to Clostridium difficile, not specified as recurrent Status: Acute (3) Neutropenia Code(s): D70.9 - Neutropenia, unspecified Status: Acute - Plan 77-year-old female with Recurrent C. difficile colitis/diarrhea C. difficile PCR negative, however could have been forced negative due to antibiotic therapy Currently on vancomycin p.o. 500mg QID Appreciate input from ID Continue IV fluid hydration Probable UTI Urine culture positive for Klebsiella pneumonia and Pseudomonas Will need repeat UA with C&S; avoid straight cath secondary to diarrheal episode Probably colonization. Also, patient is not symptomatic. Would favor not to treat this. External catheter placed on 02/19/2018. Hemorrhoidal pain Currently on preparation H Acute renal injury Renal indices improving Prerenal, secondary to dehydration due to diarrhea Continue with IV fluid hydration and monitor BUN and creatinine Chemo related neutropenia Oncology was consulted, and patient is currently on Neupogen daily Anal squamous cell carcinoma Patient completing chemo therapy Management per oncology Continue pain medication Other chronic medical conditions Continue outpatient medications DVT prophylaxis: Eliquis Discharge plan: Pending clearance from hematology oncology.
[2018-02-20] MEDS: ALPRAZolam 0.5 MG Tablet PO PRN ×2 (12:34→20:01)
[2018-02-20 12:44] LABS: Calcium 7.2 mg/dL (8.5-10.1); Carbon Dioxide 33.4 meq/L (21.0-32.0)
[2018-02-20 13:38] LABS: Potassium 2.7 meq/L (3.5-5.1)
[2018-02-20 13:50] LABS: Total Protein 4.9 g/dL (6.4-8.2)
--- NOTE | 2018-02-20 13:58 | P.PNID ---
Infectious Disease Brief Note would recommend treating with oral vanco until diarrhea resolves and if has another session of chemotherapy. Dw , will sign off please call back if any change in clinical condition or questions. Vital Signs - 24 hr 02/19/18 14:52 02/19/18 15:12 02/19/18 17:43 Temperature 97.8 F 97.9 F 97.8 F Pulse Rate 87 91 H 72 Respiratory Rate 18 18 18 Blood Pressure 150/74 H 153/81 H 135/70 Pulse Oximetry 99 96 96 02/19/18 20:00 02/20/18 00:00 02/20/18 02:18 Temperature 98.2 F 98.4 F Pulse Rate 98 H 94 H Respiratory Rate 18 18 18 Blood Pressure 156/99 H 148/86 H Pulse Oximetry 95 02/20/18 02:19 02/20/18 03:43 02/20/18 04:00 Temperature 98.1 F Pulse Rate 59 L Respiratory Rate 18 18 20 Blood Pressure 137/72 Pulse Oximetry 96 02/20/18 08:00 Temperature 98.5 F Pulse Rate 69 Respiratory Rate 18 Blood Pressure 147/80 H Pulse Oximetry 95 Laboratory Results - last 24 hr 02/19/18 02/20/18 02/20/18 10:10 05:15 12:00 WBC 10.5 RBC 3.30 L Hgb 10.6 L D Hct 30.2 L MCV 91.7 D MCH 32.2 MCHC 35.1 RDW 18.4 H D Plt Count 67 L MPV 8.6 Prelim Diff (Auto) Slide review pending Neut % (Auto) 90.6 H Lymph % (Auto) 4.5 L [place] % (Auto) 4.6 Eos % (Auto) 0.1 Baso % (Auto) 0.2 Neut # (Auto) 9.5 H Lymph # (Auto) 0.5 L [place] # (Auto) 0.5 Eos # (Auto) 0.0 Baso # (Auto) 0.0 WBC Differential Manual diff final Seg Neuts % (Manual) 55 Band Neuts % (Manual) 40 H Lymphocytes % (Manual) 3 L Monocytes % (Manual) 1 Eosinophils % (Manual) 1 Abs Neuts (Manual) 10.0 H Differential Comment . Toxic Granulation 1+ H Toxic Vacuolation Present H Platelet Estimate Low L Platelet Morphology Normal Sodium 143 Potassium 2.7 L* Chloride 103 D Carbon Dioxide 33.4 H D Anion Gap 7 BUN 6 L Creatinine 0.71 Estimated GFR 80 L Random Glucose 79 Calcium 7.2 L* Prot Corrected Calcium 8.4 L Total Protein 4.9 L D Blood Type A Positive Antibody Screen Negative MTS Gel Crossmatch See Detail Bld Prod Order Comment
[2018-02-20] MEDS ORDERED: Potassium Chlor 40 mEq Premix 40 MEQ/100 ML PIGGYBACK IV.SIG ONE (14:06)
[2018-02-20] MEDS: Potassium Chlor 10 mEq Premix 10 MEQ/100 ML PIGGYBACK IV.SIG SCH ×4 (15:27→18:47)
[2018-02-20] MEDS: Benzonatate 100 MG Capsule PO PRN (23:10)
[2018-02-21] MEDS: Morphine Sulfate 15 MG IR Tablet PO PRN ×5 (03:33→23:16)
[2018-02-21] MEDS: Sod Chloride 0.9% Inj 1,000 ML IV.CONT SCH (03:33)
[2018-02-21] MEDS: Morphine Inj 4 MG/ML Vial IV.PUSH PRN ×4 (04:47→21:04)
[2018-02-21] MEDS: Levothyroxine 75 MCG Tablet PO SCH (05:07)
[2018-02-21 05:23] LABS: Baso % (Auto) 0.2 % (0.0-2.0); Eos % (Auto) 0.1 % (0.0-4.0); Hematocrit 33.3 % (35.0-46.0); Hemoglobin 11.4 gm/dL (11.6-15.3); Lymph # (Auto) 0.5 th/mm3 (1.0-4.8); Lymph % (Auto) 7.5 % (9.0-44.0); Mean Corpuscular HGB Conc 34.4 % (32.0-36.0); Mean Corpuscular Hemoglobin 32.2 pg (27.0-34.0); Mean Corpuscular Volume 93.5 fL (80.0-100.0); Mean Platelet Volume 8.5 fL (7.0-11.0); Mono # (Auto) 0.4 th/mm3 (0.0-0.9); Mono % (Auto) 6.3 % (0.0-8.0); Neut # (Auto) 5.9 th/mm3 (1.8-7.7); Neut % (Auto) 85.9 % (16.0-70.0); Platelet Count 65 th/mm3 (150-450); Red Blood Count 3.56 mil/mm3 (4.00-5.30); Red Cell Distribution Width 19.4 % (11.6-17.2); White Blood Count 6.9 th/mm3 (4.0-11.0)
[2018-02-21 06:21] LABS: Anion Gap 9 meq/L (5-15); Blood Urea Nitrogen 6 mg/dL (7-18); Calcium 6.9 mg/dL (8.5-10.1); Carbon Dioxide 33.2 meq/L (21.0-32.0); Chloride 102 meq/L (98-107); Glomerular Filtration Rate Greater Than 89 mL/min (>89); Glucose,Random 60 mg/dL (74-106); Sodium 144 meq/L (136-145)
[2018-02-21 06:27] LABS: Potassium 2.7 meq/L (3.5-5.1)
[2018-02-21] MEDS ORDERED: Potassium Chloride 25 MEQ Effervescent Tablet PO ONE (06:30)
[2018-02-21 08:00] LABS: Total Protein 4.9 g/dL (6.4-8.2)
[2018-02-21] MEDS: Magnesium Oxide 400 MG Tablet PO SCH (08:08)
[2018-02-21] MEDS: Nystatin/Diphenhydramine/Lidocaine Mouthwash (Adult) 120 ML Botttle SWISH-SWAL SCH ×4 (08:08→21:00)
[2018-02-21] MEDS: Hydrocortisone 10 MG Tablet PO SCH ×2 (08:08→14:04)
[2018-02-21] MEDS: oxyCODONE 10 MG Controlled Release Tablet PO SCH ×2 (08:09→21:00)
[2018-02-21] MEDS: Silver Sulfadiazine 1% Ceam 400 GM Jar TOPICAL SCH ×2 (08:10→21:02)
[2018-02-21] MEDS: Famotidine 20 MG Tablet PO SCH (08:10)
[2018-02-21] MEDS: Gabapentin 100 MG Capsule PO SCH ×3 (08:10→17:04)
[2018-02-21 08:40] LABS: Lymphocytes 4 % (9-44); Monocytes 4 % (0-8); Toxic Granulation 2+
[2018-02-21 08:42] LABS: Ovalocytes 1+
[2018-02-21 08:43] LABS: Platelet Morphology Normal (Normal)
--- NOTE | 2018-02-21 09:58 | P.PNONC ---
Subjective Interval history: Afebrile Patient resting in bed watching TV in no obvious distress Reports the amount of her diarrhea continues to decrease Overall feeling better Had some nausea this morning after she drank her oral potassium replacement too quickly Objective Vital Signs/Intake & Output: Vital Signs 02/20/18 12:00 02/20/18 16:00 02/20/18 20:00 Temperature 98 F 98 F 97.6 F Pulse Rate 75 84 71 Respiratory Rate 20 20 18 Blood Pressure 142/81 H 127/84 151/95 H Pulse Oximetry 95 94 L 93 L 02/21/18 00:00 02/21/18 04:00 02/21/18 05:07 Temperature 97.9 F 97.4 F L Pulse Rate 64 72 Respiratory Rate 20 18 16 Blood Pressure 153/89 H 156/92 H Pulse Oximetry 94 L 92 L Intake & Output 02/20/18 02/21/18 02/21/18 18:59 06:59 18:59 Intake Total 1900 / 1900 1580 / 1580 Output Total 1800 / 1800 1999 / 1999 Balance 100 / 100 -420 / -420 Weight 126 lb 1.671 oz Intake: IV 1300 / 1300 1100 / 1100 NS Inj 1,000 ML @ 84 mls/hr IV. 1000 / 1000 1000 / 1000 CONT .[id number] [facility] Rx#:[id number] KCl 10 mEq Premix Inj 10 meq In 300 / 300 100 / 100 100 ml @ 100 mls/hr IV.SIG Q1H [facility] Rx#:[id number] Oral 600 / 600 480 / 480 Output: Urine 1800 / 1800 1999 / 1999 Other: # Voids 2 Date of Last Bowel Movement 02/20/18 02/21/18 # Bowel Movements 2 5 Result Diagrams: 02/21/18 04:45 02/21/18 11:47 Laboratory Results: Laboratory Results - last 24 hr 02/19/18 02/20/18 02/21/18 10:10 12:00 04:45 WBC 6.9 RBC 3.56 L Hgb 11.4 L Hct 33.3 L MCV 93.5 MCH 32.2 MCHC 34.4 RDW 19.4 H Plt Count 65 L MPV 8.5 Prelim Diff (Auto) Slide review pending Neut % (Auto) 85.9 H Lymph % (Auto) 7.5 L [place] % (Auto) 6.3 Eos % (Auto) 0.1 Baso % (Auto) 0.2 Neut # (Auto) 5.9 Lymph # (Auto) 0.5 L [place] # (Auto) 0.4 Eos # (Auto) 0.0 Baso # (Auto) 0.0 WBC Differential Manual diff final Seg Neuts % (Manual) 70 Band Neuts % (Manual) 22 H Lymphocytes % (Manual) 4 L Monocytes % (Manual) 4 Abs Neuts (Manual) 6.3 Differential Comment . Toxic Granulation 2+ H Platelet Estimate Low L Platelet Morphology Normal Ovalocytes 1+ H Sodium 143 Potassium 2.7 L* Chloride 103 D Carbon Dioxide 33.4 H D Anion Gap 7 BUN 6 L Creatinine 0.71 Estimated GFR 80 L Random Glucose 79 Calcium 7.2 L* Prot Corrected Calcium 8.4 L Total Protein 4.9 L D Blood Type A Positive Antibody Screen Negative MTS Gel Crossmatch See Detail Bld Prod Order Comment 02/21/18 04:45 WBC RBC Hgb Hct MCV MCH MCHC RDW Plt Count MPV Prelim Diff (Auto) Neut % (Auto) Lymph % (Auto) [place] % (Auto) Eos % (Auto) Baso % (Auto) Neut # (Auto) Lymph # (Auto) [place] # (Auto) Eos # (Auto) Baso # (Auto) WBC Differential Seg Neuts % (Manual) Band Neuts % (Manual) Lymphocytes % (Manual) Monocytes % (Manual) Abs Neuts (Manual) Differential Comment Toxic Granulation Platelet Estimate Platelet Morphology Ovalocytes Sodium 144 Potassium 2.7 L* Chloride 102 Carbon Dioxide 33.2 H Anion Gap 9 BUN 6 L Creatinine 0.64 Estimated GFR Greater than 89 Random Glucose 60 L Calcium 6.9 L* Prot Corrected Calcium 8.1 L Total Protein 4.9 L Blood Type Antibody Screen MTS Gel Crossmatch Bld Prod Order Comment Culture Results: Microbiology 02/14/18 12:30 Aerobic Blood Culture - Final Blood - Peripheral No growth in 5 days Anaerobic Blood Culture - Final No growth in 5 days 02/14/18 12:35 Aerobic Blood Culture - Final Blood - Peripheral No growth in 5 days Anaerobic Blood Culture - Final No growth in 5 days 02/17/18 18:00 Urine Culture - Final Clean Catch Urine Klebsiella pneumoniae Medications: Active Medications Generic Name Dose Route Start Last Admin Trade Name Freq PRN Reason Stop Dose Admin Acetaminophen 650 mg 02/14/18 16:06 02/19/18 17:39 Tylenol PO 650 mg Q4H PRN Administration Temp > 100.4 Acetaminophen 650 mg 02/19/18 08:21 02/19/18 13:09 Tylenol PO 650 mg Q4H PRN Administration SEE LABEL COMMENTS Alprazolam 0.5 mg 02/14/18 16:09 02/20/18 20:01 Xanax PO 0.5 mg BID PRN Administration Anxiety Apixaban 2.5 mg 02/14/18 21:00 02/21/18 08:10 Eliquis PO 2.5 mg BID ANDRY Administration Benzonatate 100 mg 02/16/18 17:14 02/20/18 23:10 Tessalon Perles PO 100 mg Q8H PRN Administration COUGH Famotidine 20 mg 02/15/18 09:00 02/21/18 08:10 Pepcid PO 20 mg DAILY ANDRY Administration Gabapentin 100 mg 02/14/18 18:00 02/21/18 08:10 Neurontin PO 100 mg TID ANDRY Administration Hydrocortisone Acetate 30 mg 02/15/18 09:00 02/21/18 08:08 Cortef PO 30 mg DAILY ANDRY Administration Hydrocortisone Acetate 20 mg 02/15/18 12:00 02/20/18 12:36 Cortef PO 20 mg DAILY@1200 ANDRY Administration Sodium Chloride 1,000 mls @ 84 mls/hr 02/14/18 15:30 02/21/18 03:33 Ns Inj IV.CONT 84 mls/hr .[id number] AND[facility] Administration Levothyroxine Sodium 75 mcg 02/15/18 06:00 02/21/18 05:07 Synthroid PO 75 mcg DAILY@0600 AND[facility] Administration Magnesium Oxide 200 mg 02/15/18 09:00 02/21/18 08:08 Mag-Ox PO 200 mg DAILY ANDRY Administration Morphine Sulfate 15 mg 02/15/18 11:47 02/21/18 08:09 Msir PO 15 mg Q4H PRN Administration Acute Pain Morphine Sulfate 2 mg 02/16/18 15:00 02/21/18 04:47 Morphine Inj IV.PUSH 2 mg Q4H PRN Administration pain 7-10 Multi-Ingredient Mouthwash/Gargle 5 ml 02/15/18 13:00 02/21/18 08:08 Magic Mouthwash Adult Liq SWISH-SWAL 5 ml QID ANDRY Administration Mupirocin 1 applicatio 02/14/18 21:00 02/21/18 08:11 Bactroban 2% Oint TOPICAL Not Given BID ANDRY Nystatin 1 applicatio 02/16/18 13:00 02/21/18 08:10 Mycostatin Cream TOPICAL 1 applicatio QID ANDRY Administration Ondansetron HCl 4 mg 02/14/18 16:06 02/21/18 08:11 Zofran Inj IV.PUSH 4 mg Q6H PRN Administration NAUSEA OR VOMITING Oxycodone HCl 10 mg 02/14/18 21:00 02/21/18 08:09 Oxycontin Cr PO 10 mg Q12HR ANDRY Administration Phenyleph/Shark Oil/Min Oil/Petrol 1 applicatio 02/18/18 10:00 02/19/18 09:13 Preparation H Oint RECTAL 1 applicatio Q6H PRN Administration Hemorroid pain/itching 0-10 Silver Sulfadiazine 1 applicatio 02/14/18 21:00 02/21/18 08:10 Silvadine 1% Cream (400 Gm) TOPICAL 1 applicatio BID ANDRY Administration Vancomycin HCl 125 mg 02/20/18 16:20 02/21/18 08:08 Vancomycin Po PO 125 mg QID ANDRY Administration Objective Remarks: GENERAL: Elderly ill-appearing female patient, lying in bed, in no acute distress. SKIN: Scattered petechiae HEAD: Normocephalic. + Alopecia EYES: No scleral icterus. No injection or drainage. MOUTH: [place], moist oral mucosa. NECK: Supple, trachea midline. CARDIOVASCULAR: Regular rate and rhythm without murmurs. RESPIRATORY: Posterior breath sounds equal bilaterally. Non-labored. GASTROINTESTINAL: Abdomen soft, non-tender, nondistended. EXTREMITIES: No cyanosis, or edema. MUSCULOSKELETAL: Adequate muscle tone. NEUROLOGICAL: No obvious focal deficit. Awake, alert, and oriented x3. Assessment/Plan - Plan Ms. Whalen is a pleasant 77-year-old female patient currently undergoing treatment for locally advanced anal squamous cell carcinoma. Patient receiving combined chemo radiation therapy. Initial treatment was initiated in November 2017 , 2 cycles of 5FU and mitomycin, cycle #2 was initiated on 02/03/2018. She has 7 fractions of radiation remaining. She has had C. difficile colitis related to chemotherapy myelosuppression. She presented to the ER with reports of fevers, chills, diarrhea and weakness. She reports bright red blood in her stool. The patient is on anticoagulation with Eliquis with a history of DVT, pulmonary embolism and IVC filter placement. Plan: 1. Radiation related mucositis and skin breakdown in the perianal area subjectively improved. The patient is receiving alternating nystatin and Silvadene cream localized to area. 2. Platelet count stable at 65,000 today. Continue Eliquis for history of DVT/ PE. Hold for any bleeding or if platelet count drops less than 50,000. 3. Hemoglobin continues to improve 4. Continue treatment for C. difficile. 5. Patient with persistent hypokalemia due to diarrhea. She is receiving oral replacement as well as 40 IV today. We will recheck her potassium level at 2 in the afternoon and reassess. I will also add 40 mEq to her IV hydration bag. - Attending Statement The exam, history, and the medical decision-making described in the above note were completed with the assistance of the mid-level provider. I reviewed and agree with the findings presented. I attest that I had a [id number] encounter with the patient on the same day, and personally performed and documented my assessment and findings in the medical record. C/O severe Diarrhea C.Diff is negative. start Lomotil for loose BM prn. K supplement. Mag is low. Start Mag - Ox PO
[2018-02-21] MEDS: Potassium Chlor 20 mEq Premix 20 MEQ/100 ML PIGGYBACK IV.SIG SCH ×2 (11:30→14:00)
--- NOTE | 2018-02-21 13:02 | P.PN ---
Subjective Interval history: Nursing reports patient having 4-5 runny bowel movements this morning. Patient herself however says that Her stools are starting to become "mushy." Had mild nausea today. Says that she wants to see the infectious disease doctor on Friday before being discharged possibly on the weekend despite potential improvement in symptoms. Physical Exam Vital signs: Vital Signs 02/20/18 16:00 02/20/18 20:00 02/21/18 00:00 Temperature 98 F 97.6 F 97.9 F Pulse Rate 84 71 64 Respiratory Rate 20 18 20 Blood Pressure 127/84 151/95 H 153/89 H Pulse Oximetry 94 L 93 L 94 L 02/21/18 04:00 02/21/18 05:07 02/21/18 08:00 Temperature 97.4 F L 98.7 F Pulse Rate 72 92 H Respiratory Rate 18 16 16 Blood Pressure 156/92 H 153/94 H Pulse Oximetry 92 L 97 02/21/18 11:31 Temperature 98.2 F Pulse Rate 91 H Respiratory Rate 18 Blood Pressure 156/84 H Pulse Oximetry 94 L Intake & Output 02/20/18 02/21/18 02/21/18 18:59 06:59 18:59 Intake Total 1900 / 1900 1580 / 1580 600 / 600 Output Total 1800 / 1800 1999 / 1999 Balance 100 / 100 -420 / -420 600 / 600 Weight 57.2 kg Intake: IV 1300 / 1300 1100 / 1100 600 / 600 NS Inj 1,000 ML @ 84 mls/hr IV. 1000 / 1000 1000 / 1000 600 / 600 CONT .[id number] [facility] Rx#:[id number] KCl 10 mEq Premix Inj 10 meq In 300 / 300 100 / 100 100 ml @ 100 mls/hr IV.SIG Q1H [facility] Rx#:[id number] Oral 600 / 600 480 / 480 Output: Urine 1800 / 1800 1999 / 1999 Other: # Voids 2 Date of Last Bowel Movement 02/20/18 02/21/18 02/21/18 # Bowel Movements 2 5 Narrative: Abdomen soft nontender, nondistended Sitting up in bed, awake, alert, no acute distress, unlabored breathing Results - Labs CBC & Chem 7: 02/21/18 04:45 02/21/18 11:47 Laboratory Results - last 24 hr 02/19/18 02/20/18 02/21/18 10:10 12:00 04:45 WBC 6.9 RBC 3.56 L Hgb 11.4 L Hct 33.3 L MCV 93.5 MCH 32.2 MCHC 34.4 RDW 19.4 H Plt Count 65 L MPV 8.5 Prelim Diff (Auto) Slide review pending Neut % (Auto) 85.9 H Lymph % (Auto) 7.5 L [place] % (Auto) 6.3 Eos % (Auto) 0.1 Baso % (Auto) 0.2 Neut # (Auto) 5.9 Lymph # (Auto) 0.5 L [place] # (Auto) 0.4 Eos # (Auto) 0.0 Baso # (Auto) 0.0 WBC Differential Manual diff final Seg Neuts % (Manual) 70 Band Neuts % (Manual) 22 H Lymphocytes % (Manual) 4 L Monocytes % (Manual) 4 Abs Neuts (Manual) 6.3 Differential Comment . Toxic Granulation 2+ H Platelet Estimate Low L Platelet Morphology Normal Ovalocytes 1+ H Sodium 143 Potassium 2.7 L* Chloride 103 D Carbon Dioxide 33.4 H D Anion Gap 7 BUN 6 L Creatinine 0.71 Estimated GFR 80 L Random Glucose 79 Calcium 7.2 L* Prot Corrected Calcium 8.4 L Magnesium Total Protein 4.9 L D Blood Type A Positive Antibody Screen Negative MTS Gel Crossmatch See Detail Bld Prod Order Comment 02/21/18 02/21/18 02/21/18 04:45 04:45 11:47 WBC RBC Hgb Hct MCV MCH MCHC RDW Plt Count MPV Prelim Diff (Auto) Neut % (Auto) Lymph % (Auto) [place] % (Auto) Eos % (Auto) Baso % (Auto) Neut # (Auto) Lymph # (Auto) [place] # (Auto) Eos # (Auto) Baso # (Auto) WBC Differential Seg Neuts % (Manual) Band Neuts % (Manual) Lymphocytes % (Manual) Monocytes % (Manual) Abs Neuts (Manual) Differential Comment Toxic Granulation Platelet Estimate Platelet Morphology Ovalocytes Sodium 144 Potassium 2.7 L* 3.1 L Chloride 102 Carbon Dioxide 33.2 H Anion Gap 9 BUN 6 L Creatinine 0.64 Estimated GFR Greater than 89 Random Glucose 60 L Calcium 6.9 L* Prot Corrected Calcium 8.1 L Magnesium 1.3 L Total Protein 4.9 L Blood Type Antibody Screen MTS Gel Crossmatch Bld Prod Order Comment - Procedures none Assessment and Plan - Assessment (1) Rectal cancer Code(s): C20 - Malignant neoplasm of rectum Status: Acute (2) C. difficile diarrhea Code(s): A04.72 - Enterocolitis due to Clostridium difficile, not specified as recurrent Status: Acute (3) Neutropenia Code(s): D70.9 - Neutropenia, unspecified Status: Acute - Plan Acute hypokalemia and hypoMg Possibly secondary to diarrhea, receiving IV supplementation, -recheck electrolytes in a.m. Recurrent C. difficile colitis/diarrhea C. difficile PCR negative, however could have been forced negative due to antibiotic therapy Deescalated on vancomycin dose now to 125 mg 4 times daily per ID Probable UTI Urine culture positive for Klebsiella pneumonia and Pseudomonas Will need repeat UA with C&S; avoid straight cath secondary to diarrheal episode Probably colonization. Also, patient is not symptomatic. Would favor not to treat this. External catheter placed on 02/19/2018. Hemorrhoidal pain Currently on preparation H Acute renal injury Renal indices improving Prerenal, secondary to dehydration due to diarrhea Continue with IV fluid hydration and monitor BUN and creatinine Chemo related neutropenia Oncology following, and patient is currently on Neupogen daily Anal squamous cell carcinoma Patient completing chemo therapy Management per oncology Continue pain medication Other chronic medical conditions Continue outpatient medications DVT prophylaxis: Eliquis Discharge Planning: pending improvement in stool output
[2018-02-21] MEDS: ALPRAZolam 0.5 MG Tablet PO PRN (13:26)
[2018-02-21] MEDS: Benzonatate 100 MG Capsule PO PRN (13:59)
[2018-02-21] MEDS ORDERED: Potassium Chloride Inj 20 MEQ, Magnesium Sulfate Inj 2 GM in Dextrose 5%/NaCl 0.45% Inj... IV.SIG ONE (15:00)
[2018-02-21] MEDS ORDERED: Diphenoxylate/Atropine 2.5/0.025 MG Tablet PO ONE (18:45)
[2018-02-21] MEDS ORDERED: Diphenoxylate/Atropine 2.5/0.025 MG Tablet PO PRN (18:46)
[2018-02-22] MEDS: Morphine Sulfate 15 MG IR Tablet PO PRN ×2 (03:43→23:58)
[2018-02-22] MEDS: Levothyroxine 75 MCG Tablet PO SCH (06:03)
[2018-02-22 06:53] LABS: Baso % (Auto) 0.2 % (0.0-2.0); Eos % (Auto) 0.1 % (0.0-4.0); Hematocrit 32.8 % (35.0-46.0); Hemoglobin 11.3 gm/dL (11.6-15.3); Lymph # (Auto) 0.5 th/mm3 (1.0-4.8); Lymph % (Auto) 10.2 % (9.0-44.0); Mean Corpuscular HGB Conc 34.4 % (32.0-36.0); Mean Corpuscular Hemoglobin 32.4 pg (27.0-34.0); Mean Corpuscular Volume 94.1 fL (80.0-100.0); Mean Platelet Volume 8.7 fL (7.0-11.0); Mono # (Auto) 0.4 th/mm3 (0.0-0.9); Mono % (Auto) 7.2 % (0.0-8.0); Neut # (Auto) 4.1 th/mm3 (1.8-7.7); Neut % (Auto) 82.3 % (16.0-70.0); Platelet Count 63 th/mm3 (150-450); Red Blood Count 3.49 mil/mm3 (4.00-5.30); Red Cell Distribution Width 19.1 % (11.6-17.2); White Blood Count 4.9 th/mm3 (4.0-11.0)
[2018-02-22 07:41] LABS: Calcium 7.1 mg/dL (8.5-10.1); Carbon Dioxide 33.9 meq/L (21.0-32.0); Potassium 3.5 meq/L (3.5-5.1)
[2018-02-22 08:08] LABS: Total Protein 4.9 g/dL (6.4-8.2)
[2018-02-22] MEDS: Hydrocortisone 10 MG Tablet PO SCH ×2 (08:34→12:25)
[2018-02-22] MEDS: Nystatin/Diphenhydramine/Lidocaine Mouthwash (Adult) 120 ML Botttle SWISH-SWAL SCH ×4 (08:34→21:56)
[2018-02-22] MEDS: Famotidine 20 MG Tablet PO SCH (08:35)
[2018-02-22] MEDS: Gabapentin 100 MG Capsule PO SCH ×3 (08:35→17:10)
[2018-02-22] MEDS: Magnesium Oxide 400 MG Tablet PO SCH ×2 (08:35→23:52)
[2018-02-22] MEDS: oxyCODONE 10 MG Controlled Release Tablet PO SCH ×2 (08:35→21:55)
[2018-02-22] MEDS: Silver Sulfadiazine 1% Ceam 400 GM Jar TOPICAL SCH ×2 (08:36→21:59)
[2018-02-22 09:35] LABS: Acanthocytes Occ; Eosinophils 1 % (0-4); Lymphocytes 4 % (9-44); Monocytes 4 % (0-8); Ovalocytes 1+; Platelet Morphology Normal (Normal); Toxic Granulation 2+
--- NOTE | 2018-02-22 13:43 | P.PNONC ---
Subjective Interval history: Afebrile Patient feeling much better; reports she no longer has diarrhea Only one episode of stool today States the Lomotil helped that was ordered yesterday Objective Vital Signs/Intake & Output: Vital Signs 02/21/18 15:32 02/21/18 20:00 02/22/18 00:00 Temperature 98.1 F 98.4 F 98.0 F Pulse Rate 83 84 72 Respiratory Rate 20 19 18 Blood Pressure 161/92 H 155/92 H 148/82 H Pulse Oximetry 96 94 L 92 L 02/22/18 04:00 02/22/18 08:30 02/22/18 11:09 Temperature 98.0 F 98.4 F 98.0 F Pulse Rate 75 80 86 Respiratory Rate 18 16 16 Blood Pressure 156/76 H 167/96 H 173/90 H Pulse Oximetry 96 95 97 Intake & Output 02/21/18 02/22/18 02/22/18 18:59 06:59 18:59 Intake Total 1600 / 1600 2664 / 2664 1000 / 1000 Output Total 2100 / 2100 700 / 700 Balance -500 / -500 1963 / 1963 1000 / 1000 Intake: IV 800 / 800 2013 1000 / 1000 NS + KCl 40 mEq Inj 1,000 ML @ 1000 / 1000 1000 / 1000 84 mls/hr IV.CONT .[id number] [facility] Rx#:[id number] NS Inj 1,000 ML @ 84 mls/hr IV. 600 / 600 CONT .[id number] [facility] Rx#:[id number] KCl 20 mEq Premix Inj 20 meq In 200 / 200 100 ml @ 50 mls/hr IV.SIG Q2H [facility] Rx#:[id number] KCl Inj 20 MEQ Magnesium 1014 / 1014 Sulfate Inj 2 GM In D5W/1/2 NS Inj 1,000 ML @ 500 mls/hr IV. SIG ONCE ONE Rx#:[id number] Oral 800 / 800 650 / 650 Output: Urine 2100 / 2100 700 / 700 Other: # Incontinent Voids 3 Date of Last Bowel Movement 02/21/18 02/22/18 02/22/18 # Bowel Movements 1 # Incontinent Bowel Movements 13 Result Diagrams: 02/22/18 06:00 02/22/18 06:00 Laboratory Results: Laboratory Results - last 24 hr 02/22/18 02/22/18 02/22/18 06:00 06:00 06:00 WBC 4.9 RBC 3.49 L Hgb 11.3 L Hct 32.8 L MCV 94.1 MCH 32.4 MCHC 34.4 RDW 19.1 H Plt Count 63 L MPV 8.7 Prelim Diff (Auto) Slide review pending Neut % (Auto) 82.3 H Lymph % (Auto) 10.2 [place] % (Auto) 7.2 Eos % (Auto) 0.1 Baso % (Auto) 0.2 Neut # (Auto) 4.1 Lymph # (Auto) 0.5 L [place] # (Auto) 0.4 Eos # (Auto) 0.0 Baso # (Auto) 0.0 WBC Differential Manual diff final Seg Neuts % (Manual) 64 Band Neuts % (Manual) 27 H Lymphocytes % (Manual) 4 L Monocytes % (Manual) 4 Eosinophils % (Manual) 1 Abs Neuts (Manual) 4.5 Differential Comment . Toxic Granulation 2+ H Platelet Estimate Low L Platelet Morphology Normal Ovalocytes 1+ H Acanthocytes (Sp[place]) Occ H Sodium 141 Potassium 3.5 Chloride 102 Carbon Dioxide 33.9 H Anion Gap 5 BUN 7 Creatinine 0.68 Estimated GFR 84 L Random Glucose 60 L Calcium 7.1 L* Prot Corrected Calcium 8.3 L Magnesium 1.8 Total Protein 4.9 L Culture Results: Microbiology 02/14/18 12:30 Aerobic Blood Culture - Final Blood - Peripheral No growth in 5 days Anaerobic Blood Culture - Final No growth in 5 days 02/14/18 12:35 Aerobic Blood Culture - Final Blood - Peripheral No growth in 5 days Anaerobic Blood Culture - Final No growth in 5 days 02/17/18 18:00 Urine Culture - Final Clean Catch Urine Klebsiella pneumoniae Medications: Active Medications Generic Name Dose Route Start Last Admin Trade Name Freq PRN Reason Stop Dose Admin Acetaminophen 650 mg 02/14/18 16:06 02/19/18 17:39 Tylenol PO 650 mg Q4H PRN Administration Temp > 100.4 Acetaminophen 650 mg 02/19/18 08:21 02/19/18 13:09 Tylenol PO 650 mg Q4H PRN Administration SEE LABEL COMMENTS Alprazolam 0.5 mg 02/14/18 16:09 02/21/18 13:26 Xanax PO 0.5 mg BID PRN Administration Anxiety Apixaban 2.5 mg 02/14/18 21:00 02/22/18 08:35 Eliquis PO 2.5 mg BID ANDRY Administration Benzonatate 100 mg 02/16/18 17:14 02/21/18 13:59 Tessalon Perles PO 100 mg Q8H PRN Administration COUGH Famotidine 20 mg 02/15/18 09:00 02/22/18 08:35 Pepcid PO 20 mg DAILY ANDRY Administration Gabapentin 100 mg 02/14/18 18:00 02/22/18 12:25 Neurontin PO 100 mg TID ANDRY Administration Hydrocortisone Acetate 30 mg 02/15/18 09:00 02/22/18 08:34 Cortef PO 30 mg DAILY ANDRY Administration Hydrocortisone Acetate 20 mg 02/15/18 12:00 02/22/18 12:25 Cortef PO 20 mg DAILY@1200 [facility] Administration Potassium Chloride/Sodium Chloride 1,000 mls @ 84 mls/hr 02/21/18 11:00 02/22 12:23 Ns + Kcl 40 Meq Inj IV.CONT 84 mls/hr .[id number] ANDRY Administration Levothyroxine Sodium 75 mcg 02/15/18 06:00 02/22/18 06:03 Synthroid PO 75 mcg DAILY@0600 [facility] Administration Magnesium Oxide 400 mg 02/22/18 09:00 02/22/18 08:35 Mag-Ox PO 400 mg BID [facility] Administration Morphine Sulfate 2 mg 02/16/18 15:00 02/21/18 21:04 Morphine Inj IV.PUSH 2 mg Q4H PRN Administration pain 7-10 Multi-Ingredient Mouthwash/Gargle 5 ml 02/15/18 13:00 02/22/18 12:23 Magic Mouthwash Adult Liq SWISH-SWAL 5 ml QID ANDRY Administration Mupirocin 1 applicatio 02/14/18 21:00 02/22/18 08:36 Bactroban 2% Oint TOPICAL Not Given BID [facility] Nystatin 1 applicatio 02/16/18 13:00 02/22/18 12:25 Mycostatin Cream TOPICAL 1 applicatio QID ANDRY Administration Ondansetron HCl 4 mg 02/14/18 16:06 02/21/18 08:11 Zofran Inj IV.PUSH 4 mg Q6H PRN Administration NAUSEA OR VOMITING Oxycodone HCl 10 mg 02/14/18 21:00 02/22/18 08:35 Oxycontin Cr PO 10 mg Q12HR ANDRY Administration Phenyleph/Shark Oil/Min Oil/Petrol 1 applicatio 02/18/18 10:00 02/19/18 09:13 Preparation H Oint RECTAL 1 applicatio Q6H PRN Administration Hemorroid pain/itching 0-10 Silver Sulfadiazine 1 applicatio 02/14/18 21:00 02/22/18 08:36 Silvadine 1% Cream (400 Gm) TOPICAL 1 applicatio BID ANDRY Administration Vancomycin HCl 125 mg 02/20/18 16:20 02/22/18 12:24 Vancomycin Po PO 125 mg QID ANDRY Administration Objective Remarks: GENERAL: Elderly chronically ill-appearing female patient, lying in bed, in no acute distress. SKIN: Scattered petechiae HEAD: Normocephalic. + Alopecia EYES: No scleral icterus. No injection or drainage. MOUTH: [place], moist oral mucosa. NECK: Supple, trachea midline. CARDIOVASCULAR: Regular rate and rhythm without murmurs. RESPIRATORY: Posterior breath sounds equal bilaterally. Non-labored. GASTROINTESTINAL: Abdomen soft, non-tender, nondistended. EXTREMITIES: No cyanosis, or edema. MUSCULOSKELETAL: Adequate muscle tone. NEUROLOGICAL: No obvious focal deficit. Awake, alert, and oriented x3. Assessment/Plan - Plan Ms. Whalen is a pleasant 77-year-old female patient currently undergoing treatment for locally advanced anal squamous cell carcinoma. Patient receiving combined chemo radiation therapy. Initial treatment was initiated in November 2017 , 2 cycles of 5FU and mitomycin, cycle #2 was initiated on 02/03/2018. She has 7 fractions of radiation remaining. She has had C. difficile colitis related to chemotherapy myelosuppression. She presented to the ER with reports of fevers, chills, diarrhea and weakness. She reports bright red blood in her stool. The patient is on anticoagulation with Eliquis with a history of DVT, pulmonary embolism and IVC filter placement. Plan: 1. 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 She reports this is much improved today as her frequency of stools has severely diminished. 2. Platelet count stable at 63,000 today. Continue Eliquis for history of DVT/ PE. Hold for any bleeding or if platelet count drops less than 50,000. 3. Continue treatment for C. difficile. Diarrhea much improved after adding Lomotil to regimen. 4. Continue supportive care - Attending Statement The exam, history, and the medical decision-making described in the above note were completed with the assistance of the mid-level provider. I reviewed and agree with the findings presented. I attest that I had a [id number] encounter with the patient on the same day, and personally performed and documented my assessment and findings in the medical record. Diarrhea improved last night with 1 dose of Lomotil. She had liquid diet but had regular diet at lunchtime and subsequently she had watery diarrhea. Admitting physician have stopped the Lomotil and prescribe Questran powder for loose bowel movement She is also complaining of abdominal cramping pain and has been on morphine Continue present treatment plan Dr. Guzman will resume care in the morning
[2018-02-22] MEDS: Morphine Inj 4 MG/ML Vial IV.PUSH PRN (14:19)
[2018-02-22] MEDS: ALPRAZolam 0.5 MG Tablet PO PRN (14:34)
--- NOTE | 2018-02-22 14:59 | P.PN ---
Subjective Interval history: Nursing reports the patient only had one semi-formed stool last night. Patient apparently got Lomotil yesterday 1 dose. However as I am entering upon the room she is being cleaned up from a very watery bowel movement unfortunately. Patient claims that she has been put on a clear diet by somebody. However orders in the chart indicate that she is on a regular diet. Physical Exam Vital signs: Vital Signs 02/21/18 15:32 02/21/18 20:00 02/22/18 00:00 Temperature 98.1 F 98.4 F 98.0 F Pulse Rate 83 84 72 Respiratory Rate 20 19 18 Blood Pressure 161/92 H 155/92 H 148/82 H Pulse Oximetry 96 94 L 92 L 02/22/18 04:00 02/22/18 08:30 02/22/18 11:09 Temperature 98.0 F 98.4 F 98.0 F Pulse Rate 75 80 86 Respiratory Rate 18 16 16 Blood Pressure 156/76 H 167/96 H 173/90 H Pulse Oximetry 96 95 97 Intake & Output 02/21/18 02/22/18 02/22/18 18:59 06:59 18:59 Intake Total 1600 / 1600 2664 / 2664 1000 / 1000 Output Total 2100 / 2100 700 / 700 Balance -500 / -500 1963 / 1963 1000 / 1000 Intake: IV 800 / 800 2013 1000 / 1000 NS + KCl 40 mEq Inj 1,000 ML @ 1000 / 1000 1000 / 1000 84 mls/hr IV.CONT .[id number] [facility] Rx#:[id number] NS Inj 1,000 ML @ 84 mls/hr IV. 600 / 600 CONT .[id number] [facility] Rx#:[id number] KCl 20 mEq Premix Inj 20 meq In 200 / 200 100 ml @ 50 mls/hr IV.SIG Q2H [facility] Rx#:[id number] KCl Inj 20 MEQ Magnesium 1014 / 1014 Sulfate Inj 2 GM In D5W/1/2 NS Inj 1,000 ML @ 500 mls/hr IV. SIG ONCE ONE Rx#:[id number] Oral 800 / 800 650 / 650 Output: Urine 2100 / 2100 700 / 700 Other: # Incontinent Voids 3 Date of Last Bowel Movement 02/21/18 02/22/18 02/22/18 # Bowel Movements 1 # Incontinent Bowel Movements 13 Narrative: Normoactive bowel sounds Abdomen soft, nondistended, nontender Lying in bed, awake and alert, no acute distress Results - Labs CBC & Chem 7: 02/22/18 06:00 02/22/18 06:00 Laboratory Results - last 24 hr 02/22/18 02/22/18 02/22/18 06:00 06:00 06:00 WBC 4.9 RBC 3.49 L Hgb 11.3 L Hct 32.8 L MCV 94.1 MCH 32.4 MCHC 34.4 RDW 19.1 H Plt Count 63 L MPV 8.7 Prelim Diff (Auto) Slide review pending Neut % (Auto) 82.3 H Lymph % (Auto) 10.2 [place] % (Auto) 7.2 Eos % (Auto) 0.1 Baso % (Auto) 0.2 Neut # (Auto) 4.1 Lymph # (Auto) 0.5 L [place] # (Auto) 0.4 Eos # (Auto) 0.0 Baso # (Auto) 0.0 WBC Differential Manual diff final Seg Neuts % (Manual) 64 Band Neuts % (Manual) 27 H Lymphocytes % (Manual) 4 L Monocytes % (Manual) 4 Eosinophils % (Manual) 1 Abs Neuts (Manual) 4.5 Differential Comment . Toxic Granulation 2+ H Platelet Estimate Low L Platelet Morphology Normal Ovalocytes 1+ H Acanthocytes (Spur) Occ H Sodium 141 Potassium 3.5 Chloride 102 Carbon Dioxide 33.9 H Anion Gap 5 BUN 7 Creatinine 0.68 Estimated GFR 84 L Random Glucose 60 L Calcium 7.1 L* Prot Corrected Calcium 8.3 L Magnesium 1.8 Total Protein 4.9 L - Procedures none Assessment and Plan - Assessment (1) Rectal cancer Code(s): C20 - Malignant neoplasm of rectum Status: Acute (2) C. difficile diarrhea Code(s): A04.72 - Enterocolitis due to Clostridium difficile, not specified as recurrent Status: Acute (3) Neutropenia Code(s): D70.9 - Neutropenia, unspecified Status: Acute - Plan Recurrent C. difficile colitis/diarrhea C. difficile PCR negative, however could have been forced negative due to antibiotic therapy Now on vancomycin 125 mg 4 times daily,. Starting Questran. Will avoid all classic anti-kinetic antidiarrheals such as Lomotil and Imodium as this can help retain C. difficile specimens within the colon. Probable UTI Urine culture positive for Klebsiella pneumonia and Pseudomonas Probably colonization. Also, patient is not symptomatic. Would favor not to treat this. External catheter placed on 02/19/2018. Hemorrhoidal pain Currently on preparation H Chemo related neutropenia Oncology following, and patient is currently on Neupogen daily Anal squamous cell carcinoma Patient completing chemo therapy Management per oncology Continue pain medication Other chronic medical conditions Continue outpatient medications Acute renal injury resolved Acute hypokalemia and hypoMg Resolved. Stopping IV fluids DVT prophylaxis: Eliquis Discharge Planning: pending improvement in stool output
[2018-02-22] MEDS: Lisinopril 5 MG Tablet PO SCH (15:40)
[2018-02-22] MEDS ORDERED: Morphine Sulfate Inj 2 MG/ML Vial IV.PUSH PRN (20:17)
[2018-02-22] MEDS: Cholestyramine Light 4 GM Packet PO SCH (20:22)
[2018-02-22] MEDS: Benzonatate 100 MG Capsule PO PRN (23:50)
[2018-02-23] MEDS: Morphine Sulfate 15 MG IR Tablet PO PRN ×5 (04:58→21:49)
[2018-02-23] MEDS: Levothyroxine 75 MCG Tablet PO SCH (05:00)
[2018-02-23 05:23] LABS: Baso % (Auto) 0.4 % (0.0-2.0); Eos % (Auto) 0.1 % (0.0-4.0); Hematocrit 35.4 % (35.0-46.0); Lymph # (Auto) 0.4 th/mm3 (1.0-4.8); Lymph % (Auto) 11.8 % (9.0-44.0); Mean Corpuscular HGB Conc 33.8 % (32.0-36.0); Mean Corpuscular Hemoglobin 32.2 pg (27.0-34.0); Mean Corpuscular Volume 95.2 fL (80.0-100.0); Mean Platelet Volume 8.9 fL (7.0-11.0); Mono # (Auto) 0.3 th/mm3 (0.0-0.9); Mono % (Auto) 8.8 % (0.0-8.0); Neut # (Auto) 2.9 th/mm3 (1.8-7.7); Neut % (Auto) 78.9 % (16.0-70.0); Platelet Count 76 th/mm3 (150-450); Red Blood Count 3.72 mil/mm3 (4.00-5.30); Red Cell Distribution Width 18.8 % (11.6-17.2); White Blood Count 3.6 th/mm3 (4.0-11.0)
[2018-02-23 05:45] LABS: Calcium 7.6 mg/dL (8.5-10.1); Carbon Dioxide 35.9 meq/L (21.0-32.0); Magnesium 1.6 mg/dL (1.5-2.5); Potassium 3.2 meq/L (3.5-5.1)
[2018-02-23 06:58] LABS: Lymphocytes 3 % (9-44); Metamyelocytes 1 % (0-1); Monocytes 5 % (0-8); Myelocytes 1 % (0-0); Platelet Morphology Normal (Normal)
[2018-02-23] MEDS: Hydrocortisone 10 MG Tablet PO SCH ×2 (08:42→11:42)
[2018-02-23] MEDS: Lisinopril 5 MG Tablet PO SCH (08:42)
[2018-02-23] MEDS: Cholestyramine Light 4 GM Packet PO SCH ×3 (08:42→21:48)
[2018-02-23] MEDS: Nystatin/Diphenhydramine/Lidocaine Mouthwash (Adult) 120 ML Botttle SWISH-SWAL SCH ×4 (08:43→21:53)
[2018-02-23] MEDS: oxyCODONE 10 MG Controlled Release Tablet PO SCH ×2 (08:43→21:49)
[2018-02-23] MEDS: Magnesium Oxide 400 MG Tablet PO SCH ×2 (08:43→23:15)
[2018-02-23] MEDS: Gabapentin 100 MG Capsule PO SCH ×3 (08:43→17:21)
[2018-02-23] MEDS: Famotidine 20 MG Tablet PO SCH (08:43)
[2018-02-23] MEDS: Silver Sulfadiazine 1% Ceam 400 GM Jar TOPICAL SCH ×2 (08:48→21:52)
[2018-02-23] MEDS: Benzonatate 100 MG Capsule PO PRN ×2 (09:58→23:17)
--- NOTE | 2018-02-23 10:23 | P.PNONC ---
Subjective Interval history: Afebrile. Patient reports one small watery bowel movement after a coughing fit this a.m. She states that she is trying to advance her diet and is planning to try to participate in physical therapy today. She has a discharge goal of 1-2 days. She asked if her medications can be timed differently as she feels she is getting approximately 10 pills in the morning and minimal pills in the afternoon and evening. Objective Vital Signs/Intake & Output: Vital Signs 02/22/18 11:09 02/22/18 15:23 02/22/18 20:15 Temperature 98.0 F 98.0 F 97.9 F Pulse Rate 86 84 100 H Respiratory Rate 16 18 18 Blood Pressure 173/90 H 157/91 H 156/76 H Pulse Oximetry 97 93 L 96 02/22/18 23:48 02/23/18 04:40 02/23/18 08:30 Temperature 98.6 F 98.6 F 98.7 F Pulse Rate 79 68 79 Respiratory Rate 16 16 18 Blood Pressure 136/80 143/83 H 157/92 H Pulse Oximetry 94 L 94 L 94 L Intake & Output 02/22/18 02/23/18 02/23/18 18:59 06:59 18:59 Intake Total 2700 / 2700 240 / 240 Output Total 1350 / 1350 Balance 2700 / 2700 -1110 / -1110 Intake: IV 1500 / 1500 NS + KCl 40 mEq Inj 1,000 ML @ 1500 / 1500 84 mls/hr IV.CONT .[id number] [facility] Rx#:[id number] Oral 1200 / 1200 240 / 240 Output: Urine 1350 / 1350 Other: # Voids 2,500 Date of Last Bowel Movement 02/22/18 02/22/18 02/23/18 # Bowel Movements 1 3 Result Diagrams: 02/23/18 04:45 02/23/18 04:45 Laboratory Results: Laboratory Results - last 24 hr 02/23/18 02/23/18 04:45 04:45 WBC 3.6 L RBC 3.72 L Hgb 12.0 Hct 35.4 MCV 95.2 MCH 32.2 MCHC 33.8 RDW 18.8 H Plt Count 76 L MPV 8.9 Prelim Diff (Auto) Slide review pending Neut % (Auto) 78.9 H Lymph % (Auto) 11.8 [place] % (Auto) 8.8 H Eos % (Auto) 0.1 Baso % (Auto) 0.4 Neut # (Auto) 2.9 Lymph # (Auto) 0.4 L [place] # (Auto) 0.3 Eos # (Auto) 0.0 Baso # (Auto) 0.0 WBC Differential Manual diff final Seg Neuts % (Manual) 79 H Band Neuts % (Manual) 11 H Lymphocytes % (Manual) 3 L Monocytes % (Manual) 5 Metamyelocytes % (Man) 1 Myelocytes % (Man) 1 H Abs Neuts (Manual) 3.3 Differential Comment . Platelet Estimate Low L Platelet Morphology Normal Sodium 140 Potassium 3.2 L Chloride 100 Carbon Dioxide 35.9 H Anion Gap 4 L BUN 7 Creatinine 0.69 Estimated GFR 82 L Random Glucose 59 L Calcium 7.6 L Magnesium 1.6 Medications: Active Medications Generic Name Dose Route Start Last Admin Trade Name Freq PRN Reason Stop Dose Admin Acetaminophen 650 mg 02/14/18 16:06 02/19/18 17:39 Tylenol PO 650 mg Q4H PRN Administration Temp > 100.4 Acetaminophen 650 mg 02/19/18 08:21 02/19/18 13:09 Tylenol PO 650 mg Q4H PRN Administration SEE LABEL COMMENTS Alprazolam 0.5 mg 02/14/18 16:09 02/22/18 14:34 Xanax PO 0.5 mg BID PRN Administration Anxiety Apixaban 2.5 mg 02/14/18 21:00 02/23/18 08:43 Eliquis PO 2.5 mg BID ANDRY Administration Benzonatate 100 mg 02/16/18 17:14 02/23/18 09:58 Tessalon Perles PO 100 mg Q8H PRN Administration COUGH Cholestyramine Resin 4 gm 02/22/18 20:00 02/23/18 08:42 Questran Light 4 Gm Pkt PO 4 gm Q6HR WHILE AWAKE NEB [facility] Administration Famotidine 20 mg 02/15/18 09:00 02/23/18 08:43 Pepcid PO 20 mg DAILY ANDRY Administration Gabapentin 100 mg 02/14/18 18:00 02/23/18 08:43 Neurontin PO 100 mg TID ANDRY Administration Hydrocortisone Acetate 30 mg 02/15/18 09:00 02/23/18 08:42 Cortef PO 30 mg DAILY [facility] Administration Hydrocortisone Acetate 20 mg 02/15/18 12:00 02/22/18 12:25 Cortef PO 20 mg DAILY@1200 [facility] Administration Levothyroxine Sodium 75 mcg 02/15/18 06:00 02/23/18 05:00 Synthroid PO 75 mcg DAILY@0600 [facility] Administration Lisinopril 2.5 mg 02/22/18 13:00 02/23/18 08:42 Prinivil PO 2.5 mg DAILY [facility] Administration Magnesium Oxide 400 mg 02/22/18 09:00 02/23/18 08:43 Mag-Ox PO 400 mg BID [facility] Administration Miscellaneous 1 each 02/23/18 09:00 02/23/18 08:48 Pill Splitter OTHER 1 each DAILY [facility] Administration Morphine Sulfate 15 mg 02/22/18 14:46 02/23/18 08:51 Msir PO 15 mg Q4H PRN Administration ACUTE PAIN 1-10 Morphine Sulfate 2 mg 02/22/18 20:17 02/22/18 20:10 Morphine Inj IV.PUSH 2 mg Q4H PRN Administration BREAKTHROUGH PAIN Multi-Ingredient Mouthwash/Gargle 5 ml 02/15/18 13:00 02/23/18 08:43 Magic Mouthwash Adult Liq SWISH-SWAL 5 ml QID [facility] Administration Mupirocin 1 applicatio 02/14/18 21:00 02/23/18 08:43 Bactroban 2% Oint TOPICAL Not Given BID [facility] Nystatin 1 applicatio 02/16/18 13:00 02/23/18 08:48 Mycostatin Cream TOPICAL 1 applicatio QID [facility] Administration Ondansetron HCl 4 mg 02/14/18 16:06 02/21/18 08:11 Zofran Inj IV.PUSH 4 mg Q6H PRN Administration NAUSEA OR VOMITING Oxycodone HCl 10 mg 02/14/18 21:00 02/23/18 08:43 Oxycontin Cr PO 10 mg Q12HR [facility] Administration Phenyleph/Shark Oil/Min Oil/Petrol 1 applicatio 02/18/18 10:00 02/19/18 09:13 Preparation H Oint RECTAL 1 applicatio Q6H PRN Administration Hemorroid pain/itching 0-10 Silver Sulfadiazine 1 applicatio 02/14/18 21:00 02/23/18 08:48 Silvadine 1% Cream (400 Gm) TOPICAL 1 applicatio BID [facility] Administration Vancomycin HCl 125 mg 02/20/18 16:20 02/23/18 08:42 Vancomycin Po PO 125 mg QID [facility] Administration Objective Remarks: GENERAL: Elderly female patient, lying in bed, in no acute distress. SKIN: Radiation-induced skin discoloration to pelvic area, erythema/skin breakdown to perianal area, ointment in place. Alopecia. HEAD: Normocephalic. EYES: No scleral icterus. No injection or drainage. NECK: Supple, trachea midline. CARDIOVASCULAR: Regular rate and rhythm without murmurs. RESPIRATORY: Breath sounds equal bilaterally. No accessory muscle use. GASTROINTESTINAL: Abdomen soft, non-tender, nondistended. EXTREMITIES: No cyanosis, or edema. MUSCULOSKELETAL: Adequate muscle tone. NEUROLOGICAL: No obvious focal deficit. Awake, alert, and oriented x3. PSYCHIATRIC: Appropriate mood and affect; insight and judgment normal. Assessment/Plan - Plan Ms. Whalen is a pleasant 77-year-old female patient currently undergoing treatment for locally advanced anal squamous cell carcinoma. Patient receiving combined chemo radiation therapy. Initial treatment was initiated in November 2017 , 2 cycles of 5FU and mitomycin, cycle #2 was initiated on 02/03/2018. She has 7 fractions of radiation remaining. She has had C. difficile colitis related to chemotherapy myelosuppression. She presented to the ER with reports of fevers, chills, diarrhea and weakness. She reports bright red blood in her stool. The patient is on anticoagulation with Eliquis with a history of DVT, pulmonary embolism and IVC filter placement. Plan: 1. 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 This continues to improve. 2. Platelet count has increased to 76,000 today. Continue Eliquis for history of DVT/PE. Hold for any bleeding or if platelet count drops less than 50,000. 3. Continue treatment for C. difficile. Diarrhea much improved, currently on Questran. 4. Continue supportive care - Attending Statement The exam, history, and the medical decision-making described in the above note were completed with the assistance of the mid-level provider. I reviewed and agree with the findings presented. I attest that I had a [id number] encounter with the patient on the same day, and personally performed and documented my assessment and findings in the medical record.Feeling better. Diarrhea has improved. Rectal pain improved. +urinary incontinence. Still not eating well. Slowly advance diet. Continue PT. Hopefully able to d/c soon.
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
--- NOTE | 2018-02-23 14:25 | P.DCO ---
- Physical Therapy Order: Evaluate and treat - Occupational Therapy Order: Evaluate and treat - Home Health Nursing Order: Medical education - Case Management Consult Yes - Certification I have seen patient Rosalva Whalen on 02/23/18. My clinical findings support the need for the requested home health care services because: Limited ability to care for self I certify that my clinical findings support that this patient is homebound because: Unsafe to leave home unassisted
--- NOTE | 2018-02-23 17:28 | P.PN ---
Subjective Interval history: Nursing reports the patient has having only one pasty bowel movement overnight. Patient herself affirms this. She is very hesitant about going home with the possibility of her diarrhea recurring as well as her urinary incontinence. Says she was able to have 3 controlled voids today. Says she used to see Dr. Roberts for urology outpatient. Physical Exam Vital signs: Vital Signs 02/22/18 20:15 02/22/18 23:48 02/23/18 04:40 Temperature 97.9 F 98.6 F 98.6 F Pulse Rate 100 H 79 68 Respiratory Rate 18 16 16 Blood Pressure 156/76 H 136/80 143/83 H Pulse Oximetry 96 94 L 94 L 02/23/18 08:30 02/23/18 11:34 02/23/18 15:53 Temperature 98.7 F 99.3 F 98.6 F Pulse Rate 79 87 93 H Respiratory Rate 18 18 18 Blood Pressure 157/92 H 158/93 H 139/81 Pulse Oximetry 94 L 93 L 91 L Intake & Output 02/22/18 02/23/18 02/23/18 18:59 06:59 18:59 Intake Total 2700 / 2700 240 / 240 Output Total 1350 / 1350 Balance 2700 / 2700 -1110 / -1110 Intake: IV 1500 / 1500 NS + KCl 40 mEq Inj 1,000 ML @ 1500 / 1500 84 mls/hr IV.CONT .[id number] [facility] Rx#:[id number] Oral 1200 / 1200 240 / 240 Output: Urine 1350 / 1350 Other: # Voids 2,500 Date of Last Bowel Movement 02/22/18 02/22/18 02/23/18 # Bowel Movements 1 3 Narrative: Initial exam Nurses present in the room Has a pure wick in place Abdomen soft, nontender Results - Labs CBC & Chem 7: 02/23/18 04:45 02/23/18 04:45 Laboratory Results - last 24 hr 02/23/18 02/23/18 04:45 04:45 WBC 3.6 L RBC 3.72 L Hgb 12.0 Hct 35.4 MCV 95.2 MCH 32.2 MCHC 33.8 RDW 18.8 H Plt Count 76 L MPV 8.9 Prelim Diff (Auto) Slide review pending Neut % (Auto) 78.9 H Lymph % (Auto) 11.8 [place] % (Auto) 8.8 H Eos % (Auto) 0.1 Baso % (Auto) 0.4 Neut # (Auto) 2.9 Lymph # (Auto) 0.4 L [place] # (Auto) 0.3 Eos # (Auto) 0.0 Baso # (Auto) 0.0 WBC Differential Manual diff final Seg Neuts % (Manual) 79 H Band Neuts % (Manual) 11 H Lymphocytes % (Manual) 3 L Monocytes % (Manual) 5 Metamyelocytes % (Man) 1 Myelocytes % (Man) 1 H Abs Neuts (Manual) 3.3 Differential Comment . Platelet Estimate Low L Platelet Morphology Normal Sodium 140 Potassium 3.2 L Chloride 100 Carbon Dioxide 35.9 H Anion Gap 4 L BUN 7 Creatinine 0.69 Estimated GFR 82 L Random Glucose 59 L Calcium 7.6 L Magnesium 1.6 - Procedures none Assessment and Plan - Assessment (1) C. difficile colitis Code(s): A04.72 - Enterocolitis due to Clostridium difficile, not specified as recurrent Status: Acute (2) Rectal cancer Code(s): C20 - Malignant neoplasm of rectum Status: Acute (3) C. difficile diarrhea Code(s): A04.72 - Enterocolitis due to Clostridium difficile, not specified as recurrent Status: Acute (4) Neutropenia Code(s): D70.9 - Neutropenia, unspecified Status: Acute - Plan Recurrent C. difficile colitis/diarrhea C. difficile PCR negative, however could have been forced negative due to antibiotic therapy Now on vancomycin 125 mg 4 times daily,. Continue Questran per patient's preference. Urinary incontinence Urology input appreciated, Detrol LA if patient desires, improving already. UC ordered per urology but avoiding abx. Probable UTI Urine culture positive for Klebsiella pneumonia and Pseudomonas Probably colonization. Also, patient is not symptomatic. Would favor not to treat this. External catheter placed on 02/19/2018. Hemorrhoidal pain Currently on preparation H Chemo related neutropenia Oncology following, and patient is currently on Neupogen daily Anal squamous cell carcinoma Patient completing chemo therapy Management per oncology Continue pain medication Other chronic medical conditions Continue outpatient medications DVT prophylaxis: Eliquis Discharge Planning: pending sustained stool consistency
[2018-02-23] MEDS: ALPRAZolam 0.5 MG Tablet PO PRN (17:31)
[2018-02-23] MEDS: Tolterodine Tartrate LA 4 MG Capsule PO SCH (18:04)
--- NOTE | 2018-02-23 23:46 | XR ---
EXAM DATE: 02/23/2018 8:36 PM EDT AGE/SEX: 77 years / Female INDICATIONS: . Cough. CLINICAL DATA: This is the patient's initial encounter. Patient reports that signs and symptoms have been present for 1 week and indicates a pain score of 0/10. MEDICAL/SURGICAL HISTORY: Carcinoma, rectal. . Infusaport. COMPARISON: [facility] – [place]ST PA & LAT, 05/23/2016. . FINDINGS: Right-sided [id number] again seen. The lungs are clear. Cardiomediastinal silhouette w ithin normal limits. Small pleural effusions identified on the lateral view. No evidence of pneumotho rax. CONCLUSION: Small bilateral pleural effusions seen on the lateral view. Electronically signed by: Jean Scott MD 02/23/2018 11:44 PM EDT
[2018-02-24] MEDS ORDERED: Heparin Central Flush 100 UNIT/ML 5 ML Vial IV.FLUSH PRN ×2 (02:38)
[2018-02-24] MEDS: Levothyroxine 75 MCG Tablet PO SCH (05:22)
[2018-02-24] MEDS: Morphine Sulfate 15 MG IR Tablet PO PRN ×2 (05:22→10:02)
--- NOTE | 2018-02-24 08:51 | P.PNONC ---
Subjective Interval history: Afebrile. Patient sitting up in bed, states she had a wonderful night last night. She was able to rest. Patient denies any further episodes of diarrhea. She reports having a formed bowel movement this a.m. Patient states she is ready to go home today. Objective Vital Signs/Intake & Output: Vital Signs 02/23/18 11:34 02/23/18 15:53 02/23/18 19:34 Temperature 99.3 F 98.6 F 97.9 F Pulse Rate 87 93 H 98 H Respiratory Rate 18 18 16 Blood Pressure 158/93 H 139/81 109/79 Pulse Oximetry 93 L 91 L 94 L 02/23/18 23:11 02/24/18 04:00 Temperature 98.9 F 98.2 F Pulse Rate 87 78 Respiratory Rate 16 16 Blood Pressure 114/73 128/85 Pulse Oximetry 96 96 Intake & Output 02/23/18 02/24/18 02/24/18 18:59 06:59 18:59 Intake Total 1999 / 1999 Output Total 1500 / 1500 450 / 450 Balance 500 / 500 -450 / -450 Intake: Oral 1999 Output: Urine 1500 / 1500 450 / 450 Other: Date of Last Bowel Movement 02/23/18 02/23/18 Result Diagrams: 02/23/18 04:45 02/23/18 04:45 Imaging Studies: Impressions Chest X-Ray 02/23/18 00:00 CONCLUSION: Small bilateral pleural effusions seen on the lateral view. Medications: Active Medications Generic Name Dose Route Start Last Admin Trade Name Freq PRN Reason Stop Dose Admin Acetaminophen 650 mg 02/14/18 16:06 02/19/18 17:39 Tylenol PO 650 mg Q4H PRN Administration Temp > 100.4 Acetaminophen 650 mg 02/19/18 08:21 02/19/18 13:09 Tylenol PO 650 mg Q4H PRN Administration SEE LABEL COMMENTS Alprazolam 0.5 mg 02/14/18 16:09 02/23/18 17:31 Xanax PO 0.5 mg BID PRN Administration Anxiety Apixaban 2.5 mg 02/14/18 21:00 02/23/18 21:50 Eliquis PO 2.5 mg BID ANDRY Administration Benzonatate 100 mg 02/16/18 17:14 02/23/18 23:17 Tessalon Perles PO 100 mg Q8H PRN Administration COUGH Cholestyramine Resin 4 gm 02/22/18 20:00 02/23/18 21:48 Questran Light 4 Gm Pkt PO 4 gm Q6HR WHILE AWAKE NEB ANDRY Administration Famotidine 20 mg 02/15/18 09:00 02/23/18 08:43 Pepcid PO 20 mg DAILY ANDRY Administration Gabapentin 100 mg 02/14/18 18:00 02/23/18 17:21 Neurontin PO 100 mg TID ANDRY Administration Hydrocortisone Acetate 30 mg 02/15/18 09:00 02/23/18 08:42 Cortef PO 30 mg DAILY ANDRY Administration Hydrocortisone Acetate 20 mg 02/15/18 12:00 02/23/18 11:42 Cortef PO 20 mg DAILY@1200 [facility] Administration Levothyroxine Sodium 75 mcg 02/15/18 06:00 02/24/18 05:22 Synthroid PO 75 mcg DAILY@0600 ANDRY Administration Lisinopril 2.5 mg 02/22/18 13:00 02/23/18 08:42 Prinivil PO 2.5 mg DAILY [facility] Administration Magnesium Oxide 400 mg 02/22/18 09:00 02/23/18 23:15 Mag-Ox PO 400 mg BID [facility] Administration Miscellaneous 1 each 02/23/18 09:00 02/23/18 08:48 Pill Splitter OTHER 1 each DAILY [facility] Administration Morphine Sulfate 15 mg 02/22/18 14:46 02/24/18 05:22 Msir PO 15 mg Q4H PRN Administration ACUTE PAIN 1-10 Morphine Sulfate 2 mg 02/22/18 20:17 02/22/18 20:10 Morphine Inj IV.PUSH 2 mg Q4H PRN Administration BREAKTHROUGH PAIN Multi-Ingredient Mouthwash/Gargle 5 ml 02/15/18 13:00 02/23/18 21:53 Magic Mouthwash Adult Liq SWISH-SWAL 5 ml QID [facility] Administration Mupirocin 1 applicatio 02/14/18 21:00 02/23/18 21:36 Bactroban 2% Oint TOPICAL Not Given BID [facility] Nystatin 1 applicatio 02/16/18 13:00 02/23/18 21:52 Mycostatin Cream TOPICAL 1 applicatio QID [facility] Administration Ondansetron HCl 4 mg 02/14/18 16:06 02/21/18 08:11 Zofran Inj IV.PUSH 4 mg Q6H PRN Administration NAUSEA OR VOMITING Oxycodone HCl 10 mg 02/14/18 21:00 02/23/18 21:49 Oxycontin Cr PO 10 mg Q12HR ANDRY Administration Phenyleph/Shark Oil/Min Oil/Petrol 1 applicatio 02/18/18 10:00 02/19/18 09:13 Preparation H Oint RECTAL 1 applicatio Q6H PRN Administration Hemorroid pain/itching 0-10 Silver Sulfadiazine 1 applicatio 02/14/18 21:00 02/23/18 21:52 Silvadine 1% Cream (400 Gm) TOPICAL 1 applicatio BID ANDRY Administration Tolterodine Tartrate 4 mg 02/23/18 15:30 02/23/18 18:04 Detrol La PO Not Given DAILY ANDRY Vancomycin HCl 125 mg 02/20/18 16:20 02/23/18 21:50 Vancomycin Po PO 125 mg QID ANDRY Administration Objective Remarks: GENERAL: Elderly female patient, sitting upright in bed, in no acute distress. SKIN: Alopecia. Radiation-induced skin discoloration to pelvic area, erythema/ skin breakdown to perianal area, ointment in place. HEAD: Normocephalic. EYES: No scleral icterus. No injection or drainage. NECK: Supple, trachea midline. CARDIOVASCULAR: +S1/S2 without murmurs. RESPIRATORY: Breath sounds clear, equal bilaterally. Nonlabored. GASTROINTESTINAL: Abdomen soft, non-tender, nondistended. EXTREMITIES: No cyanosis, or edema. MUSCULOSKELETAL: Adequate muscle tone. NEUROLOGICAL: No obvious focal deficit. Awake, alert, and oriented x3. PSYCHIATRIC: Appropriate mood and affect; insight and judgment normal. Assessment/Plan - Plan Ms. Whalen is a pleasant 77-year-old female patient currently undergoing treatment for locally advanced anal squamous cell carcinoma. Patient receiving combined chemo radiation therapy. Initial treatment was initiated in November 2017 , 2 cycles of 5FU and mitomycin, cycle #2 was initiated on 02/03/2018. She has 7 fractions of radiation remaining. She has had C. difficile colitis related to chemotherapy myelosuppression. She presented to the ER with reports of fevers, chills, diarrhea and weakness. She reports bright red blood in her stool. The patient is on anticoagulation with Eliquis with a history of DVT, pulmonary embolism and IVC filter placement. Plan: 1. Radiation dermatitis, continue alternating nystatin and Silvadene cream. Keep area clean and dry. 2. Platelet count has increased to 76,000 today. Continue Eliquis for history of DVT/PE. Hold for any bleeding or if platelet count drops less than 50,000. 3. Diarrhea, resolved. 4. Patient cleared for discharge from an oncology standpoint. She will follow- up with in 2 weeks. And she will call Dr. Corbett to schedule follow- up with radiation oncology. - Attending Statement The exam, history, and the medical decision-making described in the above note were completed with the assistance of the mid-level provider. I reviewed and agree with the findings presented. I attest that I had a [id number] encounter with the patient on the same day, and personally performed and documented my assessment and findings in the medical record. Late entry. I saw patient in the morning. She is feeling better. She is eager to go home. She had a formed stool this morning. The rectal pain is well controlled. Urinary incontinence also has improved. She is tolerating oral intake. She can be discharged from oncologic standpoint. She will follow-up with radiation oncology to continue radiation.
--- NOTE | 2018-02-24 09:57 | P.DS ---
Date of admission: 02/14/18 14:36 Primary care physician: UNKNOWN Brief History from admission: 77-year-old female for past medical history of anal squamous cell carcinoma and recently treated C. difficile diarrhea presented to the ED for evaluation of multiple episode of loose stool associated with anal and perineal pain. She was previously admitted and treated for C. difficile diarrhea in December 2017. However, she initially presented to the ED on February 13, 2018 for evaluation of diarrheal episode for which patient was started on oral antibiotics. She was previously on oral vancomycin however, stated that it made her diarrheal episode worse and she was switched to p.o. Flagyl by her oncologist. Over the past 24 hours patient has spiked fevers with the highest temp of 102.5 at 2:30 AM. She denies any hematemesis, hematuria. Patient also reported associated bright red blood per rectum his current diarrheal episode which is also associated with abdominal cramps. She has no nausea or vomiting, however she has preferred a bland diet. DS: Diagnosis - Discharge Diagnosis (1) C. difficile colitis Status: Acute (2) Rectal cancer Status: Acute (3) C. difficile diarrhea Status: Acute (4) Neutropenia Status: Acute DS: Medications - Discharge Medications Prescriptions: cholestyramine-aspartame [Cholestyramine Light] 4 gm PO Q6HR PRN #30 ea PRN Reason: Diarrhea nystatin 1 applicatio TOPICAL QID #1 tube phenyleph-min oil-petrolatum [Preparation H] 1 applicatio [place] Q6H PRN #1 tube PRN Reason: Hemorroid pain/itching 0-10 silver sulfadiazine [Silvadene] 1 applicatio TOPICAL BID #1 tube tolterodine [Detrol LA] 4 mg PO DAILY #30 cap vancomycin See Label Instructions .ROUTE .COMPLEX #90 cap DS: Summary Hospital Course: Patient was admitted. Started on high-dose vancomycin for clinical C. difficile with infectious disease co-managing. Urine culture grew out Klebsiella but was concluded to possibly be due to colonization. Oncology also participated in the patient's care. Eventually the patient's diarrhea resolved. The patient's urinary incontinence also improved, was able to control her voids.. Patient has met maximal benefit from hospitalization is clinically stable for discharge. - Time Spent with Patient Total time spent providing and/or coordinating discharge services: Less than 30 minutes - Quality: VTE Deep Vein Thrombosis/Pulmonary Embolism Present on Admission: No Exam Vital signs: Vital Signs 02/23/18 11:34 02/23/18 15:53 02/23/18 19:34 Temperature 99.3 F 98.6 F 97.9 F Pulse Rate 87 93 H 98 H Respiratory Rate 18 18 16 Blood Pressure 158/93 H 139/81 109/79 Pulse Oximetry 93 L 91 L 94 L 02/23/18 23:11 02/24/18 04:00 Temperature 98.9 F 98.2 F Pulse Rate 87 78 Respiratory Rate 16 16 Blood Pressure 114/73 128/85 Pulse Oximetry 96 96 Intake & Output 02/23/18 02/24/18 02/24/18 18:59 06:59 18:59 Intake Total 1999 / 1999 Output Total 1500 / 1500 450 / 450 Balance 500 / 500 -450 / -450 Intake: Oral 1999 Output: Urine 1500 / 1500 450 / 450 Other: Date of Last Bowel Movement 02/23/18 02/23/18 Narrative: Abdomen soft, nontender, nondistended No acute distress Results Procedures completed during hospitalization: none - Impressions ITS Impressions Chest X-Ray 02/23/18 00:00 CONCLUSION: Small bilateral pleural effusions seen on the lateral view. Discharge Plan - Discharge Disposition Patient Disposition: /Home Health Service - Discharge Condition Condition: Stable - Discharge Order Discharge Orders: Discharge Order (Routine); Ordered 02/24/18 Ordered By: Oswaldo Serra - Physicians Team Primary Care Provider: UNKNOWN, Attending Provider: Oswaldo Serra Other Providers: Katalina Mccoy MD ; Liban Guzman MD ; Viral Pedresen MD
[2018-02-24 10:00] VITALS: BP 103/68; PULSE 93; RESP 18; TEMP 98.3; O2SAT 95
[2018-02-24] MEDS: Cholestyramine Light 4 GM Packet PO SCH (10:01)
[2018-02-24] MEDS: Nystatin/Diphenhydramine/Lidocaine Mouthwash (Adult) 120 ML Botttle SWISH-SWAL SCH (10:01)
[2018-02-24] MEDS: Hydrocortisone 10 MG Tablet PO SCH ×2 (10:02→11:16)
[2018-02-24] MEDS: Magnesium Oxide 400 MG Tablet PO SCH (10:02)
[2018-02-24] MEDS: oxyCODONE 10 MG Controlled Release Tablet PO SCH (10:02)
[2018-02-24] MEDS: Lisinopril 5 MG Tablet PO SCH (10:03)
[2018-02-24] MEDS: Gabapentin 100 MG Capsule PO SCH (10:03)
[2018-02-24] MEDS: Famotidine 20 MG Tablet PO SCH (10:03)
[2018-02-24] MEDS: ALPRAZolam 0.5 MG Tablet PO PRN (10:03)
[2018-02-24] MEDS: Tolterodine Tartrate LA 4 MG Capsule PO SCH (10:03)
[2018-02-24] MEDS: Silver Sulfadiazine 1% Ceam 400 GM Jar TOPICAL SCH (10:04)
== END 2018-02-24 11:47 | disposition home health service (06) ==
LOC: NEPE 12:18 → NEDA 14:36 → HCIN 16:28
PROVIDERS: ADMIT Hospitalist; ATTEND Hospitalist